=== PATIENT | male | born 1985 | race Caucasian/White ===

== ENCOUNTER → 2016-08-10 | Outpatient (CLI) | payer MEDICAID ==
[~2016-08-10] MED LIST: CLARTIN; HCTZ; SYNTHROID
--- OUTSIDE RECORDS SUMMARY | 2016-08-10 09:28 | XMS REPORT | Continuity of Care Document ---
Author Author [facility] Organization [facility] Address Unknown Phone Unavailable Care Team Providers Care Certified Cytotechnologist Name Role Phone ALEX SNYDER MD PCP Insurance Providers Payer Name Policy Number Subscriber Name Relationship [facility] [employer] [id number] Tomás Silva 18 Self / Same As Patient Advance Directives Directive Response Recorded Date/Time Advance Directives No 07/24/16 8:11am Resuscitation Status Full Code 07/24/16 8:11am Chief Complaint and Reason for Visit Chief Complaint Abdominal/GI Problems Reason for Visit Nausea and vomiting Problems Active Problems Medical Problem Onset Date Status Nausea and vomiting Unknown Acute Medications Current Home Medications Medication Dose Units Route Directions Days/Qty Instructions Start Date [Clartin] 07/24/16 [Hctz] 07/24/16 [Synthroid] 07/24/16 Social History Social History Problem Response Recorded Date/Time Alcohol Use Occasionally Uses 07/24/2016 8:11am Recreational Drug Use No 07/24/2016 8:11am Recent Foreign Travel No 07/24/2016 8:03am Recent Infectious Disease Exposure No 07/24/2016 8:03am Hospitalization with Isolation Denies 07/24/2016 8:03am Smoking Status Never a Smoker 07/24/2016 8:11am Recent Hopitalizations No 07/24/2016 8:11am Hospitalization with Isolation Denies 07/24/2016 8:03am Query Response Start Date Stop Date Smoking Status Never a Smoker Hospital Discharge Instructions No hospital discharge instructions. Plan of Care Discharge Date 07/24/16 10:08am Disposition 01 HOME, SELF-CARE Condition at Discharge Improved Instructions/Education Provided Nausea and Vomiting, Adult (DC) Prescriptions See Medication Section Referrals ALEX SNYDER MD - Primary Care Physician Additional Instructions/Education Zofran for nausea. Clear liquids today. Close follow-up with Dr. Snyder on Tuesday. Return if any problems. All discharge instructions reviewed with patient and/or family. Voiced understanding. Functional Status No functional status results. Allergies, Adverse Reactions, Alerts No known allergies. Immunizations No immunization records. Vital Signs Acute Vital Signs Vital Response Date/Time Temperature (Fahrenheit) 98.3 degrees F (97.6 - 99.5) 07/24/2016 8:03am Temperature (Calculated Celsius) 36.41844 degrees C (36.4 - 37.5) 07/24/2016 8:03am Temperature Source Temporal 07/24/2016 8:03am Pulse Rate (adult) 105 bpm (60 - 90) 07/24/2016 8:37am Respiratory Rate 18 bpm (12 - 24) 07/24/2016 8:37am O2 Sat by Pulse Oximetry 97 % (88 - 100) 07/24/2016 8:37am Blood Pressure 133/76 mm Hg 07/24/2016 9:27am Blood Pressure Mean 95 mm Hg 07/24/2016 9:27am Pain Numeric Pain Scale 0-No Pain 07/24/2016 8:37am Height (Feet) 5 feet 07/24/2016 8:03am Height (Inches) 7 inches 07/24/2016 8:03am Height (Calculated Centimeters) 170.378646 cm 07/24/2016 8:03am Weight (Pounds) 220 pounds 07/24/2016 8:03am Weight (Calculated Kilograms) 99.440028 kilograms 07/24/2016 8:03am Capillary Refill Capillary Refill Less Than 3 Seconds 07/24/2016 8:03am Height 5 ft 7 in Weight 220 lb Body Mass Index 34.5 kg/m^2 Results Laboratory Results Test Name Result Units Flags Reference Collection Date/Time Result Date/ Time Comments White Blood Count 11.4 10^3/uL H 4.3-11.0 07/24/2016 8:08am 07/24/2016 8: 53am Red Blood Count 5.01 10^6/uL 4.35-5.85 07/24/2016 8:0807/24/2016 8: 53am Hemoglobin 15.4 G/DL 13.3-17.7 07/24/2016 8:0807/24/2016 8:53am Hematocrit 41 % 40-54 07/24/2016 8:0807/24/2016 8:53am Mean Corpuscular Volume 82 FL 80-99 07/24/2016 8:0807/24/2016 8: 53am Mean Corpuscular Hemoglobin 31 PG 25-34 07/24/2016 8:0807/24/2016 8: 53am Mean Corpuscular Hemoglobin Concent 37 G/DL H 32-36 07/24/2016 8:08 8:53am Red Cell Distribution Width 12.1 % 10.0-14.5 07/24/2016 8:082015 8:53am Platelet Count 246 10^3/uL 130-400 07/24/2016 8:08am 07/24/2016 8:53am Mean Platelet Volume 9.2 FL 7.4-10.4 07/24/2016 8:08am 07/24/2016 8: 53am Neutrophils (%) (Auto) 84 % H 42-75 07/24/2016 8:0807/24/2016 8:53am Lymphocytes (%) (Auto) 10 % L 12-44 07/24/2016 8:08am 07/24/2016 8:53am Monocytes (%) (Auto) 5 % 0-12 07/24/2016 8:08am 07/24/2016 8:53am Eosinophils (%) (Auto) 0 % 0-10 07/24/2016 8:0807/24/2016 8:53am Basophils (%) (Auto) 0 % 0-10 07/24/2016 8:08am 07/24/2016 8:53am Neutrophils # (Auto) 9.6 X 10^3 H 1.8-7.8 07/24/2016 8:08am 07/24/2016 8: 53am Lymphocytes # (Auto) 1.2 X 10^3 1.0-4.0 07/24/2016 8:08am 07/24/2016 8: 53am Monocytes # (Auto) 0.5 X 10^3 0.0-1.0 07/24/2016 8:0807/24/2016 8: 53am Eosinophils # (Auto) 0.1 10^3/uL 0.0-0.3 07/24/2016 8:0807/24/2016 8 :53am Basophils # (Auto) 0.0 10^3/uL 0.0-0.1 07/24/2016 8:0807/24/2016 8: 53am Urine Color YELLOW 07/24/2016 9:07/24/2016 9:35am Urine Clarity CLEAR 07/24/2016 9:1207/24/2016 9:35am Urine pH 7 5-9 07/24/2016 9:1207/24/2016 9:35am Urine Specific [place] 1.010 * 1.016-1.022 07/24/2016 9:2015 9:35am Urine Protein NEGATIVE NEGATIVE 07/24/2016 9:07/24/2016 9:35am Urine Glucose (UA) NEGATIVE NEGATIVE 07/24/2016 9:07/24/2016 9: 35am Urine RBC (Auto) NEGATIVE NEGATIVE 07/24/2016 9:1207/24/2016 9: 35am Urine Ketones 2+ * NEGATIVE 07/24/2016 9:07/24/2016 9:35am Urine Nitrite NEGATIVE NEGATIVE 07/24/2016 9:07/24/2016 9:35am Urine Bilirubin NEGATIVE NEGATIVE 07/24/2016 9:1207/24/2016 9: 35am Urine Urobilinogen NORMAL MG/DL NORMAL 07/24/2016 9:1207/24/2016 9: 35am Urine Leukocyte Esterase NEGATIVE NEGATIVE 07/24/2016 9:122015 9:35am Urine RBC NONE /HPF 07/24/2016 9:1207/24/2016 9:35am Urine WBC RARE /HPF 07/24/2016 9:1207/24/2016 9:35am Urine Bacteria TRACE /HPF 07/24/2016 9:1207/24/2016 9:35am Urine Crystals NONE /LPF 07/24/2016 9:1207/24/2016 9:35am Urine Casts NONE /LPF 07/24/2016 9:1207/24/2016 9:35am Urine Mucus NEGATIVE /LPF 07/24/2016 9:12am 07/24/2016 9:35am Urine Culture Indicated NO 07/24/2016 9:12am 07/24/2016 9:35am Lipase 11 U/L 8-78 07/24/2016 8:08am 07/24/2016 9:05am Procedures No known history of procedures. Encounters Encounter Location Arrival/Admit Date Discharge/Depart Date Attending Provider Departed Emergency Room [facility] 07/24/16 8:03am 07/24 10:08am MADINA STEVENS MD Recent Diagnosis
== END ==
LOC: PREOP 09:25
PROVIDERS: ATTEND Surgery Pediatric Surgery
DX: Z01.818 Encounter for other preprocedural examination (principal); K92.0 Hematemesis

== ENCOUNTER 2017-01-25 22:13 | Emergency (ER) | payer MEDICAID ==
[~2017-01-25] VITALS: Ht 170.2 cm; Wt 104.3 kg
--- OUTSIDE RECORDS SUMMARY | 2017-01-25 22:21 | XMS REPORT | Referral Summary ---
Author Author [facility] Organization [facility] Address Unknown Phone Unavailable Care Team Providers Care Human Factors Ergonomist Name Role Phone No PCP, Pt States PCP Encounter VC Date(s): 08/05/15 - 08/05/15 [facility] [address] [place], [place] [address] Discharge Diagnosis: Chest pain Discharge Disposition: 01-Home or Self Care Attending Physician: Aries Ingram DO Admitting Physician: Aries Ingram DO Vital Signs Most recent to 1 oldest [Reference Range]: Temperature Oral 36.5 degC [35.8-37.3 degC] (08/05/15 8:30 PM) Peripheral Pulse 73 bpm Rate [60-100 bpm] (08/05/15 8:30 PM) Heart Rate Monitored 73 bpm [60-100 bpm] (08/05/15 8:29 PM) Respiratory Rate 18 br/min [14-20 br/min] (08/05/15 8:30 PM) Blood Pressure 134/87 mmHg [90-140/60-90 mmHg] (08/05/15 8:30 PM) Mean Arterial 99 mmHg Pressure, Cuff (08/05/15 8:29 PM) SpO2 98 % (08/05/15 8:30 PM) Problem List Condition Effective Dates Status Health Status Informant HTN Active (hypertension)(Confi rmed) Allergies, Adverse Reactions, Alerts No Known Medication Allergies Medications hydrochlorothiazide Oral, Daily, 0 Refill(s) Start Date: 08/05/15 Status: Ordered loratadine 0 Refill(s) Start Date: 08/05/15 Status: Ordered omeprazole Oral, Daily, 0 Refill(s) Start Date: 08/05/15 Status: Ordered OXcarbazepine Oral, 0 Refill(s) Start Date: 08/05/15 Status: Ordered Singulair qPM, 0 Refill(s) Start Date: 08/05/15 Status: Ordered Synthroid Oral, Daily, 0 Refill(s) Start Date: 08/05/15 Status: Ordered Viibryd Oral, Daily, 0 Refill(s) Start Date: 08/05/15 Status: Ordered Results Hematology Most recent to 1 oldest [Reference Range]: WBC [4.8-10.8 6.2 10*3/uL 10*3/uL] (08/05/15 7:19 PM) RBC [4.60-6.20] 4.91 (08/05/15 7:19 PM) Hgb [14.0-18.0 15.6 gm/dL gm/dL] (08/05/15 7:19 PM) Hct [42.0-52.0 %] 42.7 % (08/05/15 7:19 PM) MCV [82.0-99.0 fL] 87.0 fL (08/05/15 7:19 PM) MCH [27.0-32.0 pg] 31.8 pg (08/05/15 7:19 PM) MCHC [32.0-36.0 36.5 gm/dL gm/dL] *HI* (08/05/15 7:19 PM) RDW [11.5-14.5 %] 12.1 % (08/05/15 7:19 PM) Platelet [150-400 226 10*3/uL 10*3/uL] (08/05/15 7:19 PM) MPV [9.4-12.3 fL] 9.9 fL (08/05/15 7:19 PM) Immature 0.2 % Granulocytes (08/05/15 7:19 PM) [0.0-1.0 %] Neutrophils [51-75 55 % %] (08/05/15 7:19 PM) Lymphocytes [20-46 35 % %] (08/05/15 7:19 PM) Monocytes [4-11 %] 7 % (08/05/15 7:19 PM) Eosinophils [0-4 %] 3 % (08/05/15 7:19 PM) Basophils [0-2 %] 0 % (08/05/15 7:19 PM) Neutro Absolute 3.43 10*3 [1.90-7.00 10*3] (08/05/15 7:19 PM) Lymph Absolute 2.18 10*3 [0.80-3.30 10*3] (08/05/15 7:19 PM) [place] Absolute 0.44 10*3 [0.30-1.00 10*3] (08/05/15 7:19 PM) Eos Absolute 0.17 10*3 [0.00-0.50 10*3] (08/05/15 7:19 PM) Baso Absolute 0.01 10*3 [0.00-0.20 10*3] (08/05/15 7:19 PM) Nucleated RBC 0.0 /100 WBC Automated [0 /100 (08/05/15: PM) WBC] Chemistry Most recent to 1 oldest [Reference Range]: Sodium Lvl [136-144 137 mEq/L mEq/L] (08/05/15:19 PM) Potassium Lvl 3.9 mEq/L 1 [3.6-5.1 mEq/L] (08/05/15:19 PM) Chloride [99-109 101 mEq/L mEq/L] (08/05/15 7:19 PM) CO2 [22-32 mEq/L] 27 mEq/L (08/05/15:19 PM) AGAP [3-20] 9 (08/05/15 7:19 PM) BUN [4-20 mg/dL] 10 mg/dL (08/05/15 7:19 PM) Glucose Lvl [70-100 107 mg/dL mg/dL] *HI* (08/05/15:19 PM) Creatinine Lvl 1.03 mg/dL [0.64-1.27 mg/dL] (08/05/15:19 PM) eGFR [>60] >60 2 (08/05/15:19 PM) Calcium Lvl 9.0 mg/dL [8.6-10.0 mg/dL] (08/05/15:19 PM) Albumin Lvl [3.5-4.8 4.3 gm/dL gm/dL] (08/05/15 7:19 PM) Total Protein 6.7 gm/dL [6.1-7.9 gm/dL] (08/05/15 7:19 PM) Globulin [1.9-4.3 2.4 gm/dL gm/dL] (08/05/15 7:19 PM) ALT [17-63 U/L] 24 U/L (08/05/15 7:19 PM) AST [15-41 U/L] 25 U/L (08/05/15 7:19 PM) Alk Phos [26-104 73 U/L U/L] (08/05/15 7:19 PM) Bili Total [0.2-1.2 1.1 mg/dL 3 mg/dL] (08/05/15 7:19 PM) Troponin [<0.06 <0.05 ng/mL ng/mL] (08/05/15 7:19 PM) 1Result Comment: Hemolyzed specimen. The following tests may be affected: ALT, AST, Ammonia, Iron, Potassium, LDH, Amylase, CPK, and Total Bilirubin. 2Result Comment: Multiply eGFR results by 1.21 for race. 3Result Comment: Naproxen, specifically the metabolite O-desmethylnaproxen, may cause spurious elevation in Total Bilirubin levels. Immunizations No data available for this section Procedures No data available for this section Social History Social History Type Response Smoking Status Current every day smoker; Type: Cigars Assessment and Plan No data available for this section
--- OUTSIDE RECORDS SUMMARY | 2017-01-25 22:21 | XMS REPORT ---
Author Author CAMERON BAUMANN [facility] [employer] Address Unknown Phone Unavailable Care Team Providers Care Dietetics Professor Name Role Phone CAMERON BAUMANN Unavailable Allergies No Known Allergies Problems Problem Type Condition Code Onset Dates Condition Status Problem Mild intellectual disability F70 Active Problem Mood disorder F39 Active Problem Intermittent explosive disorder in adult F63.81 Active Assessment Mood disorder F39 Active Medications No Known Medications Procedures Procedure Coding System Code Date Psychotherapy, patient &/family, 30 minutes, established patient CPT-4 35161 Jun 01, 2016 Results No Known Results Summary Purpose eClinicalWorks Submission
--- OUTSIDE RECORDS SUMMARY | 2017-01-25 22:21 | XMS REPORT ---
Author Author CAMERON BAUMANN [facility] e[employer] Address Unknown Phone Unavailable Care Team Providers Care Client Resource Specialist Name Role Phone CAMERON BAUMANN Unavailable Allergies No Known Allergies Problems Problem Type Condition Code Onset Dates Condition Status Problem Mild intellectual disability F70 Active Problem Mood disorder F39 Active Problem Intermittent explosive disorder in adult F63.81 Active Assessment Mood disorder F39 Active Medications No Known Medications Procedures Procedure Coding System Code Date Psychotherapy, patient &/family, 30 minutes, established patient CPT-4 18150 May 18, 2016 Results No Known Results Summary Purpose eClinicalWorks Submission
--- OUTSIDE RECORDS SUMMARY | 2017-01-25 22:22 | XMS REPORT ---
Author Author ASYA GALLOWAY [employer] Address Unknown Phone Unavailable Care Team Providers Care Land Reclamation Specialist Name Role Phone ASYA GALLOWAY CP Unavailable Allergies, Adverse Reactions, Alerts Substance Reaction Event Type N.K.D.A. Info Not Available Non Drug Allergy Problems Problem Type Condition Code Onset Dates Condition Status Problem Mild intellectual disability F70 Active Problem Mood disorder F39 Active Problem Intermittent explosive disorder in adult F63.81 Active Assessment Mood disorder F39 Active Assessment Intermittent explosive disorder in adult F63.81 Active Assessment Mild intellectual disability F70 Active Medications Medication Code System Code Instructions Start Date End Date Status Dosage Synthroid [facility] [address]-32 50 mcg October 03, 2014 1 Tablet by Oral route 1 time per day for hypothyroidism Singulair [facility] [address]-42 10 mg October 03, 2014 1 Tablet by Oral route 1 time per day for allergy Protonix [facility] [address]-08 40 MG Orally Once a day 1 tablet Hydrochlorothiazide [facility] [address]-40 12.5 MG Orally Once a day 1 tablet Trileptal [facility] [address]-50 300 MG Orally for anger December 31, 2014 1 tab in AM and 2 tabs at HS Ventolin HFA [facility] [address]-51 90 mcg/actuation October 03, 2014 2 puffs by Inhalation route every 6 hours PRN shortness of air/chest tightness Flonase NDC 0 50 mcg/actuation October 03, 2014 1 Nasal [place] by Nasal route 1 time per day qHS for allergies HydrOXYzine Pamoate [facility] [address]-46 50 mg Orally 2 times a day for anxiety May 18, 2016 1 capsule Viibryd [facility] [address]-62 20 mg Once a day October 03, 2014 1 tab by Oral route 1 time per day Procedures Procedure Coding System Code Date Office Visit, Est Pt., Level 5 CPT-4 73644 May 18, 2016 Vital Signs Date/Time: May 18, 2016 Cardiac Monitoring Heart Rate 72 bpm Weight 224 lbs Height 67.75 in BMI 34.31 Index Blood Pressure Diastolic 80 mmHg Blood Pressure Systolic 130 mmHg Results No Known Results Summary Purpose eClinicalWorks Submission
--- OUTSIDE RECORDS SUMMARY | 2017-01-25 22:23 | XMS REPORT | Continuity of Care Document ---
Author Author [facility] Address Unknown Phone Unavailable Allergies Active Description Code Type Severity Reaction Onset Reported/Identified Relationship to Patient Clinical Status Yes No Known Medication Allergies NKMA N/A N/A 08/05/2015 Medications Medication Packaging Start Date Stop Date Route Dosage Sig Viibryd 20 MG Oral Tablet UD 09/23/2015 10/24/2015 ORAL 20MG TAKE 1 TABLET AT BEDTIME. Viibryd 10 MG Oral Tablet UD 09/23/2015 10/24/2015 ORAL 10MG 1 tab. po hs. Trileptal 300 MG Oral Tablet UD 09/23/2015 10/24/2015 ORAL 300MG TAKE 1 TABLET TWICE DAILY. OXcarbazepine 300 MG Oral Tablet UD 11/11/2015 01/11/2016 ORAL 300MG TAKE 1 TABLET TWICE DAILY. OXcarbazepine 300 MG Oral Tablet UD 11/24/2015 04/23/2016 ORAL 300MG 1 tab po [id number](am T hs) Viibryd 20 MG Oral Tablet UD 11/24/2015 04/23/2016 ORAL 20MG 1 tab po QAM Problems Date Dx Coded Attending Type Code Diagnosis Diagnosed By 09/26/2009 311 MO DEPRESS NOS 09/26/2009 317 MILD MENTAL RETARDATION 09/26/2009 311 MO DEPRESS NOS 09/26/2009 317 MILD MENTAL RETARDATION 09/26/2009 311 MO DEPRESS NOS 09/26/2009 317 MILD MENTAL RETARDATION 09/26/2009 311 MO DEPRESS NOS 09/26/2009 317 MILD MENTAL RETARDATION 09/26/2009 311 MO DEPRESS NOS 09/26/2009 317 MILD MENTAL RETARDATION 09/26/2009 311 MO DEPRESS NOS 09/26/2009 317 MILD MENTAL RETARDATION 09/26/2009 311 MO DEPRESS NOS 09/26/2009 317 MILD MENTAL RETARDATION 09/26/2009 PASTOR RODRIGUEZ, CAMERON Rod 311 MO DEPRESS NOS 09/26/2009 CAMERON BAUMANN PHD 317 MILD MENTAL RETARDATION 09/26/2009 311 MO DEPRESS NOS 09/26/2009 317 MILD MENTAL RETARDATION 09/26/2009 311 MO DEPRESS NOS 09/26/2009 317 MILD MENTAL RETARDATION 09/26/2009 311 MO DEPRESS NOS 09/26/2009 317 MILD MENTAL RETARDATION 09/26/2009 311 MO DEPRESS NOS 09/26/2009 317 MILD MENTAL RETARDATION 09/26/2009 311 MO DEPRESS NOS 09/26/2009 317 MILD MENTAL RETARDATION 09/26/2009 311 MO DEPRESS NOS 09/26/2009 317 MILD MENTAL RETARDATION 09/26/2009 311 MO DEPRESS NOS 09/26/2009 317 MILD MENTAL RETARDATION 09/26/2009 311 MO DEPRESS NOS 09/26/2009 317 MILD MENTAL RETARDATION 09/26/2009 PASTOR PHD, CAMERON A 311 MO DEPRESS NOS 09/26/2009 PASTOR PHD, CAMERON A 317 MILD MENTAL RETARDATION 09/26/2009 PASTOR PHD, CAMERON A 311 MO DEPRESS NOS 09/26/2009 PASTOR PHD, CAMERON A 317 MILD MENTAL RETARDATION 09/26/2009 PASTOR PHD, CAMERON A 311 MO DEPRESS NOS 09/26/2009 PASTOR PHD, CAMERON A 317 MILD MENTAL RETARDATION 09/26/2009 PASTOR PHD, CAMERON A 311 MO DEPRESS NOS 09/26/2009 PASTOR PHD, CAMERON A 317 MILD MENTAL RETARDATION 09/26/2009 PASTOR PHD, CAMERON A 311 MO DEPRESS NOS 09/26/2009 PASTOR PHD, CAMERON A 317 MILD MENTAL RETARDATION 09/26/2009 PASTOR PHD, CAMERON A 311 MO DEPRESS NOS 09/26/2009 PASTOR PHD, CAMERON A 317 MILD MENTAL RETARDATION 09/26/2009 PASTOR PHD, CAMERON A 311 MO DEPRESS NOS 09/26/2009 PASTOR PHD, CAMERON A 317 MILD MENTAL RETARDATION 09/26/2009 PASTOR PHD, CAMERON A 311 MO DEPRESS NOS 09/26/2009 PASTOR PHD, CAMERON A 317 MILD MENTAL RETARDATION 09/26/2009 PASTOR PHD, CAMERON A 311 MO DEPRESS NOS 09/26/2009 PASTOR PHD, CAMERON A 317 MILD MENTAL RETARDATION 09/26/2009 PASTOR PHD, CAMERON A 311 MO DEPRESS NOS 09/26/2009 PASTOR PHD, CAMERON A 317 MILD MENTAL RETARDATION 09/26/2009 PASTOR PHD, CAMERON A 311 MO DEPRESS NOS 09/26/2009 PASTOR PHD, CAMERON A 317 MILD MENTAL RETARDATION 09/26/2009 PASTOR PHD, CAMERON A 311 MO DEPRESS NOS 09/26/2009 BOEJEISON PHD, CAMERON A 317 MILD MENTAL RETARDATION 09/26/2009 BOEJEISON PHD, CAMERON A 311 MO DEPRESS NOS 09/26/2009 BOEPAULINEOUT PHD, CAMERON A 317 MILD MENTAL RETARDATION 09/26/2009 BOEJEISON PHD, CAMERON A 311 MO DEPRESS NOS 09/26/2009 BOEJEISON PHD, CAMERON A 317 MILD MENTAL RETARDATION 09/26/2009 BOEPAULINEOUT PHD, CAMERON A 311 MO DEPRESS NOS 09/26/2009 BOEPAULINEOUT PHD, CAMERON A 317 MILD MENTAL RETARDATION 09/26/2009 BOEPAULINEOUT PHD, CAMERON A 311 MO DEPRESS NOS 09/26/2009 BOEJEISON PHD, CAMERON A 317 MILD MENTAL RETARDATION 09/26/2009 BOEJEISON PHD, CAMERON A 311 MO DEPRESS NOS 09/26/2009 BOEJEISON PHD, CAMERON A 317 MILD MENTAL RETARDATION 09/26/2009 BOEJEISON PHD, CAMERON A 311 MO DEPRESS NOS 09/26/2009 BOEJEISON PHD, CAMERON A 317 MILD MENTAL RETARDATION 09/26/2009 BOEJEISON PHD, CAMERON A 311 MO DEPRESS NOS 09/26/2009 BOEJEISON PHD, CAMERON A 317 MILD MENTAL RETARDATION 09/26/2009 BOEJEISON PHD, CAMERON A 311 MO DEPRESS NOS 09/26/2009 BOEJEISON PHD, CAMERON A 317 MILD MENTAL RETARDATION 09/26/2009 BOEJEISON PHD, CAMERON A 311 MO DEPRESS NOS 09/26/2009 BOEJEISON PHD, CAMERON A 317 MILD MENTAL RETARDATION 09/26/2009 BOEJEISON PHD, CAMERON A 311 MO DEPRESS NOS 09/26/2009 BOEJEISON PHD, CAMERON A 317 MILD MENTAL RETARDATION 09/26/2009 BOEJEISON PHD, CAMERON A 311 MO DEPRESS NOS 09/26/2009 BOEJEISON PHD, CAMERON A 317 MILD MENTAL RETARDATION 09/26/2009 ASYA GALLOWAY APRN J 311 MO DEPRESS NOS 09/26/2009 ASYA GALLOWAY APRN J 317 MILD MENTAL RETARDATION 09/26/2009 PASTOR PHD, CAMERON A 311 MO DEPRESS NOS 09/26/2009 PASTOR PHD, CAMERON A 317 MILD MENTAL RETARDATION 10/03/2014 PASTOR PHD, CAMERON A 300.02 AN GEN ANXIETY 10/03/2014 PASTOR RODRIGUEZ, CAMERON Rod 312.34 INTERMITTENT EXPLOSIVE DISORDER 10/03/2014 LAVERNE MURGUIA, ASYA Cho 300.02 AN GEN ANXIETY 10/03/2014 ASYA GALLOWAY APRN 312.34 INTERMITTENT EXPLOSIVE DISORDER 10/03/2014 PASTOR RODRIGUEZ, CAMERON Rod 300.02 AN GEN ANXIETY 10/03/2014 PASTOR RODRIGUEZ, CAMERON Rod 312.34 INTERMITTENT EXPLOSIVE DISORDER 07/22/2015 F F25.0 Schizoaffective disorder, bipolar type Pastor, Bisi 07/22/2015 F F70 Mild intellectual disabilities 07/22/2015 F F90.1 Attention-deficit hyperactivity disorder, predominantly hyperactive type 07/22/2015 F F25.0 Schizoaffective disorder, bipolar type 07/22/2015 F F43.10 Post-traumatic stress disorder, unspecified Pastor, Bisi 07/22/2015 F F70 Mild intellectual disabilities Pastor, Bisi 07/22/2015 F F90.1 Attention-deficit hyperactivity disorder, predominantly hyperactive type Pastor, Bisi 07/29/2015 F F70 Mild intellectual disabilities 07/29/2015 F F90.1 Attention-deficit hyperactivity disorder, predominantly hyperactive type 08/05/2015 F F70 Mild intellectual disabilities 08/05/2015 F F90.1 Attention-deficit hyperactivity disorder, predominantly hyperactive type 08/06/2015 F F25.0 Schizoaffective disorder, bipolar type Markie, Irineo 08/06/2015 F F70 Mild intellectual disabilities Markie, [place] 08/06/2015 F F90.1 Attention-deficit hyperactivity disorder, predominantly hyperactive type [place], Irineo 08/07/2015 F F70 Mild intellectual disabilities 08/07/2015 F F90.1 Attention-deficit hyperactivity disorder, predominantly hyperactive type 08/07/2015 F F25.0 Schizoaffective disorder, bipolar type Markie, Irineo 08/07/2015 F F70 Mild intellectual disabilities [place], Irineo 08/07/2015 F F90.1 Attention-deficit hyperactivity disorder, predominantly hyperactive type Markie, [place] 08/08/2015 F F25.0 Schizoaffective disorder, bipolar type 08/08/2015 F F43.10 Post-traumatic stress disorder, unspecified Pastor, Bisi 08/08/2015 F F70 Mild intellectual disabilities Pastor, Bisi 08/08/2015 F F90.1 Attention-deficit hyperactivity disorder, predominantly hyperactive type Pastor, Bisi 08/11/2015 F F25.0 Schizoaffective disorder, bipolar type 08/15/2015 Final I10 Essential (primary) hypertension 08/15/2015 Reason R07.9 Chest pain, unspecified 08/15/2015 Final Z72.0 Tobacco use 08/19/2015 F F70 Mild intellectual disabilities 08/19/2015 F F90.1 Attention-deficit hyperactivity disorder, predominantly hyperactive type 08/20/2015 F F25.0 Schizoaffective disorder, bipolar type Markie, Irineo 08/20/2015 F F70 Mild intellectual disabilities Markie, [place] 08/20/2015 F F90.1 Attention-deficit hyperactivity disorder, predominantly hyperactive type [place], [place] 08/21/2015 F F25.0 Schizoaffective disorder, bipolar type 08/25/2015 F F25.0 Schizoaffective disorder, bipolar type 08/26/2015 F F70 Mild intellectual disabilities 08/26/2015 F F90.1 Attention-deficit hyperactivity disorder, predominantly hyperactive type 08/28/2015 F F70 Mild intellectual disabilities 08/28/2015 F F90.1 Attention-deficit hyperactivity disorder, predominantly hyperactive type 08/29/2015 F F25.0 Schizoaffective disorder, bipolar type Markie, Irineo 08/29/2015 F F70 Mild intellectual disabilities 08/29/2015 F F90.1 Attention-deficit hyperactivity disorder, predominantly hyperactive type 08/29/2015 F F70 Mild intellectual disabilities Markie, Irineo 08/29/2015 F F90.1 Attention-deficit hyperactivity disorder, predominantly hyperactive type Markie, Irineo 09/01/2015 F F25.0 Schizoaffective disorder, bipolar type 09/01/2015 F F25.0 Schizoaffective disorder, bipolar type [place], Irineo 09/01/2015 F F70 Mild intellectual disabilities Markie, [place] 09/01/2015 F F90.1 Attention-deficit hyperactivity disorder, predominantly hyperactive type [place], Irineo 09/01/2015 F F25.0 Schizoaffective disorder, bipolar type 09/11/2015 F F70 Mild intellectual disabilities 09/11/2015 F F90.1 Attention-deficit hyperactivity disorder, predominantly hyperactive type 09/12/2015 F F25.0 Schizoaffective disorder, bipolar type Barshney, Bisi A 09/12/2015 F F70 Mild intellectual disabilities Barshney, Bisi A 09/12/2015 F F90.1 Attention-deficit hyperactivity disorder, predominantly hyperactive type Barshney, Bisi A 09/18/2015 F F25.0 Schizoaffective disorder, bipolar type Cobb, Ann-Marie L 09/18/2015 F F70 Mild intellectual disabilities Cobb, Ann-Marie L 09/18/2015 F F90.1 Attention-deficit hyperactivity disorder, predominantly hyperactive type Cobb, Ann-Marie L 09/18/2015 F F70 Mild intellectual disabilities 09/18/2015 F F90.1 Attention-deficit hyperactivity disorder, predominantly hyperactive type 09/18/2015 F F25.0 Schizoaffective disorder, bipolar type 09/18/2015 F F70 Mild intellectual disabilities 09/18/2015 F F90.1 Attention-deficit hyperactivity disorder, predominantly hyperactive type 09/19/2015 F F25.0 Schizoaffective disorder, bipolar type Barshney, Bisi A 09/19/2015 F F70 Mild intellectual disabilities Barshney, Bisi A 09/19/2015 F F90.1 Attention-deficit hyperactivity disorder, predominantly hyperactive type Barshney, Bisi A 09/19/2015 F F25.0 Schizoaffective disorder, bipolar type 09/19/2015 F F25.0 Schizoaffective disorder, bipolar type 09/19/2015 F F43.10 Post-traumatic stress disorder, unspecified Pastor, Bisi 09/19/2015 F F70 Mild intellectual disabilities Pastor, Bisi 09/19/2015 F F90.1 Attention-deficit hyperactivity disorder, predominantly hyperactive type Pastor, Bisi 09/22/2015 F F70 Mild intellectual disabilities 09/22/2015 F F90.1 Attention-deficit hyperactivity disorder, predominantly hyperactive type 09/23/2015 F F25.0 Schizoaffective disorder, bipolar type LorenaEduardo S 09/23/2015 F F25.0 Schizoaffective disorder, bipolar type Karsten Yoder L 09/23/2015 F F70 Mild intellectual disabilities 09/23/2015 F F90.1 Attention-deficit hyperactivity disorder, predominantly hyperactive type 09/23/2015 F F70 Mild intellectual disabilities Karsten Yoder L 09/23/2015 F F90.1 Attention-deficit hyperactivity disorder, predominantly hyperactive type Karsten Yoder L 09/23/2015 F F43.10 Post-traumatic stress disorder, unspecified Lorena, Eduardo S 09/23/2015 F F70 Mild intellectual disabilities Eduardo Carrillo S 09/23/2015 F F90.1 Attention-deficit hyperactivity disorder, predominantly hyperactive type Jasononilla, Eduardo S 09/23/2015 F F25.0 Schizoaffective disorder, bipolar type Barshney, Bisi A 09/23/2015 F F70 Mild intellectual disabilities Barshney, Bisi A 09/23/2015 F F90.1 Attention-deficit hyperactivity disorder, predominantly hyperactive type Barshney, Bisi A 09/23/2015 F F25.0 Schizoaffective disorder, bipolar type 09/23/2015 F F43.10 Post-traumatic stress disorder, unspecified Toreylla, Eduardo S 09/23/2015 F F70 Mild intellectual disabilities Lorena, Eduardo S 09/23/2015 F F90.1 Attention-deficit hyperactivity disorder, predominantly hyperactive type Jasononilla, Eduardo S 09/26/2015 F F25.0 Schizoaffective disorder, bipolar type 09/30/2015 F F70 Mild intellectual disabilities 09/30/2015 F F90.1 Attention-deficit hyperactivity disorder, predominantly hyperactive type 10/01/2015 F F25.0 Schizoaffective disorder, bipolar type Barshney, Bisi A 10/01/2015 F F70 Mild intellectual disabilities Barshney, Bisi A 10/01/2015 F F90.1 Attention-deficit hyperactivity disorder, predominantly hyperactive type Barshney, Bisi A 10/01/2015 F F25.0 Schizoaffective disorder, bipolar type 10/17/2015 F F70 Mild intellectual disabilities 10/17/2015 F F90.1 Attention-deficit hyperactivity disorder, predominantly hyperactive type 10/17/2015 F F25.0 Schizoaffective disorder, bipolar type Barshney, Bisi A 10/17/2015 F F70 Mild intellectual disabilities Barshney, Bisi A 10/17/2015 F F90.1 Attention-deficit hyperactivity disorder, predominantly hyperactive type Barshney, Bisi A 10/17/2015 F F25.0 Schizoaffective disorder, bipolar type 10/20/2015 F F70 Mild intellectual disabilities 10/20/2015 F F90.1 Attention-deficit hyperactivity disorder, predominantly hyperactive type 10/20/2015 F F25.0 Schizoaffective disorder, bipolar type Barshney, Bisi A 10/20/2015 F F70 Mild intellectual disabilities Barshney, Bisi A 10/20/2015 F F90.1 Attention-deficit hyperactivity disorder, predominantly hyperactive type Barshney, Bisi A 10/20/2015 F F25.0 Schizoaffective disorder, bipolar type 10/29/2015 F F70 Mild intellectual disabilities 10/29/2015 F F90.1 Attention-deficit hyperactivity disorder, predominantly hyperactive type 10/29/2015 F F25.0 Schizoaffective disorder, bipolar type Ailyn, Talli 10/29/2015 F F70 Mild intellectual disabilities Ailyn, Talli 10/29/2015 F F90.1 Attention-deficit hyperactivity disorder, predominantly hyperactive type Ailyn, Talli 10/30/2015 F F70 Mild intellectual disabilities Mil, Smiley Amina 10/30/2015 F F90.1 Attention-deficit hyperactivity disorder, predominantly hyperactive type Chambers, Smiley Amina 10/30/2015 F F25.0 Schizoaffective disorder, bipolar type 10/30/2015 F F43.10 Post-traumatic stress disorder, unspecified Jasononilla, Eduardo S 10/30/2015 F F70 Mild intellectual disabilities Lorena, Eduardo S 10/30/2015 F F90.1 Attention-deficit hyperactivity disorder, predominantly hyperactive type Jasononilla, Eduardo S 10/31/2015 F F70 Mild intellectual disabilities Mil, Smiley Amian 10/31/2015 F F90.1 Attention-deficit hyperactivity disorder, predominantly hyperactive type Chambers, Smiley Amina 11/03/2015 F F70 Mild intellectual disabilities 11/03/2015 F F90.1 Attention-deficit hyperactivity disorder, predominantly hyperactive type 11/03/2015 F F25.0 Schizoaffective disorder, bipolar type Barshney, Bisi A 11/03/2015 F F70 Mild intellectual disabilities Barshney, Bisi A 11/03/2015 F F90.1 Attention-deficit hyperactivity disorder, predominantly hyperactive type Barshney, Bisi A 11/03/2015 F F25.0 Schizoaffective disorder, bipolar type Smiley Jaeger 11/03/2015 F F25.0 Schizoaffective disorder, bipolar type Smiley Jaeger Amina 11/05/2015 F F70 Mild intellectual disabilities 11/05/2015 F F90.1 Attention-deficit hyperactivity disorder, predominantly hyperactive type 11/06/2015 F F25.0 Schizoaffective disorder, bipolar type Barshney, Bisi A 11/06/2015 F F70 Mild intellectual disabilities Barshney, Bisi A 11/06/2015 F F90.1 Attention-deficit hyperactivity disorder, predominantly hyperactive type Barshney, Bisi A 11/06/2015 F F25.0 Schizoaffective disorder, bipolar type 11/10/2015 F F25.0 Schizoaffective disorder, bipolar type 11/11/2015 F F70 Mild intellectual disabilities 11/11/2015 F F90.1 Attention-deficit hyperactivity disorder, predominantly hyperactive type 11/11/2015 F F70 Mild intellectual disabilities 11/11/2015 F F90.1 Attention-deficit hyperactivity disorder, predominantly hyperactive type 11/11/2015 F F70 Mild intellectual disabilities 11/11/2015 F F90.1 Attention-deficit hyperactivity disorder, predominantly hyperactive type 11/11/2015 F F25.0 Schizoaffective disorder, bipolar type 11/12/2015 F F70 Mild intellectual disabilities 11/12/2015 F F90.1 Attention-deficit hyperactivity disorder, predominantly hyperactive type 11/14/2015 F F25.0 Schizoaffective disorder, bipolar type Barshney, Bisi A 11/14/2015 F F70 Mild intellectual disabilities Barshney, Bisi A 11/14/2015 F F90.1 Attention-deficit hyperactivity disorder, predominantly hyperactive type Barshney, Bisi A 11/14/2015 F F25.0 Schizoaffective disorder, bipolar type Barshney, Bisi A 11/14/2015 F F70 Mild intellectual disabilities Barshney, Bisi A 11/14/2015 F F90.1 Attention-deficit hyperactivity disorder, predominantly hyperactive type Barshney, Bisi A 11/14/2015 F F25.0 Schizoaffective disorder, bipolar type 11/17/2015 F F25.0 Schizoaffective disorder, bipolar type 11/18/2015 F F70 Mild intellectual disabilities 11/18/2015 F F90.1 Attention-deficit hyperactivity disorder, predominantly hyperactive type 11/19/2015 F F25.0 Schizoaffective disorder, bipolar type Fritzhnloren, Bisi A 11/19/2015 F F70 Mild intellectual disabilities Pan, Bisi A 11/19/2015 F F90.1 Attention-deficit hyperactivity disorder, predominantly hyperactive type Frizthney, Bisi A 11/21/2015 F F25.0 Schizoaffective disorder, bipolar type 11/21/2015 Boo POLLOCK, Adonis Helton R11.2 Nausea with vomiting, unspecified 11/21/2015 F F70 Mild intellectual disabilities 11/21/2015 F F90.1 Attention-deficit hyperactivity disorder, predominantly hyperactive type 11/21/2015 F F70 Mild intellectual disabilities 11/21/2015 F F90.1 Attention-deficit hyperactivity disorder, predominantly hyperactive type 11/21/2015 F F25.0 Schizoaffective disorder, bipolar type Emani Santiago 11/21/2015 F F70 Mild intellectual disabilities Emani Santiago 11/21/2015 F F90.1 Attention-deficit hyperactivity disorder, predominantly hyperactive type Emani Santiago 11/24/2015 F E07.9 Disorder of thyroid, unspecified Ally Thakkare 11/24/2015 F F25.0 Schizoaffective disorder, bipolar type Pan, Bisi A 11/24/2015 F F70 Mild intellectual disabilities Pan, Bisi A 11/24/2015 F F90.1 Attention-deficit hyperactivity disorder, predominantly hyperactive type Fritzhnloren, Bisi A 11/24/2015 F F25.0 Schizoaffective disorder, bipolar type Concepcion Trujillo L 11/24/2015 F F70 Mild intellectual disabilities Concepcion Trujillo L 11/24/2015 F F90.1 Attention-deficit hyperactivity disorder, predominantly hyperactive type Concepcion Trujillo L 11/24/2015 F E78.0 Pure hypercholesterolemia Ally Thakkar Mitali 11/24/2015 F F25.0 Schizoaffective disorder, bipolar type Ally Thakkar Mitali 11/24/2015 F F43.10 Post-traumatic stress disorder, unspecified Bijan Ally Mitali 11/24/2015 F F70 Mild intellectual disabilities Ally Thakkar 11/24/2015 F F90.1 Attention-deficit hyperactivity disorder, predominantly hyperactive type Ally Thakkar 11/24/2015 F I10 Essential (primary) hypertension Ally Thakkar 11/24/2015 F J45.40 Moderate persistent asthma, uncomplicated Ally Thakkar 11/24/2015 F K21.9 Gastro-esophageal reflux disease without esophagitis Ally Thakkar 11/24/2015 F F70 Mild intellectual disabilities 11/24/2015 F F90.1 Attention-deficit hyperactivity disorder, predominantly hyperactive type 11/24/2015 F I10 Essential (primary) hypertension 11/24/2015 F F70 Mild intellectual disabilities Ally Thakkar 11/24/2015 F F90.1 Attention-deficit hyperactivity disorder, predominantly hyperactive type Ally Thakkar 11/24/2015 F I10 Essential (primary) hypertension Ally Thakkar 11/24/2015 F F70 Mild intellectual disabilities 11/24/2015 F F90.1 Attention-deficit hyperactivity disorder, predominantly hyperactive type 11/24/2015 F I10 Essential (primary) hypertension 11/24/2015 F F25.0 Schizoaffective disorder, bipolar type Ally Thakkar 11/24/2015 F E78.0 Pure hypercholesterolemia Ally Thakkar 11/24/2015 F F25.0 Schizoaffective disorder, bipolar type Ally Thakkar 11/24/2015 F F43.10 Post-traumatic stress disorder, unspecified Ally Thakkar 11/24/2015 F F70 Mild intellectual disabilities Ally Thakkar 11/24/2015 F F90.1 Attention-deficit hyperactivity disorder, predominantly hyperactive type Ally Thakkar 11/24/2015 F I10 Essential (primary) hypertension Ally Thakkar 11/24/2015 F J45.40 Moderate persistent asthma, uncomplicated Ally Thakkar 11/24/2015 F K21.9 Gastro-esophageal reflux disease without esophagitis Ally Thakkar 11/24/2015 F F25.0 Schizoaffective disorder, bipolar type iBsi Perla A 11/24/2015 F F70 Mild intellectual disabilities Yvette Perlara A 11/24/2015 F F90.1 Attention-deficit hyperactivity disorder, predominantly hyperactive type FritzhnYvette pimentelra A 11/24/2015 F I10 Essential (primary) hypertension Yvette Perlara A 11/24/2015 F F25.0 Schizoaffective disorder, bipolar type Fritzhnloren, Bisi A 11/24/2015 F F70 Mild intellectual disabilities Yvette Perlara A 11/24/2015 F F90.1 Attention-deficit hyperactivity disorder, predominantly hyperactive type Pan, Bisi A 11/24/2015 F I10 Essential (primary) hypertension Bisi Perla A 11/24/2015 F F25.0 Schizoaffective disorder, bipolar type 11/24/2015 F F25.0 Schizoaffective disorder, bipolar type 11/28/2015 F F25.0 Schizoaffective disorder, bipolar type 11/28/2015 F F25.0 Schizoaffective disorder, bipolar type 12/13/2015 F F70 Mild intellectual disabilities Davonerum, Malcom Garcia 12/13/2015 F F90.1 Attention-deficit hyperactivity disorder, predominantly hyperactive type Bjerum, Malcom Garcia 12/13/2015 F I10 Essential (primary) hypertension Bjerum, Malcom Garcia 12/13/2015 F F25.0 Schizoaffective disorder, bipolar type Bjerum, Malcom Garcia 12/13/2015 F F70 Mild intellectual disabilities erum, Malcom Garcia 12/13/2015 F F90.1 Attention-deficit hyperactivity disorder, predominantly hyperactive type Bjerum, Malcom Garcia 12/13/2015 F I10 Essential (primary) hypertension Bjerum, Malcom Garcia 12/13/2015 F F25.0 Schizoaffective disorder, bipolar type Bjerum, Nestor 12/15/2015 F F70 Mild intellectual disabilities 12/15/2015 F F90.1 Attention-deficit hyperactivity disorder, predominantly hyperactive type 12/15/2015 F I10 Essential (primary) hypertension 12/17/2015 F F25.0 Schizoaffective disorder, bipolar type Bisi Perla A 12/17/2015 F F70 Mild intellectual disabilities Yvette Perlara A 12/17/2015 F F90.1 Attention-deficit hyperactivity disorder, predominantly hyperactive type Yvette Perlara A 12/17/2015 F I10 Essential (primary) hypertension Yvette Perlara A 12/18/2015 F F25.0 Schizoaffective disorder, bipolar type 12/25/2015 F F70 Mild intellectual disabilities 12/25/2015 F F90.1 Attention-deficit hyperactivity disorder, predominantly hyperactive type 12/25/2015 F I10 Essential (primary) hypertension 12/25/2015 F F25.0 Schizoaffective disorder, bipolar type Bisi Perla A 12/25/2015 F F70 Mild intellectual disabilities Bisi Perla A 12/25/2015 F F90.1 Attention-deficit hyperactivity disorder, predominantly hyperactive type Bisi Perla A 12/25/2015 F I10 Essential (primary) hypertension Bisi Perla A 12/25/2015 F F25.0 Schizoaffective disorder, bipolar type Procedures Code Description [place] [address] INDIV PSYTX 45/50 MIN 05/30/2012 23272 INDIV PSYTX 45/50 MIN 06/16/2012 43004 INDIV PSYTX 45/50 MIN 07/04/2012 25637 INDIV PSYTX 45/50 MIN 07/19/2012 67335 PSYTX PT&/FAMILY 45 MINUTES 08/17/2012 11328 PSYTX PT&/FAMILY 45 MINUTES 08/31/2012 14920 PSYTX PT&/FAMILY 45 MINUTES 09/14/2012 75415 PSYTX PT&/FAMILY 45 MINUTES 09/28/2012 65190 PSYTX PT&/FAMILY 45 MINUTES 10/12/2012 64152 PSYTX PT&/FAMILY 45 MINUTES 10/26/2012 33625 PSYTX PT&/FAMILY 45 MINUTES 11/02/2012 17475 PSYTX PT&/FAMILY 45 MINUTES 11/28/2012 23806 PSYTX PT&/FAMILY 45 MINUTES 12/11/2012 01891 PSYTX PT&/FAMILY 45 MINUTES 12/26/2012 24999 PSYTX PT&/FAMILY 45 MINUTES 01/04/2013 31335 PSYTX PT&/FAMILY 45 MINUTES 01/25/2013 54943 PSYTX PT&/FAMILY 45 MINUTES 03/12/2013 59773 PSYTX PT&/FAMILY 45 MINUTES 03/22/2013 79966 PSYTX PT&/FAMILY 45 MINUTES 04/09/2013 67333 PSYTX PT&/FAMILY 45 MINUTES 04/20/2013 29897 PSYTX PT&/FAMILY 45 MINUTES 05/07/2013 91508 PSYTX PT&/FAMILY 45 MINUTES 06/18/2013 20594 PSYTX PT&/FAMILY 45 MINUTES 07/05/2013 62248 PSYTX PT&/FAMILY 30 MINUTES 07/18/2013 89809 PSYTX PT&/FAMILY 45 MINUTES 08/10/2013 87112 PSYTX PT&/FAMILY 45 MINUTES 09/03/2013 39757 PSYTX PT&/FAMILY 45 MINUTES 09/07/2013 79695 PSYTX PT&/FAMILY 45 MINUTES 10/04/2013 20243 PSYTX PT&/FAMILY 45 MINUTES 11/02/2013 39413 PSYTX PT&/FAMILY 45 MINUTES 11/22/2013 47683 PSYTX PT&/FAMILY 45 MINUTES 12/14/2013 51027 PSYTX PT&/FAMILY 45 MINUTES 01/23/2014 01593 PSYTX PT&/FAMILY 45 MINUTES 02/13/2014 01498 PSYTX PT&/FAMILY 45 MINUTES 03/18/2014 23546 PSYTX PT&/FAMILY 45 MINUTES 04/16/2014 07784 PSYTX PT&/FAMILY 45 MINUTES 04/30/2014 92759 PSYTX PT&/FAMILY 45 MINUTES 05/14/2014 17831 PSYTX PT&/FAMILY 45 MINUTES 06/11/2014 19891 PSYTX PT&/FAMILY 45 MINUTES 07/15/2014 28711 PSYTX PT&/FAMILY 45 MINUTES 08/08/2014 65275 PSYTX PT&/FAMILY 45 MINUTES 10/23/2014 21581 PSYTX PT&/FAMILY 45 MINUTES 11/20/2014 02833 Bisi Baumann 21344 Bisi Baumann H0036 Markie, Irineo 11/2015 H0036 Markie, Irineo 11/2015 H0036 Markie, Irineo 01/2016 H0036 Markie, Irineo 01/2016 H0036 Markie, Irineo H0036 Markie, Irineo H0036 [place], Irineo H0036 [place], Irineo H0036 Markie, Irineo H0036 Markie, Irineo H2017 Barshney, Bisi A 09/11/2015 H2017 Barshney, Bisi A 09/11/2015 11353 [facility], Erica Mitali 09/18/2015 24279 [place], Erica Mitali 09/18/2015 H2017 Barshney, Bisi A 09/18/2015 H2017 Barshney, Bisi A 09/18/2015 H2017 Barshney, Bisi A 09/22/2015 H2017 Barshney, Bisi A 09/22/2015 [id number] OFFICE/OUTPATIENT VISIT, Eduardo Hernandez 09/23/2015 [id number] OFFICE/OUTPATIENT VISIT, Eduardo Hernandez 09/23/2015 H2017 Barshney, Bisi A 09/30/2015 H2017 Barshney, Bisi A 09/30/2015 H2017 Barshney, Bisi A 10/17/2015 H2017 Barshney, Bisi A 10/17/2015 H2017 Barshney, Bisi A 10/20/2015 H2017 Barshney, Bisi A 10/20/2015 H2011 Ailyn, Talli H2011 Ailyn, Talli 93949 INITIAL HOSPITAL CARE RodolfoShyanne self Edilberto 10/30/2015 39941 HOSPITAL DISCHARGE DAY Pura Shyanne S 10/31/2015 H0036 Barshney, Bisi A 11/03/2015 H0036 Barshney, Bisi A 11/03/2015 H2017 Barshney, Bisi A 11/05/2015 H2017 Barshney, Bisi A 11/05/2015 H0036 Barshney, Bisi A 11/11/2015 05453 OFFICE/OUTPATIENT VISIT, Annabella Garay 11/11/2015 T1019 Barshney, Bisi A 11/11/2015 T1019 Barshney, Bisi A 11/11/2015 H0036 Barshney, Bisi A 11/11/2015 41234 OFFICE/OUTPATIENT VISIT, Annabella Garay 11/11/2015 H0036 Barshney, Bisi A 11/18/2015 H0036 Barshney, Bisi A 11/18/2015 H2017 Barshney, Bisi A 11/21/2015 T1019 Emani Santiago H2017 Barshney, Bisi A 11/21/2015 T1019 Emani Santiago H0036 Barshney, Bisi A 11/24/2015 60197 OFFICE/OUTPATIENT VISIT, Ally Mosqueda Mitali 11/24/2015 T1019 Barshney, Bisi A 11/24/2015 T1019 Barshney, Bisi A 11/24/2015 11560 OFFICE/OUTPATIENT VISIT, Ally Mosqueda 11/24/2015 H0036 Barshney, Bisi A 11/24/2015 H2011 BjerumMalcom 12/13/2015 H2011 Bjerum, Malcom Garcia 12/13/2015 H0036 Barshney, Bisi A 12/15/2015 H0036 Barshney, Bisi A 12/15/2015 H0036 Barshney, Bisi A 12/25/2015 H0036 Barshney, Biis A 12/25/2015 Results Encounters ACCT No. Visit Date/Time Discharge Status Pt. Type Provider Facility Loc./Unit Complaint [id number] 11/19/2014 14:47:00 11/19/2014 23: 59:59 [facility] Outpatient CAMERON BAUMANN PHD [id number] 11/19/2014 10:42:00 11/19/2014 23: 59:59 [facility] Outpatient ASYA GALLOWAY APRN [id number] 10/23/2014 09:08:00 10/23/2014 23: 59:59 [facility] Outpatient CAMERON BAUMANN PHD [id number] 08/07/2014 14:03:00 08/07/2014 23: 59:59 [facility] Outpatient CAMERON BAUMANN PHD [id number] 07/15/2014 13:55:00 07/15/2014 23: 59:59 [facility] Outpatient CAMERON BAUMANN PHD [id number] 06/11/2014 14:05:00 06/11/2014 23: 59:59 [facility]patient BOEKHOUT MALLEANDER Rod [id number] 05/14/2014 11:02:00 05/14/2014 23: 59:59 [facility] Outpatient BOEPAULINEOUT MALLEANDER Rod [id number] 04/30/2014 09:46:00 04/30/2014 23: 59:59 [facility] Outpatient BOEKHOUT CAMERON Rod [id number] 04/16/2014 09:57:00 04/16/2014 23: 59:59 [facility] Outpatient BOEPAULINEOUT MALLEANDER Rod [id number] 03/18/2014 08:53:00 03/18/2014 23: 59:59 [facility] Outpatient BOEPAULINEOUT CAMERON RODRIGUEZ [id number] 02/12/2014 08:55:00 02/12/2014 23: 59:59 [facility] Outpatient BOEKHOUT CAMERON RODRIGUEZ [id number] 01/22/2014 12:50:00 01/22/2014 23: 59:59 [facility] Outpatient BOEKHOUT CAMERON RODRIGUEZ [id number] 12/13/2013 09:55:00 12/13/2013 23: 59:59 [facility] Outpatient BOEKHOUT CAMERON RODRIGUEZ [id number] 11/21/2013 13:04:00 11/21/2013 23: 59:59 [facility] Outpatient BOEKHOUT CAMERON RODRIGUEZ [id number] 11/02/2013 09:52:00 11/02/2013 23: 59:59 [facility] Outpatient BOEKHOUT CAMERON RODRIGUEZ [id number] 10/04/2013 09:55:00 10/04/2013 23: 59:59 [facility] Outpatient BOEPAULINEOUT CAMERON RODRIGUEZ [id number] 09/06/2013 11:01:00 09/06/2013 23: 59:59 [facility] Outpatient BOEKHOUT CAMERON RODRIGUEZ [id number] 08/30/2013 13:00:00 08/30/2013 23: 59:59 [facility] Outpatient BOEKHOUT CAMERON RODRIGUEZ [id number] 08/09/2013 15:00:00 08/09/2013 23: 59:59 [facility] Outpatient BOEKHOUT CAMERON RODRIGUEZ [id number] 07/17/2013 13:22:00 07/17/2013 23: 59:59 [facility] Outpatient BOEKHOUT CAMERON RODRIGUEZ [id number] 07/05/2013 12:48:00 07/05/2013 23: 59:59 [facility] Outpatient MAL BAUMANN PHDLEANDER Rod [id number] 06/15/2013 08:05:00 06/15/2013 23: 59:59 [facility] Outpatient MAL BAUMANN PHDLEANDER Rod [id number] 05/04/2013 11:06:00 05/04/2013 23: 59:59 [facility] Outpatient MAL BAUMANN PHDLEANDER Rod [id number] 04/19/2013 09:28:00 04/19/2013 23: 59:59 [facility] Outpatient PASTOR PHD CAMERON A [id number] 11/01/2012 13:53:00 11/01/2012 23: 59:59 [facility] Outpatient MAL BAUMANN PHDLEANDER Rod [id number] 10/25/2012 09:56:00 10/25/2012 23: 59:59 [facility] Outpatient [id number] 10/11/2012 10:53:00 10/11/2012 23: 59:59 [facility] Outpatient [id number] 09/27/2012 09:57:00 09/27/2012 23: 59:59 [facility] Outpatient [id number] 09/13/2012 09:56:00 09/13/2012 23: 59:59 [facility] Outpatient [id number] 08/30/2012 09:51:00 08/30/2012 23: 59:59 [facility] Outpatient [id number] 08/16/2012 09:56:00 08/16/2012 23: 59:59 [facility] Outpatient [id number] 07/19/2012 09:49:00 07/19/2012 23: 59:59 [facility] Outpatient [id number] 05/30/2012 09:45:00 05/30/2012 23: 59:59 [facility] Outpatient PASTOR PHD CAMERON A [id number] 04/06/2013 12:51:00 Document Registration [id number] 03/21/2013 12:53:00 Document Registration [id number] 03/09/2013 12:58:00 Document Registration [id number] 01/25/2013 12:45:00 Document Registration [id number] 01/02/2013 07:56:00 Document Registration [id number] 12/21/2012 12:57:00 Document Registration [id number] 12/07/2012 12:53:00 Document Registration [id number] 11/23/2012 10:43:00 Document Registration
--- OUTSIDE RECORDS SUMMARY | 2017-01-25 22:23 | XMS REPORT | Referral Summary ---
Author Author [facility] Organization [facility] Address Unknown Phone Unavailable Care Team Providers Care Wallcovering Hanger Name Role Phone No PCP, Pt States PCP Encounter VC Date(s): 11/17/15 - 11/17/15 [facility] [address] [place] [address] [phone] Discharge Diagnosis: N&V (nausea and vomiting) Discharge Disposition: 01-Home or Self Care Attending Physician: Adonis Haddad MD Admitting Physician: Adonis Haddad MD Vital Signs Most recent to 1 oldest [Reference Range]: Temperature Oral 36.5 degC [35.8-37.3 degC] (11/17/15 8:08 PM) Peripheral Pulse 72 bpm Rate [60-100 bpm] (11/17/15 11:21 PM) Respiratory Rate 16 br/min [14-20 br/min] (11/17/15 10:19 PM) Blood Pressure 138/86 mmHg [90-140/60-90 mmHg] (11/17/15 11:21 PM) SpO2 98 % (11/17/15 11:21 PM) Problem List Condition Effective Dates Status Health Status Informant Allergic(Confirmed) Active patient Asthma(Confirmed) Active patient HTN Active (hypertension)(Confi rmed) Allergies, Adverse Reactions, Alerts No Known Medication Allergies Medications albuterol CFC free 90 mcg/inh inhalation aerosol 180 mcg 2 puffs, Inhalation, q4hr, Wheezing, # 1 Each, 0 Refill(s), Indication: asthma Start Date: 10/31/15 Status: Ordered atorvastatin 10 mg oral tablet 10 mg 1 tabs, Oral, Bedtime (once a day), # 30 tabs, 0 Refill(s), Indication: hyperlipidemia Start Date: 10/31/15 Status: Ordered hydrochlorothiazide 12.5 mg oral capsule 12.5 mg 1 caps, Oral, Bedtime (once a day), # 30 caps, 0 Refill(s), Indication: htn Start Date: 10/31/15 Status: Ordered loratadine 10 mg, Oral, Daily, 0 Refill(s) Start Date: 08/05/15 Status: Ordered omeprazole 20 mg oral delayed release capsule 20 mg 1 caps, Oral, Bedtime (once a day), # 30 caps, 0 Refill(s), Indication: gerd Start Date: 10/31/15 Status: Ordered OXcarbazepine 300 mg oral tablet 300 mg 1 tabs, Oral, BID, # 60 tabs, 0 Refill(s), Indication: mood stability Start Date: 10/31/15 Status: Ordered Singulair 10 mg oral tablet 10 mg 1 tabs, Oral, qPM, # 30 tabs, 0 Refill(s), Indication: asthma Start Date: 10/31/15 Status: Ordered Synthroid 50 mcg (0.05 mg) oral tablet 50 mcg 1 tabs, Oral, Daily, # 30 tabs, 0 Refill(s), Indication: hypothyroidism Start Date: 10/31/15 Status: Ordered Viibryd 20 mg oral tablet 20 mg, Oral, Bedtime (once a day), # 30 Each, 0 Refill(s), Indication: depression Start Date: 10/31/15 Stop Date: 11/30/15 Status: Ordered Zofran 4 mg oral tablet 4 mg 1 tabs, Oral, q6hr, Nausea or Vomiting | as needed for nausea/vomiting, X 2 days, # 8 tabs, 0 Refill(s) Start Date: 11/17/15 Stop Date: 11/19/15 Status: Ordered Results Hematology Most recent to 1 oldest [Reference Range]: WBC [4.8-10.8 7.2 10*3/uL 10*3/uL] (11/17/15 8:16 PM) RBC [4.60-6.20] 5.03 (11/17/15 8:16 PM) Hgb [14.0-18.0 15.7 gm/dL gm/dL] (11/17/15 8:16 PM) Hct [42.0-52.0 %] 42.8 % (11/17/15 8:16 PM) MCV [82.0-99.0 fL] 85.1 fL (11/17/15 8:16 PM) MCH [27.0-32.0 pg] 31.2 pg (11/17/15 8:16 PM) MCHC [32.0-36.0 36.7 gm/dL gm/dL] *HI* (11/17/15 8:16 PM) RDW [11.5-14.5 %] 12.4 % (11/17/15 8:16 PM) Platelet [150-400 226 10*3/uL 10*3/uL] (11/17/15 8:16 PM) MPV [9.4-12.3 fL] 9.3 fL *LOW* (11/17/15 8:16 PM) Immature 0.1 % Granulocytes (11/17/15 8:16 PM) [0.0-1.0 %] Neutrophils [51-75 65 % %] (11/17/15 8:16 PM) Lymphocytes [20-46 27 % %] (11/17/15 8:16 PM) Monocytes [4-11 %] 6 % (11/17/15 8:16 PM) Eosinophils [0-4 %] 2 % (11/17/15 8:16 PM) Basophils [0-2 %] 0 % (11/17/15 8:16 PM) Neutro Absolute 4.66 10*3 [1.90-7.00 10*3] (11/17/15 8:16 PM) Lymph Absolute 1.95 10*3 [0.80-3.30 10*3] (11/17/15 8:16 PM) Powell Absolute 0.41 10*3 [0.30-1.00 10*3] (11/17/15 8:16 PM) Eos Absolute 0.15 10*3 [0.00-0.50 10*3] (11/17/15 8:16 PM) Baso Absolute 0.02 10*3 [0.00-0.20 10*3] (11/17/15 8:16 PM) Spherocyte Occasional *ABN* (11/17/15 8:16 PM) Nucleated RBC 0.0 /100 WBC Automated [0 /100 (11/17/15 8:16 PM) WBC] Differential Scanned Slide (11/17/15: PM) Chemistry Most recent to 1 oldest [Reference Range]: Sodium Lvl [136-144 139 mEq/L mEq/L] (11/17/15 8:11 PM) Potassium Lvl 3.6 mEq/L [3.6-5.1 mEq/L] (11/17/15 8:11 PM) Chloride [99-109 101 mEq/L mEq/L] (11/17/15 8:11 PM) CO2 [22-32 mEq/L] 27 mEq/L (11/17/15 8:11 PM) AGAP [3-20] 11 (11/17/15 8:11 PM) BUN [4-20 mg/dL] 9 mg/dL (11/17/15 8:11 PM) Glucose Lvl [70-100 118 mg/dL mg/dL] *HI* (11/17/15 8:11 PM) Creatinine Lvl 0.92 mg/dL [0.64-1.27 mg/dL] (11/17/15 8: PM) eGFR [>60] >60 1 (11/17/15 8: PM) Calcium Lvl 9.2 mg/dL [8.6-10.0 mg/dL] (11/17/15 8:11 PM) Albumin Lvl [3.5-4.8 4.4 gm/dL gm/dL] (11/17/15 8: PM) Total Protein 7.2 gm/dL [6.1-7.9 gm/dL] (11/17/15 8:11 PM) Globulin [1.9-4.3 2.8 gm/dL gm/dL] (11/17/15 8:11 PM) ALT [17-63 U/L] 42 U/L (11/17/15 8:11 PM) AST [15-41 U/L] 32 U/L (11/17/15 8:11 PM) Alk Phos [26-104 83 U/L U/L] (11/17/15 8:11 PM) Bili Total [0.2-1.2 1.0 mg/dL 2 mg/dL] (11/17/15 8:11 PM) Lipase Lvl [8-48 22 U/L U/L] (11/17/15 8:11 PM) 1Result Comment: Multiply eGFR results by 1.21 for race. 2Result Comment: Naproxen, specifically the metabolite O-desmethylnaproxen, may cause spurious elevation in Total Bilirubin levels. Immunizations No data available for this section Procedures No data available for this section Social History Social History Type Response Smoking Status Current every day smoker; Type: Cigars Assessment and Plan No data available for this section"
[2017-01-25] MEDS ORDERED: KETOROLAC 30 MG/ML VIAL IVP STA (22:35)
[2017-01-25] MEDS ORDERED: ATOR10TA66 PO (22:37)
[2017-01-25 22:41] LABS: BASOPHILS % (AUTO) 0 % (0-10); EOSINOPHILS # (AUTO) 0.2 10^3/uL (0.0-0.3); EOSINOPHILS % (AUTO) 3 % (0-10); LYMPHOCYTES # (AUTO) 2.5 X 10^3 (1.0-4.0); LYMPHOCYTES % (AUTO) 34 % (12-44); MEAN CORPUSCULAR HEMOGLOBIN 30 PG (25-34); MEAN CORPUSCULAR HGB CONC 37 G/DL (32-36); MEAN CORPUSCULAR VOLUME 82 FL (80-99); MEAN PLATELET VOLUME 9.1 FL (7.4-10.4); MONOCYTES # (AUTO) 0.7 X 10^3 (0.0-1.0); MONOCYTES % (AUTO) 10 % (0-12); NEUTROPHILS # (AUTO) 3.9 X 10^3 (1.8-7.8); NEUTROPHILS % (AUTO) 53 % (42-75); PLATELET COUNT 231 10^3/uL (130-400); RED BLOOD COUNT 4.99 10^6/uL (4.35-5.85); RED CELL DISTRIBUTION WIDTH 12.8 % (10.0-14.5); WHITE BLOOD COUNT 7.3 10^3/uL (4.3-11.0)
[2017-01-25] MEDS ORDERED: ASPIRIN 81 MG CHEW (CHILDREN'S ASA) PO ONE (22:45)
[2017-01-25 22:54] LABS: ALANINE AMINOTRANSFERASE 35 U/L (0-55); ALBUMIN 4.5 GM/DL (3.2-4.5); AMYLASE 58 U/L (25-125); ANION GAP 11 MMOL/L (5-14); ASPARTATE AMINO TRANSFERASE 25 U/L (5-34); BILIRUBIN,TOTAL 0.8 MG/DL (0.1-1.0); BLOOD UREA NITROGEN 11 MG/DL (7-18); BUN/CREATININE RATIO 9; CALCIUM 9.6 MG/DL (8.5-10.1); CARBON DIOXIDE 29 MMOL/L (21-32); CHLORIDE 101 MMOL/L (98-107); CREATINE KINASE 186 U/L (30-200); GFR ESTIMATED > 60; GLUCOSE 92 MG/DL (70-105); MAGNESIUM 1.9 MG/DL (1.8-2.4); POTASSIUM 3.4 MMOL/L (3.6-5.0); SODIUM 141 MMOL/L (135-145); TOTAL PROTEIN 7.5 GM/DL (6.4-8.2)
[2017-01-25] MEDS ORDERED: OMEP20CA12 (23:01)
[2017-01-25] MEDS ORDERED: VILA20TA (23:01)
[2017-01-25] MEDS ORDERED: FLUTICASONE (23:01)
[2017-01-25] MEDS ORDERED: OXCA600T (23:01)
[2017-01-25] MEDS ORDERED: LEVO50TA6 (23:01)
[2017-01-25] MEDS ORDERED: OXCA300T (23:01)
[2017-01-25] MEDS ORDERED: LORA10TA7 (23:01)
[2017-01-25] MEDS ORDERED: MONT10TA24 (23:01)
[2017-01-25] MEDS ORDERED: DOXY100C2 (23:01)
[2017-01-25] MEDS ORDERED: HYDR12.5 (23:01)
[2017-01-25 23:14] LABS: TROPONIN I < 0.30 NG/ML (<0.30)
[2017-01-25 23:59] LABS: BILIRUBIN,URINE NEGATIVE (NEGATIVE); KETONES,URINE NEGATIVE (NEGATIVE); LEUKOCYTE ESTERASE ,URINE 1+ (NEGATIVE); NITRITE,URINE NEGATIVE (NEGATIVE); PH,URINE 8 (5-9); PROTEIN,URINE NEGATIVE (NEGATIVE); UROBILINOGEN,URINE NORMAL (NORMAL)
[2017-01-26] MEDS ORDERED: RX-TRAMADOL 50 MG (ULTRAM) TAB PPK#4 PO STA
[2017-01-26] MEDS ORDERED: MELO15TA14 PO (00:03)
--- NOTE | 2017-01-26 00:03 | ED Chest Pain ---
General Chief Complaint: Chest Pain Stated Complaint: CHEST PAINS/DIZZINESS Nursing Triage Note: BROUGHT TO ED PER POV AMBULATORY WITH A [employer] PROFESSOR. PT REPORTS LEFT STERNAL AREA CHEST PAIN STARTING 1 HR PIECER UP. PT WAS SITTING EATING AT THE TIME. PT HAS HAD 3 ENERGY DRINKS ALSO THIS EVENING. Nursing Sepsis Screen: No Definite Risk Source: patient History of Present Illness Time seen by provider: 22:20 Initial Comments PT ARRIVES VIA POV WITH [employer] INSTRU[employer] ( PT JUST TRANSFERRED THERE A MONTH AGO FROM [place] ) C/O LEFT MID STERNUM PAIN --BEGAN AN HOUR AGO WHILE EATING. HAD AN ENERGY DRINK AN HOUR AGO, BUT NORMALLY DRINKS THEM AND DID NOT DRINK MORE THAN NORMAL --HAS HAD 3 THIS EVENING PAIN COMES AND GOES NOTHING IMPROVES PAIN HURTS TO MOVE OR TAKE A DEEP BREATH NO SWEATS NO SWELLING IN LEGS/ FEET OR PAIN IN CALVES NO RECENT TRAVEL > 2 HOURS NO RECENT ILLNESS, COUGH OR FEVER HAS HAD THE SAME ON AT LEAST ONE OTHER OCCASION AND WAS SEEN IN ER AND WORK UP WAS NEGATIVE, AND WAS NOT ADMITTED TO HOSPITAL SAW DR. BOSS YESTERDAY FOR DYSURIA, AND STARTED ON DOXYCYCLINE Allergies and Home Medications Allergies Coded Allergies: No Known Drug Allergies (Unverified , 07/24/16) Home Medications Atorvastatin Calcium 10 Mg Tablet, 10 MG PO HS, #30 (Reported) Doxycycline Hyclate 100 Mg Capsule, #28 (Reported) Hydrochlorothiazide 12.5 Mg Capsule, #30 (Reported) Levothyroxine Sodium 50 Mcg Tablet, #30 (Reported) Loratadine 10 Mg Tablet, #30 (Reported) Meloxicam 15 Mg Tablet, 15 MG PO DAILY, #10 Prescribed by: ORLY CAIN on 01/26/17 0003 Montelukast Sodium 10 Mg Tablet, #30 (Reported) Omeprazole 20 Mg Capsule., #30 (Reported) Oxcarbazepine 300 Mg Tablet, #30 (Reported) Oxcarbazepine 600 Mg Tablet, #30 (Reported) Vilazodone Hydrochloride 20 Mg Tablet, #30 (Reported) [Fluticasone] , (Reported) Review of Systems Constitutional: no symptoms reported EENTM: No Symptoms Reported Respiratory: No Symptoms Reported Cardiovascular: See HPI Gastrointestinal: No Symptoms Reported Genitourinary: No Symptoms Reported Musculoskeletal: no symptoms reported Skin: no symptoms reported Psychiatric/Neurological: No Symptoms Reported Endocrine: No Symptoms Reported Hematologic/Lymphatic: No Symptoms Reported Past Izkxjng-Izewrr-Czdhvy Hx Patient Social History Alcohol Use: Occasionally Uses Recreational Drug Use: No Smoking Status: Current Everyday Smoker Type Used: Cigarettes, Electronic/Vapor 2nd Hand Smoke Exposure: No Recent Foreign Travel: No Contact w/Someone Who Travel: No Recent Infectious Disease Expo: No Recent Hopitalizations: No Immunizations Up To Date Tetanus Booster (TDap): Unknown Date of Influenza Vaccine: May 03, 2016 Seasonal Allergies Seasonal Allergies: No Surgeries HX Surgeries: Yes Surgeries: Adenoidectomy, Tonsillectomy Respiratory Hx Respiratory Disorders: Yes Respiratory Disorders: Asthma Cardiovascular Hx Cardiac Disorders: Yes Cardiac Disorders: High Cholesterol, Hypertension Neurological Hx Neurological Disorders: Yes Neurological Disorders: Developmental Disorder Genitourinary Hx Genitourinary Disorders: No Gastrointestinal Hx Gastrointestinal Disorders: Yes Gastrointestinal Disorders: Gastroesophageal Reflux Musculoskeletal Hx Musculoskeletal Disorders: No Endocrine Hx Endocrine Disorders: Yes Endocrine Disorders: Hypothyroidsim HEENT HX ENT Disorders: No Psychosocial Hx Psychiatric Problems: Yes (MILD MR; MOOD DISORDER; MANIC EPISODES WITH PSYCHOSIS) Behavioral Health Disorders: Anxiety, PTSD, Bipolar, Schizophrenia, Depression Physical Exam Vital Signs Vital Sign - Last 12Hours 01/25/17 22:16 Temp 96.8 Pulse 72 Resp 16 B/P (MAP) 149/92 Pulse Ox 97 O2 Delivery Room Air Capillary Refill : Less Than 3 Seconds General Appearance: No Apparent Distress, WD/WN, Other (FLAT AFFECT. DOES NOT APPEAR TO BE IN ANY DISCOMFORT) HEENT: PERRL/EOMI Neck: Full Range of Motion, Normal Inspection, Non Tender, Supple, No Carotid Bruit, No JVD Respiratory: Normal Breath Sounds, No Accessory Muscle Use, No Respiratory Distress, Other (TENDERNESS TO LEFT STERNAL BORDER--PALPATION REPRODUCES PAIN ) Cardiovascular: Regular Rate, Rhythm, No Edema, No Gallop, No JVD, No Murmur, Normal Peripheral Pulses Gastrointestinal: Normal Bowel Sounds, No Organomegaly, No Pulsatile Mass, Non Tender, Soft Extremity: Normal Capillary Refill, Normal Inspection, Normal Range of Motion, Non Tender, No Calf Tenderness, No Pedal Edema Neurologic/Psychiatric: Alert, Oriented x3, No Motor/Sensory Deficits, gusset edger II- XII Norm as Tested Skin: Normal Color, Warm/Dry, Tattoos/Piercings (TATTOOS) Progress/Results/Core Measures Results/Orders Lab Results Laboratory Tests Test 01/25/17 22:25 01/25/17 23:51 Range/Units White Blood Count 7.3 4.3-11.0 10^3/uL Red Blood Count 4.99 4.35-5.85 10^6/uL Hemoglobin 15.1 13.3-17.7 G/DL Hematocrit 41 40-54 % Mean Corpuscular Volume 82 80-99 FL Mean Corpuscular Hemoglobin 30 25-34 PG Mean Corpuscular Hemoglobin Concent 37 H 32-36 G/DL Red Cell Distribution Width 12.8 10.0-14.5 % Platelet Count 231 130-400 10^3/uL Mean Platelet Volume 9.1 7.4-10.4 FL Neutrophils (%) (Auto) 53 42-75 % Lymphocytes (%) (Auto) 34 12-44 % Monocytes (%) (Auto) 10 0-12 % Eosinophils (%) (Auto) 3 0-10 % Basophils (%) (Auto) 0 0-10 % Neutrophils # (Auto) 3.9 1.8-7.8 X 10^3 Lymphocytes # (Auto) 2.5 1.0-4.0 X 10^3 Monocytes # (Auto) 0.7 0.0-1.0 X 10^3 Eosinophils # (Auto) 0.2 0.0-0.3 10^3/uL Basophils # (Auto) 0.0 0.0-0.1 10^3/uL Prothrombin Time 13.0 12.2-14.7 SEC INR Comment 1.0 0.8-1.4 Activated Partial Thromboplast Time 28 24-35 SEC Sodium Level 141 135-145 MMOL/L Potassium Level 3.4 L 3.6-5.0 MMOL/L Chloride Level 101 98-107 MMOL/L Carbon Dioxide Level 29 21-32 MMOL/L Anion Gap 11 5-14 MMOL/L Blood Urea Nitrogen 11 7-18 MG/DL Creatinine 1.20 0.60-1.30 MG/DL Estimat Glomerular Filtration Rate > 60 BUN/Creatinine Ratio 9 Glucose Level 92 70-105 MG/DL Calcium Level 9.6 8.5-10.1 MG/DL Magnesium Level 1.9 1.8-2.4 MG/DL Total Bilirubin 0.8 0.1-1.0 MG/DL Aspartate Amino Transf (AST/SGOT) 25 5-34 U/L Alanine Aminotransferase (ALT/SGPT) 35 0-55 U/L Alkaline Phosphatase 97 40-136 U/L Total Creatine Kinase 186 30-200 U/L Creatine Kinase MB 1.8 <6.6 NG/ML Troponin I < 0.30 <0.30 NG/ML B-Type Natriuretic Peptide < 10.0 <100.0 PG/ML Total Protein 7.5 6.4-8.2 GM/DL Albumin 4.5 3.2-4.5 GM/DL Amylase Level 58 25-125 U/L TSH Imm[facility]ul[facility] Testing 2.65 0.35-4.94 UIU/ML Urine Color YELLOW Urine Clarity CLEAR Urine pH 8 5-9 Urine Specific [place] 1.010 L 1.016-1.022 Urine Protein NEGATIVE NEGATIVE Urine Glucose (UA) NEGATIVE NEGATIVE Urine Ketones NEGATIVE NEGATIVE Urine Nitrite NEGATIVE NEGATIVE Urine Bilirubin NEGATIVE NEGATIVE Urine Urobilinogen NORMAL NORMAL MG/DL Urine Leukocyte Esterase 1+ H NEGATIVE Urine RBC (Auto) NEGATIVE NEGATIVE Urine RBC NONE /HPF Urine WBC RARE /HPF Urine Squamous Epithelial Cells 0-2 /HPF Urine Crystals NONE /LPF Urine Bacteria NEGATIVE /HPF Urine Casts NONE /LPF Urine Mucus NEGATIVE /LPF Urine Culture Indicated NO My Orders Orders - ORLY CAIN DO Saline Lock/Iv-Start (01/25/17 22:35) Ekg Tracing (01/25/17 22:35) Monitor-Rhythm Ecg Trace Only (01/25/17 22:35) Amylase (01/25/17 22:35) BNP (01/25/17 22:35) Cbc With Automated Diff (01/25/17 22:35) Comprehensive Metabolic Panel (01/25/17 22:35) Creatine Kinase (01/25/17 22:35) Creatine Kinase Mb (01/25/17 22:35) Magnesium (01/25/17 22:35) Protime With Inr (01/25/17 22:35) Partial Thromboplastin Time (01/25/17 22:35) Thyroid Analyzer (01/25/17 22:35) Troponin I (01/25/17 22:35) Ua Culture If Indicated (01/25/17 22:35) Chest Pa/Lat (2 View) (01/25/17 22:35) Ketorolac Injection (Toradol Injection) (01/25/17 22:35) Aspirin Chewable Tablet (Baby Aspirin Ch (01/25/17 22:45) Rx-Tramadol Hcl (Rx-Ultram) (01/26/17 00:00) Orphenadrine Injection (Norflex Injectio (01/26/17 00:15) Medications Given in ED Current Medications Medications Dose Ordered Sig/Tyler Route Start Time Stop Time Status Last Admin Dose Admin Aspirin 324 mg ONCE ONCE PO 01/25/17 22:45 01/25/17 22:46 DC 01/25/17 22:39 324 MG Orphenadrine Citrate 60 mg ONCE ONCE IVP 01/26/17 00:15 01/26/17 00:16 DC 01/26/17 00:52 60 MG Vital Signs/I&O Vital Sign - Last 12Hours 01/25/17 01/25/17 22:16 22:16 Temp 96.8 Pulse 72 Resp 16 B/P (MAP) 149/92 Pulse Ox 97 O2 Delivery Room Air Blood Pressure Mean: 111 Progress Note : Progress Note UNEVENTFUL ER STAY ECG Initial ECG Impression Time: 22:25 Initial ECG Rate: 72 Initial ECG Rhythm: Normal Sinus Initial ECG Impression: Normal Initial ECG Comparisson: No Previous ECG Available Diagnostic Imaging Comments CXR--NO ACUTE PROCESS, PENDING RADIOLOGIST REVIEW Reviewed: Reviewed by Me Departure Impression Impression: Primary Impression: Left-sided chest wall pain Disposition: 01 HOME, SELF-CARE Condition: Stable Departure-Patient Inst. Referrals: ALEX LANE MD (PCP/Family) Primary Care Physician Patient Instructions: Chest Pain That Is Not Caused by the Heart (DC) Add. Discharge Instructions: ALTERNATE ICE AND HEAT TO SORE AREA AT 20 MINUTE INTERVALS TAKE YOUR REGULAR MEDICATIONS PRESCRIBED FOLLOW UP WITH DR. LANE THIS WEEK FOR FURTHER CARE All discharge instructions reviewed with patient and/or family. Voiced understanding. Scripts Meloxicam (Mobic) 15 Mg Tablet 15 MG PO DAILY, #10 TAB Prov: ORLY CAIN DO 01/26/17 Images Torso/Trunk 1 - Mild, Tenderness ORLY CAIN DO Jan 26, 2017 00:03
[2017-01-26 00:10] LABS: SQUAMOUS EPITHELIAL CELL,UR 0-2 /HPF; WBC,URINE RARE /HPF
[2017-01-26] MEDS ORDERED: ORPHENADRINE 60 MG/2 ML (NORFLEX) AMP IVP ONE (00:15)
[2017-01-26 00:56] VITALS: BP 149/92
--- NOTE | 2017-01-26 07:40 | Diagnostic Imaging Report ---
INDICATION: Chest pain, cough, unable to take deep breath. COMPARISON STUDY: Chest from 08/05/15. FINDINGS: Frontal and lateral views of the chest demonstrates lungs to be clear. The heart, mediastinum, pulmonary vascularity and visualized bony thorax are normal. IMPRESSION: Negative chest. Dictated by: Dictated on workstation # [id number]
== END 2017-01-26 00:56 | disposition home or self-care (01) ==
LOC: EDUNIT# 22:13 → ER 22:17
DX: R07.89 Other chest pain (principal); J45.909 Unspecified asthma, uncomplicated; E78.00 Pure hypercholesterolemia, unspecified; I10 Essential (primary) hypertension; K21.9 Gastro-esophageal reflux disease without esophagitis; F43.10 Post-traumatic stress disorder, unspecified; E03.9 Hypothyroidism, unspecified; F41.9 Anxiety disorder, unspecified; F31.9 Bipolar disorder, unspecified; F20.9 Schizophrenia, unspecified; F17.210 Nicotine dependence, cigarettes, uncomplicated
CPT/HCPCS: 36415; 71020; 80053; 81000; 82150; 82550; 82553; 83735; 83880; 84443; 84484; 85025; 85610; 85730; 93005; 93041; 96374; 96375

== ENCOUNTER 2017-03-27 02:19 | Emergency (ER) | payer MEDICAID ==
[~2017-03-27] VITALS: Ht 170.2 cm; Wt 104.3 kg
[~2017-03-27 02:19] MED LIST changes: +ATOR10TA66 PO; +DOXY100C2; +FLUTICASONE; +HYDR12.5; +LEVO50TA6; +LORA10TA7; +MELO15TA14 PO; +MONT10TA24; +OMEP20CA12; +OXCA300T; +OXCA600T; +VILA20TA
[2017-03-27 02:21] VITALS: BP 129/78
[2017-03-27] MEDS ORDERED: ASPIRIN 81 MG CHEW (CHILDREN'S ASA) PO ONE (02:45)
--- NOTE | 2017-03-27 02:53 | ED Chest Pain ---
General Chief Complaint: Abdominal/GI Problems Stated Complaint: VOMITING Nursing Triage Note: patient reports drinking tonight and getting nauseated Nursing Sepsis Screen: No Definite Risk Source: patient, EMS Exam Limitations: no limitations History of Present Illness Time seen by provider: 02:43 Initial Comments Patient presents to ER by EMS with chief complaint of having a night out drinking proximal a 6 beers tonight and 5-6 liquor drinks. No wine. He says he did snort 2-3 lines of blow. He states he's had 2 or 3 drinks since 10:00 and that's when he started vomiting several times and started having pain in his chest midsternum. He has no shortness of breath no numbness or pain in his neck jaw shoulder or arms. He has no cough, diaphoresis, diarrhea, chills. He states he was here in the ER approximate a month ago and worked up for the similar situation of chest pain after cocaine use and they put him on prednisone for heart inflammation. He says he's not been taking his Trileptal or other medications for his anger management. He has a bridge repairer from [facility] who says that the patient is quite agitated and angry about the staff. Allergies and Home Medications Allergies Coded Allergies: No Known Drug Allergies (Unverified , 07/24/16) Home Medications Atorvastatin Calcium 10 Mg Tablet, 10 MG PO HS, #30 (Reported) Doxycycline Hyclate 100 Mg Capsule, #28 (Reported) Hydrochlorothiazide 12.5 Mg Capsule, #30 (Reported) Levothyroxine Sodium 50 Mcg Tablet, #30 (Reported) Loratadine 10 Mg Tablet, #30 (Reported) Meloxicam 15 Mg Tablet, 15 MG PO DAILY, #10 Prescribed by: ORLY CAIN on 01/26/17 0003 Montelukast Sodium 10 Mg Tablet, #30 (Reported) Omeprazole 20 Mg Capsule.dr, #30 (Reported) Oxcarbazepine 300 Mg Tablet, #30 (Reported) Oxcarbazepine 600 Mg Tablet, #30 (Reported) Vilazodone Hydrochloride 20 Mg Tablet, #30 (Reported) [Fluticasone] , (Reported) Review of Systems Constitutional: No chills, No diaphoresis EENTM: No Blurred Vision, No Double Vision, No Eye Pain, No Ear Pain Respiratory: Denies Cough, Denies Shortness of Air Cardiovascular: See HPI, Chest Pain, Denies Edema, Denies Irregular Heart Rate Gastrointestinal: Denies Abdomen Distended, Denies Abdominal Pain, Denies Constipated, Denies Diarrhea, Nausea, Vomiting Genitourinary: Denies Burning, Denies Frequency, Denies Flank Pain Musculoskeletal: No back pain, No joint pain Skin: No pruritus, No rash Psychiatric/Neurological: Denies Headache, Denies Numbness, Denies Paresthesia Past Sebeybi-Sxpgct-Fyjhyw Hx Patient Social History Alcohol Use: Occasionally Uses Number of Drinks Today: AA Alcohol Beverage of Choice: Beer Recreational Drug Use: No Type Used: Cigarettes, Electronic/Vapor 2nd Hand Smoke Exposure: No Recent Foreign Travel: No Contact w/Someone Who Travel: No Recent Infectious Disease Expo: No Recent Hopitalizations: No Immunizations Up To Date Tetanus Booster (TDap): Unknown Date of Influenza Vaccine: May 03, 2016 Seasonal Allergies Seasonal Allergies: No Surgeries History of Surgeries: Yes Surgeries: Adenoidectomy, Tonsillectomy Respiratory History of Respiratory Disorde: Yes Respiratory Disorders: Asthma Cardiovascular History of Cardiac Disorders: Yes Cardiac Disorders: High Cholesterol, Hypertension Neurological History of Neurological Disord: Yes (Mild MR) Neurological Disorders: Developmental Disorder Genitourinary History of Genitourinary Disor: No Gastrointestinal History of Gastrointestinal Di: Yes Gastrointestinal Disorders: Gastroesophageal Reflux Musculoskeletal History of Musculoskeletal Dis: No Endocrine History of Endocrine Disorders: Yes Endocrine Disorders: Hypothyroidsim HEENT History of HEENT Disorders: No Cancer History of Cancer: No Psychosocial History of Psychiatric Problem: Yes (MILD MR; MOOD DISORDER; MANIC EPISODES WITH PSYCHOSIS) Behavioral Health Disorders: Anxiety, PTSD, Bipolar, Schizophrenia, Depression Integumentary History of Skin or Integumenta: No Physical Exam Vital Signs Vital Sign - Last 12Hours 03/27/17 02:21 Pulse 94 Resp 18 B/P (MAP) 129/78 Pulse Ox 93 Capillary Refill : Less Than 3 Seconds General Appearance: No Apparent Distress, WD/WN, Anxious (agitated) HEENT: PERRL/EOMI, Normal ENT Inspection, Pharynx Normal Neck: Normal Inspection, Non Tender Respiratory: Chest Non Tender, Lungs Clear, Normal Breath Sounds Cardiovascular: Regular Rate, Rhythm, No Edema, No Gallop, No Murmur, Normal Peripheral Pulses Gastrointestinal: Normal Bowel Sounds, No Organomegaly, Non Tender, Soft Extremity: Normal Capillary Refill, No Pedal Edema Neurologic/Psychiatric: Alert, Oriented x3, No Motor/Sensory Deficits, Other ( agitated affect with good eye contact. Follows commands and answers questions appropriately) Skin: Normal Color, Warm/Dry Progress/Results/Core Measures Results/Orders Vital Signs/I&O Vital Sign - Last 12Hours 03/27/17 02:21 Pulse 94 Resp 18 B/P (MAP) 129/78 Pulse Ox 93 Blood Pressure Mean: 95 Progress Note : Time: 02:56 Progress Note After examining and interviewing the patient was not put in orders the patient came out was very agitated at his staff worker and demanded that the worker be removed from the property. The patient stated then that he was going to leave AGAINST MEDICAL ADVICE and refused to sign any forms. He was very cordial but firm in his infections. He confirmed that he was no longer needed any medical workup was allowed to leave AMA. Police were notified by nursing staff that the patient had left AMA and admitted to using a lot of alcohol and drugs tonight. The patient left AMA prior to collecting blood and urine or EKGs. When given a urine specimen As he was heading to the bathroom she threw the Across the hallway and said he wasn't going to do that. Departure Impression Impression: Primary Impression: Chest pain Qualified Codes: R07.9 - Chest pain, unspecified Additional Impression: Cocaine use Disposition: Condition: Against Medical Advice Departure-Patient Inst. Decision time for Depature: 03:00 Referrals: ALEX LANE MD (PCP/Family) Primary Care Physician Add. Discharge Instructions: If you wish to leave AGAINST MEDICAL ADVICE at [facility] suggest he follow up as soon as possible with your primary care physician. All discharge instructions reviewed with patient and/or family. Voiced understanding. Copy Copies To 1: ALEX LANE MD, TITUS J Mar 27, 2017 02:53
[2017-03-27] MEDS ORDERED: THIAMINE INJECTION 100 MG, FOLIC ACID INJECTION 1 MG, VITAMIN MULTI INJECTION 10 ML, MA... IV SCH ×5 (09:00)
--- OUTSIDE RECORDS SUMMARY | 2017-03-28 10:47 | XMS REPORT ---
Author Author CAMERON BAUMANN [facility] Address [address] [place] [address] Care Team Providers Care Hotel Receptionist Name Role Phone CAMERON BAUMANN Unavailable PROBLEMS Type Condition ICD9-CM Code [id number] Code Onset Dates Condition Status SNOMED Code Problem Mild intellectual disability F70 Active 83758904 Problem Intermittent explosive disorder in adult F63.81 Active 716393242 Problem Mood disorder F39 Active 88020961 ALLERGIES Unknown Allergies SOCIAL HISTORY No smoking Hx information available PLAN OF CARE Activity Details Follow Up 2 Weeks Reason:BH F/U VITAL SIGNS MEDICATIONS Unknown Medications RESULTS No Results PROCEDURES Procedure Date Ordered Related Diagnosis Body Site Psychotherapy, patient &/family, 45 minutes, established patient Aug 06, 2016 IMMUNIZATIONS No Known Immunizations
--- OUTSIDE RECORDS SUMMARY | 2017-03-28 10:49 | XMS REPORT | Continuity of Care Document ---
Author Author [facility] Address Unknown Phone Unavailable Allergies Active Description [...] 11/24/2015 04/23/2016 ORAL 300MG 1 tab po [id number](am T hs) Viibryd 20 MG Oral Tablet [...] CAMERON Rod 311 MO DEPRESS NOS 09/26/2009 PASTOR RODRIGUEZ, CAMERON Rod 317 MILD MENTAL RETARDATION 09/26/2009 311 MO [...] 311 MO DEPRESS NOS 09/26/2009 BOEPAULINEOUT PHD, CAEMRON A 317 MILD MENTAL RETARDATION 09/26/2009 BOEJEISON [...] Bisi 07/22/2015 F F70 Mild intellectual disabilities [facility], Bisi 07/22/2015 F F90.1 Attention-deficit hyperactivity disorder, predominantly hyperactive type Pastor, Bisi 07/29/2015 F F70 Mild intellectual disabilities 07/29/2015 F F90.1 Attention-deficit hyperactivity disorder, predominantly hyperactive type 08/05/2015 F F70 Mild intellectual disabilities 08/05/2015 F F90.1 Attention-deficit hyperactivity disorder, predominantly hyperactive type 08/06/2015 F F25.0 Schizoaffective disorder, bipolar type Markie, Irineo 08/06/2015 F F70 Mild intellectual disabilities Markie, Wink 08/06/2015 F F90.1 Attention-deficit hyperactivity disorder, predominantly hyperactive type [place], Irineo 08/07/2015 F F70 Mild intellectual disabilities 08/07/2015 F F90.1 Attention-deficit hyperactivity disorder, predominantly hyperactive type 08/07/2015 F F25.0 Schizoaffective disorder, bipolar type Markie, Irineo 08/07/2015 F F70 Mild intellectual disabilities Markie, Wink 08/07/2015 F F90.1 Attention-deficit hyperactivity disorder, predominantly hyperactive type Markie, Wink 08/08/2015 F F25.0 Schizoaffective disorder, bipolar type [...] 08/20/2015 F F70 Mild intellectual disabilities Markie, Wink 08/20/2015 F F90.1 Attention-deficit hyperactivity disorder, predominantly hyperactive type [place], Irineo 08/21/2015 F F25.0 Schizoaffective disorder, bipolar type [...] type 08/29/2015 F F70 Mild intellectual disabilities [place], Irineo 08/29/2015 F F90.1 Attention-deficit hyperactivity disorder, predominantly hyperactive type [place], Irineo 09/01/2015 F F25.0 Schizoaffective disorder, bipolar type 09/01/2015 F F25.0 Schizoaffective disorder, bipolar type Markie, Irineo 09/01/2015 F F70 Mild intellectual disabilities Markie, Irineo 09/01/2015 F F90.1 Attention-deficit hyperactivity disorder, predominantly [...] F90.1 Attention-deficit hyperactivity disorder, predominantly hyperactive type Davida, Eduardo S 09/23/2015 F F25.0 Schizoaffective disorder, bipolar type Barshney, Bisi A 09/23/2015 F F70 Mild intellectual disabilities Barshney, Bisi A 09/23/2015 F F90.1 Attention-deficit hyperactivity disorder, predominantly hyperactive type Barshney, Bisi A 09/23/2015 F F25.0 Schizoaffective disorder, bipolar type 09/23/2015 F F43.10 Post-traumatic stress disorder, unspecified Davida, Eduardo S 09/23/2015 F F70 Mild intellectual disabilities Eduardo Carrillo S 09/23/2015 F F90.1 Attention-deficit hyperactivity disorder, predominantly hyperactive type Toreylla, Eduardo S 09/26/2015 F F25.0 Schizoaffective disorder, [...] 10/30/2015 F F43.10 Post-traumatic stress disorder, unspecified Lorena, Eduardo S 10/30/2015 F F70 Mild intellectual disabilities Lorena, Eduardo S 10/30/2015 F F90.1 Attention-deficit hyperactivity disorder, predominantly hyperactive type Jasononilla, Eduardo S 10/31/2015 F F70 Mild intellectual disabilities Mil, Smiley Amina 10/31/2015 F F90.1 Attention-deficit hyperactivity disorder, predominantly [...] F25.0 Schizoaffective disorder, bipolar type Smiley Jaeger 11/05/2015 F F70 Mild intellectual disabilities 11/05/2015 [...] disorder, predominantly hyperactive type Fritzhnloren, Bisi A 11/21/2015 F F25.0 Schizoaffective disorder, [...] F90.1 Attention-deficit hyperactivity disorder, predominantly hyperactive type Deny Santiagoin 11/24/2015 F E07.9 Disorder of thyroid, unspecified Ally Thakkar Mitali 11/24/2015 F F25.0 Schizoaffective [...] 11/24/2015 F F25.0 Schizoaffective disorder, bipolar type Thakkar Ally Mitali 11/24/2015 F F43.10 Post-traumatic stress disorder, [...] 11/24/2015 F F25.0 Schizoaffective disorder, bipolar type Bisi Perla 11/24/2015 F F70 Mild intellectual disabilities Yvette Perlara A 11/24/2015 F F90.1 Attention-deficit hyperactivity disorder, predominantly hyperactive type Fritzhnloren, Bisi A 11/24/2015 F I10 Essential (primary) hypertension Pan, Bisi A 11/24/2015 F F25.0 Schizoaffective disorder, bipolar type Fritzhnloren, Bisi A 11/24/2015 F F70 Mild intellectual disabilities Yvette Perlara A 11/24/2015 F F90.1 Attention-deficit hyperactivity disorder, predominantly hyperactive type Fritzhnloren, Bisi A 11/24/2015 F I10 Essential (primary) hypertension Fritzhnloren, Bisi A 11/24/2015 F F25.0 Schizoaffective [...] A 12/17/2015 F I10 Essential (primary) hypertension Pan, Bisi A 12/18/2015 F F25.0 Schizoaffective disorder, bipolar [...] Procedures Code Description [place] [address] INDIV PSYTX 45/50 MIN 05/30/2012 22333 INDIV PSYTX 45/50 MIN 06/16/2012 16106 INDIV PSYTX 45/50 MIN 07/04/2012 94661 INDIV PSYTX 45/50 MIN 07/19/2012 05340 PSYTX PT&/FAMILY 45 MINUTES 08/17/2012 24343 PSYTX PT&/FAMILY 45 MINUTES 08/31/2012 59806 PSYTX PT&/FAMILY 45 MINUTES 09/14/2012 76364 PSYTX PT&/FAMILY 45 MINUTES 09/28/2012 65328 PSYTX PT&/FAMILY 45 MINUTES 10/12/2012 17309 PSYTX PT&/FAMILY 45 MINUTES 10/26/2012 38445 PSYTX PT&/FAMILY 45 MINUTES 11/02/2012 90200 PSYTX PT&/FAMILY 45 MINUTES 11/28/2012 50469 PSYTX PT&/FAMILY 45 MINUTES 12/11/2012 38648 PSYTX PT&/FAMILY 45 MINUTES 12/26/2012 78513 PSYTX PT&/FAMILY 45 MINUTES 01/04/2013 22052 PSYTX PT&/FAMILY 45 MINUTES 01/25/2013 37713 PSYTX PT&/FAMILY 45 MINUTES 03/12/2013 65240 PSYTX PT&/FAMILY 45 MINUTES 03/22/2013 50594 PSYTX PT&/FAMILY 45 MINUTES 04/09/2013 92028 PSYTX PT&/FAMILY 45 MINUTES 04/20/2013 50760 PSYTX PT&/FAMILY 45 MINUTES 05/07/2013 34713 PSYTX PT&/FAMILY 45 MINUTES 06/18/2013 16588 PSYTX PT&/FAMILY 45 MINUTES 07/05/2013 41276 PSYTX PT&/FAMILY 30 MINUTES 07/18/2013 02285 PSYTX PT&/FAMILY 45 MINUTES 08/10/2013 28483 PSYTX PT&/FAMILY 45 MINUTES 09/03/2013 51595 PSYTX PT&/FAMILY 45 MINUTES 09/07/2013 52484 PSYTX PT&/FAMILY 45 MINUTES 10/04/2013 56179 PSYTX PT&/FAMILY 45 MINUTES 11/02/2013 01355 PSYTX PT&/FAMILY 45 MINUTES 11/22/2013 63451 PSYTX PT&/FAMILY 45 MINUTES 12/14/2013 40152 PSYTX PT&/FAMILY 45 MINUTES 01/23/2014 39915 PSYTX PT&/FAMILY 45 MINUTES 02/13/2014 29741 PSYTX PT&/FAMILY 45 MINUTES 03/18/2014 69301 PSYTX PT&/FAMILY 45 MINUTES 04/16/2014 49305 PSYTX PT&/FAMILY 45 MINUTES 04/30/2014 47136 PSYTX PT&/FAMILY 45 MINUTES 05/14/2014 12723 PSYTX PT&/FAMILY 45 MINUTES 06/11/2014 25631 PSYTX PT&/FAMILY 45 MINUTES 07/15/2014 54576 PSYTX PT&/FAMILY 45 MINUTES 08/08/2014 97604 PSYTX PT&/FAMILY 45 MINUTES 10/23/2014 49608 PSYTX PT&/FAMILY 45 MINUTES 11/20/2014 47736 Bisi Baumann 10672 Bisi Baumann H0036 Markie, Irineo 11/2015 H0036 Markie, Irineo 11/2015 H0036 Markie, Irineo 01/2016 H0036 Markie, Irineo 01/2016 H0036 Markie, Irineo H0036 Markie, Irineo H0036 Markie, Irineo H0036 Arlington, Irineo H0036 Arlington, Irineo H0036 Arlington, Irineo H2017 Barshney, Bisi A 09/11/2015 H2017 Barshney, Bisi A 09/11/2015 15552 Darland, Erica Mitali 09/18/2015 07758 Darland, Erica Mitali 09/18/2015 H2017 Barshney, Bisi A 09/18/2015 H2017 Barshney, Bisi A 09/18/2015 H2017 Barshney, Bisi A 09/22/2015 H2017 Barshney, Bisi A 09/22/2015 [id number] OFFICE/OUTPATIENT VISIT, Eduardo Hernandez 09/23/2015 [id number] OFFICE/OUTPATIENT VISIT, Eduardo Hernandez 09/23/2015 H2017 Barshney, Bisi A 09/30/2015 H2017 Barshney, Bisi A 09/30/2015 H2017 Barshney, Bisi A 10/17/2015 H2017 Barshney, Bisi A 10/17/2015 H2017 Barshney, Bisi A 10/20/2015 H2017 Barshney, Bisi A 10/20/2015 H2011 Ailyn, Talli H2011 Ailyn, Talli 61881 INITIAL HOSPITAL CARE RodolfoShyanne self Edilberto 10/30/2015 [id number] HOSPITAL DISCHARGE DAY Pura Shyanne S 10/31/2015 H0036 Barshney, Bisi A 11/03/2015 H0036 Barshney, Bisi A 11/03/2015 H2017 Barshney, Bisi A 11/05/2015 H2017 Barshney, Bisi A 11/05/2015 H0036 Barshney, Bisi A 11/11/2015 43531 OFFICE/OUTPATIENT VISIT, Annabella Garay 11/11/2015 T1019 Barshney, Bisi A 11/11/2015 T1019 Barshney, Bsii A 11/11/2015 H0036 Barshney, Bisi A 11/11/2015 18026 OFFICE/OUTPATIENT VISIT, Annabella Garay 11/11/2015 H0036 Barshney, Bisi A 11/18/2015 H0036 Barshney, Bisi A 11/18/2015 H2017 Barshney, Bisi A 11/21/2015 T1019 Emani Santiago H2017 Barshney, Bisi A 11/21/2015 T1019 Emani Santiago H0036 Barshney, Bisi A 11/24/2015 59247 OFFICE/OUTPATIENT VISIT, Ally Mosqueda Mitali 11/24/2015 T1019 Barshney, Bisi A 11/24/2015 T1019 Barshney, Bisi A 11/24/2015 80002 OFFICE/OUTPATIENT VISIT, Ally Mosqueda 11/24/2015 H0036 Barshney, Bisi A 11/24/2015 H2011 Bjerum, Malcmo Garcia 12/13/2015 H2011 Bjerum, Malcom Garcia 12/13/2015 H0036 Barshney, Bisi A 12/15/2015 H0036 Barshney, Bisi A 12/15/2015 H0036 Barshney, Bisi A 12/25/2015 H0036 Barshney, Bisi A 12/25/2015 Results Encounters ACCT No. Visit Date/Time Discharge Status Pt. Type Provider Facility Loc./Unit Complaint [id number] 11/19/2014 14:47:00 11/19/2014 23: 59:59 [facility] Outpatient CAMERON BAUMANN PHD [id number] 11/19/2014 10:42:00 11/19/2014 23: 59:59 [facility] Outpatient ASYA GALLOWAY APRN [id number] 10/23/2014 09:08:00 10/23/2014 23: 59:59 [facility] Outpatient CAMERON BAUMANN PHD [id number] 08/07/2014 14:03:00 08/07/2014 23: 59:59 [facility] Outpatient CAMERON BAUMANN PHD [id number] 07/15/2014 13:55:00 07/15/2014 23: 59:59 [facility] Outpatient CAMERON BAUMANN PHD [id number] 06/11/2014 14:05:00 06/11/2014 23: 59:59 [facility] BOEKHOUT MALLEANDER Rod [id number] 05/14/2014 11:02:00 05/14/2014 23: 59:59 [facility] Outpatient BOEPAULINEOUT MALLEANDER Rod [id number] 04/30/2014 09:46:00 04/30/2014 23: 59:59 [facility] Outpatient BOEPAULINEOUT CAMERON Rod [id number] 04/16/2014 09:57:00 04/16/2014 23: 59:59 [facility] Outpatient BOEKHOUT MALLEANDER Rod [id number] 03/18/2014 08:53:00 03/18/2014 23: 59:59 [facility] Outpatient BOEKHOUT CAMERON RODRIGUEZ [id number] 02/12/2014 08:55:00 02/12/2014 23: 59:59 [facility] Outpatient BOEKHOUT CAMERON RODRIGUEZ [id number] 01/22/2014 12:50:00 01/22/2014 23: 59:59 [facility] Outpatient BOEPAULINEOUT CAMERON RODRIGUEZ [id number] 12/13/2013 09:55:00 12/13/2013 23: 59:59 [facility] Outpatient BOEKHOUT CAMERON RODRIGUEZ [id number] 11/21/2013 13:04:00 11/21/2013 23: 59:59 [facility] Outpatient BOEKHOUT CAMERON RODRIGUEZ [id number] 11/02/2013 09:52:00 11/02/2013 23: 59:59 [facility] Outpatient BOEPAULINEOUT CAMERON RODRIGUEZ [id number] 10/04/2013 09:55:00 10/04/2013 23: 59:59 [facility] Outpatient BOEPAULINEOUT CAMERON RODRIGUEZ [id number] 09/06/2013 11:01:00 09/06/2013 23: 59:59 [facility] Outpatient BOEKHOUT CAMERON RODRIGUEZ [id number] 08/30/2013 13:00:00 08/30/2013 23: 59:59 [facility] Outpatient BOEKHOUT CAMERON RODRIGUEZ [id number] 08/09/2013 15:00:00 08/09/2013 23: 59:59 [facility] Outpatient BOEKHOUT CAMERON RODRIGUEZ [id number] 07/17/2013 13:22:00 07/17/2013 23: 59:59 [facility] Outpatient BOEKHOUT CAMERON RODRIGUEZ [id number] 07/05/2013 12:48:00 07/05/2013 23: 59:59 [facility] Outpatient PASTOR RODRIGUEZ CAMERON A [id number] 06/15/2013 08:05:00 06/15/2013 23: 59:59 [facility] Outpatient CAMERON BAUMANN PHD [id number] 05/04/2013 11:06:00 05/04/2013 23: 59:59 [facility] Outpatient PASTOR PHD CAMERON A [id number] 04/19/2013 09:28:00 04/19/2013 23: 59:59 [facility] Outpatient CAMERON BAUMANN PHD [id number] 11/01/2012 13:53:00 11/01/2012 23: 59:59 [facility] Outpatient TEREMYRANDA CAMERON RODRIGUEZ [id number] 10/25/2012 09:56:00 10/25/2012 23: 59:59 [facility] Outpatient [id number] 10/11/2012 10:53:00 10/11/2012 23: 59:59 [facility] Outpatient [id number] 09/27/2012 09:57:00 09/27/2012 23: 59:59 [facility] Outpatient [id number] 09/13/2012 09:56:00 09/13/2012 23: 59:59 [facility] Outpatient [id number] 08/30/2012 09:51:00 08/30/2012 23: 59:59 [facility] Outpatient [id number] 08/16/2012 09:56:00 08/16/2012 23: 59:59 [facility] Outpatient [id number] 07/19/2012 09:49:00 07/19/2012 23: 59:59 [facility] Outpatient [id number] 05/30/2012 09:45:00 05/30/2012 23: 59:59 [facility] Outpatient ADITYAJEISON CAMERON RODRIGUEZ [id number] 04/06/2013 12:51:00 Document Registration [id number] 03/21/2013 12:53:00 Document Registration [id number] 03/09/2013 12:58:00 Document Registration [id number] 01/25/2013 12:45:00 Document Registration [id number] 01/02/2013 07:56:00 Document Registration [id number] 12/21/2012 12:57:00 Document Registration [id number] 12/07/2012 12:53:00 Document Registration [id number] 11/23/2012 10:43:00 Document Registration [id number] 09/26/2015 14:47:00 2015 14:47:00 DIS Outpatient Marina MD, [facility] W.RAC [id number] 09/20/2015 20:40:00 2015 21:41:00 DIS Emergency Jamal POLLOCK, Sherman Bullard W.CHRIS [id number] 11/17/2015 19:18:00 2015 23:23:00 DIS Emergency Boo POLLOCK, Adonis Moss [facility] on [facility] ED ABD pain [id number] 10/29/2015 18:27:00 2015 23:59:59 CLS Emergency David Lund [facility] on [facility] ED S/I [id number] 08/05/2015 18:56:00 Document Registration [id number] 12/25/2015 14:30:00 12/25/2015 16:00:00 DIS Outpatient
== END 2017-03-27 02:52 | disposition left against medical advice (07) ==
LOC: EDUNIT# 02:19 → ER 02:20
DX: R07.9 Chest pain, unspecified (principal); F14.10 Cocaine abuse, uncomplicated; J45.909 Unspecified asthma, uncomplicated; I10 Essential (primary) hypertension; E78.00 Pure hypercholesterolemia, unspecified; K21.9 Gastro-esophageal reflux disease without esophagitis; E03.9 Hypothyroidism, unspecified; F41.9 Anxiety disorder, unspecified; F43.10 Post-traumatic stress disorder, unspecified; F31.9 Bipolar disorder, unspecified; F20.9 Schizophrenia, unspecified; Z90.89 Acquired absence of other organs
CPT/HCPCS: 99283

== ENCOUNTER 2017-08-30 08:49 | Outpatient (CLI) | payer MEDICAID ==
[~2017-08-30] VITALS: Ht 170.2 cm; Wt 106.1 kg
[~2017-08-30 08:49] MED LIST changes: -HYDR12.5; +HYDR12.5 PO; -LEVO50TA6; +LEVO50TA6 PO; -LORA10TA7; +LORA10TA7 PO; -MONT10TA24; +MONT10TA24 PO; -OMEP20CA12; +OMEP20CA12 PO; -OXCA300T; +OXCA300T PO; -OXCA600T; +OXCA600T PO; -VILA20TA; +VILA20TA PO
[2017-08-31] MEDS ORDERED: PANT40TA2 PO (13:02)
== END 2017-08-30 10:20 ==
LOC: PREOP 08:49
PROVIDERS: ATTEND Surgery
DX: Z01.818 Encounter for other preprocedural examination (principal); K21.9 Gastro-esophageal reflux disease without esophagitis; K92.1 Melena

== ENCOUNTER 2017-09-03 01:19 | Emergency (ER) | payer MEDICAID ==
[~2017-09-03] VITALS: Ht 170.2 cm; Wt 86.2 kg
[~2017-09-03 01:19] MED LIST changes: +PANT40TA2 PO
[2017-09-03] MEDS ORDERED: LACTATED RINGERS 1,000 ML IV ONE (01:27)
--- OUTSIDE RECORDS SUMMARY | 2017-09-03 01:28 | XMS REPORT | Continuity of Care Document ---
Author Author [facility] Address Unknown Phone Unavailable Allergies Active Description Code Type Severity Reaction Onset Reported/Identified Relationship to Patient Clinical Status Yes No Known Medication Allergies NKMA N/A N/A 08/05/2015 Medications Medication Packaging Start Date Stop Date Route Dosage Sig Viibryd 20 MG Oral Tablet UD 201510/24/2015 ORAL 20MG TAKE 1 TABLET AT BEDTIME. Viibryd 10 MG Oral Tablet UD 201510/24/2015 ORAL 10MG 1 tab. po hs. Trileptal 300 MG Oral Tablet UD 10/24/2015 ORAL 300MG TAKE 1 TABLET TWICE DAILY. OXcarbazepine 300 MG Oral Tablet UD 11/11/2015 01/11/2016 ORAL 300MG TAKE 1 TABLET TWICE DAILY. OXcarbazepine 300 MG Oral Tablet UD 11/24/2015 04/23/2016 ORAL 300MG 1 tab po [id number](am T hs) Viibryd 20 MG Oral Tablet UD 201504/23/2016 ORAL 20MG 1 tab po QAM Problems [...] F70 Mild intellectual disabilities 07/22/2015 F F90.1 Attention- deficit hyperactivity disorder, predominantly hyperactive type 07/22/2015 F F25.0 Schizoaffective disorder, bipolar type 07/22/2015 F F43.10 Post- traumatic stress disorder, unspecified Pastor, Bisi 07/22/2015 F F70 Mild intellectual disabilities [facility], Bisi 07/22/2015 F F90.1 Attention- deficit hyperactivity disorder, predominantly hyperactive type Pastor , Bisi 07/29/2015 F F70 Mild intellectual disabilities 07/29/2015 F F90.1 Attention- deficit hyperactivity disorder, predominantly hyperactive type 08/05/2015 F F70 Mild intellectual disabilities 08/05/2015 F F90.1 Attention- deficit hyperactivity disorder, predominantly hyperactive type 08/06/2015 F F25.0 Schizoaffective disorder, bipolar type [place], Irineo 08/06/2015 F F70 Mild intellectual disabilities Markie, [place] 08/06/2015 F F90.1 Attention- deficit hyperactivity disorder, predominantly hyperactive type [place] , Irineo 08/07/2015 F F70 Mild intellectual disabilities 08/07/2015 F F90.1 Attention- deficit hyperactivity disorder, predominantly hyperactive type 08/07/2015 F F25.0 Schizoaffective disorder, bipolar type [place], Irineo 08/07/2015 F F70 Mild intellectual disabilities Markie, [place] 08/07/2015 F F90.1 Attention- deficit hyperactivity disorder, predominantly hyperactive type [place] , [place] 08/08/2015 F F25.0 Schizoaffective disorder, bipolar type 08/08/2015 F F43.10 Post- traumatic stress disorder, unspecified Pastor, Bisi 08/08/2015 F F70 Mild intellectual disabilities Pastor, Bisi 08/08/2015 F F90.1 Attention- deficit hyperactivity disorder, predominantly hyperactive type Pastor , Bisi 08/11/2015 F F25.0 Schizoaffective disorder, bipolar type 08/15/2015 Final I10 Essential ( primary) hypertension 08/15/2015 Reason R07.9 Chest pain, unspecified 08/15/2015 Final Z72.0 Tobacco use 08/19/2015 F F70 Mild intellectual disabilities 08/19/2015 F F90.1 Attention- deficit hyperactivity disorder, predominantly hyperactive type 08/20/2015 F F25.0 Schizoaffective disorder, bipolar type Markie, [place] 08/20/2015 F F70 Mild intellectual disabilities [place], [place] 08/20/2015 F F90.1 Attention- deficit hyperactivity disorder, predominantly hyperactive type [place] , [place]ine[place] 08/21/2015 F F25.0 Schizoaffective disorder, bipolar type 08/25/2015 F F25.0 Schizoaffective disorder, bipolar type 08/26/2015 F F70 Mild intellectual disabilities 08/26/2015 F F90.1 Attention- deficit hyperactivity disorder, predominantly hyperactive type 08/28/2015 F F70 Mild intellectual disabilities 08/28/2015 F F90.1 Attention- deficit hyperactivity disorder, predominantly hyperactive type 08/29/2015 F F25.0 Schizoaffective disorder, bipolar type [place], [place] 08/29/2015 F F70 Mild intellectual disabilities 08/29/2015 F F90.1 Attention- deficit hyperactivity disorder, predominantly hyperactive type 08/29/2015 F F70 Mild intellectual disabilities [place], [place] 08/29/2015 F F90.1 Attention- deficit hyperactivity disorder, predominantly hyperactive type Markie , [place] 09/01/2015 F F25.0 Schizoaffective disorder, bipolar type 09/01/2015 F F25.0 Schizoaffective disorder, bipolar type [place], [place] 09/01/2015 F F70 Mild intellectual disabilities [place], [place] 09/01/2015 F F90.1 Attention- deficit hyperactivity disorder, predominantly hyperactive type Markie , [place] 09/01/2015 F F25.0 Schizoaffective disorder, bipolar type 09/11/2015 F F70 Mild intellectual disabilities 09/11/2015 F F90.1 Attention- deficit hyperactivity disorder, predominantly hyperactive type 09/12/2015 F F25.0 Schizoaffective disorder, bipolar type Barshney, Bisi A 09/12/2015 F F70 Mild intellectual disabilities Barshney, Bisi A 09/12/2015 F F90.1 Attention- deficit hyperactivity disorder, predominantly hyperactive type Barshney, Bisi A 09/18/2015 F F25.0 Schizoaffective disorder, bipolar type Cobb, Ann-Marie L 09/18/2015 F F70 Mild intellectual disabilities Cobb, Ann-Marie L 09/18/2015 F F90.1 Attention- deficit hyperactivity disorder, predominantly hyperactive type Cobb, Ann-Marie L 09/18/2015 F F70 Mild intellectual disabilities 09/18/2015 F F90.1 Attention- deficit hyperactivity disorder, predominantly hyperactive type 09/18/2015 F F25.0 Schizoaffective disorder, bipolar type 09/18/2015 F F70 Mild intellectual disabilities 09/18/2015 F F90.1 Attention- deficit hyperactivity disorder, predominantly hyperactive type 09/19/2015 F F25.0 Schizoaffective disorder, bipolar type Barshney, Bisi A 09/19/2015 F F70 Mild intellectual disabilities Barshney, Bisi A 09/19/2015 F F90.1 Attention- deficit hyperactivity disorder, predominantly hyperactive type Barshney, Bisi A 09/19/2015 F F25.0 Schizoaffective disorder, bipolar type 09/19/2015 F F25.0 Schizoaffective disorder, bipolar type 09/19/2015 F F43.10 Post- traumatic stress disorder, unspecified Pastor, Bisi 09/19/2015 F F70 Mild intellectual disabilities Pastor, Bisi 09/19/2015 F F90.1 Attention- deficit hyperactivity disorder, predominantly hyperactive type Pastor , Bisi 09/22/2015 F F70 Mild intellectual disabilities 09/22/2015 F F90.1 Attention- deficit hyperactivity disorder, predominantly hyperactive type 09/23/2015 F F25.0 Schizoaffective disorder, bipolar type LorenaEduardo S 09/23/2015 F F25.0 Schizoaffective disorder, bipolar type Karsten Yoder L 09/23/2015 F F70 Mild intellectual disabilities 09/23/2015 F F90.1 Attention- deficit hyperactivity disorder, predominantly hyperactive type 09/23/2015 F F70 Mild intellectual disabilities Karsten Yoder L 09/23/2015 F F90.1 Attention- deficit hyperactivity disorder, predominantly hyperactive type Karsten Yoder L 09/23/2015 F F43.10 Post- traumatic stress disorder, unspecified Lorena, Eduardo S 09/23/2015 F F70 Mild intellectual disabilities Eduardo Carrillo S 09/23/2015 F F90.1 Attention- deficit hyperactivity disorder, predominantly hyperactive type Davida, Eduardo S 09/23/2015 F F25.0 Schizoaffective disorder, bipolar type Barshney, Bisi A 09/23/2015 F F70 Mild intellectual disabilities Barshney, Bisi A 09/23/2015 F F90.1 Attention- deficit hyperactivity disorder, predominantly hyperactive type Barshney, Bisi A 09/23/2015 F F25.0 Schizoaffective disorder, bipolar type 09/23/2015 F F43.10 Post- traumatic stress disorder, unspecified Davida, Edaurdo S 09/23/2015 F F70 Mild intellectual disabilities Eduardo Carrilol S 09/23/2015 F F90.1 Attention- deficit hyperactivity disorder, predominantly hyperactive type Toreylla, Eduardo S 09/26/2015 F F25.0 Schizoaffective disorder, bipolar type 09/30/2015 F F70 Mild intellectual disabilities 09/30/2015 F F90.1 Attention- deficit hyperactivity disorder, predominantly hyperactive type 10/01/2015 F F25.0 Schizoaffective disorder, bipolar type Barshney, Bisi A 10/01/2015 F F70 Mild intellectual disabilities Barshney, Bisi A 10/01/2015 F F90.1 Attention- deficit hyperactivity disorder, predominantly hyperactive type Barshney, Bisi A 10/01/2015 F F25.0 Schizoaffective disorder, bipolar type 10/17/2015 F F70 Mild intellectual disabilities 10/17/2015 F F90.1 Attention- deficit hyperactivity disorder, predominantly hyperactive type 10/17/2015 F F25.0 Schizoaffective disorder, bipolar type Barshney, Bisi A 10/17/2015 F F70 Mild intellectual disabilities Barshney, Bisi A 10/17/2015 F F90.1 Attention- deficit hyperactivity disorder, predominantly hyperactive type Barshney, Bisi A 10/17/2015 F F25.0 Schizoaffective disorder, bipolar type 10/20/2015 F F70 Mild intellectual disabilities 10/20/2015 F F90.1 Attention- deficit hyperactivity disorder, predominantly hyperactive type 10/20/2015 F F25.0 Schizoaffective disorder, bipolar type Barshney, Bisi A 10/20/2015 F F70 Mild intellectual disabilities Barshney, Bisi A 10/20/2015 F F90.1 Attention- deficit hyperactivity disorder, predominantly hyperactive type Barshney, Bisi A 10/20/2015 F F25.0 Schizoaffective disorder, bipolar type 10/29/2015 F F70 Mild intellectual disabilities 10/29/2015 F F90.1 Attention- deficit hyperactivity disorder, predominantly hyperactive type 10/29/2015 F F25.0 Schizoaffective disorder, bipolar type Ailyn, [place] 10/29/2015 F F70 Mild intellectual disabilities Ailyn, [place] 10/29/2015 F F90.1 Attention- deficit hyperactivity disorder, predominantly hyperactive type Ailyn , [place] 10/30/2015 F F70 Mild intellectual disabilities Mil, Smiley Amina 10/30/2015 F F90.1 Attention- deficit hyperactivity disorder, predominantly hyperactive type Chambers, Smiley Amina 10/30/2015 F F25.0 Schizoaffective disorder, bipolar type 10/30/2015 F F43.10 Post- traumatic stress disorder, unspecified Lorena, Eduardo S 10/30/2015 F F70 Mild intellectual disabilities Lorena, Eduardo S 10/30/2015 F F90.1 Attention- deficit hyperactivity disorder, predominantly hyperactive type Jasononilla, Eduardo S 10/31/2015 F F70 Mild intellectual disabilities Mil, Smiley Amina 10/31/2015 F F90.1 Attention- deficit hyperactivity disorder, predominantly hyperactive type Chambers, Smiley Amina 11/03/2015 F F70 Mild intellectual disabilities 11/03/2015 F F90.1 Attention- deficit hyperactivity disorder, predominantly hyperactive type 11/03/2015 F F25.0 Schizoaffective disorder, bipolar type Barshney, Bisi A 11/03/2015 F F70 Mild intellectual disabilities Barshney, Bisi A 11/03/2015 F F90.1 Attention- deficit hyperactivity disorder, predominantly hyperactive type Barshney, Bisi A 11/03/2015 F F25.0 Schizoaffective disorder, bipolar type Smiley Jaeger 11/03/2015 F F25.0 Schizoaffective disorder, bipolar type Smiley Jaeger 11/05/2015 F F70 Mild intellectual disabilities 11/05/2015 F F90.1 Attention- deficit hyperactivity disorder, predominantly hyperactive type 11/06/2015 F F25.0 Schizoaffective disorder, bipolar type Barshney, Bisi A 11/06/2015 F F70 Mild intellectual disabilities Barshney, Bisi A 11/06/2015 F F90.1 Attention- deficit hyperactivity disorder, predominantly hyperactive type Barshney, Bisi A 11/06/2015 F F25.0 Schizoaffective disorder, bipolar type 11/10/2015 F F25.0 Schizoaffective disorder, bipolar type 11/11/2015 F F70 Mild intellectual disabilities 11/11/2015 F F90.1 Attention- deficit hyperactivity disorder, predominantly hyperactive type 11/11/2015 F F70 Mild intellectual disabilities 11/11/2015 F F90.1 Attention- deficit hyperactivity disorder, predominantly hyperactive type 11/11/2015 F F70 Mild intellectual disabilities 11/11/2015 F F90.1 Attention- deficit hyperactivity disorder, predominantly hyperactive type 11/11/2015 F F25.0 Schizoaffective disorder, bipolar type 11/12/2015 F F70 Mild intellectual disabilities 11/12/2015 F F90.1 Attention- deficit hyperactivity disorder, predominantly hyperactive type 11/14/2015 F F25.0 Schizoaffective disorder, bipolar type Barshney, Bisi A 11/14/2015 F F70 Mild intellectual disabilities Barshney, Bisi A 11/14/2015 F F90.1 Attention- deficit hyperactivity disorder, predominantly hyperactive type Barshney, Bisi A 11/14/2015 F F25.0 Schizoaffective disorder, bipolar type Barshney, Bisi A 11/14/2015 F F70 Mild intellectual disabilities Barshney, Bisi A 11/14/2015 F F90.1 Attention- deficit hyperactivity disorder, predominantly hyperactive type Barshney, Bisi A 11/14/2015 F F25.0 Schizoaffective disorder, bipolar type 11/17/2015 F F25.0 Schizoaffective disorder, bipolar type 11/18/2015 F F70 Mild intellectual disabilities 11/18/2015 F F90.1 Attention- deficit hyperactivity disorder, predominantly hyperactive type 11/19/2015 F F25.0 Schizoaffective disorder, bipolar type Fritzhnloren, Bisi A 11/19/2015 F F70 Mild intellectual disabilities Pan, Bisi A 11/19/2015 F F90.1 Attention- deficit hyperactivity disorder, predominantly hyperactive type Fritzhnloren, Bisi A 11/21/2015 F F25.0 Schizoaffective disorder, bipolar type 11/21/2015 Boo POLLOCK, Adonis Helton R11.2 Nausea with vomiting, unspecified 11/21/2015 F F70 Mild intellectual disabilities 11/21/2015 F F90.1 Attention- deficit hyperactivity disorder, predominantly hyperactive type 11/21/2015 F F70 Mild intellectual disabilities 11/21/2015 F F90.1 Attention- deficit hyperactivity disorder, predominantly hyperactive type 11/21/2015 F F25.0 Schizoaffective disorder, bipolar type Emani Santiago 11/21/2015 F F70 Mild intellectual disabilities Emani Santiago 11/21/2015 F F90.1 Attention- deficit hyperactivity disorder, predominantly hyperactive type Deny Santiagoin 11/24/2015 F E07.9 Disorder of thyroid, unspecified Ally Thakkar Mitali 11/24/2015 F F25.0 Schizoaffective disorder, bipolar type Pan, Bisi A 11/24/2015 F F70 Mild intellectual disabilities Pan, Bisi A 11/24/2015 F F90.1 Attention- deficit hyperactivity disorder, predominantly hyperactive type Fritzhnloren, Bisi A 11/24/2015 F F25.0 Schizoaffective disorder, bipolar type Concepcion Trujillo L 11/24/2015 F F70 Mild intellectual disabilities Concepcion Trujillo L 11/24/2015 F F90.1 Attention- deficit hyperactivity disorder, predominantly hyperactive type Concepcion Trujillo L 11/24/2015 F E78.0 Pure hypercholesterolemia Ally Thakkar Mitali 11/24/2015 F F25.0 Schizoaffective disorder, bipolar type Thakkar Ally Mitali 11/24/2015 F F43.10 Post- traumatic stress disorder, unspecified Bijan Ally Mitali 11/24/2015 F F70 Mild intellectual disabilities Ally Thakkar 11/24/2015 F F90.1 Attention- deficit hyperactivity disorder, predominantly hyperactive type Ally Thakkar 11/24/2015 F I10 Essential ( primary) hypertension Ally Thakkar 11/24/2015 F J45.40 Moderate persistent asthma, uncomplicated Ally Thakkar 11/24/2015 F K21.9 Gastro- esophageal reflux disease without esophagitis Ally Thakkar 11/24/2015 F F70 Mild intellectual disabilities 11/24/2015 F F90.1 Attention- deficit hyperactivity disorder, predominantly hyperactive type 11/24/2015 F I10 Essential ( primary) hypertension 11/24/2015 F F70 Mild intellectual disabilities Ally Thakkar 11/24/2015 F F90.1 Attention- deficit hyperactivity disorder, predominantly hyperactive type Ally Thakkar 11/24/2015 F I10 Essential ( primary) hypertension Ally Thakkar 11/24/2015 F F70 Mild intellectual disabilities 11/24/2015 F F90.1 Attention- deficit hyperactivity disorder, predominantly hyperactive type 11/24/2015 F I10 Essential ( primary) hypertension 11/24/2015 F F25.0 Schizoaffective disorder, bipolar type Ally Thakkar 11/24/2015 F E78.0 Pure hypercholesterolemia Ally Thakkar 11/24/2015 F F25.0 Schizoaffective disorder, bipolar type Ally Thakkar 11/24/2015 F F43.10 Post- traumatic stress disorder, unspecified Ally Thakkar 11/24/2015 F F70 Mild intellectual disabilities Ally Thakkar 11/24/2015 F F90.1 Attention- deficit hyperactivity disorder, predominantly hyperactive type Ally Thakkar 11/24/2015 F I10 Essential ( primary) hypertension Ally Thakkar 11/24/2015 F J45.40 Moderate persistent asthma, uncomplicated Ally Thakkar 11/24/2015 F K21.9 Gastro- esophageal reflux disease without esophagitis Ally Thakkar 11/24/2015 F F25.0 Schizoaffective disorder, bipolar type Bisi Perla 11/24/2015 F F70 Mild intellectual disabilities Yvette Perlara A 11/24/2015 F F90.1 Attention- deficit hyperactivity disorder, predominantly hyperactive type Fritzhnloren, Bisi A 11/24/2015 F I10 Essential ( primary) hypertension Pan, Bisi A 11/24/2015 F F25.0 Schizoaffective disorder, bipolar type Fritzhnloren, Bisi A 11/24/2015 F F70 Mild intellectual disabilities Yvette Perlara A 11/24/2015 F F90.1 Attention- deficit hyperactivity disorder, predominantly hyperactive type Fritzhnloren, Bisi A 11/24/2015 F I10 Essential ( primary) hypertension Fritzhnloren, Bisi A 11/24/2015 F F25.0 Schizoaffective disorder, bipolar type 11/24/2015 F F25.0 Schizoaffective disorder, bipolar type 11/28/2015 F F25.0 Schizoaffective disorder, bipolar type 11/28/2015 F F25.0 Schizoaffective disorder, bipolar type 12/13/2015 F F70 Mild intellectual disabilities Davonerum, Malcom Garcia 12/13/2015 F F90.1 Attention- deficit hyperactivity disorder, predominantly hyperactive type Bjerum , Malcom Garcia 12/13/2015 F I10 Essential ( primary) hypertension Bjerum, Malcom Garcia 12/13/2015 F F25.0 Schizoaffective disorder, bipolar type Bjerum, Malcom Garcia 12/13/2015 F F70 Mild intellectual disabilities erum, Malcom Garcia 12/13/2015 F F90.1 Attention- deficit hyperactivity disorder, predominantly hyperactive type Bjerum , Malcom Garcia 12/13/2015 F I10 Essential ( primary) hypertension Bjerum, Malcom Garcia 12/13/2015 F F25.0 Schizoaffective disorder, bipolar type Bjerum, Nestor 12/15/2015 F F70 Mild intellectual disabilities 12/15/2015 F F90.1 Attention- deficit hyperactivity disorder, predominantly hyperactive type 12/15/2015 F I10 Essential ( primary) hypertension 12/17/2015 F F25.0 Schizoaffective disorder, bipolar type Bisi Perla A 12/17/2015 F F70 Mild intellectual disabilities Yvette Perlara A 12/17/2015 F F90.1 Attention- deficit hyperactivity disorder, predominantly hyperactive type Yvette Perlara A 12/17/2015 F I10 Essential ( primary) hypertension Pan, Bisi A 12/18/2015 F F25.0 Schizoaffective disorder, bipolar type 12/25/2015 F F70 Mild intellectual disabilities 12/25/2015 F F90.1 Attention- deficit hyperactivity disorder, predominantly hyperactive type 12/25/2015 F I10 Essential ( primary) hypertension 12/25/2015 F F25.0 Schizoaffective disorder, bipolar type Bisi Perla A 12/25/2015 F F70 Mild intellectual disabilities Bisi Perla A 12/25/2015 F F90.1 Attention- deficit hyperactivity disorder, predominantly hyperactive type Bisi Perla A 12/25/2015 F I10 Essential ( primary) hypertension Bisi Perla A 12/25/2015 F F25.0 Schizoaffective disorder, bipolar type Procedures Code Description [place] [address] INDIV PSYTX 45/50 MIN 05/30/2012 20641 INDIV PSYTX 45/50 MIN 06/16/2012 36655 INDIV PSYTX 45/50 MIN 07/04/2012 74982 INDIV PSYTX 45/50 MIN 07/19/2012 37686 PSYTX PT&/FAMILY 45 MINUTES 08/17/2012 12464 PSYTX PT&/FAMILY 45 MINUTES 08/31/2012 21012 PSYTX PT&/FAMILY 45 MINUTES 09/14/2012 85974 PSYTX PT&/FAMILY 45 MINUTES 09/28/2012 22061 PSYTX PT&/FAMILY 45 MINUTES 10/12/2012 11291 PSYTX PT&/FAMILY 45 MINUTES 10/26/2012 80574 PSYTX PT&/FAMILY 45 MINUTES 11/02/2012 95796 PSYTX PT&/FAMILY 45 MINUTES 11/28/2012 44024 PSYTX PT&/FAMILY 45 MINUTES 12/11/2012 56631 PSYTX PT&/FAMILY 45 MINUTES 12/26/2012 07952 PSYTX PT&/FAMILY 45 MINUTES 01/04/2013 26044 PSYTX PT&/FAMILY 45 MINUTES 01/25/2013 94893 PSYTX PT&/FAMILY 45 MINUTES 03/12/2013 10902 PSYTX PT&/FAMILY 45 MINUTES 03/22/2013 94608 PSYTX PT&/FAMILY 45 MINUTES 04/09/2013 76246 PSYTX PT&/FAMILY 45 MINUTES 04/20/2013 34461 PSYTX PT&/FAMILY 45 MINUTES 05/07/2013 83693 PSYTX PT&/FAMILY 45 MINUTES 06/18/2013 07315 PSYTX PT&/FAMILY 45 MINUTES 07/05/2013 97254 PSYTX PT&/FAMILY 30 MINUTES 07/18/2013 45392 PSYTX PT&/FAMILY 45 MINUTES 08/10/2013 47075 PSYTX PT&/FAMILY 45 MINUTES 09/03/2013 70470 PSYTX PT&/FAMILY 45 MINUTES 09/07/2013 84993 PSYTX PT&/FAMILY 45 MINUTES 10/04/2013 52251 PSYTX PT&/FAMILY 45 MINUTES 11/02/2013 12336 PSYTX PT&/FAMILY 45 MINUTES 11/22/2013 95794 PSYTX PT&/FAMILY 45 MINUTES 12/14/2013 99530 PSYTX PT&/FAMILY 45 MINUTES 01/23/2014 07852 PSYTX PT&/FAMILY 45 MINUTES 02/13/2014 62364 PSYTX PT&/FAMILY 45 MINUTES 03/18/2014 37135 PSYTX PT&/FAMILY 45 MINUTES 04/16/2014 05089 PSYTX PT&/FAMILY 45 MINUTES 04/30/2014 53399 PSYTX PT&/FAMILY 45 MINUTES 05/14/2014 09310 PSYTX PT&/FAMILY 45 MINUTES 06/11/2014 32837 PSYTX PT&/FAMILY 45 MINUTES 07/15/2014 32595 PSYTX PT&/FAMILY 45 MINUTES 08/08/2014 42371 PSYTX PT&/FAMILY 45 MINUTES 10/23/2014 05417 PSYTX PT&/FAMILY 45 MINUTES 11/20/2014 94155 Bisi Baumann 07/22/2015 89344 Bisi Baumann 07/22/2015 H0036 Markie , Irine[place] 08/05/2015 H0036 Markie , Irine[place] 08/05/2015 H0036 Markie , Irine[place] 08/07/2015 H0036 Markie , Irineo 08/07/2015 H0036 Markie , Irineo 08/19/2015 H0036 Markie , Irine[place] 08/19/2015 H0036 Markie , Irineo 08/28/2015 H0036 [place] , Irineo 08/28/2015 H0036 Markie , Irineo 08/29/2015 H0036 [place] , Irineo 08/29/2015 H2017 Barshney, Bisi A 09/11/2015 H2017 Barshney, Bisi A 09/11/2015 [id number] Darland, Erica Mitali 09/18/2015 51226 Darland, Erica Mitali 09/18/2015 H2017 Barshney, Bisi A 09/18/2015 H2017 Barshney, Bisi A 09/18/2015 H2017 Barshney, Bisi A 09/22/2015 H2017 Barshney, Bisi A 09/22/2015 [id number] OFFICE/OUTPATIENT VISIT, Eduardo Hernandez 09/23/2015 [id number] OFFICE/OUTPATIENT VISIT, Eduardo Hernandez 09/23/2015 H2017 Barshney, Bisi A 09/30/2015 H2017 Barshney, Bisi A 09/30/2015 H2017 Barshney, Bisi A 10/17/2015 H2017 Barshney, Bisi A 10/17/2015 H2017 Barshney, Bisi A 10/20/2015 H2017 Barshney, Bisi A 10/20/2015 H2011 Ailyn , Talli 10/29/2015 H2011 Ailyn , Talli 10/29/2015 12650 INITIAL HOSPITAL CARE RodolfoShyanne self Edilberto 10/30/2015 30784 HOSPITAL DISCHARGE DAY Pura Shyanne S 10/31/2015 H0036 Barshney, Bisi A 11/03/2015 H0036 Barshney, Bisi A 11/03/2015 H2017 Barshney, Bisi A 11/05/2015 H2017 Barshney, Bisi A 11/05/2015 H0036 Barshney, Bisi A 11/11/2015 24100 OFFICE/OUTPATIENT VISIT, Annabella Garay 11/11/2015 T1019 Barshney, Bisi A 11/11/2015 T1019 Barshney, Bisi A 11/11/2015 H0036 Barshney, Bisi A 11/11/2015 [id number] OFFICE/OUTPATIENT VISIT, Annabella Garay 11/11/2015 H0036 Barshney, Bisi A 11/18/2015 H0036 Barshney, Bisi A 11/18/2015 H2017 Barshney, Bisi A 11/21/2015 T1019 Emani Santiago 11/21/2015 H2017 Barshney, Bisi A 11/21/2015 T1019 Emani Santiago 11/21/2015 H0036 Barshney, Bisi A 11/24/2015 [id number] OFFICE/OUTPATIENT VISIT, Ally Mosqueda Mitali 11/24/2015 T1019 Barshney, Bisi A 11/24/2015 T1019 Barshney, Bisi A 11/24/2015 [id number] OFFICE/OUTPATIENT VISIT, Ally Mosqueda 11/24/2015 H0036 Barshney, Bisi A 11/24/2015 H2011 Bjerum , Malcom Garcia 12/13/2015 H2011 Bjerum , Malcom Garcia 12/13/2015 H0036 Barshney, Bisi A 12/15/2015 H0036 Barshney, Bisi A 12/15/2015 H0036 Barshney, Bisi A 12/25/2015 H0036 Barshney, Bisi A 12/25/2015 Results There is no data. Encounters ACCT No. Visit Date/Time Discharge Status Pt. Type Provider Facility Loc./Unit Complaint [id number] 11/19/2014 14:47:00 11/19/2014 23:59:59 [facility] Outpatient CAMERON BAUMANN PHD [id number] 11/19/2014 10:42:00 11/19/2014 23:59:59 [facility] Outpatient ASYA GALLOWAY APRN [id number] 10/23/2014 09:08:00 10/23/2014 23:59:59 [facility] Outpatient CAMERON BAUMANN PHD [id number] 08/07/2014 14:03:00 08/07/2014 23:59:59 [facility] Outpatient CAMERON BAUMANN PHD [id number] 07/15/2014 13:55:00 07/15/2014 23:59:59 [facility] Outpatient CAMERON BAUMANN PHD [id number] 06/11/2014 14:05:00 06/11/2014 23:59:59 [facility] BOEPAULINEOUT CAMERON Rod [id number] 05/14/2014 11:02:00 05/14/2014 23:59:59 [facility] Outpatient TEREOUT CAMERON Rod [id number] 04/30/2014 09:46:00 04/30/2014 23:59:59 [facility] Outpatient BOEPAULINEOUT CAMERON RODRIGUEZ [id number] 04/16/2014 09:57:00 04/16/2014 23:59:59 [facility] Outpatient BOEKHOUT CAMERON Rod [id number] 03/18/2014 08:53:00 03/18/2014 23:59:59 [facility] Outpatient BOEPAULINEOUT CAMERON RODRIGUEZ [id number] 02/12/2014 08:55:00 02/12/2014 23:59:59 [facility] Outpatient BOEPAULINEOUT PHDCAMERON [id number] 01/22/2014 12:50:00 01/22/2014 23:59:59 [facility] Outpatient BOEKHOUT CAMERON RODRIGUEZ [id number] 12/13/2013 09:55:00 12/13/2013 23:59:59 [facility] Outpatient BOEKHOUT CAMERON RODRIGUEZ [id number] 11/21/2013 13:04:00 11/21/2013 23:59:59 [facility] Outpatient BOEPAULINEOUT CAMERON RODRIGUEZ [id number] 11/02/2013 09:52:00 11/02/2013 23:59:59 CLS Outpatient BOEPAULINEOUT CAMERON RODRIGUEZ [id number] 10/04/2013 09:55:00 10/04/2013 23:59:59 CLS Outpatient BOEPAULINEOUT CAMERON RODRIGUEZ [id number] 09/06/2013 11:01:00 09/06/2013 23:59:59 CLS Outpatient TEREOUT CAMERON RODRIGUEZ [id number] 08/30/2013 13:00:00 08/30/2013 23:59:59 CLS Outpatient TEREOUT CAMERON RODRIGUEZ [id number] 08/09/2013 15:00:00 08/09/2013 23:59:59 CLS Outpatient TEREOUT CAMERON RODRIGUEZ [id number] 07/17/2013 13:22:00 07/17/2013 23:59:59 CLS Outpatient BOEKHOUT CAMERON RODRIGUEZ [id number] 07/05/2013 12:48:00 07/05/2013 23:59:59 CLS Outpatient PASTOR RODRIGUEZ CAMERON A [id number] 06/15/2013 08:05:00 06/15/2013 23:59:59 CLS Outpatient ADITYAJEISON CAMERON RODRIGUEZ [id number] 05/04/2013 11:06:00 05/04/2013 23:59:59 CLS Outpatient PASTOR RODRIGUEZCAMERON [id number] 04/19/2013 09:28:00 04/19/2013 23:59:59 CLS Outpatient ADITYAJEISON CAMERON RODRIGUEZ [id number] 11/01/2012 13:53:00 11/01/2012 23:59:59 CLS Outpatient PASTOR CAMERON RODRIGUEZ [id number] 10/25/2012 09:56:00 10/25/2012 23:59:59 CLS Outpatient [id number] 10/11/2012 10:53:00 10/11/2012 23:59:59 CLS Outpatient [id number] 09/27/2012 09:57:00 09/27/2012 23:59:59 CLS Outpatient [id number] 09/13/2012 09:56:00 09/13/2012 23:59:59 CLS Outpatient [id number] 08/30/2012 09:51:00 08/30/2012 23:59:59 CLS Outpatient [id number] 08/16/2012 09:56:00 08/16/2012 23:59:59 CLS Outpatient [id number] 07/19/2012 09:49:00 07/19/2012 23:59:59 CLS Outpatient [id number] 05/30/2012 09:45:00 05/30/2012 23:59:59 CLS Outpatient ADITYAJEISON CAMERON RODRIGUEZ [id number] 04/06/2013 12:51:00 Document Registration [id number] 03/21/2013 12:53:00 Document Registration [id number] 03/09/2013 12:58:00 Document Registration [id number] 01/25/2013 12:45:00 Document Registration [id number] 01/02/2013 07:56:00 Document Registration [id number] 12/21/2012 12:57:00 Document Registration [id number] 12/07/2012 12:53:00 Document Registration [id number] 11/23/2012 10:43:00 Document Registration [id number] 09/26/2015 14:47:00 09/26/2015 14:47:00 DIS Outpatient Marina POLLOCK, [facility] W.RAC [id number] 09/20/2015 20:40:00 09/20/2015 21:41:00 DIS Emergency Jamal POLLOCK, [facility] W.CHRIS [id number] 11/17/2015 19:18:00 11/17/2015 23:23:00 DIS Emergency Boo POLLOCK, Adonis Moss [facility] on [address] [facility] ED ABD pain [id number] 10/29/2015 18:27:00 10/29/2015 23:59:59 CLS Emergency David Lund [facility] on [place] [facility] ED S/I [id number] 08/05/2015 18:56:00 Document Registration [id number] 12/25/2015 14:30:00 12/25/2015 16:00:00 DIS Outpatient
[2017-09-03] MEDS ORDERED: ONDANSETRON 4 MG/2 ML (SDV) Z0FRAN IVP ONE (01:30)
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
[2017-09-03 01:41] LABS: BASOPHILS % (AUTO) 0 % (0-10); EOSINOPHILS # (AUTO) 0.2 10^3/uL (0.0-0.3); EOSINOPHILS % (AUTO) 2 % (0-10); HEMATOCRIT 39 % (40-54); HEMOGLOBIN 14.7 G/DL (13.3-17.7); LYMPHOCYTES # (AUTO) 2.8 X 10^3 (1.0-4.0); LYMPHOCYTES % (AUTO) 40 % (12-44); MEAN CORPUSCULAR HEMOGLOBIN 30 PG (25-34); MEAN CORPUSCULAR HGB CONC 38 G/DL (32-36); MEAN CORPUSCULAR VOLUME 80 FL (80-99); MEAN PLATELET VOLUME 8.7 FL (7.4-10.4); MONOCYTES # (AUTO) 0.5 X 10^3 (0.0-1.0); MONOCYTES % (AUTO) 7 % (0-12); NEUTROPHILS # (AUTO) 3.6 X 10^3 (1.8-7.8); NEUTROPHILS % (AUTO) 51 % (42-75); PLATELET COUNT 238 10^3/uL (130-400); RED BLOOD COUNT 4.83 10^6/uL (4.35-5.85); WHITE BLOOD COUNT 7.1 10^3/uL (4.3-11.0)
[2017-09-03] MEDS ORDERED: IOHEXOL 350 MG/ML 100 ML (OMNIPAQUE 350) VIAL IV ONE (02:00)
[2017-09-03] MEDS ORDERED: NS 250 ML (IVPB) BAG IV ONE (02:00)
[2017-09-03 02:02] LABS: ALANINE AMINOTRANSFERASE 51 U/L (0-55); ALBUMIN 4.3 GM/DL (3.2-4.5); ALKALINE PHOSPHATASE 78 U/L (40-136); BILIRUBIN,TOTAL 0.8 MG/DL (0.1-1.0); BUN/CREATININE RATIO 9; CALCIUM 8.7 MG/DL (8.5-10.1); CARBON DIOXIDE 19 MMOL/L (21-32); CHLORIDE 98 MMOL/L (98-107); CREATININE SERUM 0.98 MG/DL (0.60-1.30); GFR ESTIMATED > 60; GLUCOSE 119 MG/DL (70-105); SODIUM 134 MMOL/L (135-145)
[2017-09-03 04:02] VITALS: BP 125/80
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
--- NOTE | 2017-09-03 07:04 | Diagnostic Imaging Report ---
PROCEDURE: CT abdomen and pelvis with contrast. TECHNIQUE: Multiple contiguous axial images were obtained through the abdomen and pelvis after administration of intravenous contrast. INDICATION: Abdominal pain. FINDINGS: The previous CT abdomen/pelvis exam of 11/17/2015 noted a 3.7 x 2.2 cm area of altered density in the right lobe of the liver. The possibility that this was related to an atypical hemangioma was raised. On this exam that finding is again evident and does not appear to have changed adversely. This area of altered density is only barely visible on the delayed series and I do suspect that this is most likely a benign process such as a hemangioma. The liver is otherwise unremarkable. The spleen, pancreas, kidneys, adrenals, aorta, inferior vena cava, and gallbladder are within normal limits. The stomach is filled with fluid and consequently difficult to assess; however, there does appear to be a moderate amount of fluid extending cephalad into the distal esophagus. There is no sign of an esophageal mass or stricture but if further evaluation of the esophagus is desired, then either endoscopy or an upper GI exam would be recommended. The appendix is visualized and is not abnormally thickened. There is no pelvic mass or free fluid collection noted. The urinary bladder and prostate gland are grossly unremarkable. The bone windows show no sign of a fracture or of destructive lesion. The lung bases are generally clear. IMPRESSION: 1. There is no acute abnormality of the abdomen or pelvis. 2. The area of altered density within the right lobe of the liver seen on the previous study is again evident and does not appear to have changed adversely. Most likely, this is a benign process such as a hemangioma. If further imaging is desired, then MRI would be recommended. Dictated by: Dictated on workstation # [id number]
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
== END 2017-09-03 04:02 | disposition home or self-care (01) ==
LOC: EDUNIT# 01:19 → ER 01:22
DX: S06.9X9A Unspecified intracranial injury with loss of consciousness of unspecified duration, initial encounter (principal); K76.89 Other specified diseases of liver; R40.2252 Coma scale, best verbal response, oriented, at arrival to emergency department; R40.2362 Coma scale, best motor response, obeys commands, at arrival to emergency department; J45.909 Unspecified asthma, uncomplicated; I10 Essential (primary) hypertension; E78.00 Pure hypercholesterolemia, unspecified; K21.9 Gastro-esophageal reflux disease without esophagitis; E03.9 Hypothyroidism, unspecified; F41.9 Anxiety disorder, unspecified; F43.10 Post-traumatic stress disorder, unspecified; F20.9 Schizophrenia, unspecified; F31.9 Bipolar disorder, unspecified; F17.200 Nicotine dependence, unspecified, uncomplicated; Z90.89 Acquired absence of other organs; Y04.8XXA Assault by other bodily force, initial encounter
CPT/HCPCS: 36415; 70450; 71045; 72125; 74177; 80053; 80320; 85025; 96361; 96374

== ENCOUNTER 2017-10-09 21:02 | Emergency (ER) | payer MEDICAID ==
[~2017-10-09] VITALS: Ht 170.2 cm; Wt 106.6 kg
[2017-10-09] MEDS ORDERED: AUGMENTIN 875 MG TAB (AMOXICILLIN/CLAVULANATE) PO STA (22:03)
[2017-10-09] MEDS ORDERED: AMOX-358 PO (22:12)
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
[2017-10-09 22:21] VITALS: BP 152/95
--- OUTSIDE RECORDS SUMMARY | 2017-10-10 10:44 | XMS REPORT | Continuity of Care Document ---
Author Author Counts Include [facility] Address Unknown Phone Unavailable Allergies Active [...] 11/24/2015 04/23/2016 ORAL 300MG 1 tab po [id number](am T hs) Viibryd 20 MG Oral Tablet [...] Bisi 07/22/2015 F F70 Mild intellectual disabilities [facility], Bisi 07/22/2015 F F90.1 Attention- deficit hyperactivity disorder, predominantly hyperactive type Pastor , Bisi 07/29/2015 F F70 Mild intellectual disabilities 07/29/2015 F F90.1 Attention- deficit hyperactivity disorder, predominantly hyperactive type 08/05/2015 F F70 Mild intellectual disabilities 08/05/2015 F F90.1 Attention- deficit hyperactivity disorder, predominantly hyperactive type 08/06/2015 F F25.0 Schizoaffective disorder, bipolar type [place], Irineo 08/06/2015 F F70 Mild intellectual disabilities Markie, [place] 08/06/2015 F F90.1 Attention- deficit hyperactivity disorder, predominantly hyperactive type [place] , Irineo 08/07/2015 F F70 Mild intellectual disabilities 08/07/2015 F F90.1 Attention- deficit hyperactivity disorder, predominantly hyperactive type 08/07/2015 F F25.0 Schizoaffective disorder, bipolar type [place], Irineo 08/07/2015 F F70 Mild intellectual disabilities Markie, [place] 08/07/2015 F F90.1 Attention- deficit hyperactivity disorder, predominantly hyperactive type [place] , [place] 08/08/2015 F F25.0 Schizoaffective disorder, bipolar type [...] Irineo 08/20/2015 F F70 Mild intellectual disabilities [place], [place] 08/20/2015 F F90.1 Attention- deficit hyperactivity disorder, predominantly hyperactive type [place] , Irineo 08/21/2015 F F25.0 Schizoaffective disorder, bipolar type 08/25/2015 F F25.0 Schizoaffective disorder, bipolar type 08/26/2015 F F70 Mild intellectual disabilities 08/26/2015 F F90.1 Attention- deficit hyperactivity disorder, predominantly hyperactive type 08/28/2015 F F70 Mild intellectual disabilities 08/28/2015 F F90.1 Attention- deficit hyperactivity disorder, predominantly hyperactive type 08/29/2015 F F25.0 Schizoaffective disorder, bipolar type [place], Irineo 08/29/2015 F F70 Mild intellectual disabilities 08/29/2015 F F90.1 Attention- deficit hyperactivity disorder, predominantly hyperactive type 08/29/2015 F F70 Mild intellectual disabilities [place], Irineo 08/29/2015 F F90.1 Attention- deficit hyperactivity disorder, predominantly hyperactive type Markie , Irineo 09/01/2015 F F25.0 Schizoaffective disorder, bipolar type 09/01/2015 F F25.0 Schizoaffective disorder, bipolar type [place], Irineo 09/01/2015 F F70 Mild intellectual disabilities [place], Irineo 09/01/2015 F F90.1 Attention- deficit hyperactivity disorder, predominantly hyperactive type Marike , Irineo 09/01/2015 F F25.0 Schizoaffective disorder, [...] F43.10 Post- traumatic stress disorder, unspecified Davida, Eduardo S 09/23/2015 [...] A 11/24/2015 F F70 Mild intellectual disabilities vYette Perlara A 11/24/2015 F F90.1 Attention- deficit [...] Procedures Code Description [place] [address] INDIV PSYTX 45/50 MIN 05/30/2012 12332 INDIV PSYTX 45/50 MIN 06/16/2012 10068 INDIV PSYTX 45/50 MIN 07/04/2012 07359 INDIV PSYTX 45/50 MIN 07/19/2012 32945 PSYTX PT&/FAMILY 45 MINUTES 08/17/2012 64802 PSYTX PT&/FAMILY 45 MINUTES 08/31/2012 80065 PSYTX PT&/FAMILY 45 MINUTES 09/14/2012 51117 PSYTX PT&/FAMILY 45 MINUTES 09/28/2012 13260 PSYTX PT&/FAMILY 45 MINUTES 10/12/2012 29008 PSYTX PT&/FAMILY 45 MINUTES 10/26/2012 71246 PSYTX PT&/FAMILY 45 MINUTES 11/02/2012 53085 PSYTX PT&/FAMILY 45 MINUTES 11/28/2012 19768 PSYTX PT&/FAMILY 45 MINUTES 12/11/2012 16506 PSYTX PT&/FAMILY 45 MINUTES 12/26/2012 59339 PSYTX PT&/FAMILY 45 MINUTES 01/04/2013 70861 PSYTX PT&/FAMILY 45 MINUTES 01/25/2013 28280 PSYTX PT&/FAMILY 45 MINUTES 03/12/2013 29858 PSYTX PT&/FAMILY 45 MINUTES 03/22/2013 13124 PSYTX PT&/FAMILY 45 MINUTES 04/09/2013 02752 PSYTX PT&/FAMILY 45 MINUTES 04/20/2013 84922 PSYTX PT&/FAMILY 45 MINUTES 05/07/2013 78306 PSYTX PT&/FAMILY 45 MINUTES 06/18/2013 49722 PSYTX PT&/FAMILY 45 MINUTES 07/05/2013 72920 PSYTX PT&/FAMILY 30 MINUTES 07/18/2013 32551 PSYTX PT&/FAMILY 45 MINUTES 08/10/2013 75610 PSYTX PT&/FAMILY 45 MINUTES 09/03/2013 84231 PSYTX PT&/FAMILY 45 MINUTES 09/07/2013 38299 PSYTX PT&/FAMILY 45 MINUTES 10/04/2013 01326 PSYTX PT&/FAMILY 45 MINUTES 11/02/2013 18934 PSYTX PT&/FAMILY 45 MINUTES 11/22/2013 44437 PSYTX PT&/FAMILY 45 MINUTES 12/14/2013 14834 PSYTX PT&/FAMILY 45 MINUTES 01/23/2014 56175 PSYTX PT&/FAMILY 45 MINUTES 02/13/2014 83931 PSYTX PT&/FAMILY 45 MINUTES 03/18/2014 36702 PSYTX PT&/FAMILY 45 MINUTES 04/16/2014 78463 PSYTX PT&/FAMILY 45 MINUTES 04/30/2014 85684 PSYTX PT&/FAMILY 45 MINUTES 05/14/2014 85992 PSYTX PT&/FAMILY 45 MINUTES 06/11/2014 51692 PSYTX PT&/FAMILY 45 MINUTES 07/15/2014 19313 PSYTX PT&/FAMILY 45 MINUTES 08/08/2014 84832 PSYTX PT&/FAMILY 45 MINUTES 10/23/2014 30599 PSYTX PT&/FAMILY 45 MINUTES 11/20/2014 45178 Bisi Baumann 07/22/2015 86410 Bisi Baumann 07/22/2015 H0036 Markie , Irineo 08/05/2015 H0036 Markie , Irineo 08/05/2015 H0036 Markie , Irineo 08/07/2015 H0036 Markie , Irineo 08/07/2015 H0036 Markie , Irineo 08/19/2015 H0036 Markie , Irineo 08/19/2015 H0036 Markie , Irineo 08/28/2015 H0036 [place] , Irineo 08/28/2015 H0036 Markie , Irineo 08/29/2015 H0036 [place] , Irineo 08/29/2015 H2017 Barshney, Bisi A 09/11/2015 H2017 Barshney, Bisi A 09/11/2015 03847 Darland, Erica Mitali 09/18/2015 88182 Darland, Erica Mitali 09/18/2015 H2017 Barshney, Bisi A 09/18/2015 H2017 Barshney, Bisi A 09/18/2015 H2017 Barshney, Bisi A 09/22/2015 H2017 Barshney, Bisi A 09/22/2015 76994 OFFICE/OUTPATIENT VISIT, Eduardo Hernandez 09/23/2015 19610 OFFICE/OUTPATIENT VISIT, Eduardo Hernandez 09/23/2015 H2017 Barshney, Bisi A 09/30/2015 H2017 Barshney, Bisi A 09/30/2015 H2017 Barshney, Bisi A 10/17/2015 H2017 Barshney, Bisi A 10/17/2015 H2017 Barshney, Bisi A 10/20/2015 H2017 Barshney, Bisi A 10/20/2015 H2011 Ailyn , Talli 10/29/2015 H2011 Ailyn , Talli 10/29/2015 66889 INITIAL HOSPITAL CARE RodolfoShyanne self Edilberto 10/30/2015 73338 HOSPITAL DISCHARGE DAY Pura Shyanne S 10/31/2015 H0036 Barshney, Bisi A 11/03/2015 H0036 Barshney, Bisi A 11/03/2015 H2017 Barshney, Bisi A 11/05/2015 H2017 Barshney, Bisi A 11/05/2015 H0036 Barshney, Bisi A 11/11/2015 06354 OFFICE/OUTPATIENT VISIT, Annabella Garay 11/11/2015 T1019 [place], Bisi A 11/11/2015 T1019 Barshney, Bisi A 11/11/2015 H0036 Barshney, Bisi A 11/11/2015 95547 OFFICE/OUTPATIENT VISIT, Annabella Garay 11/11/2015 H0036 Barshney, Bisi A 11/18/2015 H0036 Barshney, Bisi A 11/18/2015 H2017 Barshney, Bisi A 11/21/2015 T1019 Emani Santiago 11/21/2015 H2017 Barshney, Bisi A 11/21/2015 T1019 Emani Santiago 11/21/2015 H0036 Barshney, Bisi A 11/24/2015 51436 OFFICE/OUTPATIENT VISIT, Ally Mosqueda Mitali 11/24/2015 T1019 [place], Bisi A 11/24/2015 T1019 Barshney, Bisi A 11/24/2015 24803 OFFICE/OUTPATIENT VISIT, Ally Mosqueda 11/24/2015 H0036 Barshney, Bisi A 11/24/2015 H2011 Bjerum , Malcom Garcia 12/13/2015 H2011 Bjerum , Malcom Garcia 12/13/2015 H0036 Barshney, Bisi A 12/15/2015 H0036 Barshney, Bisi A 12/15/2015 H0036 Barshney, Bisi A 12/25/2015 H0036 Barshney, Bisi A 12/25/2015 Results There is no data. Encounters ACCT No. Visit Date/Time Discharge Status Pt. Type Provider Facility Loc./Unit Complaint [id number] 11/19/2014 14:47:00 11/19/2014 23:59:59 [facility] Outpatient CAMERON BAUMANN PHD [id number] 11/19/2014 10:42:00 11/19/2014 23:59:59 [facility] Outpatient ASYA GALLOWAY APRN [id number] 10/23/2014 09:08:00 10/23/2014 23:59:59 [facility] Outpatient CAMERON BAUMANN PHD [id number] 08/07/2014 14:03:00 08/07/2014 23:59:59 [facility] Outpatient CAMERON BAUMANN PHD [id number] 07/15/2014 13:55:00 07/15/2014 23:59:59 [facility] Outpatient CAMERON BAUMANN PHD [id number] 06/11/2014 14:05:00 06/11/2014 23:59:59 [facility] Outpatient BOEPAULINEOUT CAMERON Rod [id number] 05/14/2014 11:02:00 05/14/2014 23:59:59 [facility] Outpatient TEREOUT CAMERON Rod [id number] 04/30/2014 09:46:00 04/30/2014 23:59:59 [facility] Outpatient BOEPAULINEOUT CAMERON RODRIGUEZ [id number] 04/16/2014 09:57:00 04/16/2014 23:59:59 [facility] Outpatient BOEKHOUT CAMERON Rod [id number] 03/18/2014 08:53:00 03/18/2014 23:59:59 [facility] Outpatient BOEPAULINEOUT CAMERON RODRIGUEZ [id number] 02/12/2014 08:55:00 02/12/2014 23:59:59 [facility] Outpatient BOEPAULINEOUT PHDCAMERON [id number] 01/22/2014 12:50:00 01/22/2014 23:59:59 [facility] Outpatient BOEKHOUT CAMERON RODRIGUEZ [id number] 12/13/2013 09:55:00 12/13/2013 23:59:59 [facility] Outpatient BOEKHOUT CAMERON RODRIGUEZ [id number] 11/21/2013 13:04:00 11/21/2013 23:59:59 [facility] Outpatient BOEPAULINEOUT CAMERON RODRIGUEZ [id number] 11/02/2013 09:52:00 11/02/2013 23:59:59 [facility] Outpatient BOEPAULINEOUT CAMERON RODRIGUEZ [id number] 10/04/2013 09:55:00 10/04/2013 23:59:59 [facility] Outpatient BOEPAULINEOUT CAMERON RODRIGUEZ [id number] 09/06/2013 11:01:00 09/06/2013 23:59:59 [facility] Outpatient TEREOUT CAMERON RODRIGUEZ [id number] 08/30/2013 13:00:00 08/30/2013 23:59:59 [facility] Outpatient TEREOUT CAMERON RODRIGUEZ [id number] 08/09/2013 15:00:00 08/09/2013 23:59:59 [facility] Outpatient TEREOUT CAMERON RODRIGUEZ [id number] 07/17/2013 13:22:00 07/17/2013 23:59:59 [facility] Outpatient BOEKHOUT CAMERON RODRIGUEZ [id number] 07/05/2013 12:48:00 07/05/2013 23:59:59 [facility] Outpatient PASTOR RODRIGUEZ CAMERON A [id number] 06/15/2013 08:05:00 06/15/2013 23:59:59 [facility] Outpatient ADITYAJEISON CAMERON RODRIGUEZ [id number] 05/04/2013 11:06:00 05/04/2013 23:59:59 C[facility] Outpatient PASTOR RODRIGUEZCAMERON [id number] 04/19/2013 09:28:00 04/19/2013 23:59:59 [facility] Outpatient ADITYAJEISON CAMERON RODRIGUEZ [id number] 11/01/2012 13:53:00 11/01/2012 23:59:59 [facility] Outpatient PASTOR CAMERON RODRIGUEZ [id number] 10/25/2012 09:56:00 10/25/2012 23:59:59 CLS Outpatient [id number] 10/11/2012 10:53:00 10/11/2012 23:59:59 CLS Outpatient [id number] 09/27/2012 09:57:00 09/27/2012 23:59:59 CLS Outpatient [id number] 09/13/2012 09:56:00 09/13/2012 23:59:59 CLS Outpatient [id number] 08/30/2012 09:51:00 08/30/2012 23:59:59 CLS Outpatient [id number] 08/16/2012 09:56:00 08/16/2012 23:59:59 CLS Outpatient [id number] 07/19/2012 09:49:00 07/19/2012 23:59:59 CLS Outpatient [id number] 05/30/2012 09:45:00 05/30/2012 23:59:59 CLS Outpatient ADITYAJEISON CAMERON RODRIGUEZ [id number] 04/06/2013 12:51:00 Document Registration [id number] 03/21/2013 12:53:00 Document Registration [id number] 03/09/2013 12:58:00 Document Registration [id number] 01/25/2013 12:45:00 Document Registration [id number] 01/02/2013 07:56:00 Document Registration [id number] 12/21/2012 12:57:00 Document Registration [id number] 12/07/2012 12:53:00 Document Registration [id number] 11/23/2012 10:43:00 Document Registration [id number] 09/26/2015 14:47:00 09/26/2015 14:47:00 DIS Outpatient Marina POLLOCK, [facility] W.RAC [id number] 09/20/2015 20:40:00 09/20/2015 21:41:00 DIS Emergency Jamal POLLOCK, [facility] W.CHRIS [id number] 11/17/2015 19:18:00 11/17/2015 23:23:00 DIS Emergency Boo POLLOCK, Adonis [facility] [address] [place] [facility] ED ABD pain [id number] 10/29/2015 18:27:00 10/29/2015 23:59:59 CLS Emergency David Lund [facility] ED S/I [id number] 08/05/2015 18:56:00 Document Registration [id number] 12/25/2015 14:30:00 12/25/2015 16:00:00 DIS Outpatient
== END 2017-10-09 22:21 | disposition home or self-care (01) ==
LOC: EDUNIT# 21:02 → ER 21:04
DX: J01.00 Acute maxillary sinusitis, unspecified (principal); F41.9 Anxiety disorder, unspecified; F43.10 Post-traumatic stress disorder, unspecified; F31.9 Bipolar disorder, unspecified; F20.9 Schizophrenia, unspecified; E03.9 Hypothyroidism, unspecified; K21.9 Gastro-esophageal reflux disease without esophagitis; E78.00 Pure hypercholesterolemia, unspecified; I10 Essential (primary) hypertension; J45.909 Unspecified asthma, uncomplicated; Z90.89 Acquired absence of other organs; Z98.890 Other specified postprocedural states; Z87.891 Personal history of nicotine dependence
CPT/HCPCS: 99283

== ENCOUNTER 2017-11-13 20:20 | Emergency (ER) | payer MEDICAID ==
[~2017-11-13] VITALS: Ht 172.7 cm; Wt 108.0 kg
[~2017-11-13 20:20] MED LIST changes: +AMOX-358 PO
--- OUTSIDE RECORDS SUMMARY | 2017-11-13 20:26 | XMS REPORT ---
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 Name Role Phone LAVERNE ASYA Unavailable PROBLEMS Type Condition ICD9-CM Code GAC59-SP Code Onset Dates Condition Status SNOMED Code Problem Mild intellectual disability F70 Active 25339686 Problem Intermittent explosive disorder in adult F63.81 Active 054497653 Problem Mood disorder F39 Active [id number] ALLERGIES No Information ENCOUNTERS Encounter Location Date Diagnosis [facility] [id number] [place] [address] 48392- 3572 Dec, [facility] [id number] [place] [address] 54029- 3815 November, [facility] [id number] [place] [address] 70723- 8379 Oct, [facility] [id number] [place] [address] 32520- 9861 Sep, Mood disorder F39 and Mild intellectual disability F70 [facility] [id number] [place] [address] 19929- 0227 Sep, Mood disorder F39 [facility] [id number] [place] [address] 07222- 5010 Sep, Mood disorder F39 [facility] [id number] [place] [address] 09463- 4151 Sep, Mood disorder F39 [facility] [id number] [place] [address] 43272- 3815 Aug, Intermittent explosive disorder in adult F63.81 and Mild intellectual disability F70 [facility] [id number] [place] [address] 56353- 3106 Jul, [facility] [address] [address] [address] Jul, Onychomycosis B35.1 ; Posterior tibial tendinitis of right lower extremity M76.821 ; Posterior tibial tendinitis of left lower extremity M76.822 ; 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 and Secondary localized osteoarthrosis of left ankle and foot M19.272 [facility] [address] [address] 79[address] Apr, [facility] [id number] [place] [address] 10159- 1205 Apr, Intermittent explosive disorder in adult F63.81 and Mild intellectual disability F70 [facility] [id number] [place] [address] 94373- 5277 Jan, Intermittent explosive disorder in adult F63.81 ; Mood disorder F39 and Mild intellectual disability F70 [facility] [address] [address] 9799 Oct, [facility] [id number] [place] [address] 51020- 5253 Sep, [facility] [address] [place] [address] 8201 Aug, Mood disorder F39 [facility] [address] [address] 6760 Jul, Mood disorder F39 [facility] [address] [address] 3643 Jun, Mood disorder F39 [facility] [address] [address] 4226 May, Intermittent explosive disorder in adult F63.81 and Mild intellectual disability F70 [facility] [id number] [place] [address] 68068- 3529 May, Mood disorder F39 [facility] [address] [address] Dec, Depressive disorder, not elsewhere classified 311 ; Mild mental retardation 317 and Intermittent explosive disorder 312.34 [facility] [address] [address] Dec, Depressive disorder, not elsewhere classified 311 and Mild mental retardation 317 [facility] [address] [address]- 9195 November, Depressive disorder, not elsewhere classified 311 and Mild mental retardation 317 [facility] [address] 160[address] Oct, [facility] [address] [address]- 5381 Oct, [facility] [address] [address]- 7935 Sep, [facility] [address] [address]- 9268 Sep, [facility] [address] [address]- 3525 Sep, [facility] [address], [place] [address]- 7502 Sep, [facility] [address] 4453 Sep, [facility] [address] [address]- 1154 Sep, [facility] [address] [address]- 3773 Sep, [facility] [address] 6021 Sep, [facility] [address] [address]- 1009 Aug, [facility] [place] [facility] [address] [id number] [place] [address]- 3714 Aug, [facility] [place] [facility] [address] [id number] [place] [address]- 9018 Jul, [facility] [place] [facility] [address] [id number] [place] [address]- 9747 Jul, [facility] [place] [facility] [address] [id number] [place] [address]- 0328 Jun, [facility] [place] [facility] [address] [id number] [place] [address]- 0956 Jun, [facility] [place] [facility] [address] [id number] [place] [address]- 5626 May, [facility] [place] [facility] [address] [id number] [place] [address]- 2615 May, [facility] [place] [facility] [address] [id number] [place] [address]- 0993 30 Apr, 2014 [facility] [place] [facility] [address] [id number] [place] [address]- 5633 30 Apr, 2014 [facility] [place] [facility] [address] [id number] [place] [address]- 9529 16 Apr, 2014 [facility] [place] [facility] [address] [id number] [place] [address]- 2065 16 Apr, 2014 [facility] [place] [facility] [address] [id number] [place] [address]- 1652 02 Apr, 2014 [facility] [place] [facility] [address] [id number] [place] [address]- 5411 Apr, [facility] [place] [facility] [address] [id number] [place] [address]- 9050 Mar, [facility] [place] [facility] [address] [id number] [place] [address]- 6658 Mar, [facility] [place] [facility] [address] [id number] [place] [address]- 2546 Jan, [facility] [place] [facility] [address] [id number] [place] [address]- 7433 Jan, [facility] [place] [facility] [address] [id number] [place] [address]- 1638 Dec, [facility] [place] [facility] [address] [id number] [place] [address]- 6475 Dec, [facility] [place] [facility] [address] [id number] [place] [address]- 0515 November, [facility] [place] [facility] [address] [id number] [place] [address]- 9238 November, [facility] [place] [facility] [address] [id number] [place] [address]- 4492 Oct, [facility] [place] [facility] [address] [id number] [place] [address]- 5127 Oct, [facility] [place] [facility] [address] [id number] [place] [address]- 8159 Oct, [facility] [place] [facility] [address] [id number] [place] [address]- 3769 Oct, [facility] [place] [facility] [address] [id number] [place] [address]- 8710 Sep, [facility] [place] [facility] [address] [id number] [place] [address]- 7615 Sep, [facility] [place] [facility] [address] [id number] [place] [address]- 8446 Sep, [facility] [place] [facility] [address] [id number] [place] [address]- 7691 Sep, [facility] [place] [facility] [address] [id number] [place] [address]- 5140 Aug, [facility] [place] [facility] [address] [id number] [place] [address]- 7265 Aug, [facility] [place] [facility] [address] [id number] [place] [address]- 3727 Aug, [facility] [address] [id number] [place] [address]- 9142 Aug, [facility] [place] [facility] [address] [id number] [place] [address]- 6805 Jul, [facility] [address] [id number] [place] [address]- 7426 Jul, [facility] [place] [facility] [address] [id number] [place] [address]- 1779 Jul, [facility] [address] [id number] [place] [address]- 8275 Jul, [facility] [place] [facility] [address] [id number] [place] [address]- 4406 Jun, [facility] [place] [facility] [address] [id number] [place] [address]- 9825 Jun, [facility] [address] [id number] [place] [address]- 9570 Jun, [facility] [place] [facility] [address] [id number] [place] [address]- 4265 Jun, [facility] [address] [id number] [place] [address]- 8285 May, [facility] [place] [facility] [address] [id number] [place] [address]- 1908 Apr, [facility] [place] [facility] [address] [id number] [place] [address]- 5760 Apr, [facility] [place] [facility] [address] [id number] [place] [address]- 3739 Apr, [facility] [place] [facility] [address] [id number] [place] [address]- 2546 Mar, [facility] [place] [facility] [address] [id number] [place] [address]- 5762 Mar, [facility] [address] [id number] [place] [address]- 1166 Jan, [facility] [address] [id number] [place] [address]- 2242 Dec, [facility] [address] [id number] [place] 1743 Dec, [facility] [place] [facility] [address] [id number] [place] [address]- 5075 November, [facility] [address] [id number] [place] [address]- 2970 November, [facility] [address] [id number] [place] [address]- 3194 Oct, [facility] [address] [id number] [place] [address]- 1901 Oct, [facility] [address] [id number] [place] [address]- 7898 Oct, [facility] [address] [id number] [place] [address]- 2985 Sep, [facility] [place] [facility] [address] [id number] [place] [address]- 9862 Sep, [facility] [place] [facility] [address] [id number] [place] [address]- 8872 Sep, [facility] [place] [facility] [address] [id number], [place] [address]- 7494 Sep, [facility] [place] [facility] [address] [id number] [place] [address]- 0136 Aug, [facility] [place] [facility] [address] [id number], [place] [address]- 8102 Aug, [facility] [place] [facility] [address] [id number] [place] [address]- 0817 Jul, [facility] [place] [facility] [address] [id number] [address]- 9343 Jul, [facility] [address], [place] [address]- 5435 Jul, [facility] [address], [place] [address]- 1338 Jul, [facility] [address], [place] [address]- 9181 Jun, [facility] [id number] [address]- 6263 Jun, [facility] [id number] [place] [address] 27981- 7907 May, [facility] [address] [place] [address]- 3466 May, [facility] [id number] [place] [address] 89872- 0719 May, [facility] [address], [place] [address]- 0381 Apr, [facility] [address] [place] [address]- 4513 Jan, [facility] [address], [place] [address]- 7209 Dec, [facility] [address], [place] [address]- 9764 Jun, [facility] [id number] [address]- 1033 Jul, [facility] [address], [place] [address]- 0718 Jun, [facility] [address] 5460 May, IMMUNIZATIONS No Known Immunizations SOCIAL HISTORY Never Assessed REASON FOR VISIT f/u PLAN OF CARE Activity Details Follow Up 2 Months Reason: VITAL SIGNS Height 67.75 in 2017-02-17 Weight 229.7 lbs 2017-02-17 Heart Rate 82 bpm 2017-02-17 Respiratory Rate 20 2017-02-17 BMI 35.18 kg/m2 2017-02-17 Blood pressure systolic 122 mmHg 2017-02-17 Blood pressure diastolic 82 mmHg 2017-02-17 MEDICATIONS Medication Instructions Dosage Frequency Start Date End Date Duration Status Prilosec 20 MG Orally in the PM 1 capsule Active Hydrochlorothiazide 12.5 MG Orally Once a day 1 tablet 24h Active Flonase 50 mcg/actuation 1 Nasal Big Pool by Nasal route 1 time per day qHS for allergies Sep, Active Lipitor 10 MG Orally at bedtime 1 tablet Active Mucinex D Active Trileptal 300 MG Orally for anger 1 tab in AM and 2 tabs at HS Dec, Active Singulair 10 mg 1 Tablet by Oral route 1 time per day for allergy Sep, Active Loratadine 10 MG Orally Once a day 1 tablet 24h Active Visine Active Viibryd 40 MG Orally Once a day 1 tab by Oral route 1 time per day 24h Sep, Active Synthroid 50 mcg 1 Tablet by Oral route 1 time per day for hypothyroidism Sep, Active Milk of Magnesia Active Tessalon Perles 100 mg 1 Capsule by Oral route 2 times per day PRN cough Sep, Active RESULTS No Results PROCEDURES Procedure Date Ordered Result Body Site PSYTX COMPLEX INTERACTIVE February 17, 2017 INSTRUCTIONS MEDICATIONS ADMINISTERED No Known Medications MEDICAL (GENERAL) HISTORY Type Description Date Surgical History T and A Surgical History deviated septum repair Hospitalization History Lived at [facility] for many years
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
[2017-11-13 20:31] VITALS: BP 150/90
[2017-11-13] MEDS ORDERED: FAMOTIDINE 20 MG (PEPCID) TABLET PO STA (20:42)
[2017-11-13] MEDS ORDERED: ONDANSETRON 4 MG (ZOFRAN) ORAL DISSOLVE TAB SL STA (20:42)
[2017-11-13] MEDS ORDERED: KETOROLAC 30 MG/ML VIAL IM ONE (20:45)
[2017-11-13] MEDS ORDERED: ANTACID SUSP 30 ML UDC (MYLANTA) PO ONE (20:45)
[2017-11-13] MEDS ORDERED: LIDOCAINE 2% VISCOUS 15 ML UDC PO ONE (20:45)
--- NOTE | 2017-11-13 20:49 | ED Abdominal Pain ---
General Chief Complaint: Abdominal/GI Problems Stated Complaint: ABD PAIN Nursing Triage Note: PT PRESENTS TO ER WITH COMPLAINT OF RIGHT SIDED ABD PAIN. PT STATES PAIN STARTED AN HOUR AGO AFTER EATING TWO HAMBURGERS WITH SIRACHA AND DRANK A GLASS OF [place] DEW WITH EVERCLEAR. Sepsis Screen: No Definite Risk Source of Information: Patient Exam Limitations: No Limitations History of Present Illness Date Seen by Provider: Nov 13, 2017 Time Seen by Provider: 20:35 Initial Comments Patient presents to the ER with a chief complaint the last couple hours she started experience some pain in his right upper belly. He's had no surgeries on his belly. He says he ate about an hour ago 2 cheeseburgers was [place] sauce and had a glass of Mountain Dew mixed with about a cup of ever clear. Within about 20 minutes after eating he started having the pain. The pain has not gone away and he has not taken anything to make it better. He does take pantoprazole daily but has not taken anything else since he started having the pain. He is felt a little nauseated but has not vomited. He is having no diarrhea, fever chills cough. No trauma. Allergies and Home Medications Allergies Coded Allergies: No Known Drug Allergies (Unverified , 07/24/16) Home Medications Amoxicillin/Potassium Clav 1 Each Tablet, 1 EACH PO BID Prescribed by: PETR DIAZ on 10/09/172211 Atorvastatin Calcium 10 Mg Tablet, 10 MG PO HS, (Reported) Hydrochlorothiazide 12.5 Mg Capsule, 12.5 MG PO DAILY, (Reported) Levothyroxine Sodium 50 Mcg Tablet, 50 MCG PO DAILY, (Reported) Loratadine 10 Mg Tablet, 10 MG PO DAILY, (Reported) Montelukast Sodium 10 Mg Tablet, 10 MG PO DAILY, (Reported) Oxcarbazepine 300 Mg Tablet, 300 MG PO DAILY, (Reported) Oxcarbazepine 600 Mg Tablet, 600 MG PO HS, (Reported) Pantoprazole Sodium 40 Mg Tablet.dr, 40 MG PO DAILY Prescribed by: FEDERICA ALVAREZ on 08/31/17 1302 Vilazodone Hydrochloride 20 Mg Tablet, 20 MG PO HS, (Reported) Patient Home Medication List Home Medication List Reviewed: Yes Review of Systems Constitutional: No chills, No diaphoresis EENTM: No Blurred Vision, No Double Vision Respiratory: Denies Cough, Denies Orthopnea Cardiovascular: Denies Chest Pain, Denies Edema, Denies Lightheadedness Gastrointestinal: Abdominal Pain; Denies Constipated, Denies Diarrhea; Nausea; Denies Vomiting Genitourinary: Denies Burning, Denies Discharge Musculoskeletal: No back pain, No joint pain Skin: No pruritus, No rash Psychiatric/Neurological: Denies Headache, Denies Numbness, Denies Paresthesia Past Viuftjd-Kltjak-Rilrft Hx Patient Social History Alcohol Use: Regular Use Number of Drinks Today: AA Alcohol Beverage of Choice: Beer Recreational Drug Use: No Smoking Status: Current Everyday Smoker Type Used: Smokeless Tobacco Former Smoker, Quit: Aug 30, 2006 2nd Hand Smoke Exposure: No Recent Foreign Travel: No Contact w/Someone Who Travel: No Recent Infectious Disease Expo: No Recent Hopitalizations: No Immunizations Up To Date Tetanus Booster (TDap): Unknown Date of Influenza Vaccine: May 03, 2017 Seasonal Allergies Seasonal Allergies: Yes Past Medical History Surgeries: Yes (nasal sx, R ankle ORIF, R hand ORIF, dental sx) Adenoidectomy, Tonsillectomy Respiratory: Yes Asthma Currently Using CPAP: No Currently Using BIPAP: No Cardiac: Yes High Cholesterol, Hypertension Neurological: Yes (Mild MR) Developmental Disorder Reproductive Disorders: No Sexually Transmitted Disease: No HIV/AIDS: No Genitourinary: No Gastrointestinal: Yes Gastroesophageal Reflux Musculoskeletal: No Endocrine: Yes Hypothyroidsim HEENT: No Cancer: No Psychosocial: Yes (MILD MR; MOOD DISORDER; MANIC EPISODES WITH PSYCHOSIS) Anxiety, PTSD, Bipolar, Schizophrenia, Depression Integumentary: No Blood Disorders: No Family Medical History No Pertinent Family Hx Physical Exam Vital Signs Vital Signs - First Documented 11/13/17 20:31 Temp 97.0 Pulse 86 Resp 18 B/P (MAP) 150/90 (110) Pulse Ox 99 O2 Delivery Room Air Capillary Refill : Less Than 3 Seconds General Appearance: WD/WN, no apparent distress HEENT: PERRL/EOMI, pharynx normal Neck: non-tender, supple, normal inspection Respiratory: chest non-tender, lungs clear, normal breath sounds, no respiratory distress, no accessory muscle use Cardiovascular: normal peripheral pulses, regular rate, rhythm, no edema Peripheral Pulses: 2+ Radial Pulses (R), 2+ Radial Pulses (L) Gastrointestinal: normal bowel sounds, soft, no organomegaly, tenderness ( positive for Garcia sign right upper quadrant) Extremities: no pedal edema, no calf tenderness, normal capillary refill Neurologic/Psychiatric: alert, oriented x 3 Skin: normal color, warm/dry Progress/Results/Core Measures Lab Results Laboratory Tests Test 11/13/17 20:52 Range/Units White Blood Count 7.3 4.3-11.0 10^3/uL Red Blood Count 5.34 4.35-5.85 10^6/uL Hemoglobin 15.8 13.3-17.7 G/DL Hematocrit 43 40-54 % Mean Corpuscular Volume 81 80-99 FL Mean Corpuscular Hemoglobin 30 25-34 PG Mean Corpuscular Hemoglobin Concent 36 32-36 G/DL Red Cell Distribution Width 12.5 10.0-14.5 % Platelet Count 288 130-400 10^3/uL Mean Platelet Volume 9.3 7.4-10.4 FL Neutrophils (%) (Auto) 68 42-75 % Lymphocytes (%) (Auto) 22 12-44 % Monocytes (%) (Auto) 8 0-12 % Eosinophils (%) (Auto) 2 0-10 % Basophils (%) (Auto) 0 0-10 % Neutrophils # (Auto) 4.9 1.8-7.8 X 10^3 Lymphocytes # (Auto) 1.6 1.0-4.0 X 10^3 Monocytes # (Auto) 0.6 0.0-1.0 X 10^3 Eosinophils # (Auto) 0.1 0.0-0.3 10^3/uL Basophils # (Auto) 0.0 0.0-0.1 10^3/uL Sodium Level 139 135-145 MMOL/L Potassium Level 3.5 L 3.6-5.0 MMOL/L Chloride Level 100 98-107 MMOL/L Carbon Dioxide Level 27 21-32 MMOL/L Anion Gap 12 5-14 MMOL/L Blood Urea Nitrogen 13 7-18 MG/DL Creatinine 1.05 0.60-1.30 MG/DL Estimat Glomerular Filtration Rate > 60 BUN/Creatinine Ratio 12 Glucose Level 93 70-105 MG/DL Calcium Level 9.7 8.5-10.1 MG/DL Total Bilirubin 0.8 0.1-1.0 MG/DL Aspartate Amino Transf (AST/SGOT) 31 5-34 U/L Alanine Aminotransferase (ALT/SGPT) 41 0-55 U/L Alkaline Phosphatase 100 40-136 U/L C-Reactive Protein High Sensitivity 0.15 0.00-0.50 MG/DL Total Protein 7.7 6.4-8.2 GM/DL Albumin 4.8 H 3.2-4.5 GM/DL Serum Alcohol < 10 <10 MG/DL My Orders Orders - GRACE DELEON Alcohol (11/13/17 20:42) Cbc With Automated Diff (11/13/17 20:42) Comprehensive Metabolic Panel (11/13/17 20:42) Hs C Reactive Protein (11/13/17 20:42) Ondansetron Oral Dissolve Tab (Zofran (11/13/17 20:42) Lidocaine 2% Viscous 15 Ml (Xylocaine Vi (11/13/17 20:45) Famotidine Tablet (Pepcid Tablet) (11/13/17 20:42) Antacid Suspension (Mylanta Suspension (11/13/17 20:45) Ketorolac Injection (Toradol Injection) (11/13/17 20:45) Medications Given in ED Current Medications Medications Dose Ordered Sig/Tyler Route Start Time Stop Time Status Last Admin Dose Admin Al Hydrox/Mg Hydrox/Simethicone 30 ml ONCE ONCE PO 11/13/17 20:45 11/13/17 20:46 DC 11/13/17 20:50 30 ML Ketorolac Tromethamine 30 mg ONCE ONCE IM 11/13/17 20:45 11/13/17 20:46 DC 11/13/17 20:50 30 MG Lidocaine HCl 15 ml ONCE ONCE PO 11/13/17 20:45 11/13/17 20:46 DC 11/13/17 20:50 15 ML Vital Signs/I&O 11/13/17 20:31 Temp 97.0 Pulse 86 Resp 18 B/P (MAP) 150/90 (110) Pulse Ox 99 O2 Delivery Room Air Blood Pressure Mean: 110 Progress Note #1: Time: 20:48 Progress Note Gastritis versus cholecystitis versus pancreatitis versus PUD. We will give him a GI cocktail some antacids and a little pain medicine and nausea medicine. If this helps his symptoms since he most recently ate an hour ago we'll send him to his doctor tomorrow morning to set up for some GI workup unless we find something critical on lab or urine. Progress Note #2: Time: 21:10 Progress Note Before lab results were available the patient got up and started walking out of the room stating that he was given a go ahead and go on home. He says his pain was improved after the GI cocktail. I asked him if he wanted to wait a few more minutes to get the lab results back and he stated we could just send him to his doctor and he get them later. He then refused to sign an AMA form and walked out the door. He was alert, oriented and cognizant of his choices. No evidence of suicidal or homicidal ideation. Departure Impression Primary Impression: Abdominal pain Qualified Codes: R10.11 - Right upper quadrant pain Additional Impression: GERD (gastroesophageal reflux disease) Qualified Codes: K21.9 - Gastro-esophageal reflux disease without esophagitis Disposition: Condition: Against Medical Advice Departure-Patient Inst. Decision time for Depature: 00:04 Referrals: STEVE AGGARWAL DO (PCP/Family) Primary Care Physician Patient Instructions: No Instuctions Given Add. Discharge Instructions: Please follow-up with your primary care provider. All discharge instructions reviewed with patient and/or family. Voiced understanding. Copy Copies To 1: STEVE GAGARWAL TITUS J Nov 13, 2017 20:49
[2017-11-13 21:00] LABS: BASOPHILS % (AUTO) 0 % (0-10); EOSINOPHILS # (AUTO) 0.1 10^3/uL (0.0-0.3); EOSINOPHILS % (AUTO) 2 % (0-10); HEMATOCRIT 43 % (40-54); HEMOGLOBIN 15.8 G/DL (13.3-17.7); LYMPHOCYTES # (AUTO) 1.6 X 10^3 (1.0-4.0); LYMPHOCYTES % (AUTO) 22 % (12-44); MEAN CORPUSCULAR HEMOGLOBIN 30 PG (25-34); MEAN CORPUSCULAR HGB CONC 36 G/DL (32-36); MEAN CORPUSCULAR VOLUME 81 FL (80-99); MEAN PLATELET VOLUME 9.3 FL (7.4-10.4); MONOCYTES # (AUTO) 0.6 X 10^3 (0.0-1.0); MONOCYTES % (AUTO) 8 % (0-12); NEUTROPHILS # (AUTO) 4.9 X 10^3 (1.8-7.8); NEUTROPHILS % (AUTO) 68 % (42-75); PLATELET COUNT 288 10^3/uL (130-400); RED BLOOD COUNT 5.34 10^6/uL (4.35-5.85); RED CELL DISTRIBUTION WIDTH 12.5 % (10.0-14.5); WHITE BLOOD COUNT 7.3 10^3/uL (4.3-11.0)
[2017-11-13 21:20] LABS: ALANINE AMINOTRANSFERASE 41 U/L (0-55); ALBUMIN 4.8 GM/DL (3.2-4.5); ALKALINE PHOSPHATASE 100 U/L (40-136); BILIRUBIN,TOTAL 0.8 MG/DL (0.1-1.0); BUN/CREATININE RATIO 12; CALCIUM 9.7 MG/DL (8.5-10.1); CARBON DIOXIDE 27 MMOL/L (21-32); CHLORIDE 100 MMOL/L (98-107); CREATININE SERUM 1.05 MG/DL (0.60-1.30); GFR ESTIMATED > 60; GLUCOSE 93 MG/DL (70-105); POTASSIUM 3.5 MMOL/L (3.6-5.0); SODIUM 139 MMOL/L (135-145); TOTAL PROTEIN 7.7 GM/DL (6.4-8.2)
== END 2017-11-13 21:10 | disposition left against medical advice (07) ==
LOC: EDUNIT# 20:20 → ER 20:21
DX: R10.11 Right upper quadrant pain (principal); K21.9 Gastro-esophageal reflux disease without esophagitis; F41.9 Anxiety disorder, unspecified; F43.10 Post-traumatic stress disorder, unspecified; F20.9 Schizophrenia, unspecified; F31.9 Bipolar disorder, unspecified; E03.9 Hypothyroidism, unspecified; E78.00 Pure hypercholesterolemia, unspecified; I10 Essential (primary) hypertension; F39 Unspecified mood [affective] disorder; J45.909 Unspecified asthma, uncomplicated; Z90.89 Acquired absence of other organs; Z87.891 Personal history of nicotine dependence; Z98.818 Other dental procedure status
CPT/HCPCS: 36415; 80053; 80320; 85025; 86141; 96372

== ENCOUNTER 2018-03-16 21:01 | Emergency (ER) | payer MEDICAID ==
[~2018-03-16] VITALS: Ht 170.2 cm; Wt 104.3 kg
--- NOTE | 2018-03-16 21:56 | ED General ---
General Chief Complaint: Cough/Cold/Flu Symptoms Stated Complaint: COUGH GIVING PT CP Nursing Triage Note: PATIENT HERE FOR COUGH THAT HAS BEEN GOING ON X1 MO. HE HAS BEEN SEEN BY HIS PCP WHO PRESCRIBED KEFLEX. PATIENT STATES THIS DID NOT HELP AND HE FEELS THAT HE IS GETTING WORSE. HIS CHEST AND BACK HURT FROM COUGHING. Nursing Sepsis Screen: No Definite Risk Source of Information: Patient, Caregiver Exam Limitations: No Limitations History of Present Illness Date Seen by Provider: Mar 16, 2018 Time Seen by Provider: 21:04 Initial Comments This 32-year-old gentleman presents to the emergency room with complaints of cough occasionally productive of yellow sputum for about one month. He denies any fever or other acute signs or symptoms of infectious illness. He also complains of a "knot" on his left mid back that is worse with cough and tender to palpation. Patient was prescribed Keflex by Dr. Aggarwal. Allergies and Home Medications Allergies Coded Allergies: No Known Drug Allergies (Unverified , 07/24/16) Home Medications Amoxicillin/Potassium Clav 1 Each Tablet, 1 EACH PO BID Prescribed by: PETR DIAZ on 10/09/172211 Atorvastatin Calcium 10 Mg Tablet, 10 MG PO HS, (Reported) Hydrochlorothiazide 12.5 Mg Capsule, 12.5 MG PO DAILY, (Reported) Levothyroxine Sodium 50 Mcg Tablet, 50 MCG PO DAILY, (Reported) Loratadine 10 Mg Tablet, 10 MG PO DAILY, (Reported) Montelukast Sodium 10 Mg Tablet, 10 MG PO DAILY, (Reported) Oxcarbazepine 300 Mg Tablet, 300 MG PO DAILY, (Reported) Oxcarbazepine 600 Mg Tablet, 600 MG PO HS, (Reported) Pantoprazole Sodium 40 Mg Tablet, 40 MG PO DAILY Prescribed by: FEDERICA ALVAREZ on 08/31/17 1302 Vilazodone Hydrochloride 20 Mg Tablet, 20 MG PO HS, (Reported) Patient Home Medication List Home Medication List Reviewed: Yes Review of Systems Constitutional: no symptoms reported EENTM: no symptoms reported Respiratory: see HPI Cardiovascular: no symptoms reported Gastrointestinal: no symptoms reported Genitourinary: no symptoms reported Musculoskeletal: see HPI Skin: no symptoms reported Psychiatric/Neurological: No Symptoms Reported Hematologic/Lymphatic: No Symptoms Reported Immunological/Allergic: no symptoms reported Past Hqmpovm-Lydiyd-Wwlcyv Hx Past Med/Social Hx: Reviewed Nursing Past Med/Soc Hx Patient Social History Alcohol Use: Rarely Uses Number of Drinks Today: AA Alcohol Beverage of Choice: Beer Recreational Drug Use: No Smoking Status: Never a Smoker Type Used: Smokeless Tobacco Former Smoker, Quit: Aug 30, 2006 2nd Hand Smoke Exposure: No Recent Foreign Travel: No Contact w/Someone Who Travel: No Recent Infectious Disease Expo: No Recent Hopitalizations: No Physical Abuse: No Sexual Abuse: No Immunizations Up To Date Tetanus Booster (TDap): Unknown Date of Influenza Vaccine: May 03, 2017 Seasonal Allergies Seasonal Allergies: Yes Past Medical History Surgeries: Yes (nasal sx, R ankle ORIF, R hand ORIF, dental sx) Adenoidectomy, Tonsillectomy Respiratory: Yes Asthma Currently Using CPAP: No Currently Using BIPAP: No Cardiac: Yes High Cholesterol, Hypertension Neurological: Yes (Mild MR) Developmental Disorder Reproductive Disorders: No Sexually Transmitted Disease: No HIV/AIDS: No Genitourinary: No Gastrointestinal: Yes Gastroesophageal Reflux Musculoskeletal: No Endocrine: Yes Hypothyroidsim HEENT: No Cancer: No Psychosocial: Yes (MILD MR; MOOD DISORDER; MANIC EPISODES WITH PSYCHOSIS; SCHIZOAFFECTIVE DIS) Anxiety, PTSD, Bipolar, Schizophrenia, Depression Nursing Suicide Risk Score: 0 Integumentary: No Blood Disorders: No Family Medical History Reviewed Nursing Family Hx No Pertinent Family Hx Physical Exam Vital Signs Vital Signs - First Documented 03/16/18 03/16/18 21:08 22:17 Temp 97.0 Pulse 93 Resp 20 B/P (MAP) 154/100 (118) Pulse Ox 99 O2 Delivery Room Air Capillary Refill : Less Than 3 Seconds Height, Weight, BMI Height: 5'7.00" Weight: 230lbs. 0oz. [id number]; 36.7 BMI Method:Stated General Appearance: No Apparent Distress, WD/WN HEENT: PERRL/EOMI, TMs Normal, Normal ENT Inspection, Pharynx Normal Neck: Normal Inspection Respiratory: Lungs Clear, Normal Breath Sounds, No Accessory Muscle Use, No Respiratory Distress Cardiovascular: Regular Rate, Rhythm, No Edema, Normal Peripheral Pulses Gastrointestinal: Non Tender, Soft Back: Normal Inspection, Other (tends tender muscle inferior and medial to the left scapula) Extremity: Normal Inspection, No Pedal Edema Neurologic/Psychiatric: Alert, Oriented x3, No Motor/Sensory Deficits, Normal Mood/Affect, collections 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 II-XII Norm as Tested Skin: Normal Color, Warm/Dry Progress/Results/Core Measures Suspected Sepsis Recent Fever Within 48 Hours: No Infection Criteria Present: Suspected New Infection New/Unexplained Altered Menta: No Sepsis Screen: No Definite Risk SIRS Temperature:97.0 Pulse: 93 Respiratory Rate: 20 Blood Pressure 154 /100 Mean: 118 Results/Orders My Orders Orders - LA NENA VALERA MD Chest Pa/Lat (2 View) (03/16/18 21:03) Vital Signs/I&O 03/16/18 03/16/18 21:08 22:17 Temp 97.0 97.8 Pulse 93 80 Resp 20 18 B/P (MAP) 154/100 (118) 151/93 (118) Pulse Ox 99 97 O2 Delivery Room Air Capillary Refill : Less Than 3 Seconds Blood Pressure Mean: 118 Progress Note : Progress Note Exam and chest x-ray unremarkable. Tenderness in the back consistent with a muscle strain or spasm. See discharge instructions. Patient advised to start using his Flonase daily instead of PRN. Diagnostic Imaging Diagonstic Imaging: Xray Plain Films/CT/US/NM/MRI: chest Comments Chest x-ray viewed by me and report reviewed. See report below: NAME: RICARDOPRAKASH Danisha [facility] REC#: [id number] PT STATUS: REG ER : 1985 PHYSICIAN: LA NENA VALERA MD ADMIT DATE: 03/16/18/ER Signed Date of Exam: 03/16/18 CHEST PA/LAT (2 VIEW) INDICATION: Cough. EXAMINATION: PA and chest at 9:55 p.m. FINDINGS: The heart size is within normal limits and stable when compared to 09/03/2017. The lungs are clear. There is no evidence for failure, pneumonia or a pleural effusion. The mediastinum is not widened. The osseous structures are intact. IMPRESSION: There is no evidence for an acute cardiopulmonary. Dictated by: Dictated on workstation # [id number] Dict: 03/16/182154 Trans: 03/16/182202 Interpreted by: PRAKASH MALDONADO MD Electronically signed by: PRAKASH MALDONADO MD 03/16/182202 Departure Impression Primary Impression: Muscle strain of upper back Additional Impression: Cough Disposition: 01 HOME, SELF-CARE Condition: Stable Departure-Patient Inst. Referrals: STEVE AGGARWAL DO (PCP/Family) Primary Care Physician Patient Instructions: Cough, Adult (DC), Muscle Strain Add. Discharge Instructions: Your chest x-ray showed no evidence of pneumonia. Start taking your Flonase (fluconazole nasal spray) 2 sprays each side daily. This should help reduce drainage down your throat, allergies, and cough. For your muscle strain you may take ibuprofen up to 600 mg every 6 hours as needed. Add Tylenol (acetaminophen) up to 1000 mg every 6 hours as needed for additional pain control. Gentle heat such as a heating pad on motion also be helpful. If these measures do not improve your symptoms in 1-2 weeks, return to care. Also return to care if symptoms worsen or you develop new symptoms such as fever. All discharge instructions reviewed with patient and/or family. Voiced understanding. Copy Copies To 1: STEVE AGGARWAL JOSHUA T MD Mar 16, 2018 21:56
--- NOTE | 2018-03-16 22:03 | Diagnostic Imaging Report ---
INDICATION: Cough. EXAMINATION: PA and chest at 9:55 p.m. FINDINGS: The heart size is within normal limits and stable when compared to 09/03/2017. The lungs are clear. There is no evidence for failure, pneumonia or a pleural effusion. The mediastinum is not widened. The osseous structures are intact. IMPRESSION: There is no evidence for an acute cardiopulmonary. Dictated by: Dictated on workstation # [id number]
[2018-03-16 22:17] VITALS: BP 151/93
== END 2018-03-16 22:17 | disposition home or self-care (01) ==
LOC: EDUNIT# 21:01 → ER 21:02
DX: S29.012A Strain of muscle and tendon of back wall of thorax, initial encounter (principal); R05 Cough; E78.00 Pure hypercholesterolemia, unspecified; J45.909 Unspecified asthma, uncomplicated; I10 Essential (primary) hypertension; K21.9 Gastro-esophageal reflux disease without esophagitis; E03.9 Hypothyroidism, unspecified; F41.9 Anxiety disorder, unspecified; F43.10 Post-traumatic stress disorder, unspecified; F31.9 Bipolar disorder, unspecified; F25.9 Schizoaffective disorder, unspecified; Z87.891 Personal history of nicotine dependence; Z90.89 Acquired absence of other organs; X58.XXXA Exposure to other specified factors, initial encounter
CPT/HCPCS: 71046

== ENCOUNTER → 2018-09-06 | Outpatient (CLI) | payer MEDICAID ==
[~2018-09-06] MED LIST changes: -OXCA300T PO; +OXCA300T18 PO; -OXCA600T PO; +OXCA600T10 PO
--- NOTE | 2018-09-06 11:38 | Diagnostic Imaging Report ---
INDICATION: COUGH,SOB NOT GETTING BETTER COMPARISON: 03/16/2018 FINDINGS: Frontal and lateral views of the chest demonstrate normal heart size and pulmonary vascularity. The lungs are clear. There are no signs of infiltrate, pleural effusions or pneumothoraces. The visualized osseous structures show no acute abnormalities. IMPRESSION: 1. No acute process. No signs of infiltrates, effusions or pneumothoraces. Dictated by: Dictated on workstation # [id number]
== END ==
LOC: RAD 11:06
PROVIDERS: ATTEND Family Medicine
DX: R06.02 Shortness of breath (principal); R05 Cough
CPT/HCPCS: 71046

== ENCOUNTER 2018-09-28 16:44 | Emergency (ER) | payer MEDICAID ==
[~2018-09-28] VITALS: Ht 175.3 cm; Wt 104.3 kg
--- NOTE | 2018-09-28 17:13 | ED Abdominal Pain ---
General Stated Complaint: ABD PAIN Source of Information: Patient Exam Limitations: No Limitations History of Present Illness Date Seen by Provider: Sep 28, 2018 Time Seen by Provider: 17:12 Initial Comments To ER with reports of left lower quadrant abdominal pain rated at 6 out of 10 sudden in onset that began 15 minutes prior to arrival to the emergency room. No nausea, no fevers or chills, no constipation diarrhea or dysuria. Timing/Duration: 1-2 Days Severity/Quality: Moderate Location: LLQ Radiation: No Radiation Activities at Onset: None Allergies and Home Medications Allergies Coded Allergies: No Known Drug Allergies (Unverified , 07/24/16) Home Medications Amoxicillin/Potassium Clav 1 Each Tablet, 1 EACH PO BID Prescribed by: PETR DIAZ on 10/09/172211 Atorvastatin Calcium 10 Mg Tablet, 10 MG PO HS, (Reported) Hydrochlorothiazide 12.5 Mg Capsule, 12.5 MG PO DAILY, (Reported) Levothyroxine Sodium 50 Mcg Tablet, 50 MCG PO DAILY, (Reported) Loratadine 10 Mg Tablet, 10 MG PO DAILY, (Reported) Montelukast Sodium 10 Mg Tablet, 10 MG PO DAILY, (Reported) Oxcarbazepine 300 Mg Tablet, 300 MG PO DAILY, (Reported) Oxcarbazepine 600 Mg Tablet, 600 MG PO HS, (Reported) Pantoprazole Sodium 40 Mg Tablet.dr, 40 MG PO DAILY Prescribed by: FEDERICA ALVAREZ on 08/31/17 1302 Vilazodone Hydrochloride 20 Mg Tablet, 20 MG PO HS, (Reported) Patient Home Medication List Home Medication List Reviewed: Yes Review of Systems Review of Systems Constitutional: see HPI EENTM: No Symptoms Reported Respiratory: No Symptoms Reported Gastrointestinal: See HPI, Abdominal Pain Genitourinary: No Symptoms Reported Musculoskeletal: no symptoms reported Skin: no symptoms reported Psychiatric/Neurological: No Symptoms Reported Endocrine: No Symptoms Reported Past Vnklpef-Hphzig-Mmwojs Hx Patient Social History Alcohol Beverage of Choice: Beer Type Used: Smokeless Tobacco Former Smoker, Quit: Aug 30, 2006 2nd Hand Smoke Exposure: No Recent Foreign Travel: No Contact w/Someone Who Travel: No Recent Hopitalizations: No Immunizations Up To Date Tetanus Booster (TDap): Unknown Date of Influenza Vaccine: May 03, 2017 Seasonal Allergies Seasonal Allergies: Yes Past Medical History Surgeries: Yes (nasal sx, R ankle ORIF, R hand ORIF, dental sx) Adenoidectomy, Tonsillectomy Respiratory: Yes Asthma Currently Using CPAP: No Currently Using BIPAP: No Cardiac: Yes High Cholesterol, Hypertension Neurological: Yes (Mild MR) Developmental Disorder Reproductive Disorders: No Sexually Transmitted Disease: No HIV/AIDS: No Genitourinary: No Gastrointestinal: Yes Gastroesophageal Reflux Musculoskeletal: No Endocrine: Yes Hypothyroidsim HEENT: No Cancer: No Psychosocial: Yes (MILD MR; MOOD DISORDER; MANIC EPISODES WITH PSYCHOSIS; SCHIZOAFFECTIVE DIS) Anxiety, PTSD, Bipolar, Schizophrenia, Depression Integumentary: No Blood Disorders: No Family Medical History No Pertinent Family Hx Physical Exam Vital Signs Capillary Refill : Height/Weight/BMI Height: 5'7.00" Weight: 230lbs. 0oz. [id number]; 36.7 BMI Method:Stated General Appearance: WD/WN, no apparent distress HEENT: PERRL/EOMI, normal ENT inspection Neck: non-tender, full range of motion Respiratory: no respiratory distress, no accessory muscle use Gastrointestinal: normal bowel sounds, soft, tenderness ( left lower quadrant abdominal pain) Extremities: normal range of motion, non-tender Neurologic/Psychiatric: alert, normal mood/affect, oriented x 3 Skin: normal color, warm/dry Progress/Results/Core Measures Results/Orders Lab Results Laboratory Tests Test 09/28/18 17:18 09/28/18 18:05 Range/Units White Blood Count 5.1 4.3-11.0 10^3/uL Red Blood Count 5.25 4.35-5.85 10^6/uL Hemoglobin 15.2 13.3-17.7 G/DL Hematocrit 43 40-54 % Mean Corpuscular Volume 82 80-99 FL Mean Corpuscular Hemoglobin 29 25-34 PG Mean Corpuscular Hemoglobin Concent 35 32-36 G/DL Red Cell Distribution Width 12.6 10.0-14.5 % Platelet Count 249 130-400 10^3/uL Mean Platelet Volume 8.9 7.4-10.4 FL Neutrophils (%) (Auto) 51 42-75 % Lymphocytes (%) (Auto) 37 12-44 % Monocytes (%) (Auto) 8 0-12 % Eosinophils (%) (Auto) 4 0-10 % Basophils (%) (Auto) 0 0-10 % Neutrophils # (Auto) 2.6 1.8-7.8 X 10^3 Lymphocytes # (Auto) 1.9 1.0-4.0 X 10^3 Monocytes # (Auto) 0.4 0.0-1.0 X 10^3 Eosinophils # (Auto) 0.2 0.0-0.3 10^3/uL Basophils # (Auto) 0.0 0.0-0.1 10^3/uL Sodium Level 140 135-145 MMOL/L Potassium Level 3.7 3.6-5.0 MMOL/L Chloride Level 101 98-107 MMOL/L Carbon Dioxide Level 26 21-32 MMOL/L Anion Gap 13 5-14 MMOL/L Blood Urea Nitrogen 11 7-18 MG/DL Creatinine 1.06 0.60-1.30 MG/DL Estimat Glomerular Filtration Rate > 60 BUN/Creatinine Ratio 10 Glucose Level 74 70-105 MG/DL Calcium Level 10.1 8.5-10.1 MG/DL Corrected Calcium 8.5-10.1 MG/DL Total Bilirubin 0.6 0.1-1.0 MG/DL Aspartate Amino Transf (AST/SGOT) 40 H 5-34 U/L Alanine Aminotransferase (ALT/SGPT) 52 0-55 U/L Alkaline Phosphatase 100 40-136 U/L Total Protein 7.9 6.4-8.2 GM/DL Albumin 4.8 H 3.2-4.5 GM/DL Lipase 11 8-78 U/L Serum Alcohol < 10 <10 MG/DL Urine Opiates Screen NEGATIVE NEGATIVE Urine Oxycodone Screen NEGATIVE NEGATIVE Urine Methadone Screen NEGATIVE NEGATIVE Urine Propoxyphene Screen NEGATIVE NEGATIVE Urine Barbiturates Screen NEGATIVE NEGATIVE Ur Tricyclic Antidepressants Screen NEGATIVE NEGATIVE Urine Phencyclidine Screen NEGATIVE NEGATIVE Urine Amphetamines Screen NEGATIVE NEGATIVE Urine Methamphetamines Screen NEGATIVE NEGATIVE Urine Benzodiazepines Screen NEGATIVE NEGATIVE Urine Cocaine Screen NEGATIVE NEGATIVE Urine Cannabinoids Screen POSITIVE H NEGATIVE My Orders Orders - JUANJOSE GARCIA APRN Cbc With Automated Diff (09/28/18 16:55) Comprehensive Metabolic Panel (09/28/18 16:55) Protime With Inr (09/28/18 16:55) Lipase (09/28/18 16:55) Iv Heplock-Insert (Order) (09/28/18 16:55) Alcohol (09/28/18 17:03) Antacid Suspension (Mylanta Suspension (09/28/18 17:15) Lidocaine 2% Viscous 15 Ml (Xylocaine Vi (09/28/18 17:15) Ct Abdomen/Pelvis Wo (09/28/18 17:32) Drug Screen Stat (Urine) (09/28/18 17:56) Diagnostic Imaging Diagonstic Imaging: CT Comments NAME: PRAKASH [facility]IL[facility] REC#: [id number] PT STATUS: REG ER : 1985 PHYSICIAN: JUANJOSE GARCIA APRN ADMIT DATE: 09/28/18/ER Draft Date of Exam:09/28/18 CT ABDOMEN/PELVIS WO PROCEDURE: CT abdomen and pelvis without contrast. TECHNIQUE: Multiple contiguous axial images were obtained through the abdomen and pelvis without the use of intravenous contrast. INDICATION: Abdominal pain. Comparison made with prior examination from 09/03/2017. FINDINGS: The heart size is normal. The lung bases are clear. Liver is normal in size. There is an unchanged focal area of decreased attenuation in the posterior aspect of the right lobe of the liver. Gallbladder is unremarkable. There is no biliary ductal dilatation. Spleen is normal. Pancreas and adrenal glands are unremarkable. Kidneys are normal in appearance. The aorta is nonaneurysmal. Bowel gas pattern is nonspecific. The appendix is normal. There is no free air. There is no ascites. There are no focal inflammatory changes. There is no pelvic mass, adenopathy, or free fluid. The osseous structures are unremarkable. IMPRESSION: Unchanged focal area of decreased attenuation in the posterior aspect of the right lobe of the liver. Otherwise unremarkable noncontrast CT abdomen and pelvis. Dictated on workstation # [id number] Dict: 09/28/18 1747 Trans: 09/28/18 1752 [id number] Interpreted by: ENRRIQUE CASILLAS MD Electronically signed by: Departure Impression Primary Impression: Abdominal pain, left lower quadrant Disposition: 01 HOME, SELF-CARE Condition: Stable Departure-Patient Inst. Decision time for Depature: 18:30 Referrals: STEVE AGGARWAL DO (PCP/Family) Primary Care Physician Patient Instructions: Acute Abdomen (Belly Pain), Adult (DC) Add. Discharge Instructions: 1. There is no cause of your abdominal pain immediately identified. This pain persists follow up with Dr. Dr. Aggarwal. In the meantime Tylenol and Motrin for pain. This may simply represent muscle strain. Return to ER for any worsening symptoms or other concerns. JUANJOSE GARCIA APRN Sep 28, 2018 17:13
[2018-09-28] MEDS ORDERED: LIDOCAINE 2% VISCOUS 15 ML UDC PO ONE (17:15)
[2018-09-28] MEDS ORDERED: ANTACID SUSP 30 ML UDC (MYLANTA) PO ONE (17:15)
[2018-09-28 17:30] LABS: BASOPHILS % (AUTO) 0 % (0-10); EOSINOPHILS # (AUTO) 0.2 10^3/uL (0.0-0.3); EOSINOPHILS % (AUTO) 4 % (0-10); HEMATOCRIT 43 % (40-54); HEMOGLOBIN 15.2 G/DL (13.3-17.7); LYMPHOCYTES # (AUTO) 1.9 X 10^3 (1.0-4.0); LYMPHOCYTES % (AUTO) 37 % (12-44); MEAN CORPUSCULAR HEMOGLOBIN 29 PG (25-34); MEAN CORPUSCULAR HGB CONC 35 G/DL (32-36); MEAN CORPUSCULAR VOLUME 82 FL (80-99); MEAN PLATELET VOLUME 8.9 FL (7.4-10.4); MONOCYTES # (AUTO) 0.4 X 10^3 (0.0-1.0); MONOCYTES % (AUTO) 8 % (0-12); NEUTROPHILS # (AUTO) 2.6 X 10^3 (1.8-7.8); NEUTROPHILS % (AUTO) 51 % (42-75); PLATELET COUNT 249 10^3/uL (130-400); RED CELL DISTRIBUTION WIDTH 12.6 % (10.0-14.5); WHITE BLOOD COUNT 5.1 10^3/uL (4.3-11.0)
[2018-09-28 17:51] LABS: ALANINE AMINOTRANSFERASE 52 U/L (0-55); ALBUMIN 4.8 GM/DL (3.2-4.5); ALKALINE PHOSPHATASE 100 U/L (40-136); BILIRUBIN,TOTAL 0.6 MG/DL (0.1-1.0); BUN/CREATININE RATIO 10; CALCIUM 10.1 MG/DL (8.5-10.1); CARBON DIOXIDE 26 MMOL/L (21-32); CHLORIDE 101 MMOL/L (98-107); CREATININE SERUM 1.06 MG/DL (0.60-1.30); GFR ESTIMATED > 60; GLUCOSE 74 MG/DL (70-105); LIPASE 11 U/L (8-78); POTASSIUM 3.7 MMOL/L (3.6-5.0); SODIUM 140 MMOL/L (135-145); TOTAL PROTEIN 7.9 GM/DL (6.4-8.2)
--- NOTE | 2018-09-28 17:52 | Diagnostic Imaging Report ---
PROCEDURE: CT abdomen and pelvis without contrast. TECHNIQUE: Multiple contiguous axial images were obtained through the abdomen and pelvis without the use of intravenous contrast. INDICATION: Abdominal pain. Comparison made with prior examination from 09/03/2017. FINDINGS: The heart size is normal. The lung bases are clear. Liver is normal in size. There is an unchanged focal area of decreased attenuation in the posterior aspect of the right lobe of the liver. Gallbladder is unremarkable. There is no biliary ductal dilatation. Spleen is normal. Pancreas and adrenal glands are unremarkable. Kidneys are normal in appearance. The aorta is nonaneurysmal. Bowel gas pattern is nonspecific. The appendix is normal. There is no free air. There is no ascites. There are no focal inflammatory changes. There is no pelvic mass, adenopathy, or free fluid. The osseous structures are unremarkable. IMPRESSION: Unchanged focal area of decreased attenuation in the posterior aspect of the right lobe of the liver. Otherwise unremarkable noncontrast CT abdomen and pelvis. Dictated by: Dictated on workstation # [id number]
[2018-09-28 18:15] LABS: BILIRUBIN,URINE NEGATIVE (NEGATIVE); CLARITY,URINE CLEAR; COLOR,URINE YELLOW; GLUCOSE, URINE (UA) NEGATIVE (NEGATIVE); KETONES,URINE NEGATIVE (NEGATIVE); LEUKOCYTE ESTERASE ,URINE NEGATIVE (NEGATIVE); NITRITE,URINE NEGATIVE (NEGATIVE); PH,URINE 6.5 (5-9); PROTEIN,URINE NEGATIVE (NEGATIVE); UROBILINOGEN,URINE NORMAL (NORMAL)
[2018-09-28 18:28] LABS: AMPHETAMINE SCREEN, URINE NEGATIVE (NEGATIVE); BARBITURATE SCREEN URINE NEGATIVE (NEGATIVE); BENZODIAZEPINES SCREEN URINE NEGATIVE (NEGATIVE); CANNABINOID SCREEN, URINE POSITIVE (NEGATIVE); COCAINE SCREEN URINE NEGATIVE (NEGATIVE); METHADONE STAT NEGATIVE (NEGATIVE); METHAMPHETAMINE SCREEN URINE S NEGATIVE (NEGATIVE); OPIATE SCREEN URINE NEGATIVE (NEGATIVE); OXYCODONE STAT NEGATIVE (NEGATIVE); PROPOXYPHENE STAT NEGATIVE (NEGATIVE); TRICYCLIC ANTIDEPRESSANTS SCRE NEGATIVE (NEGATIVE)
[2018-09-28] MEDS ORDERED: IBUPROFEN 800 MG (MOTRIN) TAB PO ONE (18:30)
[2018-09-28 18:33] LABS: BACTERIA,URINE NEGATIVE /HPF; SQUAMOUS EPITHELIAL CELL,UR RARE /HPF
[2018-09-28 18:48] VITALS: BP 154/110
--- OUTSIDE RECORDS SUMMARY | 2018-10-01 03:24 | XMS REPORT ---
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 Active 941291030 Problem STEPHENIE (generalized anxiety disorder) F41.1 Active 13525890 Problem Mood disorder F39 Active 82661607 Problem Mild intellectual disability F70 Active 73117357 Problem Intermittent explosive disorder in adult F63.81 Active [id number] ALLERGIES No Known Allergies ENCOUNTERS Encounter Location Date Diagnosis [facility] [place] [id number] [place] [address]99- 1468 Aug, [facility] [place] [address] [address]- [address] Jul, [facility] [id number] [place] [address] [id number] Jun, [facility] [place] [id number] [place] [address] 01168- 5505 Jun, [facility] [place] [id number] [place] [address] 52087- 8418 May, Intermittent explosive disorder in adult F63.81 ; STEPHENIE ( generalized anxiety disorder) F41.1 and Mood disorder F39 [facility] [place] [address] [address]- [address] Apr, Onychomycosis B35.1 and 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 [facility] [place] [id number] [place] [address] 32484- 3365 Apr, Mood disorder F39 and Mild intellectual disability F70 [facility] [place] [id number] [address] Mar, Intermittent explosive disorder in adult F63.81 ; STEPHENIE ( generalized anxiety disorder) F41.1 and Mild intellectual disability F70 [facility] [id number] [id number] Mar, Mood disorder F39 and Mild intellectual disability F70 [facility] [place] [id number] [place] [address] 82152- 4316 Jan, Mood disorder F39 and Mild intellectual disability F70 [facility] [place] [id number] [place] [address] 76494- 0306 November, Mood disorder F39 and Mild intellectual disability F70 [facility] [place] [id number] [place] [address] 29364- 6776 November, Intermittent explosive disorder in adult F63.81 ; Mild intellectual disability F70 and STEPHENIE (generalized anxiety disorder) F41.1 [facility] [address] [address] 9[address] November, Mood disorder F39 and Mild intellectual disability F70 [facility] [place] [id number] [id number] [address]46 Sep, Mood disorder F39 and Mild intellectual disability F70 [facility] [place] [address], [place] [address] 0506 Sep, Mood disorder F39 [facility] [place] [id number] [address]- 0346 Sep, Mood disorder F39 [facility] [place] [id number] [address] 6616 Sep, Mood disorder F39 [facility] [place] [id number] [address]- 0266 Aug, Intermittent explosive disorder in adult F63.81 and Mild intellectual disability F70 [facility] [place] [id number] [address]- 5852 Jul, [facility] [place] [id number] [place] [address] 420394- 9956 Jul, Onychomycosis B35.1 ; Posterior tibial tendinitis of right lower extremity M76.821 ; Posterior tibial tendinitis of left lower extremity M76.822 ; 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 and Secondary localized osteoarthrosis of left ankle and foot M19.272 [facility] [place] [id number] [address]- 7813 Apr, [facility] [place] [id number] [place] [address] 317363- 0121 Apr, Intermittent explosive disorder in adult F63.81 and Mild intellectual disability F70 [facility] [place] [id number] [place] [address] 962253- 0650 Jan, Intermittent explosive disorder in adult F63.81 ; Mood disorder F39 and Mild intellectual disability F70 [facility] [place] [address], [place] [address]- 3196 Oct, [facility] [place] [id number] [place] [address] 23183- 3105 Sep, [facility] [place] [id number] [place] [address] 46587- 0820 Aug, Mood disorder F39 [facility] [place] [id number] [place] [address] 50449- 8822 Jul, Mood disorder F39 [facility] [place] [address], [place] [address]- 8022 Jun, Mood disorder F39 [facility] [place] [id number] [place] [address] 417023- 8009 May, Intermittent explosive disorder in adult F63.81 and Mild intellectual disability F70 [facility] [place] [id number] [place] [address] [phone]- 5386 May, Mood disorder F39 [facility] [place] [address], [place] [address]- 0221 Dec, Depressive disorder, not elsewhere classified 311 ; Mild mental retardation 317 and Intermittent explosive disorder 312.34 [facility] [place] [address], [place] [address]- 0506 Dec, Depressive disorder, not elsewhere classified 311 and Mild mental retardation 317 [facility] [place] [id number] [address]- 1845 November, Depressive disorder, not elsewhere classified 311 and Mild mental retardation 317 [facility] [place] [id number] [place] [address] 88031- 7714 Oct, [facility] [place] [address] 7506 Oct, [facility] [place] [address] 4871 Sep, [facility] [place] [address]- 9742 Sep, [facility] [place] [address]- 7749 Sep, [facility] [place] [address] 4603 Sep, [facility] [place] [address], [place] [address]- 4806 Sep, [facility] [place] [address], [place] [address]- 3066 Sep, [facility] [place] [address], [place] [address]- 7876 Sep, [facility] [place] [address], [place] [address]- 2546 Sep, [facility] [place] [address], [place] [address]- 4959 Aug, [facility] [place] [facility] [address] [id number] [place] [address]- 5292 Aug, [facility] [place] [facility] [address] [id number] [place] [address]- 2599 Jul, [facility] [place] [facility] [address] [id number] [place] [address]- 2112 Jul, [facility] [place] [facility] [address] [id number] [place] [address]- 1854 Jun, [facility] [place] [facility] [address] [id number] [place] [address]- 1793 Jun, [facility] [place] [facility] [address] [id number] [place] [address]- 3345 May, [facility] [place] [facility] [address] [id number] [place] [address]- 3842 May, [facility] [place] [facility] [address] [id number] [place] [address]- 4195 30 Apr, 2014 [facility] [place] [facility] [address] [id number] [place] [address]- 6341 30 Apr, 2014 [facility] [place] [facility] [address] [id number] [place] [address]- 6269 16 Apr, 2014 [facility] [place] [facility] [address] [id number] [place] [address]- 3057 16 Apr, 2014 [facility] [place] [facility] [address] [id number] [place] [address]- 4285 02 Apr, 2014 [facility] [place] [facility] [address] [id number] [place] [address]- 0332 Apr, [facility] [place] [facility] [address] [id number] [place] [address]- 8091 Mar, [facility] [place] [facility] [address] [id number] [place] [address]- 4428 Mar, [facility] [place] [facility] [address] [id number] [place] [address]- 8486 15 Jan, 2014 [facility] [place] [facility] [address] [id number] [place] [address]- 6069 Jan, [facility] [place] [facility] [address] [id number] [place] [address]- 0477 Dec, [facility] [place] [facility] [address] [id number] [place] [address]- 6249 Dec, [facility] [place] [facility] [address] [id number] [place] [address]- 7553 November, [facility] [place] [facility] [address] [id number] [place] [address]- 2078 November, [facility] [place] [facility] [address] [id number] [place] [address]- 0149 Oct, [facility] [place] [facility] [address] [id number] [place] [address]- 4564 Oct, [facility] [place] [facility] [address] [id number] [place] [address]- 0301 Oct, [facility] [place] [facility] [address] [id number] [place] [address]- 1947 Oct, [facility] [place] [facility] [address] [id number] [place] [address]- 5059 Sep, [facility] [place] [facility] [address] [id number] [place] [address]- 0766 Sep, [facility] [place] [facility] [address] [id number] [place] [address]- 8725 Sep, [facility] [place] [facility] [address] [id number] [place] [address]- 2311 Sep, [facility] [place] [facility] [address] [id number] [place] [address]- 3042 Aug, [facility] [place] [facility] [address] [id number] [place] [address]- 0137 Aug, [facility] [place] [facility] [address] [id number] [place] [address]- 6367 Aug, [facility] [address] [id number] [place] [address]- 8906 Aug, [facility] [address] [id number] [place] [address]- 0190 Jul, [facility] [place] [facility] [address] [id number] [place] [address]- 4633 Jul, [facility] [address] [id number] [place] [address]- 4934 Jul, [facility] [address] [id number] [place] [address]- 6326 Jul, [facility] [address] [id number] [place] [address]- 7194 Jun, [facility] [address] [id number] [place] [address]- 9495 Jun, [facility] [address] [id number] [place] [address]- 0343 Jun, [facility] [address] [id number] [place] [address]- 3077 Jun, [facility] [place] [facility] [address] [id number] [place] [address]- 2255 May, [facility] [place] [facility] [address] [id number] [place] [address]- 5638 Apr, [facility] [place] [facility] [address] [id number] [place] [address]- 8900 18 Apr, 2013 [facility] [place] [facility] [address] [id number] [place] [address]- 1253 Apr, [facility] [place] [facility] [address] [id number] [place] [address]- 4749 Mar, [facility] [place] [facility] [address] [id number] [place] [address]- 4266 Mar, [facility] [address] [id number] [place] [address]- 6454 Jan, [facility] [address] [id number] [place] [address]- 6451 Dec, [facility] [address] [id number] [place] [address]- 2426 Dec, [facility] [address] [id number] [place] [address]- 8681 November, [facility] [address] [id number] [place] [address]- 9948 November, [facility] [address] [id number] [place] [address]- 2189 Oct, [facility] [address] [id number] [place] [address]- 9824 Oct, [facility] [address] [id number] [place] [address]- 1568 Oct, [facility] [address] [id number] [place] [address]- 1476 Sep, [facility] [address] [id number] [place] [address]- 9638 Sep, [facility] [address] [id number] [place] [address]- 9082 Sep, [facility] [place] [facility] [address] [id number] [place] [address]- 1941 Sep, [facility] [place] [facility] [address] [id number] [place] [address]- 1816 Aug, [facility] [place] [facility] [address] [id number] [place] [address]- 9856 Aug, [facility] [place] [facility] [address] [id number] [place] [address]- 4858 Jul, [facility] [place] [facility] [address] [id number], [place] [address]- 8426 Jul, [facility] [place] [address] [facility] [id number], [place] [address]- 6889 Jul, [facility] [place] [address] [facility] [id number] [place] [address]- 8036 Jul, [facility] [place] [address] [facility] [id number], [place] [address]- 1866 Jun, [facility] [place] [address] [facility] [id number] [place] [address]- 5431 Jun, [facility] [place] [address] [facility] [id number] [place] [address]- 7855 May, [facility] [place] [address] [facility] [id number], [place] [address]- 6834 May, [facility] [place] [address], [place] [address]- 9213 May, [facility] [place] [address] [facility] [id number], [place] [address]- 7951 Apr, [facility] [place] [address], [place] [address]- 8536 Jan, [facility] [place] [id number], [place] [address]- 9834 Dec, [facility] [place] [address], [place] [address]- 2076 Jun, [facility] [place] [address] [facility] [id number], [place] [address]- 4247 Jul, [facility] [place] [address], [place] [address]- 5676 Jun, [facility] [place] [id number], [place] [address]- 7934 May, IMMUNIZATIONS No Known Immunizations SOCIAL HISTORY Never Assessed REASON FOR VISIT f/u JjournotRN, IEP/ ID PLAN OF CARE Activity Details Follow Up 3 Months Reason: VITAL SIGNS Height 67.75 in 2018-05-30 Weight 235.6 lbs 2018-05-30 Heart Rate 76 bpm 2018-05-30 Respiratory Rate 20 2018-05-30 BMI 36.08 kg/m2 2018-05-30 Blood pressure systolic 138 mmHg 2018-05-30 Blood pressure diastolic 84 mmHg 2018-05-30 MEDICATIONS Medication Instructions Dosage Frequency Start Date End Date Duration Status Milk of Magnesia Not-Taking Cheratussin AC 5 mL by Oral route every 6 hours PRN cough Sep, Not-Taking Lotrimin AF 1 % apply to groin rash twice daily until healed Sep, Not-Taking Ventolin HFA 90 mcg/actuation 2 puffs by Inhalation route every 6 hours PRN shortness of air/chest tightness Sep, Not-Taking Synthroid 50 mcg 1 Tablet by Oral route 1 time per day for hypothyroidism Sep, Active Lipitor 10 MG Orally at bedtime 1 tablet Active Viibryd 40 MG 1 tab by Oral route 1 time per day Once a day Orally Active Flonase 50 mcg/actuation 1 Nasal [place] by Nasal route 1 time per day qHS for allergies Sep, Active Cranberry Concentrate by oral route as directed for urinary health Sep, Not-Taking Maalox Advanced by oral route PRN as directed Sep, Not- Taking Visine Not-Taking Singulair 10 mg 1 Tablet by Oral route 1 time per day for allergy Sep, Active Tessalon Perles 100 mg 1 Capsule by Oral route 2 times per day PRN cough Sep, Not-Taking Mucinex D Not-Taking Hydrochlorothiazide 12.5 MG Orally Once a day 1 tablet 24h Active Prilosec 20 MG Orally in the PM 1 capsule Not-Taking Trileptal 300 MG Orally for anger 1 tab in AM and 2 tabs at HS Dec, Active RESULTS No Results PROCEDURES No Known procedures INSTRUCTIONS MEDICATIONS ADMINISTERED No Known Medications MEDICAL (GENERAL) HISTORY Type Description Date Surgical History T and A Surgical History deviated septum repair Hospitalization History Lived at [facility] for many years
--- OUTSIDE RECORDS SUMMARY | 2018-10-01 03:25 | XMS REPORT ---
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 Active 030581799 Problem STEPHENIE (generalized anxiety disorder) F41.1 Active 27818452 Problem Mood disorder F39 Active 90165078 Problem Mild intellectual disability F70 Active 46760889 Problem Intermittent explosive disorder in adult F63.81 Active [id number] ALLERGIES No Information ENCOUNTERS Encounter Location Date Diagnosis [facility] [id number] [place] [address] 67595- 1987 Jul, [facility] [id number] [place] [address] 33268- 0926 30 May, 2018 [facility] [id number] [place] [address] 33583- 0343 May, [facility] [id number] [place] [address] 44756- 7831 Apr, Onychomycosis B35.1 and 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 [facility] [id number] [place] [address] 84718- 8723 11 Apr, 2018 Mood disorder F39 and Mild intellectual disability F70 [facility] [address] [address]- 7031 28 Mar, 2018 Intermittent explosive disorder in adult F63.81 ; STEPHENIE ( generalized anxiety disorder) F41.1 and Mild intellectual disability F70 [facility] [id number] [place] [address] 28946- 0122 Mar, Mood disorder F39 and Mild intellectual disability F70 [facility] [address] [address] Jan, Mood disorder F39 and Mild intellectual disability F70 [facility] [address] [address] 0086 November, Mood disorder F39 and Mild intellectual disability F70 [facility] [id number] [place] [address] 97934- 5796 November, Intermittent explosive disorder in adult F63.81 ; Mild intellectual disability F70 and STEPHENIE (generalized anxiety disorder) F41.1 [facility] [id number] [place] [address] 08528- 2386 November, Mood disorder F39 and Mild intellectual disability F70 [facility] [id number] [place] [address] 47823- 0596 Sep, Mood disorder F39 and Mild intellectual disability F70 [facility] [id number] [place] [address] 80472- 5928 Sep, Mood disorder F39 [facility] [id number] [place] [address] 48563- 9455 Sep, Mood disorder F39 [facility] [id number] [place] [address] 38917- 4761 Sep, Mood disorder F39 [facility] [id number] [place] [address] 66494- 5906 Aug, Intermittent explosive disorder in adult F63.81 and Mild intellectual disability F70 [facility] [id number] [place] [address] 52139- 0567 Jul, [facility] [id number] [place] [address] 714185- 2072 Jul, Onychomycosis B35.1 ; Posterior tibial tendinitis of right lower extremity M76.821 ; Posterior tibial tendinitis of left lower extremity M76.822 ; 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 and Secondary localized osteoarthrosis of left ankle and foot M19.272 [facility] [id number] [place] [address] 06873- 9606 25 Apr, 2017 [facility] [id number] [place] [address] 32503- 8056 19 Apr, 2017 Intermittent explosive disorder in adult F63.81 and Mild intellectual disability F70 [facility] [id number] [place] [address] 50864- 2759 Jan, Intermittent explosive disorder in adult F63.81 ; Mood disorder F39 and Mild intellectual disability F70 [facility] [id number] [place] [address] 45581- 0546 Oct, [facility] [id number] [place] [address] 90304- 6505 Sep, [facility] [id number] [place] [address] 75239- 9137 Aug, Mood disorder F39 [facility] [id number] [place] [address] 25328- 8276 Jul, Mood disorder F39 [facility] [id number] [place] [address] 10244- 3626 Jun, Mood disorder F39 [facility] [id number] [place] [address] 34780- 2072 May, Intermittent explosive disorder in adult F63.81 and Mild intellectual disability F70 [facility] [id number] [place] [address] 95390- 1499 May, Mood disorder F39 [facility] [id number] [place] [address] 84531- 0286 Dec, Depressive disorder, not elsewhere classified 311 ; Mild mental retardation 317 and Intermittent explosive disorder 312.34 [facility] [id number] [place] [address] 87453- 9356 Dec, Depressive disorder, not elsewhere classified 311 and Mild mental retardation 317 [facility] [address] [facility] [id number] [address] November, Depressive disorder, not elsewhere classified 311 and Mild mental retardation 317 [facility] [address] [facility] [id number] [address] 8394 14 Oct, 2014 [facility] [address] [facility] [id number] [place] [address] 38642- 4466 Oct, [facility] [address] [facility] [id number] [address] 3284 Sep, [facility] [id number] [place] [address] 35292- 6286 Sep, [facility] [address] [address]- 3509 Sep, [facility] [id number] [place] [address] 88483- 4534 Sep, [facility] [address] [address]- 8402 Sep, [facility] [address] [address]- 0992 Sep, [facility] [address] [address]- 0259 Sep, [facility] [address] 6471 Sep, [facility] [id number] 9073 Aug, [facility] [address] [address]- 3057 Aug, [facility] [id number] [address]- 2478 Jul, [facility] [address] [address]- 8586 Jul, [facility] [place] [facility] [address] [id number] [place] [address]- 5395 Jun, [facility] [place] [facility] [address] [id number] [place] [address]- 2575 Jun, [facility] [place] [facility] [address] [id number] [place] [address]- 3025 14 May, 2014 [facility] [place] [facility] [address] [id number] [place] [address]- 1895 14 May, 2014 [facility] [place] [facility] [address] [id number] [place] [address]- 4943 30 Apr, 2014 [facility] [place] [facility] [address] [id number] [place] [address]- 3674 30 Apr, 2014 [facility] [place] [facility] [address] [id number] [place] [address]- 3390 16 Apr, 2014 [facility] [place] [facility] [address] [id number] [place] [address]- 4373 16 Apr, 2014 [facility] [place] [facility] [address] [id number] [place] [address]- 2956 02 Apr, 2014 [facility] [place] [facility] [address] [id number] [place] [address]- 3756 02 Apr, 2014 [facility] [place] [facility] [address] [id number] [place] [address]- 3552 Mar, [facility] [place] [facility] [address] [id number] [place] [address]- 1501 Mar, [facility] [place] [facility] [address] [id number] [place] [address]- 3730 Jan, [facility] [place] [facility] [address] [id number] [place] [address]- 4443 Jan, [facility] [place] [facility] [address] [id number] [place] [address]- 3463 Dec, [facility] [place] [facility] [address] [id number] [place] [address]- 9275 Dec, [facility] [address] [id number] [place] [address]- 2349 November, [facility] [place] [facility] [address] [id number] [place] [address]- 1476 November, [facility] [address] [id number] [place] [address]- 9658 Oct, [facility] [place] [facility] [address] [id number] [place] [address]- 3023 Oct, [facility] [place] [facility] [address] [id number] [place] [address]- 9605 Oct, [facility] [place] [facility] [address] [id number] [place] [address]- 2309 Oct, [facility] [place] [facility] [address] [id number] [place] [address]- 2422 Sep, [facility] [place] [facility] [address] [id number] [place] [address]- 0706 Sep, [facility] [place] [facility] [address] [id number] [place] [address]- 8681 Sep, [facility] [place] [facility] [address] [id number] [place] [address]- 5629 Sep, [facility] [place] [facility] [address] [id number] [place] [address]- 6031 Aug, [facility] [place] [facility] [address] [id number] [place] [address]- 6007 Aug, [facility] [place] [facility] [address] [id number] [place] [address]- 7086 Aug, [facility] [place] [facility] [address] [id number] [place] [address]- 2546 Aug, [facility] [place] [facility] [address] [id number] [place] [address]- 3475 Jul, [facility] [place] [facility] [address] [id number] [place] 8143 Jul, [facility] [place] [facility] [address] [id number] [place] [address]- 3488 Jul, [facility] [place] [facility] [address] [id number] [place] [address]- 7461 Jul, [facility] [place] [facility] [address] [id number] [place] [address]- 0362 Jun, [facility] [place] [facility] [address] [id number] [place] [address]- 0243 Jun, [facility] [place] [facility] [address] [id number] [place] [address]- 5367 Jun, [facility] [place] [facility] [address] [id number] [place] [address]- 5368 Jun, [facility] [place] [facility] [address] [id number] [place] [address]- 3211 May, [facility] [place] [facility] [address] [id number] [place] [address]- 4483 Apr, [facility] [place] [facility] [address] [id number] [place] [address]- 8945 Apr, [facility] [place] [facility] [address] [id number], [place] [address]- 3928 Apr, [facility] [place] [facility] [address] [id number], [place] [address]- 8567 Mar, [facility] [place] [facility] [address] [id number] [place] [address]- 4844 Mar, [facility] [place] [facility] [address] [id number], [place] [address]- 5046 Jan, [facility] [place] [facility] [address] [id number] [place] [address]- 7927 Dec, [facility] [place] [facility] [address] [id number] [place] [address]- 5558 Dec, [facility] [address] [id number] [place] [address]- 3901 November, [facility] [address] [id number] [place] [address]- 9606 November, [facility] [address] [id number] [place] [address]- 1707 Oct, [facility] [address] [id number] [place] [address]- 8782 Oct, [facility] [address] [id number] [place] [address]- 5479 Oct, [facility] [address] [id number] [place] [address]- 7149 Sep, [facility] [address] [id number] [place] [address]- 6127 Sep, [facility] [address] [id number] [place] [address]- 4575 Sep, [facility] [address] [id number] [place] [address]- 4884 Sep, [facility] [address] [id number] [place] [address]- 9189 Aug, [facility] [address] [id number] [place] [address]- 9504 Aug, [facility] [address] [id number] [place] 4955 Jul, [facility] [address] [id number] [place] [address]- 9803 Jul, [facility] [address] [id number] [place] [address]- 6607 Jul, [facility] [address] [id number] [place] [address]- 4919 Jul, [facility] [address], [place] [address]- 4166 Jun, [facility] [id number] [place] [address] 72082- 1456 Jun, [facility] [address] [address]- 3775 May, [facility] [id number] [place] [address] 54364- 3374 May, [facility] [address], [place] [address]- 2056 May, [facility] [id number] [place] [address] 82861- 3146 Apr, [facility] [id number] [place] [address] 93242- 9179 Jan, [facility] [id number] [place] [address] 54703- 8172 Dec, [facility] [address] [address]- 4456 Jun, [facility] [address] [address]- 8073 Jul, [facility] [address], [place] [address]- 0877 Jun, [facility] [address] [address]- 4986 May, IMMUNIZATIONS No Known Immunizations SOCIAL HISTORY Never Assessed REASON FOR VISIT f/u RAH Mendoza PLAN OF CARE Activity Details Follow Up 2 Months Reason: VITAL SIGNS Height 67.75 in 2018-03-28 Weight 230.0 lbs 2018-03-28 Heart Rate 88 bpm 2018-03-28 Respiratory Rate 20 2018-03-28 BMI 35.23 kg/m2 2018-03-28 Blood pressure systolic 128 mmHg 2018-03-28 Blood pressure diastolic 76 mmHg 2018-03-28 MEDICATIONS Medication Instructions Dosage Frequency Start Date End Date Duration Status Ventolin HFA 90 mcg/actuation 2 puffs by Inhalation route every 6 hours PRN shortness of air/chest tightness Sep, Not-Taking Synthroid 50 mcg 1 Tablet by Oral route 1 time per day for hypothyroidism Sep, Active Trileptal 300 MG Orally for anger 1 tab in AM and 2 tabs at HS Dec, Active Flonase 50 mcg/actuation 1 Nasal Iuka by Nasal route 1 time per day qHS for allergies Sep, Active Singulair 10 mg 1 Tablet by Oral route 1 time per day for allergy Sep, Active Maalox Advanced by oral route PRN as directed Sep, Not- Taking Prilosec 20 MG Orally in the PM 1 capsule Not-Taking Tessalon Perles 100 mg 1 Capsule by Oral route 2 times per day PRN cough Sep, Not-Taking Cetirizine HCl 10 MG Orally Once a day 1 tablet 24h Mar, Apr, 30 day(s) Active Hydrochlorothiazide 12.5 MG Orally Once a day 1 tablet 24h Active Lipitor 10 MG Orally at bedtime 1 tablet Active Cheratussin AC 5 mL by Oral route every 6 hours PRN cough Sep, Not-Taking Milk of Magnesia Not-Taking Viibryd 40 MG 1 tab by Oral route 1 time per day Once a day Orally Active Lotrimin AF 1 % apply to groin rash twice daily until healed Sep, Not-Taking Visine Not-Taking Cranberry Concentrate by oral route as directed for urinary health Sep, Not-Taking Mucinex D Not-Taking RESULTS No Results PROCEDURES No Known procedures INSTRUCTIONS MEDICATIONS ADMINISTERED No Known Medications MEDICAL (GENERAL) HISTORY Type Description Date Surgical History T and A Surgical History deviated septum repair Hospitalization History Lived at [facility] for many years
--- OUTSIDE RECORDS SUMMARY | 2018-10-01 03:25 | XMS REPORT ---
Author Author CAMERON BAUMANN [facility] Address [address] [place] [address] Care Team Providers Care Skid Strapper Name Role Phone CAMERON BAUMANN Unavailable PROBLEMS Type Condition ICD9-CM Code ZHW89-SW Code Onset Dates Condition Status SNOMED Code Problem 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 Active 311246758 Problem STEPHENIE (generalized anxiety disorder) F41.1 Active 62937478 Problem Mood disorder F39 Active 45192875 Problem Mild intellectual disability F70 Active 29542942 Problem Intermittent explosive disorder in adult F63.81 Active 480421495 ALLERGIES No Information ENCOUNTERS Encounter Location Date Diagnosis [facility] [id number] [place] [address] 01377- 1170 Jul, [facility] [id number] [place] [address] 43475- 3693 30 May, 2018 [facility] [id number] [place] [address] 63119- 7145 15 May, 2018 [facility] [id number] [place] [address] 12606- 2058 Apr, Onychomycosis B35.1 and 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 [facility] [id number] [place] [address] 29253- 8957 11 Apr, 2018 Mood disorder F39 and Mild intellectual disability F70 [facility] [id number] [place] [address] 10713- 5728 28 Mar, 2018 Intermittent explosive disorder in adult F63.81 ; STEPHENIE ( generalized anxiety disorder) F41.1 and Mild intellectual disability F70 [facility] [id number] [place] [address] 02060- 6124 Mar, Mood disorder F39 and Mild intellectual disability F70 [facility] [id number] [place] [address] 54907- 0516 Jan, Mood disorder F39 and Mild intellectual disability F70 [facility] [id number] [place] [address] 41183- 8776 November, Mood disorder F39 and Mild intellectual disability F70 [facility] [id number] [place] [address] 79915- 0450 November, Intermittent explosive disorder in adult F63.81 ; Mild intellectual disability F70 and STEPHENIE (generalized anxiety disorder) F41.1 [facility] [id number] [place] [address] 625613- 9256 November, Mood disorder F39 and Mild intellectual disability F70 [facility] [id number] [place] [address] 30164- 7726 Sep, Mood disorder F39 and Mild intellectual disability F70 [facility] [id number] [place] [address] 60042- 4750 Sep, Mood disorder F39 [facility] [id number] [place] [address] 44900- 1870 Sep, Mood disorder F39 [facility] [id number] [place] [address] 62254- 7527 Sep, Mood disorder F39 [facility] [id number] [place] [address] 72195- 2182 Aug, Intermittent explosive disorder in adult F63.81 and Mild intellectual disability F70 [facility] [id number] [place] [address] 23126- 1512 Jul, [facility] [id number] [place] [address] 192699- 6371 Jul, Onychomycosis B35.1 ; Posterior tibial tendinitis of right lower extremity M76.821 ; Posterior tibial tendinitis of left lower extremity M76.822 ; 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 and Secondary localized osteoarthrosis of left ankle and foot M19.272 [facility] [id number] [place] [address] 69190- 7286 25 Apr, 2017 [facility] [id number] [place] [address] 52562- 0376 19 Apr, 2017 Intermittent explosive disorder in adult F63.81 and Mild intellectual disability F70 [facility] [id number] [place] [address] 09760- 4883 Jan, Intermittent explosive disorder in adult F63.81 ; Mood disorder F39 and Mild intellectual disability F70 [facility] [id number] [place] [address] 44494- 6795 Oct, [facility] [id number] [place] [address] 23576- 6138 Sep, [facility] [id number] [place] [address] 86673- 1429 Aug, Mood disorder F39 [facility] [id number] [place] [address] 90875- 4626 Jul, Mood disorder F39 [facility] [id number] [place] [address] 13949- 8982 Jun, Mood disorder F39 [facility] [id number] [place] [address] 48228- 1708 May, Intermittent explosive disorder in adult F63.81 and Mild intellectual disability F70 [facility] [id number] [place] [address] 47227- 0705 May, Mood disorder F39 [facility] [id number] [place] [address] 44611- 1496 Dec, Depressive disorder, not elsewhere classified 311 ; Mild mental retardation 317 and Intermittent explosive disorder 312.34 [facility] [id number] [place] [address] 86695- 7815 Dec, Depressive disorder, not elsewhere classified 311 and Mild mental retardation 317 [facility] [address] [facility] [id number] [address]49 November, Depressive disorder, not elsewhere classified 311 and Mild mental retardation 317 [facility] [address] [facility] [id number] [place] [address]- 7378 Oct, [facility] [address] [facility] [id number] [place] [address] 21710- 1955 Oct, [facility] [address] [facility] [id number] [place] [address]- 9031 Sep, [facility] [id number] [place] [address] 85760- 6756 Sep, [facility] [address] [address]- 8959 Sep, [facility] [id number] [place] [address] 01362- 4783 Sep, [facility] [address] [address]- 4716 Sep, [facility] [address] [address]- 9218 Sep, [facility] [address] [address]- 0539 Sep, [facility] [address] [address]- 0216 Sep, [facility] [id number] 3005 Aug, [facility] [address] [address]- 2226 Aug, [facility] [id number] [address]- 7240 Jul, [facility] [address] [address]- 2064 Jul, [facility] [place] [facility] [address] [id number] [place] [address]- 7823 Jun, [facility] [place] [facility] [address] [id number] [place] [address]- 5848 Jun, [facility] [place] [facility] [address] [id number] [place] [address]- 1483 14 May, 2014 [facility] [place] [facility] [address] [id number] [place] [address]- 2905 14 May, 2014 [facility] [place] [facility] [address] [id number] [place] [address]- 8053 30 Apr, 2014 [facility] [place] [facility] [address] [id number] [place] [address]- 6842 30 Apr, 2014 [facility] [place] [facility] [address] [id number] [place] [address]- 4173 16 Apr, 2014 [facility] [place] [facility] [address] [id number] [place] [address]- 5321 16 Apr, 2014 [facility] [place] [facility] [address] [facility] [id number] [place] [address]- 8288 02 Apr, 2014 [facility] [place] [facility] [address] [facility] [id number] [place] [address]- 3739 02 Apr, 2014 [facility] [place] [facility] [address] [id number] [place] [address]- 6338 Mar, [facility] [place] [facility] [address] [id number] [place] [address]- 0089 Mar, [facility] [place] [facility] [address] [id number] [place] [address]- 4446 15 Jan, 2014 [facility] [place] [facility] [address] [id number] [place] [address]- 5599 Jan, [facility] [place] [facility] [address] [facility] [id number] [place] [address]- 4003 24 Dec, 2013 [facility] [place] [facility] [address] [id number] [place] [address]- 4940 Dec, [facility] [place] [facility] [address] [id number] [place] [address]- 9773 November, [facility] [place] [facility] [address] [id number] [place] [address]- 8586 November, [facility] [place] [facility] [address] [id number] [place] [address]- 7686 Oct, [facility] [place] [facility] [address] [id number] [place] [address]- 6953 Oct, [facility] [place] [facility] [address] [id number] [place] [address]- 8333 Oct, [facility] [place] [facility] [address] [id number] [place] [address]- 8498 Oct, [facility] [place] [facility] [address] [id number] [place] [address]- 4780 Sep, [facility] [place] [facility] [address] [id number] [place] [address]- 0126 Sep, [facility] [place] [facility] [address] [id number] [place] [address]- 9619 Sep, [facility] [place] [facility] [address] [id number] [place] [address]- 3179 Sep, [facility] [place] [facility] [address] [id number] [place] [address]- 8629 Aug, [facility] [place] [facility] [address] [id number] [place] [address]- 0400 Aug, [facility] [place] [facility] [address] [id number] [place] [address]- 1370 Aug, [facility] [place] [facility] [address] [id number] [place] [address]- 3865 Aug, [facility] [place] [facility] [address] [id number] [place] [address]- 0926 Jul, [facility] [place] [facility] [address] [id number] [place] [address]- 8797 Jul, [facility] [place] [facility] [address] [id number] [place] [address]- 9626 Jul, [facility] [place] [facility] [address] [facility] [id number] [place] [address] 2546 Jul, [facility] [place] [facility] [address] [id number] [place] [address]- 4670 Jun, [facility] [place] [facility] [address] [id number] [place] [address]- 6586 Jun, [facility] [place] [facility] [address] [id number] [place] [address]- 9680 Jun, [facility] [place] [facility] [address] [id number] [place] [address]- 2542 Jun, [facility] [place] [facility] [address] [id number] [place] [address]- 2318 May, [facility] [place] [facility] [address] [id number] [place] [address]- 0511 Apr, [facility] [place] [facility] [address] [id number] [place] [address]- 8878 Apr, [facility] [place] [facility] [address] [id number] [place] [address]- 2546 Apr, [facility] [place] [facility] [address] [id number] [place] [address] 2544 Mar, [facility] [place] [facility] [address] [id number] [place] [address]- 2546 Mar, [facility] [place] [facility] [address] [id number] [place] [address]- 5717 Jan, [facility] [place] [facility] [address] [id number] [place] [address]- 2546 Dec, [facility] [place] [facility] [address] [id number] [place] [address]- 0008 Dec, [facility] [address] [id number] [place] [address]- 9069 November, [facility] [address] [id number] [place] [address]- 6072 November, [facility] [address] [id number] [place] [address]- 4912 Oct, [facility] [address] [id number] [place] [address]- 8712 Oct, [facility] [address] [id number] [place] [address]- 7477 Oct, [facility] [address] [id number] [place] [address]- 3512 Sep, [facility] [address] [id number] [place] [address]- 0702 Sep, [facility] [address] [id number] [place] [address]- 9054 Sep, [facility] [address] [id number] [place] [address]- 2092 Sep, [facility] [address] [id number] [place] [address]- 5414 Aug, [facility] [address] [id number] [place] [address]- 9725 Aug, [facility] [address] [id number] [place] [address]- 0618 Jul, [facility] [address] [id number] [place] [address]- 1857 Jul, [facility] [address] [id number] [place] [address]- 2546 Jul, [facility] [address] [id number] [place] [address]- 9209 Jul, [facility] [id number] [address]- 2546 Jun, [facility] [address] [facility] [id number] [place] [address]- 2546 Jun, [facility] [address] [facility] [id number] [place] [address]- 2546 May, [facility] [address] [facility] [id number] [place] [address]- 2546 May, [facility] [address] [facility] [id number] [place] [address]- 2546 May, [facility] [address] [address]- 2546 Apr, [facility] [address] [address]- 2546 Jan, [facility] [address] [address]- 2546 Dec, [facility] [id number] [address]- 2546 Jun, [facility] [id number] [address]- 2546 Jul, [facility] [id number] [address]- 2546 Jun, [facility] [id number] [address]- 2546 May, IMMUNIZATIONS No Known Immunizations SOCIAL HISTORY Never Assessed REASON FOR VISIT BH f/u PLAN OF CARE Activity Details Follow Up 4 Weeks Reason:BH F/U VITAL SIGNS MEDICATIONS Unknown Medications RESULTS No Results PROCEDURES Procedure Date Ordered Result Body Site Psychotherapy, patient &/family, 30 minutes, established patient Apr 11, 2018 INSTRUCTIONS MEDICATIONS ADMINISTERED No Known Medications MEDICAL (GENERAL) HISTORY Type Description Date Surgical History T and A Surgical History deviated septum repair Hospitalization History Lived at [facility] for many years
--- OUTSIDE RECORDS SUMMARY | 2018-10-01 03:25 | XMS REPORT ---
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 Active 904440011 Problem STEPHENIE (generalized anxiety disorder) F41.1 Active 98964433 Problem Mood disorder F39 Active 91473141 Problem Mild intellectual disability F70 Active 38878540 Problem Intermittent explosive disorder in adult F63.81 Active [id number] ALLERGIES No Information ENCOUNTERS Encounter Location Date Diagnosis [facility] [id number] [place] [address] 47008- 2047 Jul, [facility] [id number] [place] [address] 49236- 8437 30 May, 2018 [facility] [id number] [place] [address] 45096- 0180 May, [facility] [id number] [place] [address] 49764- 0473 Apr, Onychomycosis B35.1 and 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 [facility] [id number] [place] [address] 00986- 4653 11 Apr, 2018 Mood disorder F39 and Mild intellectual disability F70 [facility] [address] 39431- 9059 28 Mar, 2018 Intermittent explosive disorder in adult F63.81 ; STEPHENIE ( generalized anxiety disorder) F41.1 and Mild intellectual disability F70 [facility] [id number] [place] [address] 17476- 5362 Mar, Mood disorder F39 and Mild intellectual disability F70 [facility] [address], [place] [address] Jan, Mood disorder F39 and Mild intellectual disability F70 [facility] [address] [address] 0016 November, Mood disorder F39 and Mild intellectual disability F70 [facility] [id number] [place] [address] 23259- 1596 November, Intermittent explosive disorder in adult F63.81 ; Mild intellectual disability F70 and STEPHENIE (generalized anxiety disorder) F41.1 [facility] [id number] [place] [address] 64655- 3086 November, Mood disorder F39 and Mild intellectual disability F70 [facility] [id number] [place] [address] 12563- 6746 Sep, Mood disorder F39 and Mild intellectual disability F70 [facility] [id number] [place] [address] 24047- 5567 Sep, Mood disorder F39 [facility] [id number] [place] [address] 90243- 0362 Sep, Mood disorder F39 [facility] [id number] [place] [address] 76603- 8988 Sep, Mood disorder F39 [facility] [id number] [place] [address] 54597- 1716 Aug, Intermittent explosive disorder in adult F63.81 and Mild intellectual disability F70 [facility] [id number] [place] [address] 57350- 3451 Jul, [facility] [id number] [place] [address] 935979- 4290 Jul, Onychomycosis B35.1 ; Posterior tibial tendinitis of right lower extremity M76.821 ; Posterior tibial tendinitis of left lower extremity M76.822 ; 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 and Secondary localized osteoarthrosis of left ankle and foot M19.272 [facility] [id number] [place] [address] 28930- 4436 25 Apr, 2017 [facility] [id number] [place] [address] 69971- 1206 19 Apr, 2017 Intermittent explosive disorder in adult F63.81 and Mild intellectual disability F70 [facility] [id number] [place] [address] 48604- 7535 Jan, Intermittent explosive disorder in adult F63.81 ; Mood disorder F39 and Mild intellectual disability F70 [facility] [id number] [place] [address] 89139- 1016 Oct, [facility] [id number] [place] [address] 40233- 7778 Sep, [facility] [id number] [place] [address] 78788- 4976 Aug, Mood disorder F39 [facility] [id number] [place] [address] 94422- 7486 Jul, Mood disorder F39 [facility] [id number] [place] [address] 49833- 7856 Jun, Mood disorder F39 [facility] [id number] [place] [address] 72196- 8694 May, Intermittent explosive disorder in adult F63.81 and Mild intellectual disability F70 [facility] [id number] [place] [address] 77633- 6086 May, Mood disorder F39 [facility] [id number] [place] [address] 93864- 1626 Dec, Depressive disorder, not elsewhere classified 311 ; Mild mental retardation 317 and Intermittent explosive disorder 312.34 [facility] [id number] [place] [address] 42781- 8024 Dec, Depressive disorder, not elsewhere classified 311 and Mild mental retardation 317 [facility] [address] [facility] [id number] [address]89 November, Depressive disorder, not elsewhere classified 311 and Mild mental retardation 317 [facility] [address] [facility] [id number], [place] [address] 2435 14 Oct, 2014 [facility] [address] [facility] [id number] [place] [address] 26305- 2251 Oct, [facility] [address] [facility] [id number], [place] [address] 7250 Sep, [facility] [id number] [place] [address] 14179- 7163 Sep, [facility] [address], [place] [address] 1278 Sep, [facility] [id number] [place] [address] 48410- 0932 Sep, [facility] [address], [place] [address] 6936 Sep, [facility] [address], [place] [address]- 0324 Sep, [facility] [address] [address]- 7025 Sep, [facility] [address] 0076 Sep, [facility] [id number] 9703 Aug, [facility] [address], [place] [address]- 2294 Aug, [facility] [id number], [place] [address]- 8039 Jul, [facility] [address], [place] [address]- 6809 Jul, [facility] [place] [facility] [address] [id number] [place] [address]- 2443 Jun, [facility] [place] [facility] [address] [id number] [place] [address]- 0698 Jun, [facility] [place] [facility] [address] [id number] [place] [address]- 6847 14 May, 2014 [facility] [place] [facility] [address] [id number] [place] [address]- 9209 14 May, 2014 [facility] [place] [facility] [address] [id number] [place] [address]- 9423 30 Apr, 2014 [facility] [place] [facility] [address] [id number] [place] [address]- 7994 30 Apr, 2014 [facility] [place] [facility] [address] [id number] [place] [address]- 9673 16 Apr, 2014 [facility] [place] [facility] [address] [id number] [place] [address]- 2623 16 Apr, 2014 [facility] [place] [facility] [address] [id number] [place] [address]- 3459 02 Apr, 2014 [facility] [place] [facility] [address] [id number] [place] [address]- 0985 02 Apr, 2014 [facility] [place] [facility] [address] [id number] [place] [address]- 7700 Mar, [facility] [place] [facility] [address] [id number] [place] [address]- 0043 Mar, [facility] [place] [facility] [address] [id number] [place] [address]- 4970 Jan, [facility] [place] [facility] [address] [id number] [place] [address]- 8065 Jan, [facility] [place] [facility] [address] [id number] [place] [address]- 0264 Dec, [facility] [place] [facility] [address] [id number] [place] [address]- 6838 Dec, [facility] [address] [id number] [place] [address]- 8149 November, [facility] [place] [facility] [address] [id number] [place] [address]- 5366 November, [facility] [address] [id number] [place] [address]- 1887 Oct, [facility] [place] [facility] [address] [id number] [place] [address]- 6953 Oct, [facility] [place] [facility] [address] [id number] [place] [address]- 4044 Oct, [facility] [place] [facility] [address] [id number] [place] [address]- 8675 Oct, [facility] [place] [facility] [address] [id number] [place] [address]- 1330 Sep, [facility] [place] [facility] [address] [id number] [place] [address]- 5883 Sep, [facility] [place] [facility] [address] [id number] [place] [address]- 8436 Sep, [facility] [place] [facility] [address] [id number] [place] [address]- 8835 Sep, [facility] [place] [facility] [address] [id number] [place] [address]- 6886 Aug, [facility] [place] [facility] [address] [id number] [place] [address]- 3060 Aug, [facility] [place] [facility] [address] [id number] [place] [address]- 6086 Aug, [facility] [place] [facility] [address] [id number] [place] [address]- 2546 Aug, [facility] [place] [facility] [address] [id number] [place] [address]- 7401 Jul, [facility] [place] [facility] [address] [id number] [place]45 Jul, [facility] [place] [facility] [address] [id number] [place] [address]- 5270 Jul, [facility] [place] [facility] [address] [id number] [place] [address]- 6581 Jul, [facility] [place] [facility] [address] [id number] [place] [address]- 2627 Jun, [facility] [place] [facility] [address] [id number] [place] [address]- 3141 Jun, [facility] [place] [facility] [address] [id number] [place] [address]- 5352 Jun, [facility] [place] [facility] [address] [id number] [place] [address]- 5798 Jun, [facility] [place] [facility] [address] [id number] [place] [address]- 0531 May, [facility] [place] [facility] [address] [id number] [place] [address]- 2888 Apr, [facility] [place] [facility] [address] [id number] [place] [address]- 3642 Apr, [facility] [place] [facility] [address] [id number], [place] [address]- 2045 Apr, [facility] [place] [facility] [address] [id number], [place] [address]- 2592 Mar, [facility] [place] [facility] [address] [id number] [place] [address]- 0668 Mar, [facility] [place] [facility] [address] [id number], [place] [address]- 5615 Jan, [facility] [place] [facility] [address] [id number] [place] [address]- 9117 Dec, [facility] [place] [facility] [address] [id number] [place] [address]- 1032 Dec, [facility] [address] [id number] [place] [address]- 9927 November, [facility] [address] [id number] [place] [address]- 9321 November, [facility] [address] [id number] [place] [address]- 6177 Oct, [facility] [address] [id number] [place] [address]- 5558 Oct, [facility] [address] [id number] [place] [address]- 8048 Oct, [facility] [address] [id number] [place] [address]- 5283 Sep, [facility] [address] [id number] [place] [address]- 8462 Sep, [facility] [address] [id number] [place] [address]- 4426 Sep, [facility] [address] [id number] [place] [address]- 2530 Sep, [facility] [address] [id number] [place] [address]- 0835 Aug, [facility] [address] [id number] [place] [address]- 5297 Aug, [facility] [address] [id number] [place] 9518 Jul, [facility] [address] [id number] [place] [address]- 0593 Jul, [facility] [address] [id number] [place] [address]- 4152 Jul, [facility] [address] [id number] [place] [address]- 0992 Jul, [facility] [address], [place] [address] 2546 Jun, [facility] [address], [place] [address]- 2546 Jun, [facility] [address], [place] [address]- 2546 May, [facility] [id number] [place] [address] 54002- 2546 May, [facility] [address], [place] [address]- 2546 May, [facility] [id number] [place] [address] 47154- 2546 Apr, [facility] [id number] [place] [address] 89285- 2326 Jan, [facility] [id number] [place] [address] 47081- 7176 Dec, [facility] [address], [place] [address]- 3046 Jun, [facility] [address], [place] [address]- 0296 Jul, [facility] [address] [address]- [address] Jun, [facility] [address], [place] [address]- 5776 May, IMMUNIZATIONS No Known Immunizations SOCIAL HISTORY Never Assessed REASON FOR VISIT 6 month f/dot Montiel MA PLAN OF CARE Activity Details Follow Up 6 Months Reason: VITAL SIGNS Height 67.75 in 2018-04-21 Blood pressure systolic 130 mmHg 2018-04-21 Blood pressure diastolic 70 mmHg 2018-04-21 MEDICATIONS Unknown Medications RESULTS No Results PROCEDURES Procedure Date Ordered Result Body Site DEBRIDE NAIL, 1-5 Apr 21, 2018 INSTRUCTIONS MEDICATIONS ADMINISTERED No Known Medications MEDICAL (GENERAL) HISTORY Type Description Date Surgical History T and A Surgical History deviated septum repair Hospitalization History Lived at [facility] for many years
--- OUTSIDE RECORDS SUMMARY | 2018-10-01 03:26 | XMS REPORT ---
Author Author ASYA GALLOWAY [facility] Address [address] [place] [address] Care Team Providers Care Agricultural Engineer Name Role Phone LAVERNECHRISTIANA Unavailable PROBLEMS Type Condition ICD9-CM Code QBG00-JT Code Onset Dates Condition Status SNOMED Code Problem STEPHENIE (generalized anxiety disorder) F41.1 Active 76048508 Problem Mild intellectual disability F70 Active 68442916 Problem Intermittent explosive disorder in adult F63.81 Active 682396936 Problem Mood disorder F39 Active [id number] ALLERGIES No Known Allergies ENCOUNTERS Encounter Location Date Diagnosis [facility] [id number] [place] [address] 20486- 4427 Apr, [facility] [id number] [place] [address] 25233- 1495 Apr, [facility] [id number] [place] [address] 44389- 6152 Mar, [facility] [id number] [place] [address] 83097- 9453 Mar, Mood disorder F39 and Mild intellectual disability F70 [facility] [id number] [place] [address] 30886- 3013 Jan, Mood disorder F39 and Mild intellectual disability F70 [facility] [id number] [place] [address] 44296- 2568 November, Mood disorder F39 and Mild intellectual disability F70 [facility] [id number] [place] [address] 68340- 9715 November, Intermittent explosive disorder in adult F63.81 ; Mild intellectual disability F70 and STEPHENIE (generalized anxiety disorder) F41.1 [facility] [id number] [place] [address] [id number] 7073 November, Mood disorder F39 and Mild intellectual disability F70 [facility] [address] [address] [address] Sep, Mood disorder F39 and Mild intellectual disability F70 [facility] [address] 7686 Sep, Mood disorder F39 [facility] [address] [address] 8334 Sep, Mood disorder F39 [facility] [address] 5936 Sep, Mood disorder F39 [facility] [address] 7326 Aug, Intermittent explosive disorder in adult F63.81 and Mild intellectual disability F70 [facility] [address] [address] 8308 Jul, [facility] [id number] [place] [address] 52037- 4886 Jul, Onychomycosis B35.1 ; Posterior tibial tendinitis of right lower extremity M76.821 ; Posterior tibial tendinitis of left lower extremity M76.822 ; 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 and Secondary localized osteoarthrosis of left ankle and foot M19.272 [facility] [address] [address] 5939 Apr, [facility] [address] [address]- 4583 Apr, Intermittent explosive disorder in adult F63.81 and Mild intellectual disability F70 [facility] [address] 8306 Jan, Intermittent explosive disorder in adult F63.81 ; Mood disorder F39 and Mild intellectual disability F70 [facility] [address] 1398 Oct, [facility] [address] [address]- 7107 Sep, [facility] [address] 0197 Aug, Mood disorder F39 [facility] [address] 8085 Jul, Mood disorder F39 [facility] [address] 3233 Jun, Mood disorder F39 [facility] [id number] [place] [address] 17176- 4511 May, Intermittent explosive disorder in adult F63.81 and Mild intellectual disability F70 [facility] [address] 7111 May, Mood disorder F39 [facility] [address] [address] 3996 Dec, Depressive disorder, not elsewhere classified 311 ; Mild mental retardation 317 and Intermittent explosive disorder 312.34 [facility] [address] [address]- 3678 Dec, Depressive disorder, not elsewhere classified 311 and Mild mental retardation 317 [facility] [address] [address]- 4574 November, Depressive disorder, not elsewhere classified 311 and Mild mental retardation 317 [facility] [address] [address]- 8803 Oct, [facility] [address] [address]- 3540 Oct, [facility] [address] 1841 Sep, [facility] [address] [address]- 3264 Sep, [facility] [place] [facility] [address] [id number] [place] [address]- 9314 Sep, [facility] [place] [facility] [address] [id number] [place] [address]- 4231 Sep, [facility] [place] [facility] [address] [id number] [place] [address]- 2166 Sep, [facility] [place] [facility] [address] [id number] [place] [address]- 8761 Sep, [facility] [place] [facility] [address] [id number] [place] [address]- 5811 Sep, [facility] [place] [facility] [address] [id number] [place] [address]- 3965 Sep, [facility] [place] [facility] [address] [facility] [place] [id number] [place] [address]- 8132 Aug, [facility] [place] [facility] [address] [facility] [place] [place] [id number] [place] [address]- 2595 Aug, [facility] [place] [facility] [address] [facility] [place] [id number] [place] [address]- 5319 Jul, [facility] [place] [facility] [address] [facility] [id number] [place] [address]- 4240 Jul, [facility] [place] [facility] [address] [facility] [place] [place] [id number] [place] [address]- 7770 Jun, [facility] [place] [facility] [address] [id number] [address]- 3251 Jun, [facility] [place] [facility] [address] [id number] [place] [address]- 2678 14 May, 2014 [facility] [place] [facility] [address] [id number] [place] [address]90 14 May, 2014 [facility] [place] [facility] [address] [id number] [address]- 8473 30 Apr, 2014 [facility] [place] [facility] [address] [id number] [place] [address]- 1424 30 Apr, 2014 [facility] [place] [facility] [address] [id number] [place] [address]- 9942 16 Apr, 2014 [facility] [place] [facility] [address] [id number] [place] [address]- 0685 16 Apr, 2014 [facility] [place] [facility] [address] [id number] [place] [address]- 7604 Apr, [facility] [place] [facility] [address] [id number] [place] [address]- 7902 Apr, [facility] [place] [facility] [address] [id number] [place] [address]- 6471 Mar, [facility] [place] [facility] [address] [id number] [place] [address]- 0958 Mar, [facility] [place] [facility] [address] [id number] [place] [address]- 9964 Jan, [facility] [place] [facility] [address] [id number] [place] [address]- 6989 Jan, [facility] [place] [facility] [address] [id number] [place] [address]- 9919 Dec, [facility] [place] [facility] [address] [id number] [place] [address]- 6168 Dec, [facility] [place] [facility] [address] [id number] [place] [address]- 1068 November, [facility] [place] [facility] [address] [id number] [place] [address]- 7930 November, [facility] [place] [facility] [address] [id number] [place] [address]- 7513 Oct, [facility] [place] [facility] [address] [id number] [place] [address]- 9778 Oct, [facility] [place] [facility] [address] [id number] [place] [address]- 3636 Oct, [facility] [address] [id number] [place] [address]- 4388 Oct, [facility] [place] [facility] [address] [id number] [place] [address]- 7366 Sep, [facility] [place] [facility] [address] [id number] [place] [address]- 5346 Sep, [facility] [place] [facility] [address] [id number] [place] [address]- 7120 Sep, [facility] [place] [facility] [address] [id number] [place] [address]- 5185 Sep, [facility] [place] [facility] [address] [id number] [place] [address]- 4590 Aug, [facility] [place] [facility] [address] [id number] [place] [address]- 6401 Aug, [facility] [place] [facility] [address] [id number] [place] [address]- 6960 Aug, [facility] [place] [facility] [address] [id number] [place] [address]- 8712 Aug, [facility] [place] [facility] [address] [id number] [place] [address]- 8105 Jul, [facility] [place] [facility] [address] [id number] [address]- 1404 Jul, [facility] [place] [facility] [address] [id number] [address]- 5533 Jul, [facility] [place] [facility] [address] [id number] [place] [address]- 2133 Jul, [facility] [place] [facility] [address] [id number] [place] [address]- 0147 Jun, [facility] [place] [facility] [address] [id number] [place] [address]- 0216 Jun, [facility] [place] [facility] [address] [id number] [place] [address]- 2546 Jun, [facility] [address] [id number] [place] [address]- 6732 Jun, [facility] [address] [id number] [place] [address]- 2546 May, [facility] [address] [id number] [place] [address]- 9396 Apr, [facility] [address] [id number] [place] [address]- 5014 Apr, [facility] [address] [id number] [place] [address]- 2527 Apr, [facility] [address] [id number] [place] [address]- 4663 Mar, [facility] [address] [id number] [place] [address]- 7010 Mar, [facility] [address] [id number] [place] [address]- 2743 Jan, [facility] [address] [id number] [place] [address]- 4414 Dec, [facility] [address] [id number] [place] [address]- 3066 Dec, [facility] [address] [id number] [place] [address]- 4000 November, [facility] [address] [id number] [place] [address]- 7011 November, [facility] [place] [facility] [address] [id number] [place] [address]- 0267 Oct, [facility] [address] [id number] [place] [address]- 1706 Oct, [facility] [address] [id number] [place] [address]- 9855 Oct, [facility] [address] [id number] [place] [address]- 4170 Sep, [facility] [place] [facility] [address] [id number] [place] [address]- 4152 Sep, [facility] [place] [facility] [address] [id number] [place] [address]- 5142 Sep, [facility] [place] [facility] [address] [id number] [place] [address]- 8193 Sep, [facility] [address] [id number] [place] [address]- 7056 Aug, [facility] [place] [facility] [address] [id number] [place] [address]- 1221 Aug, [facility] [place] [facility] [address] [facility] [place] [id number] [place] [address]- 2088 Jul, [facility] [place] [facility] [address] [id number] [address]- 9909 Jul, [facility] [place] [facility] [address] [id number] [place] [address]- 4246 Jul, [facility] [place] [facility] [address] [facility] [place] [id number] [address]- 1740 Jul, [facility] [place] [facility] [address] [id number], [place] [address]- 9059 Jun, [facility] [place] [facility] [address] [id number], [place] [address]- 0044 Jun, [facility] [place] [facility] [address] [id number] [place] [address]- 1435 May, [facility] [place] [facility] [address] [id number] [address]- 5176 May, [facility] [place] [facility] [address] [facility] [place] [place] [id number] [address]- 2620 May, [facility] [place] [facility] [id number] [address]- 9105 07 Apr, 2012 [facility] [address] [place] [address]- 0913 Jan, [facility] [address] [address]- 7085 Dec, [facility] [address] [address]- 9335 Jun, [facility] [address] [address]- 6251 Jul, [facility] [address] 4558 Jun, [facility] [address] [address]- 6271 May, IMMUNIZATIONS No Known Immunizations SOCIAL HISTORY Never Assessed REASON FOR VISIT zeina/dot Martinez MA PLAN OF CARE Activity Details Follow Up 3 Months Reason: VITAL SIGNS Height 67.75 in 2017-12-27 Weight 236.1 lbs 2017-12-27 Heart Rate 80 bpm 2017-12-27 Respiratory Rate 20 2017-12-27 BMI 36.16 kg/m2 2017-12-27 Blood pressure systolic 130 mmHg 2017-12-27 Blood pressure diastolic 80 mmHg 2017-12-27 MEDICATIONS Medication Instructions Dosage Frequency Start Date End Date Duration Status Cheratussin AC 5 mL by Oral route every 6 hours PRN cough Sep, Not-Taking Visine Not-Taking Maalox Advanced by oral route PRN as directed Sep, Not- Taking BusPIRone HCl 15 mg Orally in the AM and 4pm for anxiety 1 tablet November Active Ventolin HFA 90 mcg/actuation 2 puffs by Inhalation route every 6 hours PRN shortness of air/chest tightness Sep, Not-Taking Viibryd 40 MG 1 tab by Oral route 1 time per day Once a day Orally Active Tessalon Perles 100 mg 1 Capsule by Oral route 2 times per day PRN cough Sep, Not-Taking Loratadine 10 MG Orally Once a day 1 tablet 24h Active Singulair 10 mg 1 Tablet by Oral route 1 time per day for allergy Sep, Active Trileptal 300 MG Orally for anger 1 tab in AM and 2 tabs at HS Dec, Active Flonase 50 mcg/actuation 1 Nasal [place] by Nasal route 1 time per day qHS for allergies Sep, Active Synthroid 50 mcg 1 Tablet by Oral route 1 time per day for hypothyroidism Sep, Active Mucinex D Not-Taking Prilosec 20 MG Orally in the PM 1 capsule Not-Taking Lotrimin AF 1 % apply to groin rash twice daily until healed Sep, Not-Taking Cranberry Concentrate by oral route as directed for urinary health Sep, Not-Taking Lipitor 10 MG Orally at bedtime 1 tablet Active Milk of Magnesia Not-Taking Hydrochlorothiazide 12.5 MG Orally Once a day 1 tablet 24h Active RESULTS No Results PROCEDURES No Known procedures INSTRUCTIONS MEDICATIONS ADMINISTERED No Known Medications MEDICAL (GENERAL) HISTORY Type Description Date Surgical History T and A Surgical History deviated septum repair Hospitalization History Lived at [facility] for many years
--- OUTSIDE RECORDS SUMMARY | 2018-10-01 03:26 | XMS REPORT ---
Author Author CAMERON BAUMANN [facility] Address [address] [place] [address] Care Team Providers Care Fbi Sharpshooter Name Role Phone CAMERON BAUMANN Unavailable PROBLEMS Type Condition ICD9-CM Code [id number] Code Onset Dates Condition Status SNOMED Code Problem STEPHENIE (generalized anxiety disorder) F41.1 Active 39564657 Problem Mild intellectual disability F70 Active 44317708 Problem Intermittent explosive disorder in adult F63.81 Active 263696693 Problem Mood disorder F39 Active [id number] ALLERGIES No Information ENCOUNTERS Encounter Location Date Diagnosis [facility] [id number] [place] [address] 05450- 7051 May, [facility] [id number] [place] [address] 52245- 5078 Apr, [facility] [id number] [place] [address] 53276- 7655 Apr, [facility] [id number] [place] [address] 33214- 2389 Mar, Intermittent explosive disorder in adult F63.81 ; STEPHENIE ( generalized anxiety disorder) F41.1 and Mild intellectual disability F70 [facility] [id number] [place] [address] 27593- 9595 Mar, Mood disorder F39 and Mild intellectual disability F70 [facility] [id number] [place] [address] 34009- 6206 Jan, Mood disorder F39 and Mild intellectual disability F70 [facility] [id number] [place] [address] 62874- 3163 November, Mood disorder F39 and Mild intellectual disability F70 [facility] [id number] [place] [address] 64590- 1701 November, Intermittent explosive disorder in adult F63.81 ; Mild intellectual disability F70 and STEPHENIE (generalized anxiety disorder) F41.1 [facility] [id number] [place] [address] 84432- 1724 November, Mood disorder F39 and Mild intellectual disability F70 [facility] [id number] [place] [address] 33439- 6096 Sep, Mood disorder F39 and Mild intellectual disability F70 [facility] [id number] [place] [address] 60625- 6921 Sep, Mood disorder F39 [facility] [id number] [place] [address] 73291- 4206 Sep, Mood disorder F39 [facility] [id number] [place] [address] 15380- 9122 Sep, Mood disorder F39 [facility] [id number] [place] [address] 79761- 8064 Aug, Intermittent explosive disorder in adult F63.81 and Mild intellectual disability F70 [facility] [id number] [place] [address] 54085- 8513 Jul, [facility] [id number] [place] [address] 09791- 6430 Jul, Onychomycosis B35.1 ; Posterior tibial tendinitis of right lower extremity M76.821 ; Posterior tibial tendinitis of left lower extremity M76.822 ; 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 and Secondary localized osteoarthrosis of left ankle and foot M19.272 [facility] [id number] [place] [address] 43336- 6602 Apr, [facility] [id number] [place] [address] 33984- 4168 Apr, Intermittent explosive disorder in adult F63.81 and Mild intellectual disability F[address] [address] 118[address] Jan, Intermittent explosive disorder in adult F63.81 ; Mood disorder F39 and Mild intellectual disability F70 [facility] [address] [address] 9190 Oct, [facility] [address] [address]- 5595 Sep, [facility] [id number] [place] [address] 72630- 7297 Aug, Mood disorder F39 [facility] [id number] [place] [address] 22788- 1058 Jul, Mood disorder F39 [facility] [id number] [place] [address] 60958- 3483 Jun, Mood disorder F39 [facility] [id number] [place] [address] 29175- 6712 May, Intermittent explosive disorder in adult F63.81 and Mild intellectual disability F70 [facility] [id number] [place] [address] 45513- 1447 May, Mood disorder F39 [facility] [id number] [place] [address] 35738- 4828 Dec, Depressive disorder, not elsewhere classified 311 ; Mild mental retardation 317 and Intermittent explosive disorder 312.34 [facility] [address], [place] [address]- 9748 Dec, Depressive disorder, not elsewhere classified 311 and Mild mental retardation 317 [facility] [id number] [place] [address] 40025- 1104 November, Depressive disorder, not elsewhere classified 311 and Mild mental retardation 317 [facility] [address] [address]- 9655 Oct, [facility] [id number] [place] [address] 66480- 3066 Oct, [facility] [place] [facility] [address] [id number] [place] [address]- 2169 Sep, [facility] [place] [facility] [address] [id number] [place] [address]- 6219 Sep, [facility] [place] [facility] [address] [facility] [id number] [place] [address]- 6120 Sep, [facility] [place] [facility] [address] [id number] [place] [address]- 7360 Sep, [facility] [place] [facility] [address] [id number] [place] [address]- 6248 Sep, [facility] [place] [facility] [address] [facility] [id number] [place] [address]- 1954 Sep, [facility] [place] [facility] [address] [facility] [id number] [place] [address]- 0006 Sep, [facility] [place] [facility] [address] [facility] [id number] [place] [address]- 8401 Sep, [facility] [place] [facility] [address] [facility] [id number] [place] [address]- 0696 Aug, [facility] [place] [facility] [address] [facility] [id number] [place] [address]- 6366 Aug, [facility] [place] [facility] [address] [facility] [id number], [place] [address]- 9175 Jul, [facility] [place] [facility] [address] [id number], [place] [address]- 1904 Jul, [facility] [place] [facility] [address] [facility] [id number] [place] [address]- 8254 Jun, [facility] [place] [facility] [address] [facility] [id number] [place] [address]- 1909 Jun, [facility] [place] [facility] [address] [facility] [id number] [place] [address]- 1358 14 May, 2014 [facility] [place] [facility] [address] [id number] [place] [address]- 0000 14 May, 2014 [facility] [place] [facility] [address] [id number] [place] [address]- 8106 30 Apr, 2014 [facility] [place] [facility] [address] [id number] [place] [address]- 0626 30 Apr, 2014 [facility] [place] [facility] [address] [id number] [place] [address]- 3766 16 Apr, 2014 [facility] [place] [facility] [address] [id number] [place] [address]- 9692 16 Apr, 2014 [facility] [place] [facility] [address] [id number] [place] [address]- 1193 Apr, [facility] [place] [facility] [address] [id number] [place] [address]- 1728 Apr, [facility] [place] [facility] [address] [id number] [place] [address]- 3727 Mar, [facility] [place] [facility] [address] [id number] [place] [address]- 9345 Mar, [facility] [place] [facility] [address] [id number] [place] [address]- 9795 Jan, [facility] [place] [facility] [address] [id number] [place] [address]- 2964 Jan, [facility] [place] [facility] [address] [id number] [place] [address]- 4303 Dec, [facility] [place] [facility] [address] [id number] [place] [address]- 4154 Dec, [facility] [place] [facility] [address] [id number] [place] [address]- 7162 November, [facility] [place] [facility] [address] [id number] [place] 4736 November, [facility] [place] [facility] [address] [id number] [place] [address]- 8262 Oct, [facility] [place] [facility] [address] [id number] [place] [address]- 6938 Oct, [facility] [place] [facility] [address] [id number] [place] [address]- 9123 Oct, [facility] [place] [facility] [address] [id number] [place] [address]- 1738 Oct, [facility] [place] [facility] [address] [id number] [place] [address]- 4591 Sep, [facility] [place] [facility] [address] [id number] [place] [address]- 7042 Sep, [facility] [place] [facility] [address] [id number] [place] [address]- 3348 Sep, [facility] [place] [facility] [address] [id number] [place] [address]- 3691 Sep, [facility] [place] [facility] [address] [id number] [place] [address]- 0556 Aug, [facility] [place] [facility] [address] [id number] [place] [address]- 8165 Aug, [facility] [place] [facility] [address] [id number] [place] [address]- 6849 Aug, [facility] [place] [facility] [address] [id number] [place] [address]- 1664 Aug, [facility] [place] [facility] [address] [id number], [place] [address]- 6782 Jul, [facility] [place] [facility] [address] [id number] [place] [address]- 1894 Jul, [facility] [place] [facility] [address] [id number] [place] [address]- 9979 Jul, [facility] [place] [facility] [address] [id number] [place] [address]- 8976 Jul, [facility] [place] [facility] [address] [id number] [place] [address]- 1494 Jun, [facility] [address] [id number] [place] [address]- 0894 Jun, [facility] [place] [facility] [address] [id number] [place] [address]- 3756 Jun, [facility] [address] [id number] [place] [address]- 7933 Jun, [facility] [place] [facility] [address] [id number] [place] [address]- 2133 May, [facility] [address] [id number] [place] [address]- 4386 Apr, [facility] [place] [facility] [address] [id number] [place] [address]- 4070 Apr, [facility] [address] [id number] [place] [address]- 7940 Apr, [facility] [address] [id number] [place] [address]- 2839 Mar, [facility] [place] [facility] [address] [id number] [place] [address]- 6612 Mar, [facility] [address] [id number] [place] [address]- 2125 Jan, [facility] [place] [facility] [address] [id number] [place] [address]- 6255 Dec, [facility] [place] [facility] [address] [id number] [place] [address]- 1851 Dec, [facility] [place] [facility] [address] [id number] [place] [address]- 9389 November, [facility] [place] [facility] [address] [id number] [place] [address]- 2546 November, [facility] [place] [facility] [address] [id number] [place] [address]- 6093 Oct, [facility] [place] [facility] [address] [id number] [place] [address]- 8693 Oct, [facility] [address] [id number] [place] [address]- 6511 Oct, [facility] [address] [id number] [place] [address]- 1939 Sep, [facility] [place] [facility] [address] [id number] [place] [address]- 9896 Sep, [facility] [address] [id number] [place] [address]- 4996 Sep, [facility] [address] [id number] [place] [address]- 4506 Sep, [facility] [address] [id number] [place] [address]- 7556 Aug, [facility] [address] [id number] [place] [address]- 7981 Aug, [facility] [address] [id number] [place] [address]- 5072 Jul, [facility] [address] [id number], [place] [address]- 9269 Jul, [facility] [address] [facility] [id number], [place] [address]- 8183 Jul, [facility] [address] [id number], [place] [address]- 7529 Jul, [facility] [place] [facility] [address] [id number] [place] [address]- 8220 Jun, [facility] [place] [facility] [address] [id number] [place] [address]- 4206 Jun, [facility] [place] [facility] [address] [id number], [place] [address]- 4136 30 May, 2012 [facility] [place] [facility] [address] [id number], [place] [address]- 2546 May, [facility] [address], [place] [address]- 2546 May, [facility] [address], [place] [address]- 2546 Apr, [facility] [id number] [address]- 2546 Jan, [facility] [address], [place] [address]- 2546 Dec, [facility] [address], [place] [address]- 2546 Jun, [facility] [address], [place] [address]- 2546 Jul, [facility] [id number], [place] [address] 2546 Jun, [facility] [id number], [place] [address]- 2546 May, IMMUNIZATIONS No Known Immunizations SOCIAL HISTORY Never Assessed REASON FOR VISIT f/u PLAN OF CARE Activity Details Follow Up Next available Reason: F/U VITAL SIGNS MEDICATIONS Unknown Medications RESULTS No Results PROCEDURES Procedure Date Ordered Result Body Site Psychotherapy, patient &/family, 30 minutes, established patient February 13, 2018 INSTRUCTIONS MEDICATIONS ADMINISTERED No Known Medications MEDICAL (GENERAL) HISTORY Type Description Date Surgical History T and A Surgical History deviated septum repair Hospitalization History Lived at [facility] for many years
--- OUTSIDE RECORDS SUMMARY | 2018-10-01 03:26 | XMS REPORT ---
Author Author CAMERON BAUMANN [facility] Address [address] [place] [address] Care Team Providers Care Trolley Car Operator Name Role Phone CAMERON BAUMANN Unavailable PROBLEMS Type Condition ICD9-CM Code [id number] Code Onset Dates Condition Status SNOMED Code Problem STEPHENIE (generalized anxiety disorder) F41.1 Active 82726661 Problem Mild intellectual disability F70 Active 63675471 Problem Intermittent explosive disorder in adult F63.81 Active 912043577 Problem Mood disorder F39 Active [id number] ALLERGIES No Information ENCOUNTERS Encounter Location Date Diagnosis [facility] [id number] [place] [address] 90760- 1418 Apr, [facility] [id number] [place] [address] 98628- 8261 Apr, [facility] [id number] [place] [address] 53979- 4358 Mar, [facility] [id number] [place] [address] 91862- 5814 Mar, Mood disorder F39 and Mild intellectual disability F70 [facility] [id number] [place] [address] 08667- 0793 Jan, Mood disorder F39 and Mild intellectual disability F70 [facility] [id number] [place] [address] 41446- 4151 November, Mood disorder F39 and Mild intellectual disability F70 [facility] [id number] [place] [address] 83570- 1639 November, Intermittent explosive disorder in adult F63.81 ; Mild intellectual disability F70 and STEPHENIE (generalized anxiety disorder) F41.1 [facility] [id number] [address] November, Mood disorder F39 and Mild intellectual disability F70 [facility] [address] [address] Sep, Mood disorder F39 and Mild intellectual disability F70 [facility] [address] [address] Sep, Mood disorder F39 [facility] [address] [address] Sep, Mood disorder F39 [facility] [id number] [place] [address] 236694- 3546 Sep, Mood disorder F39 [facility] [id number] [place] [address] 314118- 4136 Aug, Intermittent explosive disorder in adult F63.81 and Mild intellectual disability F70 [facility] [address] [address] Jul, [facility] [id number] [place] [address] 883192- 4884 Jul, Onychomycosis B35.1 ; Posterior tibial tendinitis of right lower extremity M76.821 ; Posterior tibial tendinitis of left lower extremity M76.822 ; 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 and Secondary localized osteoarthrosis of left ankle and foot M19.272 [facility] [address] [address] Apr, [facility] [address] [address] 6073 Apr, Intermittent explosive disorder in adult F63.81 and Mild intellectual disability F70 [facility] [address] [address] Jan, Intermittent explosive disorder in adult F63.81 ; Mood disorder F39 and Mild intellectual disability F70 [facility] [address] [address] 64[address] Oct, [facility] [address] [address] 4608 Sep, [facility] [address] [address]40 Aug, Mood disorder F39 [facility] [address] [address] Jul, Mood disorder F39 [facility] [address] 66[address] Jun, Mood disorder F39 [facility] [id number] [place] [address] 955617- 0107 May, Intermittent explosive disorder in adult F63.81 and Mild intellectual disability F70 [facility] [address] [address] May, Mood disorder F39 [facility] [address] [address]- 5727 Dec, Depressive disorder, not elsewhere classified 311 ; Mild mental retardation 317 and Intermittent explosive disorder 312.34 [facility] [address] [address]- 2706 Dec, Depressive disorder, not elsewhere classified 311 and Mild mental retardation 317 [facility] [address] [address] 1912 November, Depressive disorder, not elsewhere classified 311 and Mild mental retardation 317 [facility] [address] [address] 0801 Oct, [facility] [address] [address] 3019 Oct, [facility] [address] 36[address] Sep, [facility] [address] [address] 7652 Sep, [facility] [place] [facility] [address] [id number] [place] [address]- 2237 Sep, [facility] [place] [facility] [address] [id number] [place] [address]- 5863 Sep, [facility] [place] [facility] [address] [facility] [id number] [place] [address]- 3124 Sep, [facility] [place] [facility] [address] [id number] [place] [address]- 4770 Sep, [facility] [place] [facility] [address] [id number] [place] [address]- 3704 Sep, [facility] [place] [facility] [address] [facility] [id number] [place] [address]- 2617 Sep, [facility] [place] [facility] [id number] [address]- 4277 Aug, [facility] [place] [facility] [address] [facility] [id number] [place] [address]- 4496 Aug, [facility] [place] [facility] [id number] [place] [address]- 4124 Jul, [facility] [place] [facility] [address] [facility] [id number] [place] [address]- 2854 Jul, [facility] [place] [facility] [address] [facility] [id number] [place] [address]- 1177 Jun, [facility] [place] [facility] [address] [facility] [id number] [address]- 1225 Jun, [facility] [place] [facility] [address] [facility] [id number] [place] [address]- 5074 14 May, 2014 [facility] [place] [facility] [address] [facility] [id number] [place] [address]- 9949 14 May, 2014 [facility] [place] [facility] [address] [facility] [id number] [address]- 2884 30 Apr, 2014 [facility] [place] [facility] [address] [id number] [place] [address]- 1675 30 Apr, 2014 [facility] [place] [facility] [address] [id number] [place] [address]- 1069 16 Apr, 2014 [facility] [place] [facility] [address] [id number] [place] [address]- 8596 16 Apr, 2014 [facility] [place] [facility] [address] [id number] [place] [address]- 3480 Apr, [facility] [place] [facility] [address] [id number] [place] [address]- 2725 Apr, [facility] [place] [facility] [address] [id number] [place] [address]- 5622 Mar, [facility] [place] [facility] [address] [id number] [place] [address]- 3577 Mar, [facility] [place] [facility] [address] [id number] [place] [address]- 1422 Jan, [facility] [place] [facility] [address] [id number] [place] [address]- 7128 Jan, [facility] [place] [facility] [address] [id number] [place] [address]- 1690 Dec, [facility] [place] [facility] [address] [id number] [place] [address]- 4543 Dec, [facility] [place] [facility] [address] [id number] [place] [address]- 5768 November, [facility] [place] [facility] [address] [id number] [place] [address]- 9486 November, [facility] [place] [facility] [address] [id number] [place] [address]- 7201 Oct, [facility] [place] [facility] [address] [id number] [place] [address]- 5738 Oct, [facility] [place] [facility] [address] [id number] [place] [address]- 2546 Oct, [facility] [place] [facility] [address] [id number] [place] [address]- 8436 Oct, [facility] [place] [facility] [address] [id number] [place] [address]- 0706 Sep, [facility] [place] [facility] [address] [id number] [place] [address]- 9656 Sep, [facility] [place] [facility] [address] [id number] [place] [address]- 9268 Sep, [facility] [place] [facility] [address] [id number] [place] [address]- 8212 Sep, [facility] [place] [facility] [address] [id number] [place] [address]- 2481 Aug, [facility] [place] [facility] [address] [id number] [place] [address]- 9954 Aug, [facility] [place] [facility] [address] [id number] [place] [address]- 1561 Aug, [facility] [place] [facility] [address] [id number] [place] [address]- 4821 Aug, [facility] [place] [facility] [address] [id number] [place] [address]- 0430 Jul, [facility] [place] [facility] [address] [id number] [place] [address]- 3142 Jul, [facility] [place] [facility] [address] [id number] [place] [address]- 8147 Jul, [facility] [place] [facility] [address] [id number] [place] [address]- 6465 Jul, [facility] [place] [facility] [address] [id number] [place] [address]- 6866 Jun, [facility] [place] [facility] [address] [id number] [place] [address]- 5356 Jun, [facility] [place] [facility] [address] [id number] [place] [address]- 2546 Jun, [facility] [address] [id number] [place] [address]- 4376 Jun, [facility] [place] [facility] [address] [id number] [place] [address]- 2546 May, [facility] [address] [id number] [place] [address]- 4420 Apr, [facility] [place] [facility] [address] [id number] [place] [address] 254 Apr, [facility] [address] [id number] [place] [address]- 0436 Apr, [facility] [address] [id number] [place] [address]- 8260 Mar, [facility] [place] [place] [facility] [address] [id number] [place] [address]- 3689 Mar, [facility] [address] [id number] [place] [address]- 5100 Jan, [facility] [place] [place] [facility] [address] [id number] [place] [address]- 8059 Dec, [facility] [address] [id number] [place] [address]- 7390 Dec, [facility] [place] [place] [facility] [address] [id number] [place] [address]- 9266 November, [facility] [place] [facility] [address] [id number] [place] [address]- 6536 November, [facility] [place] [facility] [address] [id number] [place] [address]- 9278 Oct, [facility] [place] [facility] [address] [id number] [place] [address]- 2546 Oct, [facility] [place] [facility] [address] [id number] [place] [address]- 3232 Oct, [facility] [address] [id number] [place] [address]- 3667 Sep, [facility] [place] [facility] [address] [id number] [place] [address]- 0176 Sep, [facility] [place] [facility] [address] [id number] [place] [address]- 6171 Sep, [facility] [place] [facility] [address] [id number] [place] [address]- 9698 Sep, [facility] [place] [facility] [address] [id number] [place] [address]- 0971 Aug, [facility] [place] [facility] [address] [id number] [place] [address]- 0515 Aug, [facility] [place] [facility] [address] [id number] [place] [address]- 8836 Jul, [facility] [place] [facility] [address] [id number] [address]- 9867 Jul, [facility] [place] [facility] [address] [id number] [place] [address]- 6620 Jul, [facility] [place] [facility] [address] [id number] [place] [address]- 5808 Jul, [facility] [place] [facility] [address] [id number] [address]- 5789 Jun, [facility] [place] [facility] [address] [id number], [place] [address]- 6472 Jun, [facility] [place] [facility] [address] [id number] [place] [address]- 7054 May, [facility] [place] [facility] [address] [id number] [place] [address]- 3116 May, [facility] [place] [facility] [address] [facility] [id number] [place] [address]- 5856 May, [facility] [place] [facility] [address] [facility] [id number], [place] [address]- 2546 07 Apr, 2012 [facility] [id number] [address] 2546 Jan, [facility] [id number] [address]- 2546 Dec, [facility] [id number] [address]- 2546 Jun, [facility] [address], [place] [address]- 2546 Jul, [facility] [id number] [address] 2546 Jun, [facility] [id number] [address]- 2546 May, IMMUNIZATIONS No Known Immunizations SOCIAL HISTORY Never Assessed REASON FOR VISIT f/u PLAN OF CARE Activity Details Follow Up Next available Reason: F/U VITAL SIGNS MEDICATIONS Unknown Medications RESULTS No Results PROCEDURES Procedure Date Ordered Result Body Site Psychotherapy, patient &/family, 30 minutes, established patient December 28, 2017 INSTRUCTIONS MEDICATIONS ADMINISTERED No Known Medications MEDICAL (GENERAL) HISTORY Type Description Date Surgical History T and A Surgical History deviated septum repair Hospitalization History Lived at [facility] for many years
--- OUTSIDE RECORDS SUMMARY | 2018-10-01 03:26 | XMS REPORT ---
Author Author CAMERON BAUMANN [facility] Address [address] [place] [address] Care Team Providers Care Offc Spec Name Role Phone CAMERON BAUMANN Unavailable PROBLEMS Type Condition ICD9-CM Code IQG37-GV Code Onset Dates Condition Status SNOMED Code Problem STEPHENIE (generalized anxiety disorder) F41.1 Active 50083516 Problem Mild intellectual disability F70 Active 96282505 Problem Intermittent explosive disorder in adult F63.81 Active 681741087 Problem Mood disorder F39 Active 74192507 ALLERGIES No Information ENCOUNTERS Encounter Location Date Diagnosis [facility] [id number] [place] [address] 37170- 8499 30 May, 2018 [facility] [id number] [place] [address] 77447- 5643 May, [facility] [id number] [place] [address] 77821- 3702 Apr, [facility] [id number] [place] [address] 88201- 2025 Apr, Mood disorder F39 and Mild intellectual disability F70 [facility] [id number] [place] [address] 76542- 5862 28 Mar, 2018 Intermittent explosive disorder in adult F63.81 ; STEPHENIE ( generalized anxiety disorder) F41.1 and Mild intellectual disability F70 [facility] [id number] [place] [address] 87293- 0163 13 Mar, 2018 Mood disorder F39 and Mild intellectual disability F70 [facility] [id number] [place] [address] 04641- 0881 Jan, Mood disorder F39 and Mild intellectual disability F70 [facility] [id number] [place] [address] 78023- 5596 November, Mood disorder F39 and Mild intellectual disability F70 [facility] [id number] [place] [address] [phone]- 1909 November, Intermittent explosive disorder in adult F63.81 ; Mild intellectual disability F70 and STEPHENIE (generalized anxiety disorder) F41.1 [facility] [id number] [place] [address] 50635- 3271 November, Mood disorder F39 and Mild intellectual disability F70 [facility] [id number] [place] [address] 45587- 3927 Sep, Mood disorder F39 and Mild intellectual disability F70 [facility] [id number] [place] [address] 004373- 8216 Sep, Mood disorder F39 [facility] [id number] [place] [address] 82921- 8977 Sep, Mood disorder F39 [facility] [id number] [place] [address] 77068- 3183 Sep, Mood disorder F39 [facility] [id number] [place] [address] 07585- 6096 Aug, Intermittent explosive disorder in adult F63.81 and Mild intellectual disability F70 [facility] [id number] [place] [address] 31822- 1236 Jul, [facility] [id number] [place] [address] 401052- 9479 Jul, Onychomycosis B35.1 ; Posterior tibial tendinitis of right lower extremity M76.821 ; Posterior tibial tendinitis of left lower extremity M76.822 ; 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 and Secondary localized osteoarthrosis of left ankle and foot M19.272 [facility] [address] [address]- 9344 Apr, [facility] [address] [address] 7516 Apr, Intermittent explosive disorder in adult F63.81 and Mild intellectual disability F70 [facility] [id number] [place] [address] 096392- 3516 Jan, Intermittent explosive disorder in adult F63.81 ; Mood disorder F39 and Mild intellectual disability F70 [facility] [id number] [place] [address] 32345- 5073 Oct, [facility] [id number] [place] [address] 12883- 5994 Sep, [facility] [id number] [place] [address] 88889- 9920 Aug, Mood disorder F39 [facility] [id number] [place] [address] 84228- 7401 Jul, Mood disorder F39 [facility] [id number] [place] [address] 53896- 7998 Jun, Mood disorder F39 [facility] [id number] [place] [address] 75567- 4763 May, Intermittent explosive disorder in adult F63.81 and Mild intellectual disability F70 [facility] [address] [address]- 0921 May, Mood disorder F39 [facility] [address] [address]- 9811 Dec, Depressive disorder, not elsewhere classified 311 ; Mild mental retardation 317 and Intermittent explosive disorder 312.34 [facility] [id number] [place] [address] 41328- 7791 Dec, Depressive disorder, not elsewhere classified 311 and Mild mental retardation 317 [facility] [address] 7094 November, Depressive disorder, not elsewhere classified 311 and Mild mental retardation 317 [facility] [id number] [place] [address]- 5224 14 Oct, 2014 [facility] [place] [facility] [address] [id number] [place] [address]- 6721 13 Oct, 2014 [facility] [place] [facility] [address] [id number] [place] 9010 Sep, [facility] [place] [facility] [address] [id number] [place] [address]- 2445 Sep, [facility] [place] [facility] [address] [id number] [place] [address]- 7229 Sep, [facility] [place] [facility] [address] [id number] [place] [address]- 5707 Sep, [facility] [place] [facility] [address] [facility] [id number] [place] [address]- 7687 Sep, [facility] [place] [facility] [address] [facility] [id number] [place] [address]- 3143 Sep, [facility] [place] [facility] [address] [facility] [id number] [place] [address]- 3596 Sep, [facility] [place] [facility] [address] [facility] [id number] [place] [address]- 5670 Sep, [facility] [place] [facility] [address] [facility] [id number] [place] [address]- 7471 Aug, [facility] [place] [facility] [address] [facility] [id number] [place] [address]- 7499 Aug, [facility] [place] [facility] [address] [id number] [place] [address]- 7878 Jul, [facility] [place] [facility] [address] [id number] [place] [address]- 1896 Jul, [facility] [place] [facility] [address] [facility] [id number] [place] [address]- 5202 Jun, [facility] [place] [facility] [address] [facility] [id number] [place] [address]- 5530 Jun, [facility] [place] [facility] [address] [id number] [place] [address]- 2232 May, [facility] [place] [facility] [address] [id number] [place] [address]- 4668 14 May, 2014 [facility] [place] [facility] [address] [id number] [place] [address]- 8666 30 Apr, 2014 [facility] [place] [facility] [address] [id number] [place] [address]- 6908 30 Apr, 2014 [facility] [place] [facility] [address] [id number] [place] [address]- 8885 16 Apr, 2014 [facility] [place] [facility] [address] [id number] [place] [address]- 8249 16 Apr, 2014 [facility] [place] [facility] [address] [id number] [place] [address]- 9092 Apr, [facility] [place] [facility] [address] [id number] [place] [address]- 3005 Apr, [facility] [place] [facility] [address] [id number] [place] [address]- 9769 Mar, [facility] [place] [facility] [address] [id number] [place] [address]- 8930 Mar, [facility] [place] [facility] [address] [id number] [place] [address]- 4739 Jan, [facility] [place] [facility] [address] [id number] [place] [address]- 6854 Jan, [facility] [place] [facility] [address] [id number] [place] [address]- 0012 Dec, [facility] [place] [facility] [address] [id number] [place] [address]- 9753 Dec, [facility] [place] [facility] [address] [id number] [place] 6542 November, [facility] [place] [facility] [address] [id number] [place] [address]- 9155 November, [facility] [place] [facility] [address] [id number] [place] [address]- 9363 Oct, [facility] [place] [facility] [address] [id number] [place] [address]- 3666 Oct, [facility] [place] [facility] [address] [id number] [place] [address]- 7366 Oct, [facility] [place] [facility] [address] [id number] [place] [address]- 4656 Oct, [facility] [place] [facility] [address] [id number] [place] [address]- 7170 Sep, [facility] [place] [facility] [address] [id number] [place] [address]- 9206 Sep, [facility] [place] [facility] [address] [id number] [place] [address]- 3419 Sep, [facility] [place] [facility] [address] [id number] [place] [address]- 7614 Sep, [facility] [place] [facility] [address] [id number] [place] [address]- 4375 Aug, [facility] [place] [facility] [address] [id number] [place] [address]- 1231 Aug, [facility] [place] [facility] [address] [id number] [place] [address]- 8173 Aug, [facility] [place] [facility] [address] [id number] [place] [address]- 2546 Aug, [facility] [place] [facility] [address] [id number] [place] [address]- 1595 Jul, [facility] [place] [facility] [address] [id number] [place] [address]- 2546 Jul, [facility] [place] [facility] [address] [id number] [place] [address]- 9236 Jul, [facility] [place] [facility] [address] [id number] [place] [address]- 0120 Jul, [facility] [place] [facility] [address] [id number] [place] [address]- 0044 Jun, [facility] [place] [facility] [address] [id number] [place] [address]- 4816 Jun, [facility] [place] [facility] [address] [id number] [place] [address] 2549 Jun, [facility] [place] [facility] [address] [id number] [place] [address]- 0849 Jun, [facility] [place] [facility] [address] [id number] [place] [address]- 2595 May, [facility] [place] [facility] [address] [id number] [place] [address]- 5958 Apr, [facility] [place] [facility] [address] [id number] [place] [address]- 8592 Apr, [facility] [place] [facility] [address] [id number] [place] [address]- 3118 Apr, [facility] [place] [facility] [address] [id number] [place] [address]- 6738 Mar, [facility] [place] [facility] [address] [id number] [place] [address]- 4504 Mar, [facility] [place] [facility] [address] [id number] [place] [address]- 2877 Jan, [facility] [place] [facility] [address] [id number] [place] [address]- 1843 Dec, [facility] [place] [facility] [address] [id number] [place] [address]- 0829 Dec, [facility] [place] [facility] [address] [id number] [place] [address]- 4102 November, [facility] [place] [facility] [address] [id number] [address]- 0626 November, [facility] [address] [id number] [place] [address]- 1257 Oct, [facility] [address] [id number] [place] [address]- 3817 Oct, [facility] [address] [id number] [place] [address]- 8851 Oct, [facility] [address] [id number] [place] [address]- 9541 Sep, [facility] [address] [id number] [place] [address]- 9783 Sep, [facility] [address] [id number] [place] [address]- 8375 Sep, [facility] [address] [id number] [place] [address]- 3694 Sep, [facility] [address] [id number] [place] [address]- 2300 Aug, [facility] [address] [id number] [place] [address]- 2988 Aug, [facility] [address] [id number] [place] [address]- 5170 Jul, [facility] [address] [id number], [place] [address]- 1141 Jul, [facility] [place] [facility] [address] [id number], [place] [address]- 2612 Jul, [facility] [address] [id number] [place] [address]- 6017 Jul, [facility] [place] [facility] [address] [id number] [place] [address]- 6576 Jun, [facility] [place] [facility] [address] [id number] [place] [address]- 3848 Jun, [facility] [place] [facility] [id number] [address]- 2546 May, [facility] [id number] [address] 2546 May, [facility] [address] [place] [address]- 2546 May, [facility] [id number] [address]- 2546 Apr, [facility] [address] [place] [address]- 2546 Jan, [facility] [address] [place] [address]- 2546 Dec, [facility] [address] [place] [address]- 2546 Jun, [facility] [address] [place] [address]- 2546 Jul, [facility] [id number] [address]- 1026 Jun, [facility] [id number] [address]- 5676 May, IMMUNIZATIONS No Known Immunizations SOCIAL HISTORY Never Assessed REASON FOR VISIT f/u PLAN OF CARE Activity Details Follow Up Next available Reason: F/U VITAL SIGNS MEDICATIONS Unknown Medications RESULTS No Results PROCEDURES Procedure Date Ordered Result Body Site Psychotherapy, patient &/family, 30 minutes, established patient Mar 13, 2018 INSTRUCTIONS MEDICATIONS ADMINISTERED No Known Medications MEDICAL (GENERAL) HISTORY Type Description Date Surgical History T and A Surgical History deviated septum repair Hospitalization History Lived at [facility] for many years
--- OUTSIDE RECORDS SUMMARY | 2018-10-01 03:27 | XMS REPORT ---
Author Author CAMERON BAUMANN [facility] Address [address] [place] [address] Care Team Providers Care Fish Smoker Name Role Phone CAMERON BAUMANN Unavailable PROBLEMS Type Condition ICD9-CM Code MWT18-YS Code Onset Dates Condition Status SNOMED Code Problem STEPHENIE (generalized anxiety disorder) F41.1 Active 15018042 Problem Mild intellectual disability F70 Active 07687721 Problem Intermittent explosive disorder in adult F63.81 Active 117253651 Problem Mood disorder F39 Active [id number] ALLERGIES No Information ENCOUNTERS Encounter Location Date Diagnosis [facility] [id number] [place] [address] 43466- 7868 Mar, [facility] [id number] [place] [address] 77274- 3517 Mar, [facility] [id number] [place] [address] 84964- 2119 Jan, [facility] [id number] [place] [address] 51174- 2290 November, Mood disorder F39 and Mild intellectual disability F70 [facility] [id number] [place] [address] 80881- 4344 November, Intermittent explosive disorder in adult F63.81 ; Mild intellectual disability F70 and STEPHENIE (generalized anxiety disorder) F41.1 [facility] [id number] [place] [address] 91982- 1921 November, Mood disorder F39 and Mild intellectual disability F70 [facility] [id number] [place] [address] 62333- 2274 Sep, Mood disorder F39 and Mild intellectual disability F70 [facility] [id number] [address] 9[address] Sep, Mood disorder F39 [facility] [address] 150[address] Sep, Mood disorder F39 [facility] [address] [address] 7336 Sep, Mood disorder F39 [facility] [id number] [place] [address] 115779- 3439 Aug, Intermittent explosive disorder in adult F63.81 and Mild intellectual disability F70 [facility] [id number] [place] [address] 446141- 3881 Jul, [facility] [id number] [place] [address] 814598- 4224 Jul, Onychomycosis B35.1 ; Posterior tibial tendinitis of right lower extremity M76.821 ; Posterior tibial tendinitis of left lower extremity M76.822 ; 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 and Secondary localized osteoarthrosis of left ankle and foot M19.272 [facility] [id number] [place] [address] 99235- 8339 Apr, [facility] [id number] [place] [address] 35858- 7452 Apr, Intermittent explosive disorder in adult F63.81 and Mild intellectual disability F70 [facility] [id number] [place] [address] 32532- 5600 Jan, Intermittent explosive disorder in adult F63.81 ; Mood disorder F39 and Mild intellectual disability F70 [facility] [address] [address]88 Oct, [facility] [id number] [place] [address] 78430- 2243 Sep, [facility] [id number] [place] [address] 91751- 5537 Aug, Mood disorder F39 [facility] [address] 6032 Jul, Mood disorder F39 [facility] [address] [address]- 3186 Jun, Mood disorder F39 [facility] [address] [address]- 6297 May, Intermittent explosive disorder in adult F63.81 and Mild intellectual disability F70 [facility] [address] 7031 May, Mood disorder F39 [facility] [id number] [place] [address] 540562- 0710 Dec, Depressive disorder, not elsewhere classified 311 ; Mild mental retardation 317 and Intermittent explosive disorder 312.34 [facility] [id number] [place] [address] 92160- 2564 Dec, Depressive disorder, not elsewhere classified 311 and Mild mental retardation 317 [facility] [address], [place] [address]- 6490 November, Depressive disorder, not elsewhere classified 311 and Mild mental retardation 317 [facility] [address], [place] [address]- 5126 Oct, [facility] [address] [address]- 7911 Oct, [facility] [address], [place] [address]- 3933 Sep, [facility] [address], [place] [address]- 9184 Sep, [facility] [address] 2937 Sep, [facility] [address], [place] [address]- 7625 Sep, [facility] [place] [facility] [address] [id number] [place] [address]- 6905 Sep, 2014 [facility] [place] [facility] [address] [id number] [place] [address]- 9291 Sep, 2014 [facility] [place] [facility] [address] [id number] [place] [address]- 7952 16 Sep, 2014 [facility] [place] [facility] [address] [id number] [place] [address]- 7861 Sep, 2014 [facility] [place] [facility] [address] [id number] [place] [address]- 2547 Aug, [facility] [place] [facility] [address] [id number] [place] [address]- 7784 Aug, [facility] [place] [facility] [address] [id number] [place] [address]- 0327 Jul, [facility] [place] [facility] [address] [id number] [place] [address]- 2573 15 Jul, 2014 [facility] [place] [facility] [address] [id number] [place] [address]- 6327 Jun, [facility] [place] [facility] [address] [id number] [place] [address]- 3176 Jun, [facility] [place] [facility] [address] [id number] [place] [address]- 9645 14 May, 2014 [facility] [place] [facility] [address] [id number] [place] [address]- 9919 14 May, 2014 [facility] [place] [facility] [address] [id number] [place] [address]- 8783 30 Apr, 2014 [facility] [place] [facility] [address] [id number] [place] [address]- 7715 30 Apr, 2014 [facility] [place] [facility] [address] [id number] [place] [address]- 7621 16 Apr, 2014 [facility] [place] [facility] [address] [id number] [place] [address]- 5988 16 Apr, 2014 [facility] [place] [facility] [address] [id number] [place] [address]- 2443 Apr, [facility] [place] [facility] [address] [id number] [place] 4936 Apr, [facility] [place] [facility] [address] [id number] [place] [address]- 0705 Mar, [facility] [place] [facility] [address] [id number] [place] [address]- 6563 Mar, [facility] [place] [facility] [address] [id number] [place] [address]- 9538 Jan, [facility] [place] [facility] [address] [id number] [place] [address]- 0445 Jan, [facility] [place] [facility] [address] [id number] [place] [address]- 1557 Dec, [facility] [place] [facility] [address] [id number] [place] [address]- 8047 Dec, [facility] [place] [facility] [address] [id number] [place] [address]- 1186 November, [facility] [place] [facility] [address] [id number] [place] [address]- 9264 November, [facility] [place] [facility] [address] [id number] [place] [address]- 6700 Oct, [facility] [place] [facility] [address] [id number] [place] [address]- 5821 Oct, [facility] [place] [facility] [address] [id number] [place] [address]- 1038 Oct, [facility] [place] [facility] [address] [id number] [place] [address]- 1735 Oct, [facility] [place] [facility] [address] [id number] [place] 8463 Sep, [facility] [place] [facility] [address] [id number] [place] [address]- 2546 Sep, [facility] [address] [id number] [place] [address]- 1006 Sep, [facility] [place] [facility] [address] [id number] [place] [address]- 2546 Sep, [facility] [place] [facility] [address] [id number] [place] [address]- 9066 Aug, [facility] [place] [facility] [address] [id number] [place] [address]- 2546 Aug, [facility] [place] [facility] [address] [id number] [place] [address]- 8836 Aug, [facility] [place] [facility] [address] [id number] [place] [address]- 9786 Aug, [facility] [place] [facility] [address] [id number] [place] [address]- 2735 Jul, [facility] [address] [id number] [place] [address]- 6069 Jul, [facility] [place] [facility] [address] [id number] [place] [address]- 5716 Jul, [facility] [place] [facility] [address] [facility] [id number] [place] [address]- 6566 Jul, [facility] [place] [facility] [address] [id number] [place] [address]- 2546 Jun, [facility] [place] [facility] [address] [id number] [place] [address]- 2546 Jun, [facility] [place] [facility] [address] [id number] [place] [address]- 2546 Jun, [facility] [place] [facility] [address] [id number] [place] [address]- 2546 Jun, [facility] [place] [facility] [address] [id number] [place] [address]- 8590 May, [facility] [address] [id number] [place] [address]- 8425 Apr, [facility] [place] [facility] [address] [id number] [place] [address]- 4579 Apr, [facility] [place] [facility] [address] [id number] [place] [address]- 4368 Apr, [facility] [place] [facility] [address] [id number] [place] [address]- 1222 Mar, [facility] [address] [id number] [place] [address]- 4458 Mar, [facility] [place] [facility] [address] [id number] [place] [address]- 9328 Jan, [facility] [place] [facility] [address] [id number] [place] [address]- 9369 Dec, [facility] [place] [facility] [address] [id number] [place] [address]- 0481 Dec, [facility] [place] [facility] [address] [id number] [place] [address]- 0757 November, [facility] [place] [facility] [address] [id number] [place] [address]- 1046 November, [facility] [place] [facility] [address] [id number] [place] [address]- 6496 Oct, [facility] [place] [facility] [address] [id number], [place] [address]- 5894 Oct, [facility] [place] [facility] [address] [id number] [place] [address]- 4867 Oct, [facility] [place] [facility] [address] [id number], [place] [address]- 8611 Sep, [facility] [place] [facility] [address] [id number] [place] [address]- 2928 Sep, [facility] [place] [facility] [address] [id number] [place] [address]- 6620 Sep, [facility] [place] [facility] [address] [id number] [place] [address]- 2126 Sep, [facility] [place] [facility] [address] [id number] [place] [address]- 8116 Aug, [facility] [place] [facility] [address] [id number] [place] [address]- 2546 Aug, [facility] [place] [facility] [address] [id number] [place] [address]- 9068 Jul, [facility] [place] [facility] [id number] [place] [address], [place] [address]- 1020 Jul, [facility] [place] [facility] [address] [facility] [id number] [place] [address]- 3092 Jul, [facility] [place] [facility] [id number] [place] [address]- 7536 Jul, [facility] [place] [facility] [address] [id number] [place] [address]- 1117 Jun, [facility] [place] [facility] [address] [facility] [id number] [place] [address]- 4669 Jun, [facility] [place] [facility] [address] [facility] [id number] [place] [address]- 5100 May, [facility] [place] [facility] [address] [facility] [id number] [place] [address] 2546 May, [facility] [place] [facility] [address] [facility] [id number] [place] [address]- 2546 May, [facility] [place] [facility] [address] [id number] [place] [address]- 1916 Apr, [facility] [place] [facility] [address] [facility] [id number] [place] [address]- 2546 Jan, [facility] [place] [facility] [address] [facility] [id number] [place] [address]- 7516 Dec, [facility] [address] [facility] [id number], [place] [address]- 2546 Jun, [facility] [address] [facility] [id number], [place] [address] 2546 Jul, [facility] [address] [facility] [id number], [place] [address] 2546 Jun, [facility] [address] [facility] [id number], [place] [address]- 1296 May, IMMUNIZATIONS No Known Immunizations SOCIAL HISTORY Never Assessed REASON FOR VISIT f/u PLAN OF CARE Activity Details Follow Up 2 Weeks Reason: F/U VITAL SIGNS MEDICATIONS Unknown Medications RESULTS No Results PROCEDURES Procedure Date Ordered Result Body Site Psychotherapy, patient &/family, 30 minutes, established patient September 29, 2017 INSTRUCTIONS MEDICATIONS ADMINISTERED No Known Medications MEDICAL (GENERAL) HISTORY Type Description Date Surgical History T and A Surgical History deviated septum repair Hospitalization History Lived at [facility] for many years
--- OUTSIDE RECORDS SUMMARY | 2018-10-01 03:27 | XMS REPORT ---
Author Author CAMERON BAUMANN [facility] Address [address] [place] [address] Care Team Providers Care Model Technician Name Role Phone CAMERON BAUMANN Unavailable PROBLEMS Type Condition ICD9-CM Code OTB19-LS Code Onset Dates Condition Status SNOMED Code Problem STEPHENIE (generalized anxiety disorder) F41.1 Active 99125326 Problem Mild intellectual disability F70 Active 20105940 Problem Intermittent explosive disorder in adult F63.81 Active 968469240 Problem Mood disorder F39 Active [id number] ALLERGIES No Information ENCOUNTERS Encounter Location Date Diagnosis [facility] [id number] [place] [address] 82169- 2982 Mar, [facility] [id number] [place] [address] 04666- 1150 Mar, [facility] [id number] [place] [address] 97227- 4047 Mar, [facility] [id number] [place] [address] 44250- 9283 Jan, Mood disorder F39 and Mild intellectual disability F70 [facility] [id number] [place] [address] 09305- 5333 November, Mood disorder F39 and Mild intellectual disability F70 [facility] [id number] [place] [address] 59248- 2999 November, Intermittent explosive disorder in adult F63.81 ; Mild intellectual disability F70 and STEPHENIE (generalized anxiety disorder) F41.1 [facility] [id number] [place] [address] 63076- 5185 November, Mood disorder F39 and Mild intellectual disability F70 [facility] [id number] [address] 27[address] Sep, Mood disorder F39 and Mild intellectual disability F70 [facility] [id number] [place] [address] 758968- 6186 Sep, Mood disorder F39 [facility] [address] 9[address] Sep, Mood disorder F39 [facility] [id number] [place] [address] 107990- 1196 Sep, Mood disorder F39 [facility] [id number] [place] [address] 510055- 0650 Aug, Intermittent explosive disorder in adult F63.81 and Mild intellectual disability F70 [facility] [id number] [place] [address] 97319- 3659 Jul, [facility] [id number] [place] [address] 39790- 5331 Jul, Onychomycosis B35.1 ; Posterior tibial tendinitis of right lower extremity M76.821 ; Posterior tibial tendinitis of left lower extremity M76.822 ; 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 and Secondary localized osteoarthrosis of left ankle and foot M19.272 [facility] [address] [address] Apr, [facility] [id number] [place] [address] 82570- 9424 Apr, Intermittent explosive disorder in adult F63.81 and Mild intellectual disability F70 [facility] [id number] [place] [address] 221683- 6893 Jan, Intermittent explosive disorder in adult F63.81 ; Mood disorder F39 and Mild intellectual disability F70 [facility] [address] [address]132 Oct, [facility] [id number] [place] [address] 53688- 4536 Sep, [facility] [address] [address]- 3451 Aug, Mood disorder F39 [facility] [address] [address]- 1796 Jul, Mood disorder F39 [facility] [address] [address]- 4736 Jun, Mood disorder F39 [facility] [address] [address]- 5946 May, Intermittent explosive disorder in adult F63.81 and Mild intellectual disability F70 [facility] [address] [address]- 0466 May, Mood disorder F39 [facility] [address] 6205 Dec, Depressive disorder, not elsewhere classified 311 ; Mild mental retardation 317 and Intermittent explosive disorder 312.34 [facility] [address] 1101 Dec, Depressive disorder, not elsewhere classified 311 and Mild mental retardation 317 [facility] [address] 1326 November, Depressive disorder, not elsewhere classified 311 and Mild mental retardation 317 [facility] [address] [address] 8222 Oct, [facility] [address] [address]80 Oct, [facility] [address] [address] 7245 Sep, [facility] [address] [address] Sep, [facility] [address] 0705 Sep, [facility] [place] [facility] [address] [id number] [place] [address]- 4237 Sep, [facility] [place] [facility] [address] [id number] [place] [address]- 2802 Sep, [facility] [place] [facility] [address] [id number] [place] [address]- 0664 Sep, [facility] [place] [facility] [address] [id number] [place] [address]- 2517 Sep, [facility] [place] [facility] [address] [id number] [place] [address]- 6951 Sep, [facility] [place] [facility] [address] [id number] [place] [address]- 3271 Aug, [facility] [place] [facility] [address] [id number] [place] [address]- 9936 Aug, [facility] [place] [facility] [address] [id number] [place] [address]- 0829 Jul, [facility] [place] [facility] [address] [id number] [place] [address]- 9408 Jul, [facility] [place] [facility] [address] [id number] [place] [address]- 1167 Jun, [facility] [place] [facility] [address] [id number] [place] [address]- 8835 Jun, [facility] [place] [facility] [address] [id number] [place] [address]- 3652 14 May, 2014 [facility] [place] [facility] [address] [id number] [place] [address]- 0338 May, [facility] [place] [facility] [address] [id number] [place] [address]- 9964 30 Apr, 2014 [facility] [place] [facility] [address] [id number] [place] [address]- 5131 30 Apr, 2014 [facility] [place] [facility] [address] [id number] [place] [address]- 7795 16 Apr, 2014 [facility] [address] [id number] [place] [address]- 6667 16 Apr, 2014 [facility] [place] [facility] [address] [id number] [place] [address]- 8597 Apr, [facility] [address] [id number] [place] [address]- 1656 Apr, [facility] [place] [facility] [address] [id number] [place] [address]- 3281 Mar, [facility] [place] [facility] [address] [id number] [place] [address]- 3726 Mar, [facility] [place] [facility] [address] [id number] [place] [address]- 3990 Jan, [facility] [address] [id number] [place] [address]- 5487 Jan, [facility] [address] [id number] [place] [address]- 9785 Dec, [facility] [place] [facility] [address] [id number] [place] [address]- 8856 Dec, [facility] [address] [id number] [place] [address]- 4988 November, [facility] [place] [facility] [address] [id number] [place] [address]- 7616 November, [facility] [place] [facility] [address] [id number] [place] [address]- 3254 Oct, [facility] [place] [facility] [address] [id number] [place] [address]- 7289 Oct, [facility] [place] [facility] [address] [id number] [place] [address]- 8505 Oct, [facility] [place] [facility] [address] [id number] [place] [address]- 1078 Oct, [facility] [place] [facility] [address] [id number] [place] [address]- 4366 Sep, [facility] [place] [facility] [address] [id number] [place] [address]- 8978 Sep, [facility] [place] [facility] [address] [id number] [place] [address] 2543 Sep, [facility] [place] [facility] [address] [id number] [place] [address]- 7854 Sep, [facility] [place] [facility] [address] [id number] [place] [address]- 1954 Aug, [facility] [place] [facility] [address] [id number] [place] [address]- 8904 Aug, [facility] [place] [facility] [address] [id number] [place] [address]- 0707 Aug, [facility] [place] [facility] [address] [id number], [place] [address]- 8458 Aug, [facility] [place] [facility] [address] [id number] [place] [address]- 3514 Jul, [facility] [place] [facility] [address] [id number], [place] [address]- 8106 Jul, [facility] [place] [facility] [address] [facility] [id number], [place] [address]- 2548 Jul, [facility] [place] [facility] [address] [id number], [place] [address]- 6749 Jul, [facility] [place] [facility] [address] [id number] [place] [address]- 8940 Jun, [facility] [place] [facility] [address] [id number], [place] [address]- 2516 Jun, [facility] [place] [facility] [address] [facility] [id number], [place] [address]- 2546 Jun, [facility] [place] [facility] [address] [id number], [place] [address]- 9302 Jun, [facility] [address] [id number] [place] [address]- 0489 May, [facility] [address] [id number] [place] [address]- 9003 Apr, [facility] [address] [id number] [place] [address]- 8711 Apr, [facility] [address] [id number] [place] [address]- 1470 Apr, [facility] [address] [id number] [place] [address]- 8277 Mar, [facility] [address] [id number] [place] [address]- 8314 Mar, [facility] [address] [id number] [place] [address]- 7396 Jan, [facility] [address] [id number] [place] [address]- 3597 Dec, [facility] [address] [id number] [place] [address]- 9865 Dec, [facility] [id number] [place] [address]- 6484 November, [facility] [address] [id number] [place] [address]- 2056 November, [facility] [address] [id number], [place] [address]- 6809 Oct, [facility] [place] [facility] [address] [id number] [place] [address]- 3601 Oct, [facility] [place] [facility] [address] [facility] [id number] [place] 5013 Oct, [facility] [address] [id number] [place] [address]- 9825 Sep, [facility] [place] [facility] [address] [id number] [place] [address]- 7838 Sep, [facility] [place] [facility] [address] [id number] [place] [address]- 5973 Sep, [facility] [place] [facility] [address] [id number] [place] [address]- 2546 Sep, [facility] [place] [facility] [address] [id number] [place] [address]- 4869 Aug, [facility] [place] [facility] [address] [id number] [place] [address]- 4522 Aug, [facility] [place] [facility] [address] [id number] [place] [address]- 0058 Jul, [facility] [place] [facility] [address] [id number] [place] [address]- 8680 Jul, [facility] [place] [facility] [address] [id number] [place] [address]- 0055 Jul, [facility] [place] [facility] [address] [id number] [place] [address]- 1988 Jul, [facility] [place] [facility] [address] [id number] [place] [address]- 5662 Jun, [facility] [place] [facility] [address] [id number] [place] [address]- 4612 Jun, [facility] [place] [facility] [address] [id number] [place] [address]- 2528 May, [facility] [place] [facility] [address] [id number] [place] [address]- 4627 May, [facility] [place] [facility] [address] [id number] [place] [address]- 2350 May, [facility] [place] [facility] [address] [id number] [place] [address]- 2546 Apr, [facility] [place] [facility] [address] [id number] [place] [address]- 0325 Jan, [facility] [address] [facility] [id number] [place] [address]- 2546 Dec, [facility] [id number] [address]- 25[address] Jun, [facility] [id number] [address]- [address] Jul, [facility] [id number] [address]- 2546 Jun, [facility] [address] [facility] [id number] [place] [address] 2546 May, IMMUNIZATIONS No Known Immunizations SOCIAL HISTORY Never Assessed REASON FOR VISIT f/u PLAN OF CARE Activity Details Follow Up Next available Reason: F/U VITAL SIGNS MEDICATIONS Unknown Medications RESULTS No Results PROCEDURES Procedure Date Ordered Result Body Site Psychotherapy, patient &/family, 45 minutes, established patient October 11, 2017 INSTRUCTIONS MEDICATIONS ADMINISTERED No Known Medications MEDICAL (GENERAL) HISTORY Type Description Date Surgical History T and A Surgical History deviated septum repair Hospitalization History Lived at [facility] for many years
--- OUTSIDE RECORDS SUMMARY | 2018-10-01 03:27 | XMS REPORT ---
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 [id number] [place] [address] 08817- 7087 Mar, [facility] [id number] [place] [address]3731- 4062 Mar, [facility] [id number] [place] [address] 84655- 7739 Mar, [facility] [id number] [place] [address] 26979- 3358 Jan, Mood disorder F39 and Mild intellectual disability F70 [facility] [id number] [place] [address] 88281- 9392 November, Mood disorder F39 and Mild intellectual disability F70 [facility] [id number] [place] [address] 18364- 2676 November, Intermittent explosive disorder in adult F63.81 ; Mild intellectual disability F70 and STEPHENIE (generalized anxiety disorder) F41.1 [facility] [id number] [place] [address] 00081- 0286 November, Mood disorder F39 and Mild intellectual disability F70 [facility] [id number] [address] 7862 Sep, Mood disorder F39 and Mild intellectual disability F70 [facility] [id number] [place] [address] 824260- 0206 Sep, Mood disorder F39 [facility] [address] 3456 Sep, Mood disorder F39 [facility] [id number] [place] [address] 498001- 7636 Sep, Mood disorder F39 [facility] [id number] [place] [address] 760033- 6559 Aug, Intermittent explosive disorder in adult F63.81 and Mild intellectual disability F70 [facility] [id number] [place] [address] 14990- 9573 Jul, [facility] [id number] [place] [address] 59387- 2344 Jul, Onychomycosis B35.1 ; Posterior tibial tendinitis of right lower extremity M76.821 ; Posterior tibial tendinitis of left lower extremity M76.822 ; 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 and Secondary localized osteoarthrosis of left ankle and foot M19.272 [facility] [address] [address] 7361 Apr, [facility] [id number] [place] [address] 22215- 1090 Apr, Intermittent explosive disorder in adult F63.81 and Mild intellectual disability F70 [facility] [id number] [place] [address] 392589- 2659 Jan, Intermittent explosive disorder in adult F63.81 ; Mood disorder F39 and Mild intellectual disability F70 [facility] [address] [address] Oct, [facility] [id number] [place] [address] 54215- 2006 Sep, [facility] [address] [address] 9321 Aug, Mood disorder F39 [facility] [address] [address]- 8246 Jul, Mood disorder F39 [facility] [address] [address]- 3996 Jun, Mood disorder F39 [facility] [address] [address]- 7166 May, Intermittent explosive disorder in adult F63.81 and Mild intellectual disability F70 [facility] [address] [address]- 1726 May, Mood disorder F39 [facility] [address] 6514 Dec, Depressive disorder, not elsewhere classified 311 ; Mild mental retardation 317 and Intermittent explosive disorder 312.34 [facility] [address] 0292 Dec, Depressive disorder, not elsewhere classified 311 and Mild mental retardation 317 [facility] [address] 5566 November, Depressive disorder, not elsewhere classified 311 and Mild mental retardation 317 [facility] [address] [address]- 0334 Oct, [facility] [address] 6922 Oct, [facility] [address] [address] 6994 Sep, [facility] [address] [address] Sep, [facility] [address] [address] Sep, [facility] [place] [facility] [address] [id number] [place] [address]- 6607 Sep, [facility] [place] [facility] [address] [id number] [place] [address]- 1281 Sep, [facility] [place] [facility] [address] [id number] [place] [address]- 2043 Sep, [facility] [place] [facility] [address] [id number] [place] [address]- 2949 Sep, [facility] [place] [facility] [address] [id number] [place] [address]- 3633 Sep, [facility] [place] [facility] [address] [id number] [place] [address]- 0530 Aug, [facility] [place] [facility] [address] [id number] [place] [address]- 9090 Aug, [facility] [place] [facility] [address] [id number] [place] [address]- 2578 Jul, [facility] [place] [facility] [address] [id number] [place] [address]- 2823 Jul, [facility] [place] [facility] [address] [id number] [place] [address]- 7133 Jun, [facility] [place] [facility] [address] [id number] [place] [address]- 6876 Jun, [facility] [place] [facility] [address] [id number] [place] [address]- 7552 14 May, 2014 [facility] [place] [facility] [address] [id number] [place] [address]- 1741 May, [facility] [place] [facility] [address] [id number] [place] [address]- 0098 30 Apr, 2014 [facility] [place] [facility] [address] [id number] [place] [address]- 0429 30 Apr, 2014 [facility] [place] [facility] [address] [id number] [place] [address]- 3574 16 Apr, 2014 [facility] [address] [id number] [place] [address]- 3863 16 Apr, 2014 [facility] [place] [facility] [address] [id number] [place] [address]- 7021 Apr, [facility] [address] [id number] [place] [address]- 4724 Apr, [facility] [place] [facility] [address] [id number] [place] [address]- 0915 Mar, [facility] [place] [facility] [address] [id number] [place] [address]- 2872 Mar, [facility] [place] [facility] [address] [id number] [place] [address]- 8609 Jan, [facility] [address] [id number] [place] [address]- 6168 Jan, [facility] [address] [id number] [place] [address]- 1809 Dec, [facility] [place] [facility] [address] [id number] [place] [address]- 5359 Dec, [facility] [address] [id number] [place] [address]- 0641 November, [facility] [place] [facility] [address] [id number] [place] [address]- 0521 November, [facility] [place] [facility] [address] [id number] [place] [address]- 7190 Oct, [facility] [place] [facility] [address] [id number] [place] [address]- 0780 Oct, [facility] [place] [facility] [address] [id number] [place] [address]- 1850 Oct, [facility] [place] [facility] [address] [id number] [place] [address]- 3525 Oct, [facility] [place] [facility] [address] [id number] [place] [address]- 9429 Sep, [facility] [place] [facility] [address] [id number] [place] [address]- 1343 Sep, [facility] [place] [facility] [address] [id number] [place] [address] 2545 Sep, [facility] [place] [facility] [address] [id number] [place] [address]- 3528 Sep, [facility] [place] [facility] [address] [id number] [place] [address]- 5239 Aug, [facility] [place] [facility] [address] [id number] [place] [address]- 4529 Aug, [facility] [place] [facility] [address] [id number] [place] [address]- 2134 Aug, [facility] [place] [facility] [address] [id number] [place] [address]- 0492 Aug, [facility] [place] [facility] [address] [id number] [place] [address]- 4759 Jul, [facility] [place] [facility] [address] [id number] [place] [address]- 5584 Jul, [facility] [place] [facility] [address] [facility] [id number] [place] [address]- 2547 Jul, [facility] [place] [facility] [address] [id number] [place] [address]- 0727 Jul, [facility] [place] [facility] [address] [id number] [place] [address]- 4027 Jun, [facility] [place] [facility] [address] [id number] [place] [address]- 5426 Jun, [facility] [place] [facility] [address] [facility] [id number] [place] [address]- 2546 Jun, [facility] [place] [facility] [address] [id number] [place] [address]- 2060 Jun, [facility] [address] [id number] [place] [address]- 0448 May, [facility] [address] [id number] [place] [address]- 5388 Apr, [facility] [address] [id number] [place] [address]- 5272 Apr, [facility] [address] [id number] [place] [address]- 9202 Apr, [facility] [address] [id number] [place] [address]- 7384 Mar, [facility] [address] [id number] [place] [address]- 1441 Mar, [facility] [address] [id number] [place] [address]- 4820 Jan, [facility] [address] [id number] [place] [address]- 5498 Dec, [facility] [address] [id number] [place] [address]- 1304 Dec, [facility] [id number] [place] [address]- 1300 November, [facility] [address] [id number] [place] [address]- 1488 November, [facility] [address] [id number] [place] [address]- 4901 Oct, [facility] [place] [facility] [address] [id number] [place] [address]- 0375 Oct, [facility] [place] [facility] [address] [facility] [id number] [place] 1317 Oct, [facility] [address] [id number] [place] [address]- 6068 Sep, [facility] [place] [facility] [address] [id number] [place] [address]- 4183 Sep, [facility] [place] [facility] [address] [id number] [place] [address]- 0205 Sep, [facility] [place] [facility] [address] [id number] [place] [address]- 2546 Sep, [facility] [place] [facility] [address] [id number] [place] [address]- 4017 Aug, [facility] [place] [facility] [address] [id number] [place] [address]- 5148 Aug, [facility] [place] [facility] [address] [id number] [place] [address]- 0469 Jul, [facility] [place] [facility] [address] [id number] [place] [address]- 4562 Jul, [facility] [place] [facility] [address] [id number] [place] [address]- 3039 Jul, [facility] [place] [facility] [address] [id number] [place] [address]- 4747 Jul, [facility] [place] [facility] [address] [id number] [place] [address]- 3139 Jun, [facility] [place] [facility] [address] [id number] [place] [address]- 3323 Jun, [facility] [place] [facility] [address] [id number] [place] [address]- 8382 May, [facility] [place] [facility] [address] [id number] [place] [address]- 6940 May, [facility] [place] [facility] [address] [id number] [place] [address]- 8091 May, [facility] [place] [facility] [address] [id number] [place] [address]- 2546 Apr, [facility] [place] [facility] [address] [id number] [place] [address]- 3452 Jan, [facility] [address] [facility] [id number] [place] [address]- 2546 Dec, [facility] [address] [id number] [address]- 2546 Jun, [facility] [address] [id number] [address]- [address] Jul, [facility] [address] [id number] [address]- 2546 Jun, [facility] [address] [facility] [id number] [place] [address]- 2546 May, IMMUNIZATIONS No Known Immunizations SOCIAL HISTORY Never Assessed REASON FOR VISIT f/u PLAN OF CARE Activity Details Follow Up Next available Reason: F/U VITAL SIGNS MEDICATIONS Unknown Medications RESULTS No Results PROCEDURES Procedure Date Ordered Result Body Site Psychotherapy, patient &/family, 45 minutes, established patient 2017 INSTRUCTIONS MEDICATIONS ADMINISTERED No Known Medications MEDICAL (GENERAL) HISTORY Type Description Date Surgical History T and A Surgical History deviated septum repair Hospitalization History Lived at [facility] for many years
--- OUTSIDE RECORDS SUMMARY | 2018-10-01 03:28 | XMS REPORT ---
Author Author LORI EDWARD Organization [facility] Address [address] [place] [address] Care Team Providers Care Paratransit Operator Name Role Phone EDWARD SANDOVAL Unavailable PROBLEMS Type Condition ICD9-CM Code HCM87-IP Code Onset Dates Condition Status SNOMED Code Problem STEPHENIE (generalized anxiety disorder) F41.1 Active 56731196 Problem Mild intellectual disability F70 Active 68945191 Problem Intermittent explosive disorder in adult F63.81 Active 166482907 Problem Mood disorder F39 Active [id number] ALLERGIES No Information ENCOUNTERS Encounter Location Date Diagnosis [facility] [id number] [place] [address] 85814- 0685 Mar, [facility] [id number] [place] [address] 30782- 2353 Dec, [facility] [id number] [place] [address] 21464- 2165 Dec, [facility] [id number] [place] [address] 70024- 2027 November, Mood disorder F39 and Mild intellectual disability F70 [facility] [id number] [place] [address] 46786- 5145 November, Intermittent explosive disorder in adult F63.81 ; Mild intellectual disability F70 and STEPHENIE (generalized anxiety disorder) F41.1 [facility] [id number] [place] [address] 25416- 0071 November, Mood disorder F39 and Mild intellectual disability F70 [facility] [id number] [place] [address] 95668- 6890 Sep, Mood disorder F39 and Mild intellectual disability F70 [facility] [id number] [place] [address] 62621- 0834 Sep, Mood disorder F39 [facility] [id number] 44[address] Sep, Mood disorder F39 [facility] [address] [address] 2546 Sep, Mood disorder F39 [facility] [id number] [place] [address] 500000- 6636 Aug, Intermittent explosive disorder in adult F63.81 and Mild intellectual disability F70 [facility] [id number] [place] [address] 474028- 7516 Jul, [facility] [id number] [place] [address] 721897- 8816 Jul, Onychomycosis B35.1 ; Posterior tibial tendinitis of right lower extremity M76.821 ; Posterior tibial tendinitis of left lower extremity M76.822 ; 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 and Secondary localized osteoarthrosis of left ankle and foot M19.272 [facility] [address] [address] 4637 Apr, [facility] [id number] [place] [address] 89722- 4451 Apr, Intermittent explosive disorder in adult F63.81 and Mild intellectual disability F70 [facility] [id number] [place] [address] 37956- 6123 Jan, Intermittent explosive disorder in adult F63.81 ; Mood disorder F39 and Mild intellectual disability F70 [facility] [address] [address]18 Oct, [facility] [id number] [place] [address] 875209- 8911 Sep, [facility] [id number] [place] [address] 59798- 1515 Aug, Mood disorder F39 [facility] [address] [address]- 6766 Jul, Mood disorder F39 [facility] [address] [address]- 3506 Jun, Mood disorder F39 [facility] [address] [address]- 6269 May, Intermittent explosive disorder in adult F63.81 and Mild intellectual disability F70 [facility] [address] 2413 May, Mood disorder F39 [facility] [address] 4422 Dec, Depressive disorder, not elsewhere classified 311 ; Mild mental retardation 317 and Intermittent explosive disorder 312.34 [facility] [address] [address]- 7835 Dec, Depressive disorder, not elsewhere classified 311 and Mild mental retardation 317 [facility] [address] [address]- 6175 November, Depressive disorder, not elsewhere classified 311 and Mild mental retardation 317 [facility] [address] 0648 Oct, [facility] [address] [address]- 1576 Oct, [facility] [address] [address] 2441 Sep, [facility] [address] 9872 Sep, [facility] [address] 6989 Sep, [facility] [address] [address]26 Sep, [facility] [place] [facility] [address] [id number] [place] [address]- 0759 Sep, 2014 [facility] [place] [facility] [address] [id number] [place] [address]- 7598 Sep, 2014 [facility] [place] [facility] [address] [id number] [place] [address]- 8836 16 Sep, 2014 [facility] [place] [facility] [address] [id number] [place] [address]- 1100 Sep, 2014 [facility] [place] [facility] [address] [id number] [place] [address]- 6604 Aug, [facility] [place] [facility] [address] [id number] [place] [address]- 3323 Aug, [facility] [place] [facility] [address] [id number] [place] [address]- 2294 Jul, [facility] [place] [facility] [address] [id number] [place] [address]- 7052 Jul, [facility] [place] [facility] [address] [id number] [place] [address]- 4906 Jun, [facility] [place] [facility] [address] [id number] [place] [address]- 1852 Jun, [facility] [place] [facility] [address] [id number] [place] [address]- 0477 14 May, 2014 [facility] [place] [facility] [address] [id number] [place] [address]- 7160 14 May, 2014 [facility] [place] [facility] [address] [id number] [place] [address]- 8659 30 Apr, 2014 [facility] [place] [facility] [address] [id number] [place] [address]- 9286 30 Apr, 2014 [facility] [place] [facility] [address] [id number] [place] [address]- 9403 16 Apr, 2014 [facility] [place] [facility] [address] [id number] [place] [address]- 2701 16 Apr, 2014 [facility] [place] [facility] [address] [id number] [place] [address]- 4334 Apr, [facility] [place] [facility] [address] [id number] [place] 6159 Apr, [facility] [place] [facility] [address] [id number] [place] 3461 Mar, [facility] [place] [facility] [address] [id number] [place] [address]- 5268 Mar, [facility] [place] [facility] [address] [id number] [place] [address]- 8918 Jan, [facility] [place] [facility] [address] [id number] [place] [address]- 5192 Jan, [facility] [place] [facility] [address] [id number] [place] [address]- 0367 Dec, [facility] [place] [facility] [address] [id number] [place] [address]- 6117 Dec, [facility] [place] [facility] [address] [id number] [place] [address]- 5068 November, [facility] [place] [facility] [address] [id number] [place] [address]- 3740 November, [facility] [place] [facility] [address] [id number] [place] [address]- 5334 Oct, [facility] [place] [facility] [address] [id number] [place] [address]- 9532 Oct, [facility] [place] [facility] [address] [id number] [place] [address]- 2294 Oct, [facility] [place] [facility] [address] [id number] [place] [address]- 4056 Oct, [facility] [place] [facility] [address] [id number] [place] [address]- 8650 Sep, [facility] [place] [facility] [address] [id number] [place] [address] 2546 Sep, [facility] [address] [id number] [place] [address]- 7466 Sep, [facility] [place] [facility] [address] [id number] [place] [address]- 2546 Sep, [facility] [address] [id number] [place] [address]- 6206 Aug, [facility] [place] [facility] [address] [id number] [place] [address]- 2546 Aug, [facility] [address] [id number] [place] [address]- 1386 Aug, [facility] [place] [facility] [address] [id number] [place] [address]- 8746 Aug, [facility] [address] [id number] [place] [address]- 3580 Jul, [facility] [address] [id number] [place] [address]- 7244 Jul, [facility] [place] [facility] [address] [id number] [place] [address]- 1230 Jul, [facility] [address] [facility] [id number] [place] [address]- 7867 Jul, [facility] [place] [facility] [address] [id number] [place] [address]- 2546 Jun, [facility] [place] [facility] [address] [id number] [place] [address]- 2546 Jun, [facility] [place] [facility] [address] [id number] [place] [address]- 2546 Jun, [facility] [place] [facility] [address] [id number] [place] [address]- 2546 Jun, [facility] [place] [facility] [address] [id number] [place] [address]- 4071 May, [facility] [address] [id number] [place] [address]- 1896 Apr, [facility] [place] [facility] [address] [id number] [place] [address]- 5096 Apr, [facility] [place] [facility] [address] [id number] [place] [address]- 0538 Apr, [facility] [place] [facility] [address] [id number] [place] [address]- 4392 Mar, [facility] [address] [id number] [place] 7657 Mar, [facility] [place] [facility] [address] [id number] [place] [address]- 7347 Jan, [facility] [place] [facility] [address] [id number] [place] [address]- 1696 Dec, [facility] [place] [facility] [address] [id number] [place] [address]- 2192 Dec, [facility] [place] [facility] [address] [id number] [place] [address]- 6538 November, [facility] [place] [facility] [address] [id number], [place] [address]- 3818 November, [facility] [place] [facility] [address] [id number], [place] [address]- 2177 Oct, [facility] [place] [facility] [address] [id number], [place] [address]- 9594 Oct, [facility] [place] [facility] [address] [id number] [place] [address]- 9761 Oct, [facility] [place] [facility] [address] [id number], [place] [address]- 5407 Sep, [facility] [place] [facility] [address] [id number], [place] [address]- 4164 Sep, [facility] [place] [facility] [address] [id number], [place] [address]- 4086 Sep, [facility] [address] [id number] [place] [address]- 0956 Sep, [facility] [place] [facility] [address] [facility] [id number] [place] [address]- 3856 Aug, [facility] [address] [facility] [id number] [place] [address]- 2546 Aug, [facility] [place] [facility] [address] [id number] [place] [address]- 1811 Jul, [facility] [address] [facility] [id number] [place] [address]- 1617 Jul, [facility] [place] [facility] [address] [facility] [id number] [place] [address]- 9203 Jul, [facility] [id number] [place] [address]- 9099 Jul, [facility] [place] [facility] [address] [facility] [id number] [place] [address]- 2468 Jun, [facility] [id number] [place] [address]- 8089 Jun, [facility] [place] [facility] [id number] [place] [address]- 5663 May, [facility] [place] [facility] [id number] [place] [address]- 2536 May, [facility] [place] [facility] [address] [facility] [id number], [place] [address]- 2545 May, [facility] [place] [facility] [address] [facility] [id number] [place] [address]- 6156 Apr, [facility] [place] [facility] [address] [facility] [id number] [place] [address] 2546 Jan, [facility] [place] [facility] [id number] [address] 2546 Dec, [facility] [place] [facility] [address] [facility] [id number], [place] [address]- 2546 Jun, [facility] [address] [facility] [id number], [place] [address]- 6536 Jul, [facility] [address] [facility] [id number], [place] [address] 2546 Jun, [facility] [address] [facility] [id number], [place] [address]- 1476 May, IMMUNIZATIONS No Known Immunizations SOCIAL HISTORY Never Assessed REASON FOR VISIT ingrown toenails (has seen Dr at his office) PLAN OF CARE Activity Details Follow Up 6 Months Reason: VITAL SIGNS MEDICATIONS Unknown Medications RESULTS No Results PROCEDURES Procedure Date Ordered Result Body Site DEBRIDE NAIL, 1-5 Jul 01, 2017 INSTRUCTIONS MEDICATIONS ADMINISTERED No Known Medications MEDICAL (GENERAL) HISTORY Type Description Date Surgical History T and A Surgical History deviated septum repair Hospitalization History Lived at [facility] for many years
--- OUTSIDE RECORDS SUMMARY | 2018-10-01 03:28 | XMS REPORT ---
Author Author ASYA GALLOWAY [facility] Address [address] [place] [address] Care Team Providers Care Machine Applicator Cementer Name Role Phone LAVERNEEDMONDASYA Unavailable PROBLEMS Type Condition ICD9-CM Code QHU56-HD Code Onset Dates Condition Status SNOMED Code Problem STEPHENIE (generalized anxiety disorder) F41.1 Active 18029844 Problem Mild intellectual disability F70 Active 68991058 Problem Intermittent explosive disorder in adult F63.81 Active 056581191 Problem Mood disorder F39 Active 44272924 ALLERGIES No Information ENCOUNTERS Encounter Location Date Diagnosis [facility] [id number] [place] [address] 98031- 9716 Mar, [facility] [id number] [place] [address] 91465- 2995 Mar, [facility] [id number] [place] [address] 59162- 9475 Dec, [facility] [id number] [place] [address] 85938- 2135 November, Mood disorder F39 and Mild intellectual disability F70 [facility] [id number] [place] [address] 84367- 6436 November, Intermittent explosive disorder in adult F63.81 ; Mild intellectual disability F70 and STEPHENIE (generalized anxiety disorder) F41.1 [facility] [id number] [place] [address] 07853- 5346 November, Mood disorder F39 and Mild intellectual disability F70 [facility] [id number] [place] [address] 34224- 3255 Sep, Mood disorder F39 and Mild intellectual disability F70 [facility] [id number] [place] [address] 86679- 3733 Sep, Mood disorder F39 [facility] [address] [address] 79[address] Sep, Mood disorder F39 [facility] [address] [address] 2546 Sep, Mood disorder F39 [facility] [id number] [place] [address] 303154- 8501 Aug, Intermittent explosive disorder in adult F63.81 and Mild intellectual disability F70 [facility] [id number] [place] [address] 861063- 4266 Jul, [facility] [id number] [place] [address] 192821- 6396 Jul, Onychomycosis B35.1 ; Posterior tibial tendinitis of right lower extremity M76.821 ; Posterior tibial tendinitis of left lower extremity M76.822 ; 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 and Secondary localized osteoarthrosis of left ankle and foot M19.272 [facility] [address] [address] 5658 Apr, [facility] [id number] [place] [address] 86216- 5789 Apr, Intermittent explosive disorder in adult F63.81 and Mild intellectual disability F70 [facility] [id number] [place] [address] 67089- 6861 Jan, Intermittent explosive disorder in adult F63.81 ; Mood disorder F39 and Mild intellectual disability F70 [facility] [address] 8713 Oct, [facility] [id number] [place] [address] 208018- 6747 Sep, [facility] [id number] [place] [address] 16989- 8080 Aug, Mood disorder F39 [facility] [address] [address] 9518 Jul, Mood disorder F39 [facility] [address] [address] 4016 Jun, Mood disorder F39 [facility] [address] [address] 0894 May, Intermittent explosive disorder in adult F63.81 and Mild intellectual disability F70 [facility] [address] [address] 4358 May, Mood disorder F39 [facility] [address] 5327 Dec, Depressive disorder, not elsewhere classified 311 ; Mild mental retardation 317 and Intermittent explosive disorder 312.34 [facility] [address] [address]- 8016 Dec, Depressive disorder, not elsewhere classified 311 and Mild mental retardation 317 [facility] [address] [address]- 1646 November, Depressive disorder, not elsewhere classified 311 and Mild mental retardation 317 [facility] [address] 4401 Oct, [facility] [address] [place] [address]- 2707 Oct, [facility] [address] [id number] 1721 Sep, [facility] [address] 9706 Sep, [facility] [address] 5446 Sep, [facility] [address] [address] Sep, [facility] [place] [facility] [address] [id number] [place] [address]- 1816 Sep, 2014 [facility] [place] [facility] [address] [id number] [place] [address]- 6891 Sep, 2014 [facility] [place] [facility] [address] [id number] [place] [address]- 3676 16 Sep, 2014 [facility] [place] [facility] [address] [id number] [place] [address]- 3601 Sep, 2014 [facility] [place] [facility] [address] [id number] [place] [address]- 7434 Aug, [facility] [place] [facility] [address] [id number] [place] [address]- 4691 Aug, [facility] [place] [facility] [address] [id number] [place] [address]- 6851 Jul, [facility] [place] [facility] [address] [id number] [place] [address]- 2579 Jul, [facility] [place] [facility] [address] [id number] [place] [address]- 9383 Jun, [facility] [place] [facility] [address] [id number] [place] [address]- 0665 Jun, [facility] [place] [facility] [address] [id number] [place] [address]- 4227 14 May, 2014 [facility] [place] [facility] [address] [id number] [place] [address]- 3339 14 May, 2014 [facility] [place] [facility] [address] [id number] [place] [address]- 0047 30 Apr, 2014 [facility] [place] [facility] [address] [id number] [place] [address]- 0148 30 Apr, 2014 [facility] [place] [facility] [address] [id number] [place] [address]- 7864 16 Apr, 2014 [facility] [place] [facility] [address] [id number] [place] [address]- 4596 16 Apr, 2014 [facility] [place] [facility] [address] [id number] [place] [address]- 4615 Apr, [facility] [place] [facility] [address] [id number] [place] 4683 Apr, [facility] [place] [facility] [address] [id number] [place] 9246 Mar, [facility] [place] [facility] [address] [id number] [place] [address]- 1244 Mar, [facility] [place] [facility] [address] [id number] [place] [address]- 8330 Jan, [facility] [place] [facility] [address] [id number] [place] [address]- 5256 Jan, [facility] [place] [facility] [address] [id number] [place] [address]- 8313 Dec, [facility] [place] [facility] [address] [id number] [place] [address]- 1214 Dec, [facility] [place] [facility] [address] [id number] [place] [address]- 9170 November, [facility] [place] [facility] [address] [id number] [place] [address]- 8756 November, [facility] [place] [facility] [address] [id number] [place] [address]- 1401 Oct, [facility] [place] [facility] [address] [id number] [place] [address]- 2695 Oct, [facility] [place] [facility] [address] [id number] [place] [address]- 8112 Oct, [facility] [place] [facility] [address] [id number] [place] [address]- 8235 Oct, [facility] [place] [facility] [address] [id number] [place] [address]- 2971 Sep, [facility] [place] [facility] [address] [id number] [place] [address] 2546 Sep, [facility] [address] [id number] [place] [address]- 7756 Sep, [facility] [place] [facility] [address] [id number] [place] [address]- 2546 Sep, [facility] [address] [id number] [place] [address]- 9206 Aug, [facility] [place] [facility] [address] [id number] [place] [address]- 2546 Aug, [facility] [address] [id number] [place] [address]- 3086 Aug, [facility] [place] [facility] [address] [id number] [place] [address]- 7146 Aug, [facility] [address] [id number] [place] [address]- 1778 Jul, [facility] [address] [id number] [place] [address]- 0008 Jul, [facility] [place] [facility] [address] [id number] [place] [address]- 8281 Jul, [facility] [address] [facility] [id number] [place] [address]- 0011 Jul, [facility] [place] [facility] [address] [id number] [place] [address]- 2546 Jun, [facility] [place] [facility] [address] [id number] [place] [address]- 2546 Jun, [facility] [place] [facility] [address] [id number] [place] [address]- 2546 Jun, [facility] [place] [facility] [address] [id number] [place] [address]- 2546 Jun, [facility] [place] [facility] [address] [id number] [place] [address]- 1111 May, [facility] [address] [id number] [place] [address]- 4128 Apr, [facility] [place] [facility] [address] [id number] [place] [address]- 7115 Apr, [facility] [place] [facility] [address] [id number] [place] [address]- 1028 Apr, [facility] [place] [facility] [address] [id number] [place] [address]- 6245 Mar, [facility] [address] [id number] [place] 6164 Mar, [facility] [place] [facility] [address] [id number] [place] [address]- 7777 Jan, [facility] [place] [facility] [address] [id number] [place] [address]- 6793 Dec, [facility] [place] [facility] [address] [id number] [place] [address]- 0030 Dec, [facility] [place] [facility] [address] [id number] [place] [address]- 3463 November, [facility] [place] [facility] [address] [id number], [place] [address]- 9519 November, [facility] [place] [facility] [address] [id number], [place] [address]- 7480 Oct, [facility] [place] [facility] [address] [id number], [place] [address]- 9350 Oct, [facility] [place] [facility] [address] [id number] [place] [address]- 3708 Oct, [facility] [place] [facility] [address] [id number], [place] [address]- 3383 Sep, [facility] [place] [facility] [address] [id number], [place] [address]- 0771 Sep, [facility] [place] [facility] [address] [id number], [place] [address]- 6497 Sep, [facility] [address] [id number] [place] [address]- 1836 Sep, [facility] [place] [facility] [address] [facility] [id number] [place] [address]- 0626 Aug, [facility] [address] [facility] [id number] [place] [address]- 2546 Aug, [facility] [place] [facility] [address] [id number] [place] [address]- 1633 Jul, [facility] [address] [facility] [id number] [place] [address]- 3964 Jul, [facility] [place] [facility] [address] [facility] [id number] [place] [address]- 1329 Jul, [facility] [id number] [address]- 4870 Jul, [facility] [place] [facility] [address] [facility] [id number] [place] [address]- 5342 Jun, [facility] [id number] [place] [address]- 0538 Jun, [facility] [place] [facility] [id number] [place] [address]- 4880 May, [facility] [place] [facility] [id number] [place] [address]- 9856 May, [facility] [place] [facility] [address] [facility] [id number], [place] [address]- 2542 May, [facility] [place] [facility] [address] [facility] [id number] [place] [address]- 4696 Apr, [facility] [place] [facility] [address] [facility] [id number] [place] [address] 2546 Jan, [facility] [place] [facility] [id number] [address] 2546 Dec, [facility] [place] [facility] [address] [facility] [id number], [place] [address]- 2546 Jun, [facility] [address] [facility] [id number], [place] [address]- 2546 Jul, [facility] [address] [facility] [id number], [place] [address]- 2546 Jun, [facility] [address] [facility] [id number], [place] [address] 2546 May, IMMUNIZATIONS No Known Immunizations SOCIAL HISTORY Never Assessed REASON FOR VISIT Refill request PLAN OF CARE VITAL SIGNS MEDICATIONS Medication Instructions Dosage Frequency Start Date End Date Duration Status Trileptal 300 MG Orally for anger 1 tab in AM and 2 tabs at HS Dec, 30 days Active RESULTS No Results PROCEDURES No Known procedures INSTRUCTIONS MEDICATIONS ADMINISTERED No Known Medications MEDICAL (GENERAL) HISTORY Type Description Date Surgical History T and A Surgical History deviated septum repair Hospitalization History Lived at [facility] for many years
--- OUTSIDE RECORDS SUMMARY | 2018-10-01 03:29 | XMS REPORT | Continuity of Care Document ---
Author Author [facility] Address Unknown Phone Unavailable Allergies Active Description Code Type Severity Reaction Onset Reported/Identified Relationship to Patient Clinical Status Yes No Known Allergies [id number] N /A N/A Yes CAT UNKNOWN UNKNOWN Yes DOG UNKNOWN UNKNOWN Yes NO KNOWN DRUG ALLERGIES UNKNOWN NO KNOWN DRUG ALLERG Yes SEASONAL UNKNOWN UNKNOWN Yes No Known Medication Allergies NKMA N/A N/A 08/05/2015 Yes No Known Drug Allergies [id number] Drug Allergy Unknown N/A 07/24/2016 Medications Medication [...] 11/24/2015 04/23/2016 ORAL 300MG 1 tab po [id number](am T hs) Viibryd 20 MG Oral Tablet [...] CAMERON A 311 MO DEPRESS NOS 09/26/2009 BOEKHOUT PHD, CAMERON A 317 MILD MENTAL RETARDATION [...] MILD MENTAL RETARDATION 09/26/2009 ASYA GALLOWAY APRN 311 MO DEPRESS NOS 09/26/2009 LAVERNE MURGUIA, ASYA J 317 MILD MENTAL RETARDATION 09/26/2009 PASTOR RODRIGUEZ, [...] intellectual disabilities Pastor, Bisi 07/22/2015 F F90.1 Attention- deficit hyperactivity disorder, predominantly hyperactive type Pastor , Bisi 07/29/2015 F F70 Mild intellectual disabilities 07/29/2015 F F90.1 Attention- deficit hyperactivity disorder, predominantly hyperactive type 08/05/2015 F F70 Mild intellectual disabilities 08/05/2015 F F90.1 Attention- deficit hyperactivity disorder, predominantly hyperactive type 08/06/2015 F F25.0 Schizoaffective disorder, bipolar type [place], Irineo 08/06/2015 F F70 Mild intellectual disabilities [place], Irineo 08/06/2015 F F90.1 Attention- deficit hyperactivity disorder, predominantly hyperactive type [place] , Irineo 08/07/2015 F F70 Mild intellectual disabilities 08/07/2015 F F90.1 Attention- deficit hyperactivity disorder, predominantly hyperactive type 08/07/2015 F F25.0 Schizoaffective disorder, bipolar type [place], Irineo 08/07/2015 F F70 Mild intellectual disabilities [place], Irineo 08/07/2015 F F90.1 Attention- deficit hyperactivity disorder, predominantly hyperactive type [place] , Irineo 08/08/2015 F F25.0 Schizoaffective disorder, [...] 08/20/2015 F F25.0 Schizoaffective disorder, bipolar type [place], Ary 08/20/2015 F F70 Mild intellectual disabilities [place], Ary 08/20/2015 F F90.1 Attention- deficit hyperactivity disorder, predominantly hyperactive type [place] , Irineo 08/21/2015 F F25.0 Schizoaffective disorder, bipolar type 08/25/2015 F F25.0 Schizoaffective disorder, bipolar type 08/26/2015 F F70 Mild intellectual disabilities 08/26/2015 F F90.1 Attention- deficit hyperactivity disorder, predominantly hyperactive type 08/28/2015 F F70 Mild intellectual disabilities 08/28/2015 F F90.1 Attention- deficit hyperactivity disorder, predominantly hyperactive type 08/29/2015 F F25.0 Schizoaffective disorder, bipolar type [place], Irineo 08/29/2015 F F70 Mild intellectual disabilities 08/29/2015 F F90.1 Attention- deficit hyperactivity disorder, predominantly hyperactive type 08/29/2015 F F70 Mild intellectual disabilities Markie, Irineo 08/29/2015 F F90.1 Attention- deficit hyperactivity disorder, predominantly hyperactive type [place] , Ary 09/01/2015 F F25.0 Schizoaffective disorder, bipolar type 09/01/2015 F F25.0 Schizoaffective disorder, bipolar type Markie, Ary 09/01/2015 F F70 Mild intellectual disabilities Markie, Irineo 09/01/2015 F F90.1 Attention- deficit hyperactivity [...] 09/19/2015 F F25.0 Schizoaffective disorder, bipolar type Fritzhney, Bisi A 09/19/2015 F F70 Mild intellectual [...] 09/23/2015 F F25.0 Schizoaffective disorder, bipolar type Jasononilla, Eduardo S 09/23/2015 F F25.0 Schizoaffective disorder, bipolar type Karsten Yoder L 09/23/2015 F F70 Mild intellectual disabilities 09/23/2015 F F90.1 Attention- deficit hyperactivity disorder, predominantly hyperactive type 09/23/2015 F F70 Mild intellectual disabilities Karsten Yoder L 09/23/2015 F F90.1 Attention- deficit hyperactivity disorder, predominantly hyperactive type Paresh , Karsten L 09/23/2015 F F43.10 Post- traumatic stress disorder, unspecified Lauronilla, Eduardo S 09/23/2015 F F70 Mild intellectual disabilities Jasononiclementea, Eduardo S 09/23/2015 F F90.1 Attention- deficit hyperactivity disorder, predominantly hyperactive type [place], Eduardo S 09/23/2015 F F25.0 Schizoaffective disorder, bipolar type Barshney, Bisi A 09/23/2015 F F70 Mild intellectual disabilities Barshney, Bisi A 09/23/2015 F F90.1 Attention- deficit hyperactivity disorder, predominantly hyperactive type Barshney, Bisi A 09/23/2015 F F25.0 Schizoaffective disorder, bipolar type 09/23/2015 F F43.10 Post- traumatic stress disorder, unspecified Lauronilla, Eduardo S 09/23/2015 F F70 Mild intellectual disabilities Lorena, Eduardo S 09/23/2015 F F90.1 Attention- deficit hyperactivity disorder, predominantly hyperactive type [place]uronilla, Eduardo S 09/26/2015 F F25.0 Schizoaffective disorder, [...] A 10/17/2015 F F70 Mild intellectual disabilities Barshnloren, Bisi A 10/17/2015 F F90.1 Attention- deficit [...] Talli 10/30/2015 F F70 Mild intellectual disabilities Smiley Jaeger Amina 10/30/2015 F F90.1 Attention- deficit hyperactivity disorder, predominantly hyperactive type Smiley Jaeger Amnia 10/30/2015 F F25.0 Schizoaffective disorder, bipolar type 10/30/2015 F F43.10 Post- traumatic stress disorder, unspecified Lorena, Eduardo S 10/30/2015 F F70 Mild intellectual disabilities Eduardo Carrillo S 10/30/2015 F F90.1 Attention- deficit hyperactivity disorder, predominantly hyperactive type Lorena, Eduardo S 10/31/2015 F F70 Mild intellectual disabilities Smiley Jaeger Amina 10/31/2015 F F90.1 Attention- deficit hyperactivity disorder, predominantly hyperactive type Smiley Jaeger Amina 11/03/2015 F F70 Mild intellectual disabilities [...] 11/03/2015 F F25.0 Schizoaffective disorder, bipolar type Mil, Smiley Amina 11/05/2015 F F70 Mild intellectual disabilities [...] A 11/19/2015 F F70 Mild intellectual disabilities Barshney, Bisi A 11/19/2015 F F90.1 Attention- deficit hyperactivity disorder, predominantly hyperactive type Barshney, Bisi A 11/21/2015 F F25.0 Schizoaffective disorder, bipolar type 11/21/2015 Boo POLLOCK, Adonis Helton R11.2 Nausea with vomiting, unspecified 11/21/2015 F F70 Mild intellectual disabilities 11/21/2015 F F90.1 Attention- deficit hyperactivity disorder, predominantly hyperactive type 11/21/2015 F F70 Mild intellectual disabilities 11/21/2015 F F90.1 Attention- deficit hyperactivity disorder, predominantly hyperactive type 11/21/2015 F F25.0 Schizoaffective disorder, bipolar type Jack Emani 11/21/2015 F F70 Mild intellectual disabilities Emani Santiago 11/21/2015 F F90.1 Attention- deficit hyperactivity disorder, predominantly hyperactive type Emani Santiago 11/24/2015 F E07.9 Disorder of thyroid, unspecified Ally Thakkar 11/24/2015 F F25.0 Schizoaffective disorder, bipolar type Barshney, Bisi A 11/24/2015 F F70 Mild intellectual disabilities Barshney, Bisi A 11/24/2015 F F90.1 Attention- deficit hyperactivity disorder, predominantly hyperactive type Barshney, Bisi A 11/24/2015 F F25.0 Schizoaffective disorder, bipolar type CassandraSuzieh L 11/24/2015 F F70 Mild intellectual disabilities CassandraSuzieh L 11/24/2015 F F90.1 Attention- deficit hyperactivity disorder, predominantly hyperactive type Cassandra Concepcion L 11/24/2015 F E78.0 Pure hypercholesterolemia Ally Thakkare 11/24/2015 F F25.0 Schizoaffective disorder, [...] Ally Thakkar 11/24/2015 F E78.0 Pure hypercholesterolemia Bebeto Thakkaria Mitali 11/24/2015 F F25.0 Schizoaffective disorder, bipolar [...] A 11/24/2015 F F70 Mild intellectual disabilities Bisi Perla A 11/24/2015 F F90.1 Attention- deficit hyperactivity disorder, predominantly hyperactive type Fritzhnloren, Bisi A 11/24/2015 F I10 Essential ( primary) hypertension Pan, Bisi A 11/24/2015 F F25.0 Schizoaffective disorder, bipolar type Fritzhnloren, Bisi A 11/24/2015 F F70 Mild intellectual disabilities Bisi Perla A 11/24/2015 F F90.1 Attention- deficit hyperactivity disorder, predominantly hyperactive type Fritzhnloren, Bisi A 11/24/2015 F I10 Essential ( primary) hypertension Bisi Perla A 11/24/2015 F F25.0 [...] 12/17/2015 F F25.0 Schizoaffective disorder, bipolar type Barshney, Bisi A 12/17/2015 F F70 Mild intellectual disabilities Pan Bisi A 12/17/2015 F F90.1 Attention- deficit hyperactivity disorder, predominantly hyperactive type Pan, Bisi A 12/17/2015 F I10 Essential ( primary) hypertension Pan, Bisi A 12/18/2015 F F25.0 Schizoaffective disorder, bipolar type 12/25/2015 F F70 Mild intellectual disabilities 12/25/2015 F F90.1 Attention- deficit hyperactivity disorder, predominantly hyperactive type 12/25/2015 F I10 Essential ( primary) hypertension 12/25/2015 F F25.0 Schizoaffective disorder, bipolar type Fritzhnloren, Bisi A 12/25/2015 F F70 Mild intellectual disabilities Pan, Bisi A 12/25/2015 F F90.1 Attention- deficit hyperactivity disorder, predominantly hyperactive type Pan, Bisi A 12/25/2015 F I10 Essential ( primary) hypertension Pan, Bisi A 12/25/2015 F F25.0 Schizoaffective disorder, bipolar type 04/20/2016 SAJAN VÁZQUEZ ICT QUALITY ASSURANCE ENGINEER Ot S99.912A UNSPECIFIED INJURY OF LEFT ANKLE, INITIA 04/20/2016 SAJAN VÁZQUEZ ICT QUALITY ASSURANCE ENGINEER Ot W17.2XXA FALL INTO HOLE, INITIAL ENCOUNTER 04/20/2016 SAJAN VÁZQUEZ ICT QUALITY ASSURANCE ENGINEER Ot Y92.[address] [facility] NON-INSTITUT (PRIVATE 04/20/2016 SAJAN VÁZQUEZ ICT QUALITY ASSURANCE ENGINEER Ot Y99.8 OTHER EXTERNAL CAUSE STATUS 04/22/2016 SAJAN VÁZQUEZ ICT QUALITY ASSURANCE ENGINEER Ot S99.912A UNSPECIFIED INJURY OF LEFT ANKLE, INITIA 04/22/2016 SAJAN VÁZQUEZ ICT QUALITY ASSURANCE ENGINEER Ot W17.2XXA FALL INTO HOLE, INITIAL ENCOUNTER 04/22/2016 SAJAN VÁZQUEZ ICT QUALITY ASSURANCE ENGINEER Ot Y92.[address] [facility] NON-[facility] (PRIVATE 04/22/2016 SAJAN VÁZQUEZ ICT QUALITY ASSURANCE ENGINEER Ot Y99.8 OTHER EXTERNAL CAUSE STATUS 05/05/2016 SAJAN VÁZQUEZ ICT QUALITY ASSURANCE ENGINEER Ot S99.912A UNSPECIFIED INJURY OF LEFT ANKLE, INITIA 05/05/2016 SAJAN VÁZQUEZ ICT QUALITY ASSURANCE ENGINEER Ot W17.2XXA FALL INTO HOLE, INITIAL ENCOUNTER 05/05/2016 SAJAN VÁZQUEZ ICT QUALITY ASSURANCE ENGINEER Ot Y92.[address] [facility] NON-INSTITUT (PRIVATE 05/05/2016 VÁZQUEZSAJAN ICT QUALITY ASSURANCE ENGINEER Ot Y99.8 OTHER EXTERNAL CAUSE STATUS 07/24/2016 HILDA POLLOCK, MADINA Casanova Ot R11.2 NAUSEA WITH VOMITING, UNSPECIFIED 07/24/2016 GURPREETSAJAN ICT QUALITY ASSURANCE ENGINEER Ot S99.912A UNSPECIFIED INJURY OF LEFT ANKLE, INITIA 07/24/2016 GURPREETSAJAN ICT QUALITY ASSURANCE ENGINEER Ot W17.2XXA FALL INTO HOLE, INITIAL ENCOUNTER 07/24/2016 SAJAN VÁZQUEZ ICT QUALITY ASSURANCE ENGINEER Ot Y92.[address] [facility] NON-INSTITUT (PRIVATE 07/24/2016 VÁZQUEZSAJAN ICT QUALITY ASSURANCE ENGINEER Ot Y99.8 OTHER EXTERNAL CAUSE STATUS 07/27/2016 HILDA POLLOCK, MADINA Casanova Ot R11.2 NAUSEA WITH VOMITING, UNSPECIFIED 08/10/2016 SAJAN VÁZQUEZ Edilberto ICT QUALITY ASSURANCE ENGINEER Ot S99.912A UNSPECIFIED INJURY OF LEFT ANKLE, INITIA 08/10/2016 GURPREET SAJAN Edilberto ICT QUALITY ASSURANCE ENGINEER Ot W17.2XXA FALL INTO HOLE, INITIAL ENCOUNTER 08/10/2016 SAJAN VÁZQUEZ ICT QUALITY ASSURANCE ENGINEER Ot Y92.[address] [facility] NON-INSTITUT (PRIVATE 08/10/2016 GURPREET SAJAN Casanova ICT QUALITY ASSURANCE ENGINEER Ot Y99.8 OTHER EXTERNAL CAUSE STATUS 08/11/2016 FEDERICA ALVAREZ MD Ot K92.0 HEMATEMESIS 08/11/2016 FEDERICA ALVAREZ MD Ot Z01.818 ENCOUNTER FOR OTHER PREPROCEDURAL EXAMIN 01/25/2017 SAJAN VÁZQUEZ ICT QUALITY ASSURANCE ENGINEER Ot S99.912A UNSPECIFIED INJURY OF LEFT ANKLE, INITIA 01/25/2017 SAJAN VÁZQUEZ ICT QUALITY ASSURANCE ENGINEER Ot W17.2XXA FALL INTO HOLE, INITIAL ENCOUNTER 01/25/2017 SAJAN VÁZQUEZ ICT QUALITY ASSURANCE ENGINEER Ot Y92.[address] [facility] NON-INSTITUT (PRIVATE 01/25/2017 SAJAN VÁZQUEZ ICT QUALITY ASSURANCE ENGINEER Ot Y99.8 OTHER EXTERNAL CAUSE STATUS 01/25/2017 FEDERICA ALVAREZ MD Ot K92.0 HEMATEMESIS 01/25/2017 FEDERICA ALVAREZ MD Ot Z01.818 ENCOUNTER FOR OTHER PREPROCEDURAL EXAMIN 01/26/2017 PAYTON BLOSSOM CARRASCOA K Ot E03.9 HYPOTHYROIDISM, UNSPECIFIED 01/26/2017 PAYTON DO ORLY K Ot E78.00 PURE HYPERCHOLESTEROLEMIA, UNSPECIFIED 01/26/2017 PAYTON , ORLY K Ot F17.210 NICOTINE DEPENDENCE, CIGARETTES, UNCOMPL 01/26/2017 PAYTON BLOSSOM CARRASCOA K Ot F20.9 SCHIZOPHRENIA, UNSPECIFIED 01/26/2017 PAYTON , ORLY K Ot F31.9 BIPOLAR DISORDER, UNSPECIFIED 01/26/2017 PAYTON , ORLY K Ot F41.9 ANXIETY DISORDER, UNSPECIFIED 01/26/2017 PAYTON BLOSSOM CARRASCOA K Ot F43.10 POST-TRAUMATIC STRESS DISORDER, UNSPECIF 01/26/2017 PAYTON , ORLY K Ot I10 ESSENTIAL (PRIMARY) HYPERTENSION 01/26/2017 PAYTON BLOSSOM CARRASCOA K Ot J45.909 UNSPECIFIED ASTHMA, UNCOMPLICATED 01/26/2017 PAYTON BLOSSOM CARRASCOA K Ot K21.9 GASTRO-ESOPHAGEAL REFLUX DISEASE WITHOUT 01/26/2017 PAYTON BLOSSOM CARRASCOA K Ot R07.2 PRECORDIAL PAIN 01/26/2017 PAYTON ORLY K Ot R07.89 OTHER CHEST PAIN 03/27/2017 GRACE DELEON MD Ot E03.9 HYPOTHYROIDISM, UNSPECIFIED 03/27/2017 GRACE DELEON MD Ot E78.00 PURE HYPERCHOLESTEROLEMIA, UNSPECIFIED 03/27/2017 GRACE DELEON MD Ot F14.10 COCAINE ABUSE, UNCOMPLICATED 03/27/2017 GRACE DELEON MD Ot F20.9 SCHIZOPHRENIA, UNSPECIFIED 03/27/2017 GRACE DELEON MD Ot F31.9 BIPOLAR DISORDER, UNSPECIFIED 03/27/2017 GRACE DELEON MD Ot F41.9 ANXIETY DISORDER, UNSPECIFIED 03/27/2017 GRACE DELEON MD Ot F43.10 POST-TRAUMATIC STRESS DISORDER, UNSPECIF 03/27/2017 GRACE DELEON MD Ot I10 ESSENTIAL (PRIMARY) HYPERTENSION 03/27/2017 GRACE DELEON MD Ot J45.909 UNSPECIFIED ASTHMA, UNCOMPLICATED 03/27/2017 GRACE DELEON MD Ot K21.9 GASTRO-ESOPHAGEAL REFLUX DISEASE WITHOUT 03/27/2017 GRACE DELEON MD J Ot R07.9 CHEST PAIN, UNSPECIFIED 03/27/2017 GRACE DELEON MD Ot R11.10 VOMITING, UNSPECIFIED 03/27/2017 GRACE DELEON MD Ot Z90.89 ACQUIRED ABSENCE OF OTHER ORGANS 08/24/[address] A 578.1 BLOOD IN STOOL 08/24/[address] A K92.1 MELENA 08/24/[address] A 578.1 BLOOD IN STOOL 08/24/[address] A K92.1 MELENA 08/30/2017 FEDERICA ALVAREZ MD, Ot K21.9 GASTRO-ESOPHAGEAL REFLUX DISEASE WITHOUT 08/30/2017 FEDERICA ALVAREZ MD, Ot K92.1 MELENA 08/30/2017 FEDERICA ALVAREZ MD, Ot Z01.818 ENCOUNTER FOR OTHER PREPROCEDURAL EXAMIN 08/31/2017 FEDERICA ALVAREZ MD, Ot E03.9 HYPOTHYROIDISM, UNSPECIFIED 08/31/2017 FEDERICA ALVAREZ MD, Ot E11.9 TYPE 2 DIABETES MELLITUS WITHOUT COMPLIC 08/31/2017 FEDERICA ALVAREZ MD, Ot E78.00 PURE HYPERCHOLESTEROLEMIA, UNSPECIFIED 08/31/2017 FEDERICA ALVAREZ MD, Ot E78.5 HYPERLIPIDEMIA, UNSPECIFIED 08/31/2017 FEDERICA ALVAREZ MD, Ot F25.9 SCHIZOAFFECTIVE DISORDER, UNSPECIFIED 08/31/2017 FEDERICA ALVAREZ MD, Ot F43.10 POST-TRAUMATIC STRESS DISORDER, UNSPECIF 08/31/2017 FEDERICA ALVAREZ MD, Ot F63.81 INTERMITTENT EXPLOSIVE DISORDER 08/31/2017 FEDERICA ALVAREZ MD, Ot I10 ESSENTIAL (PRIMARY) HYPERTENSION 08/31/2017 FEDERICA ALVAREZ MD, Ot K21.0 GASTRO-ESOPHAGEAL REFLUX DISEASE WITH ES 08/31/2017 FEDERICA ALVAREZ MD, Ot K29.70 GASTRITIS, UNSPECIFIED, WITHOUT BLEEDING 08/31/2017 FEDERICA ALVAREZ MD, Ot K44.9 DIAPHRAGMATIC HERNIA WITHOUT OBSTRUCTION 08/31/2017 FEDERICA ALVAREZ MD, Ot K64.0 FIRST DEGREE HEMORRHOIDS 08/31/2017 FEDERICA ALVAREZ MD, Ot 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 08/31/2017 FEDERICA ALVAREZ MD, Ot Z80.0 FAMILY HISTORY OF MALIGNANT NEOPLASM OF 08/31/2017 FEDERICA ALVAREZ MD, Ot Z80.1 FAMILY HISTORY OF MALIG NEOPLASM OF TRAC 08/31/2017 FEDERICA ALVAREZ MD, Ot Z87.891 PERSONAL HISTORY OF NICOTINE DEPENDENCE 08/31/2017 FEDERICA ALVAREZ MD Ot K21.9 GASTRO-ESOPHAGEAL REFLUX DISEASE WITHOUT 08/31/2017 FEDERICA ALVAREZ MD Ot K92.1 MELENA 08/31/2017 FEDERICA ALVAREZ MD, Ot Z01.818 ENCOUNTER FOR OTHER PREPROCEDURAL EXAMIN 09/03/2017 GRACE DLEEON MD Ot E03.9 HYPOTHYROIDISM, UNSPECIFIED 09/03/2017 GRACE [...] MD Ot F25.9 SCHIZOAFFECTIVE DISORDER, UNSPECIFIED 09/10/2017 FEDERICA ALVAREZ MD Ot F43.10 POST-TRAUMATIC STRESS DISORDER, UNSPECIF 09/10/2017 FEDERICA ALVAREZ MD Ot F63.81 INTERMITTENT EXPLOSIVE DISORDER 09/10/2017 FEDERICA ALVAREZ MD Ot I10 ESSENTIAL (PRIMARY) HYPERTENSION 09/10/2017 FEDERICA ALVAREZ MD Ot K21.0 GASTRO-ESOPHAGEAL REFLUX DISEASE WITH ES 09/10/2017 FEDERICA ALVAREZ MD, Ot K29.70 GASTRITIS, UNSPECIFIED, WITHOUT BLEEDING 09/10/2017 FEDERICA ALVAREZ MD, Ot K44.9 DIAPHRAGMATIC HERNIA WITHOUT OBSTRUCTION 09/10/2017 FEDERICA ALVAREZ MD, Ot K64.0 FIRST DEGREE HEMORRHOIDS 09/10/2017 FEDERICA ALVAREZ MD, Ot 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 09/10/2017 FEDERICA ALVAREZ MD, Ot Z80.0 FAMILY HISTORY OF MALIGNANT NEOPLASM OF 09/10/2017 FEDERICA ALVAREZ MD, Ot Z80.1 FAMILY HISTORY OF MALIG NEOPLASM OF [place] 09/10/2017 FEDERICA ALVAREZ MD, Ot Z87.891 PERSONAL HISTORY OF NICOTINE DEPENDENCE 10/09/2017 PETR DIAZ MD, Ot E03.9 HYPOTHYROIDISM, UNSPECIFIED 10/09/2017 PETR DIAZ MD Ot E78.00 PURE HYPERCHOLESTEROLEMIA, UNSPECIFIED 10/09/2017 PETR [...] J45.909 UNSPECIFIED ASTHMA, UNCOMPLICATED 10/09/2017 PETR DIAZ MD, Ot K21.9 GASTRO-ESOPHAGEAL REFLUX DISEASE WITHOUT 10/09/2017 [...] Ot I10 ESSENTIAL (PRIMARY) HYPERTENSION 10/11/2017 PETR IDAZ MD Ot J01.00 ACUTE MAXILLARY SINUSITIS, UNSPECIFIED [...] MD Ot Z98.890 OTHER SPECIFIED POSTPROCEDURAL STATES 11/13/2017 GRACE DELEON MD J Ot E03.9 HYPOTHYROIDISM, UNSPECIFIED 11/13/2017 GRACE DELEON MD J Ot E78.00 PURE HYPERCHOLESTEROLEMIA, UNSPECIFIED 11/13/2017 BOB DELEON MDUS J Ot F20.9 SCHIZOPHRENIA, UNSPECIFIED 11/13/2017 BOB DELEON MDUS J Ot F31.9 BIPOLAR DISORDER, UNSPECIFIED 11/13/2017 BOB DELEON MDUS J Ot F39 UNSPECIFIED MOOD [AFFECTIVE] DISORDER 11/13/2017 BOB DELEON MDUS J Ot F41.9 ANXIETY DISORDER, UNSPECIFIED 11/13/2017 BOB DELEON MDUS J Ot F43.10 POST-TRAUMATIC STRESS DISORDER, UNSPECIF 11/13/2017 BOB DELEON MDUS J Ot I10 ESSENTIAL (PRIMARY) HYPERTENSION 11/13/2017 BOB DELEON MDUS J Ot J45.909 UNSPECIFIED ASTHMA, UNCOMPLICATED 11/13/2017 BOB DELEON MDUS J Ot K21.9 GASTRO-ESOPHAGEAL REFLUX DISEASE WITHOUT 11/13/2017 BOB DELEON MDUS J Ot R10.11 RIGHT UPPER QUADRANT PAIN 11/13/2017 BOB DELEON MDUS J Ot Z87.891 PERSONAL HISTORY OF NICOTINE DEPENDENCE 11/13/2017 BOB DELEON MDUS J Ot Z90.89 ACQUIRED ABSENCE OF OTHER ORGANS 11/13/2017 BOB DELEON MDUS J Ot Z98.818 OTHER DENTAL PROCEDURE STATUS 11/13/2017 SAJAN VÁZQUEZ ICT QUALITY ASSURANCE ENGINEER Ot S99.912A UNSPECIFIED INJURY OF LEFT ANKLE, INITIA 11/13/2017 SAJAN VÁZQUEZ ICT QUALITY ASSURANCE ENGINEER Ot W17.2XXA FALL INTO HOLE, INITIAL ENCOUNTER 11/13/2017 SAJAN VÁZQUEZ ICT QUALITY ASSURANCE ENGINEER Ot Y92.[address] IN [facility] NON-INSTITUT (PRIVATE 11/13/2017 SAJAN VÁZQUEZ ICT QUALITY ASSURANCE ENGINEER Ot Y99.8 OTHER EXTERNAL CAUSE STATUS 11/13/2017 FEDERICA ALVAREZ MD Ot K92.0 HEMATEMESIS 11/13/2017 FEDERICA ALVAREZ MD Ot Z01.818 ENCOUNTER FOR OTHER PREPROCEDURAL EXAMIN 11/15/2017 GRACE DELEON MD Ot E03.9 HYPOTHYROIDISM, UNSPECIFIED 11/15/2017 GRACE DELEON MD Ot E78.00 PURE HYPERCHOLESTEROLEMIA, UNSPECIFIED 11/15/2017 GRACE DELEON MD J Ot F20.9 SCHIZOPHRENIA, UNSPECIFIED 11/15/2017 GRACE DELEON MD Ot F31.9 BIPOLAR DISORDER, UNSPECIFIED 11/15/2017 GRACE DELEON MD Ot F39 UNSPECIFIED MOOD [AFFECTIVE] DISORDER 11/15/2017 GRACE DELEON MD J Ot F41.9 ANXIETY DISORDER, UNSPECIFIED 11/15/2017 GRACE DELEON MD Ot F43.10 POST-TRAUMATIC STRESS DISORDER, UNSPECIF 11/15/2017 ARDIENNE POLLOCK, GRACE Tammie Ot I10 ESSENTIAL (PRIMARY) HYPERTENSION 11/15/2017 BOB DELEON MDUS J Ot J45.909 UNSPECIFIED ASTHMA, UNCOMPLICATED 11/15/2017 BOB DELEON MDUS Tammie Ot K21.9 GASTRO-ESOPHAGEAL REFLUX DISEASE WITHOUT 11/15/2017 ADRIENNE POLLOCK, GRACE J Ot R10.11 RIGHT UPPER QUADRANT PAIN 11/15/2017 GRACE DELEON MD Ot Z87.891 PERSONAL HISTORY OF NICOTINE DEPENDENCE 11/15/2017 GRACE DELEON MD Ot Z90.89 ACQUIRED ABSENCE OF OTHER ORGANS 11/15/2017 GRACE DELEON MD Ot Z98.818 OTHER DENTAL PROCEDURE STATUS 11/22/2017 STEVE AGGARWAL DO Ot Z11.3 ENCNTR SCREEN FOR INFECTIONS W SEXL MODE 11/22/2017 STEVE AGGARWAL DO Ot Z11.4 ENCOUNTER FOR SCREENING FOR HUMAN IMMUNO 12/07/2017 PAULOLENDER DO STEVE Rod Ot Z11.3 ENCNTR SCREEN FOR INFECTIONS W SEXL MODE 12/07/2017 JOSEDER DO STEVE Rod Ot Z11.4 ENCOUNTER FOR SCREENING FOR HUMAN IMMUNO 03/16/2018 Ot E03.9 HYPOTHYROIDISM, UNSPECIFIED 03/16/2018 Ot E78.00 PURE HYPERCHOLESTEROLEMIA, UNSPECIFIED 03/16/2018 Ot F25.9 SCHIZOAFFECTIVE DISORDER, UNSPECIFIED 03/16/2018 Ot F31.9 BIPOLAR DISORDER, UNSPECIFIED 03/16/2018 Ot F41.9 ANXIETY DISORDER, UNSPECIFIED 03/16/2018 Ot F43.10 POST- TRAUMATIC STRESS DISORDER, UNSPECIF 03/16/2018 Ot I10 ESSENTIAL ( PRIMARY) HYPERTENSION 03/16/2018 Ot J45.909 UNSPECIFIED ASTHMA, UNCOMPLICATED 03/16/2018 Ot K21.9 GASTRO- ESOPHAGEAL REFLUX DISEASE WITHOUT 03/16/2018 Ot R05 COUGH 03/16/2018 Ot S29.012A STRAIN OF MUSCLE AND TENDON OF BACK WALL 03/16/2018 Ot X58.XXXA EXPOSURE TO OTHER SPECIFIED FACTORS, INI 03/16/2018 Ot Z87.891 PERSONAL HISTORY OF NICOTINE DEPENDENCE 03/16/2018 Ot Z90.89 ACQUIRED ABSENCE OF OTHER ORGANS 03/20/2018 Ot E03.9 HYPOTHYROIDISM, UNSPECIFIED 03/20/2018 Ot E78.00 PURE HYPERCHOLESTEROLEMIA, UNSPECIFIED 03/20/2018 Ot F25.9 SCHIZOAFFECTIVE DISORDER, UNSPECIFIED 03/20/2018 Ot F31.9 BIPOLAR DISORDER, UNSPECIFIED 03/20/2018 Ot F41.9 ANXIETY DISORDER, UNSPECIFIED 03/20/2018 Ot F43.10 POST- TRAUMATIC STRESS DISORDER, UNSPECIF 03/20/2018 Ot I10 ESSENTIAL ( PRIMARY) HYPERTENSION 03/20/2018 Ot J45.909 UNSPECIFIED ASTHMA, UNCOMPLICATED 03/20/2018 Ot K21.9 GASTRO- ESOPHAGEAL REFLUX DISEASE WITHOUT 03/20/2018 Ot R05 COUGH 03/20/2018 Ot S29.012A STRAIN OF MUSCLE AND TENDON OF BACK WALL 03/20/2018 Ot X58.XXXA EXPOSURE TO OTHER SPECIFIED FACTORS, INI 03/20/2018 Ot Z87.891 PERSONAL HISTORY OF NICOTINE DEPENDENCE 03/20/2018 Ot Z90.89 ACQUIRED ABSENCE OF OTHER ORGANS 09/06/2018 SAJAN VÁZQUEZ Ot S99.912A UNSPECIFIED INJURY OF LEFT ANKLE, INITIA 09/06/2018 SAJAN VÁZQUEZ ICT QUALITY ASSURANCE ENGINEER Ot W17.2XXA FALL INTO HOLE, INITIAL ENCOUNTER 09/06/2018 SAJAN VÁZQUEZ ICT QUALITY ASSURANCE ENGINEER Ot Y92.[address] IN UNSP NON-INSTITUT (PRIVATE 09/06/2018 SAJAN VÁZQUEZ ICT QUALITY ASSURANCE ENGINEER Ot Y99.8 OTHER EXTERNAL CAUSE STATUS 09/06/2018 FEDERICA ALVAREZ MD Ot K92.0 HEMATEMESIS 09/06/2018 FEDERICA ALVAREZ MD Ot Z01.818 ENCOUNTER FOR OTHER PREPROCEDURAL EXAMIN 09/06/2018 GELLENDER DO, STEVE Rod Ot Z11.3 ENCNTR SCREEN FOR INFECTIONS W SEXL MODE 09/06/2018 GELLENDER DO, STEEV Rod Ot Z11.4 ENCOUNTER FOR SCREENING FOR HUMAN IMMUNO 09/12/2018 GELLENDER DOSTEVE Ot R05 COUGH 09/12/2018 GELLENDER DO, STEVE Rod Ot R06.02 SHORTNESS OF BREATH 09/21/2018 GELLENDER DOSTEVE Ot R05 COUGH 09/21/2018 GELLENDER DO, STEVE Rod Ot R06.02 SHORTNESS OF BREATH Procedures Code Description [place] [address] INDIV PSYTX 45/50 MIN 05/30/2012 06249 INDIV PSYTX 45/50 MIN 06/16/2012 77005 INDIV PSYTX 45/50 MIN 07/04/2012 53441 INDIV PSYTX 45/50 MIN 07/19/2012 87922 PSYTX PT&/FAMILY 45 MINUTES 08/17/2012 50436 PSYTX PT&/FAMILY 45 MINUTES 08/31/2012 23337 PSYTX PT&/FAMILY 45 MINUTES 09/14/2012 30502 PSYTX PT&/FAMILY 45 MINUTES 09/28/2012 04916 PSYTX PT&/FAMILY 45 MINUTES 10/12/2012 27900 PSYTX PT&/FAMILY 45 MINUTES 10/26/2012 82315 PSYTX PT&/FAMILY 45 MINUTES 11/02/2012 43279 PSYTX PT&/FAMILY 45 MINUTES 11/28/2012 34139 PSYTX PT&/FAMILY 45 MINUTES 12/11/2012 95802 PSYTX PT&/FAMILY 45 MINUTES 12/26/2012 75408 PSYTX PT&/FAMILY 45 MINUTES 01/04/2013 17209 PSYTX PT&/FAMILY 45 MINUTES 01/25/2013 09484 PSYTX PT&/FAMILY 45 MINUTES 03/12/2013 32258 PSYTX PT&/FAMILY 45 MINUTES 03/22/2013 62041 PSYTX PT&/FAMILY 45 MINUTES 04/09/2013 59252 PSYTX PT&/FAMILY 45 MINUTES 04/20/2013 39097 PSYTX PT&/FAMILY 45 MINUTES 05/07/2013 11483 PSYTX PT&/FAMILY 45 MINUTES 06/18/2013 41133 PSYTX PT&/FAMILY 45 MINUTES 07/05/2013 44643 PSYTX PT&/FAMILY 30 MINUTES 07/18/2013 53002 PSYTX PT&/FAMILY 45 MINUTES 08/10/2013 06597 PSYTX PT&/FAMILY 45 MINUTES 09/03/2013 24303 PSYTX PT&/FAMILY 45 MINUTES 09/07/2013 28192 PSYTX PT&/FAMILY 45 MINUTES 10/04/2013 24415 PSYTX PT&/FAMILY 45 MINUTES 11/02/2013 95929 PSYTX PT&/FAMILY 45 MINUTES 11/22/2013 77743 PSYTX PT&/FAMILY 45 MINUTES 12/14/2013 63138 PSYTX PT&/FAMILY 45 MINUTES 01/23/2014 80480 PSYTX PT&/FAMILY 45 MINUTES 02/13/2014 09763 PSYTX PT&/FAMILY 45 MINUTES 03/18/2014 88153 PSYTX PT&/FAMILY 45 MINUTES 04/16/2014 83559 PSYTX PT&/FAMILY 45 MINUTES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
== END 2018-09-28 18:48 | disposition home or self-care (01) ==
LOC: EDUNIT# 16:44 → ER 16:45
DX: R10.32 Left lower quadrant pain (principal); J45.909 Unspecified asthma, uncomplicated; E78.00 Pure hypercholesterolemia, unspecified; I10 Essential (primary) hypertension; F81.9 Developmental disorder of scholastic skills, unspecified; K21.9 Gastro-esophageal reflux disease without esophagitis; E03.9 Hypothyroidism, unspecified; F41.9 Anxiety disorder, unspecified; F43.10 Post-traumatic stress disorder, unspecified; F31.9 Bipolar disorder, unspecified; F20.9 Schizophrenia, unspecified; Z87.891 Personal history of nicotine dependence; Z98.890 Other specified postprocedural states; Z90.89 Acquired absence of other organs
CPT/HCPCS: 36415; 74176; 80053; 80306; 80320; 81000; 83690; 85025

== ENCOUNTER 2019-07-12 17:41 | Emergency (ER) | payer MEDICAID ==
[~2019-07-12] VITALS: Ht 170.1 cm; Wt 106.8 kg
[~2019-07-12 17:41] MED LIST changes: -OMEP20CA12 PO; +OMEP20CA13 PO
--- NOTE | 2019-07-12 18:37 | Diagnostic Imaging Report ---
EXAMINATION: Left shoulder 2 or more views HISTORY: Shoulder pain COMPARISON: None available. FINDINGS: Alignment is normal. No fracture seen. Glenohumeral and acromioclavicular joints are normal. IMPRESSION: 1. Normal left shoulder radiographs. Dictated by: Dictated on workstation # [id number]
[2019-07-12] MEDS ORDERED: NAPR-1071 PO (18:47)
--- NOTE | 2019-07-12 18:48 | ED Upper Extremity ---
General Chief Complaint: Upper Extremity Stated Complaint: L SHOULDER PAIN Nursing Triage Note: PT TO ED W/ C/O LT SHOULDER PAIN ONSET X4 DAYS. REPORTS WAS MOVING A COUCH WHEN PAIN STARTED. NO OTHER C/O SINCE Nursing Sepsis Screen: No Definite Risk Source: patient Exam Limitations: no limitations History of Present Illness Date Seen by Provider: Jul 12, 2019 Time Seen by Provider: 18:30 Initial Comments Patient presents ER by private conveyance with chief complaint of lifting a couch on Tuesday, 4 days ago and having some pain in his left anterior shoulder since. He's never had a previous injury or surgery to the shoulder. No significant medical history. Does not use any Tylenol ibuprofen or topical creams. No numbness weakness. Allergies and Home Medications Allergies Coded Allergies: No Known Drug Allergies (Unverified , 07/24/16) Home Medications Amoxicillin/Potassium Clav 1 Each Tablet, 1 EACH PO BID Prescribed by: PETR DIAZ on 10/09/17 2212 Atorvastatin Calcium 10 Mg Tablet, 10 MG PO HS, (Reported) Hydrochlorothiazide 12.5 Mg Capsule, 12.5 MG PO DAILY, (Reported) Levothyroxine Sodium 50 Mcg Tablet, 50 MCG PO DAILY, (Reported) Loratadine 10 Mg Tablet, 10 MG PO DAILY, (Reported) Montelukast Sodium 10 Mg Tablet, 10 MG PO DAILY, (Reported) Oxcarbazepine 300 Mg Tablet, 300 MG PO DAILY, (Reported) Oxcarbazepine 600 Mg Tablet, 600 MG PO HS, (Reported) Pantoprazole Sodium 40 Mg Tablet.dr, 40 MG PO DAILY Prescribed by: FEDERICA ALVAREZ on 08/31/17 1302 Vilazodone Hydrochloride 20 Mg Tablet, 20 MG PO HS, (Reported) Patient Home Medication List Home Medication List Reviewed: Yes Review of Systems Constitutional: No chills, No diaphoresis EENTM: No ear discharge, No ear pain Respiratory: No cough, No short of breath Cardiovascular: No chest pain, No edema Gastrointestinal: No abdominal pain, No constipation, No diarrhea Past Uvpebjd-Nekiwn-Stbtrh Hx Patient Social History Alcohol Use: Occasionally Uses Alcohol Beverage of Choice: Beer Recreational Drug Use: No Smoking Status: Never a Smoker Type Used: Smokeless Tobacco Former Smoker, Quit: Aug 30, 2006 2nd Hand Smoke Exposure: No Recent Foreign Travel: No Contact w/Someone Who Travel: No Recent Infectious Disease Expo: No Recent Hopitalizations: No Physical Abuse: No Sexual Abuse: No Mistreated: No Fear: No Immunizations Up To Date Tetanus Booster (TDap): Unknown Date of Influenza Vaccine: May 03, 2017 Seasonal Allergies Seasonal Allergies: Yes Past Medical History Surgeries: Yes (nasal sx, R ankle ORIF, R hand ORIF, dental sx) Adenoidectomy, Tonsillectomy Respiratory: Yes Asthma Currently Using CPAP: No Currently Using BIPAP: No Cardiac: Yes High Cholesterol, Hypertension Neurological: Yes (Mild MR) Developmental Disorder Reproductive Disorders: No Sexually Transmitted Disease: No HIV/AIDS: No Genitourinary: No Gastrointestinal: Yes Gastroesophageal Reflux Musculoskeletal: No Endocrine: Yes Hypothyroidsim HEENT: No Cancer: No Psychosocial: Yes (MILD MR; MOOD DISORDER; MANIC EPISODES WITH PSYCHOSIS; SCHIZOAFFECTIVE DIS) Anxiety, PTSD, Bipolar, Schizophrenia, Depression Integumentary: No Blood Disorders: No Family Medical History No Pertinent Family Hx Physical Exam Vital Signs Vital Signs - First Documented 07/12/19 17:58 Temp 36.4 Pulse 69 Resp 18 B/P (MAP) 135/87 (103) Pulse Ox 97 O2 Delivery Room Air Capillary Refill : Less Than 3 Seconds Height, Weight, BMI Height: 5'9.00" Weight: 230lbs. 0oz. 104.835257vi; 36.00 BMI Method:Stated General Appearance: WD/WN, no apparent distress HEENT: PERRL/EOMI, pharynx normal Neck: full range of motion, normal inspection Cardiovascular: normal peripheral pulses, regular rate, rhythm Respiratory: no respiratory distress, no accessory muscle use Gastrointestinal: normal bowel sounds, non tender Shoulder: normal inspection, limited ROM (can lift the left arm about 70 abduction. Flexion and extension normal. Tenderness over the anterior acromioclavicular joint. No deformity) Elbow/Forearm: normal inspection, non-tender, no evidence of injury, normal ROM, Left Wrist: Yes normal inspection, Yes non-tender, Yes no evidence of injury Neurologic/Psychiatric: alert, normal mood/affect, oriented x 3 Progress/Results/Core Measures Results/Orders Vital Signs/I&O 07/12/19 17:58 Temp 36.4 Pulse 69 Resp 18 B/P (MAP) 135/87 (103) Pulse Ox 97 O2 Delivery Room Air Blood Pressure Mean: 103 POS Diagnostic Imaging Diagonstic Imaging: Xray Plain Films/CT/US/NM/MRI: other (left shoulder. 3 views) Comments NAME: PRAKASH SILVA [facility] REC#: [id number] PT STATUS: REG ER : 1985 PHYSICIAN: DONALD SHCWAB DO ADMIT DATE: 07/12/19/ER Draft POSDate of Exam:07/12/19 SHOULDER, LEFT, 3 VIEWS EXAMINATION: Left shoulder 2 or more views HISTORY: Shoulder pain COMPARISON: None available. FINDINGS: Alignment is normal. No fracture seen. Glenohumeral and acromioclavicular joints are normal. IMPRESSION: 1. Normal left shoulder radiographs. Dictated on workstation # [id number] Dict: 07/12/191834 Trans: 07/12/191835 [facility] [id number] Interpreted by: ABELINO PACE MD Electronically signed by: Reviewed: Reviewed by Me Departure Impression Primary Impression: Sprain of left acromioclavicular joint Disposition: 01 HOME, SELF-CARE Condition: Stable Departure-Patient Inst. Decision time for Depature: 18:45 Referrals: STEVE AGGARWAL DO (PCP/Family) Primary Care Physician Patient Instructions: How to Use a Shoulder Sling, Passive Range of Motion Exercises, Neck and Shoulders Add. Discharge Instructions: Ice for the first couple days followed by heat. Topical creams such as icy hot, Biofreeze or Aspercreme. Ibuprofen 800 mg 3 times a day on a schedule. Alternatively you can use nap roxen/Aleve 2 tablets twice a day on a schedule. Tylenol 1000 mg every 8 hours as needed for pain. Follow-up in one to [address] Aggarwal for reexamination. All discharge instructions reviewed with patient and/or family. Voiced understanding. Scripts Naproxen (Naprosyn) 500 Mg Tablet 500 MG PO BID, #30 TAB 0 Refills Prov: GRACE DELEON 07/12/19 Work/School Note: Work Release Form Date Seen in the Emergency Department: Jul 12, 2019 Return to Work: Jul 13, 2019 Restrictions: Need Release from Doctor Other Restrictions Listed Below: No lifting with left arm until 12/18/19. Restrictions: No more than 20 pounds with left arm until 07/25/19. GRACE DELEON J Jul 12, 2019 18:48 POS
[2019-07-12 18:51] VITALS: BP 0/0
--- NOTE | 2019-07-12 18:51 | NUR ---
PT ET CARE STAFF DISCHARGED TO HOME W/ SLING ET INSTR. RX SENT TO PHARMACY. PT TO P/U W/ PCP ET RETURN IF SYMPTOMS CHANGE OR GET WORSE. UNDERSTANDING VOICED.
== END 2019-07-12 18:51 | disposition home or self-care (01) ==
LOC: EDUNIT# 17:41 → ER 17:42
DX: S43.52XA Sprain of left acromioclavicular joint, initial encounter (principal); I10 Essential (primary) hypertension; E78.00 Pure hypercholesterolemia, unspecified; J45.909 Unspecified asthma, uncomplicated; F41.9 Anxiety disorder, unspecified; F43.10 Post-traumatic stress disorder, unspecified; F31.9 Bipolar disorder, unspecified; F20.9 Schizophrenia, unspecified; F70 Mild intellectual disabilities; K21.9 Gastro-esophageal reflux disease without esophagitis; E03.9 Hypothyroidism, unspecified; Z90.89 Acquired absence of other organs; Z87.891 Personal history of nicotine dependence; X50.0XXA Overexertion from strenuous movement or load, initial encounter
CPT/HCPCS: 73030

== ENCOUNTER 2019-09-18 21:12 | Emergency (ER) | payer MEDICAID ==
[~2019-09-18] VITALS: Ht 170 cm; Wt 108.0 kg
[~2019-09-18 21:12] MED LIST changes: +NAPR-1071 PO; +OMEP-280 PO; -OMEP20CA13 PO
--- NOTE | 2019-09-18 22:11 | ED GI ---
General Stated Complaint: VOMITTING,CHILLS,COUOGH, Source of Information: Patient Exam Limitations: No Limitations (AMILCAR LEVY MEDICAL STUDENT) History of Present Illness Date Seen by Provider: Sep 18, 2019 Time Seen by Provider: 22:00 Initial Comments Pt is a 33 yo M who ambulates to the ED complaining of vomiting, cough, and feeling cold that started some 4-6 hours before arrival. He has vomited about 6 times. He as been unable to tolerate oral intake. He denies abdominal pain, diarrhea, constipation, dysuria, SOB, congestion, runny nose, POND, myalgias, arthralgias. He has not taken anything at home for his symptoms. He denies sick contacts at home or work. Timing/Duration: 4-6 Hours Severity/Quality: Other (denies pain) Location: Other (denies) Radiation: Other (denies) Activities at Onset: None Associated Symptoms: No Diaphoresis, No Fever/Chills, No Headache; Nausea/Vomiting (AMILCAR LEVY MEDICAL STUDENT) Allergies and Home Medications Allergies Coded Allergies: No Known Drug Allergies (Unverified , 07/24/16) Home Medications Amoxicillin/Potassium Clav 1 Each Tablet, 1 EACH PO BID Prescribed by: PETR DIAZ on 10/09/172211 Atorvastatin Calcium 10 Mg Tablet, 10 MG PO HS, (Reported) Hydrochlorothiazide 12.5 Mg Capsule, 12.5 MG PO DAILY, (Reported) Levothyroxine Sodium 50 Mcg Tablet, 50 MCG PO DAILY, (Reported) Loratadine 10 Mg Tablet, 10 MG PO DAILY, (Reported) Montelukast Sodium 10 Mg Tablet, 10 MG PO DAILY, (Reported) Naproxen 500 Mg Tablet, 500 MG PO BID Prescribed by: GRACE DELEON on 07/12/19 1847 Ondansetron 4 Mg Tab.rapdis, 4 MG SL Q4H PRN for NAUSEA/VOMITING Prescribed by: LA NENA ANN on 09/18/19 2315 Oxcarbazepine 300 Mg Tablet, 300 MG PO DAILY, (Reported) Oxcarbazepine 600 Mg Tablet, 600 MG PO HS, (Reported) Pantoprazole Sodium 40 Mg Tablet.dr, 40 MG PO DAILY Prescribed by: FEDERICA ALVAREZ on 08/31/17 1302 Vilazodone Hydrochloride 20 Mg Tablet, 20 MG PO HS, (Reported) Patient Home Medication List Home Medication List Reviewed: Yes (AMILCAR LEVY MEDICAL STUDENT) Review of Systems Review of Systems Constitutional: chills; No diaphoresis, No fever, No malaise EENTM: No Nose Congestion, No Throat Pain, No Throat Swelling Respiratory: Cough; Denies Shortness of Air Cardiovascular: Denies Chest Pain, Denies Irregular Heart Rate Gastrointestinal: Denies Abdominal Pain, Denies Constipated, Denies Diarrhea; Nausea, Vomiting Genitourinary: Denies Burning, Denies Urgency Musculoskeletal: No joint pain, No muscle pain Skin: no symptoms reported Psychiatric/Neurological: No Symptoms Reported Endocrine: No Symptoms Reported Hematologic/Lymphatic: Denies Swollen Glands (AMILCAR LEVY MEDICAL STUDENT) Past Rqvtujs-Fclnkr-Toyaox Hx Patient Social History Alcohol Beverage of Choice: Beer Type Used: Smokeless Tobacco Former Smoker, Quit: Aug 30, 2006 2nd Hand Smoke Exposure: No Recent Foreign Travel: No Contact w/Someone Who Travel: No Recent Hopitalizations: No (AMILCAR LEVY MEDICAL STUDENT) Immunizations Up To Date Tetanus Booster (TDap): Unknown Date of Influenza Vaccine: May 03, 2017 (AMILCAR LEVY MEDICAL STUDENT) Seasonal Allergies Seasonal Allergies: Yes (AMILCAR LEVY MEDICAL STUDENT) Past Medical History Surgeries: Yes (nasal sx, R ankle ORIF, R hand ORIF, dental sx) Adenoidectomy, Tonsillectomy Respiratory: Yes Asthma Currently Using CPAP: No Currently Using BIPAP: No Cardiac: Yes High Cholesterol, Hypertension Neurological: Yes (Mild MR) Developmental Disorder Reproductive Disorders: No Sexually Transmitted Disease: No HIV/AIDS: No Genitourinary: No Gastrointestinal: Yes Gastroesophageal Reflux Musculoskeletal: No Endocrine: Yes Hypothyroidsim HEENT: No Cancer: No Psychosocial: Yes (MILD MR; MOOD DISORDER; MANIC EPISODES WITH PSYCHOSIS; SCHIZOAFFECTIVE DIS) Anxiety, PTSD, Bipolar, Schizophrenia, Depression Integumentary: No Blood Disorders: No (AMILCAR LEVY MEDICAL STUDENT) Family Medical History No Pertinent Family Hx (AMILCAR LEVY STUDENT) Physical Exam Vital Signs Vital Signs - First Documented 09/18/19 21:50 Temp 36.7 Pulse 82 Resp 18 B/P (MAP) 155/119 (131) Pulse Ox 97 O2 Delivery Room Air (LA NENA VALERA MD) Vital Signs Capillary Refill : (AMILCAR LEVY MEDICAL STUDENT) Height/Weight/BMI Height: 5'9.00" Weight: 230lbs. 0oz. 104.823611dp; 36.00 BMI Method:Stated General Appearance: WD/WN, no apparent distress HEENT: pharyngeal erythema; No tonsillar exudate Neck: non-tender, full range of motion, supple, normal inspection; No lymphadenopathy (R), No lymphadenopathy (L) Respiratory: chest non-tender, lungs clear, normal breath sounds, no respiratory distress Cardiovascular: regular rate, rhythm, no edema, no gallop, no murmur Gastrointestinal: normal bowel sounds, soft, no organomegaly; No distended, No guarding, No rebound; tenderness (LLQ) Extremities: normal range of motion, non-tender Neurologic/Psychiatric: alert, oriented x 3 Skin: normal color, warm/dry Lymphatic: no adenopathy (AMILCAR LEVY MEDICAL STUDENT) Progress/Results/Core Measures Results/Orders Micro Results Microbiology 09/18/19 Influenza Types A,B Antigen (TONO) - Final, Complete (LA NENA VALERA MD) My Orders Orders - LA NENA VALERA MD Ondansetron Oral Dissolve Tab (Zofran (09/18/19 22:15) (LA NENA VALERA MD) Medications Given in ED (LA NENA VALERA MD) Vital Signs/I&O 09/18/19 09/18/19 21:50 23:29 Temp 36.7 36.7 Pulse 82 78 Resp 18 18 B/P (MAP) 155/119 (131) 145/92 (131) Pulse Ox 97 97 O2 Delivery Room Air Room Air (LA NENA VALERA MD) Departure Impression Primary Impression: Nausea and vomiting Qualified Codes: R11.2 - Nausea with vomiting, unspecified Disposition: 01 HOME, SELF-CARE Condition: Improved Departure-Patient Inst. Decision time for Depature: 23:13 (LA NENA VALERA MD) Referrals: STEVE AGGARWAL DO (PCP/Family) Primary Care Physician Patient Instructions: Nausea and Vomiting, Adult (DC) Add. Discharge Instructions: Drink plenty of clear liquids. Adhere to a clear liquid diet tonight. Tomorrow morning he may gradually advance your diet with small quantities of bland food as tolerated. You may use Zofran (ondansetron) as prescribed for further nausea and vomiting. Return to care if you have worsening symptoms despite following these recommendations. Scripts Ondansetron (Ondansetron Odt) 4 Mg Tab.rapdis 4 MG SL Q4H PRN for NAUSEA/VOMITING, #10 TAB Prov: LA NENA VALERA MD 09/18/19 I personally interviewed and examined this patient as well as interviewed his worker from [employer]. I agree with MS 4 history, physical, assessment, and documentation with the following additions and changes. Patient presents with multiple episodes of vomiting tonight. He denies other symptoms such as fever, abdominal pain, or diarrhea. He cannot identify any triggers such as new medications. Exam: Gen.: Alert, oriented, no acute distress HEENT: Normocephalic and atraumatic, mucous membranes moist, Heart: Regular rate and rhythm without murmur Lungs: Clear to auscultation bilaterally with normal effort Abdomen: Soft, nontender, nondistended, normal bowel sounds Extremities: Normal to inspection Skin: Warm and dry Neuro/psych: Alert, oriented, no focal deficits I discussed options with patient. He elects trying oral therapy with Zofran. Zofran 8 mg sublingual was given. Patient no longer had nausea and was able to drink. Vital signs were stable. He was dismissed home in good condition. (LA NENA VALERA MD) AMILCAR LEVY MEDICAL STUDENT Sep 18, 2019 22:11 LA NENA VALERA MD Sep 18, 2019 23:15
[2019-09-18] MEDS ORDERED: ONDANSETRON 4 MG (ZOFRAN) ORAL DISSOLVE TAB SL ONE (22:15)
[2019-09-18] MEDS ORDERED: ONDA4TAB11 SL (23:15)
[2019-09-18 23:29] VITALS: BP 145/92
== END 2019-09-18 23:30 | disposition home or self-care (01) ==
LOC: EDUNIT# 21:12 → ER 21:13
DX: R11.2 Nausea with vomiting, unspecified (principal); J45.909 Unspecified asthma, uncomplicated; I10 Essential (primary) hypertension; E78.00 Pure hypercholesterolemia, unspecified; K21.9 Gastro-esophageal reflux disease without esophagitis; E03.9 Hypothyroidism, unspecified; F41.9 Anxiety disorder, unspecified; F31.9 Bipolar disorder, unspecified
CPT/HCPCS: 87804

== ENCOUNTER 2019-09-22 03:14 | Emergency (ER) | payer MEDICAID ==
[~2019-09-22] VITALS: Ht 170 cm; Wt 108.0 kg
[~2019-09-22 03:14] MED LIST changes: -MONT10TA24 PO; +MONT10TA26 PO; -OMEP-280 PO; +OMEP20CA18 PO; +ONDA4TAB11 SL
[2019-09-22] MEDS ORDERED: TETANUS,DIPTH,PERTUSS P/F (BOOSTRIX) 0.5 ML VIAL IM ONE (03:30)
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
--- NOTE | 2019-09-22 03:38 | NUR ---
PT STATES "I JUST WANT TO GO HOME AND SLEEP" MX TIMES. DISCUSSED WITH PT MX TIMES THE BENEFITS OF BOOSTRIX SHOT, XRAYS, AND CT SCAN. PT VERBALIZED UNDERSTANDING BUT STATED AGAIN, "I WOULD RATHER JUST GO HOME AND SLEEP." DR. DELEON NOTIFIED. AMA FORM SIGNED.
[2019-09-22 03:39] VITALS: BP 149/111
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
== END 2019-09-22 03:39 | disposition left against medical advice (07) ==
LOC: EDUNIT# 03:14 → ER 03:16
DX: S06.0X1A Concussion with loss of consciousness of 30 minutes or less, initial encounter (principal); S80.212A Abrasion, left knee, initial encounter; I10 Essential (primary) hypertension; E78.00 Pure hypercholesterolemia, unspecified; G40.909 Epilepsy, unspecified, not intractable, without status epilepticus; J45.909 Unspecified asthma, uncomplicated; K21.9 Gastro-esophageal reflux disease without esophagitis; E03.9 Hypothyroidism, unspecified; F41.9 Anxiety disorder, unspecified; F31.9 Bipolar disorder, unspecified; R40.2142 Coma scale, eyes open, spontaneous, at arrival to emergency department; R40.2252 Coma scale, best verbal response, oriented, at arrival to emergency department; R40.2362 Coma scale, best motor response, obeys commands, at arrival to emergency department; Y04.8XXA Assault by other bodily force, initial encounter
CPT/HCPCS: 99283

== ENCOUNTER 2019-11-12 11:22 | Outpatient (RCR) | payer MEDICAID | END 2019-11-20 14:50 | disposition home or self-care (01) | PROVIDERS: ATTEND Nurse Practitioner | DX: S43.432A Superior glenoid labrum lesion of left shoulder, initial encounter (principal); M75.42 Impingement syndrome of left shoulder; M24.512 Contracture, left shoulder; K21.9 Gastro-esophageal reflux disease without esophagitis; J45.909 Unspecified asthma, uncomplicated; F32.9 Major depressive disorder, single episode, unspecified ==

== ENCOUNTER 2022-01-01 02:42 | Emergency (ER) | payer MEDICAID ==
[~2022-01-01] VITALS: Ht 170 cm; Wt 108.0 kg
[~2022-01-01 02:42] MED LIST changes: -DOXY100C2; +DOXY100C5; +MONT-40 PO; -MONT10TA26 PO
[2022-01-01] MEDS ORDERED: ONDA4TAB11 PO (02:59)
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
[2022-01-01] MEDS ORDERED: ONDANSETRON 4 MG (ZOFRAN) ORAL DISSOLVE TAB PO ONE (03:15)
[2022-01-01 04:25] VITALS: BP 139/87
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
== END 2022-01-01 04:26 | disposition home or self-care (01) ==
LOC: EDUNIT# 02:42 → ER 02:43
DX: S06.0X1A Concussion with loss of consciousness of 30 minutes or less, initial encounter (principal); S05.12XA Contusion of eyeball and orbital tissues, left eye, initial encounter; Y04.0XXA Assault by unarmed brawl or fight, initial encounter
CPT/HCPCS: 70450; 70486; 72125

== ENCOUNTER 2022-08-06 13:46 | Emergency (ER) | payer MEDICAID ==
[~2022-08-06] VITALS: Ht 170.2 cm; Wt 91.0 kg
[~2022-08-06 13:46] MED LIST changes: +ONDA4TAB11 PO
--- NOTE | 2022-08-06 14:03 | ED Chest Pain ---
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 also c/o dry cough Source: patient Exam Limitations: no limitations (MAGDALENA FORRESTER) History of Present Illness Date Seen by Provider: Aug 06, 2022 Time Seen by Provider: 13:57 Initial Comments 36 M with pmh of HTN HLD presents to ER with 2 day hx of substernal chest pain. Pain is characterized as intermittent sharp rated 5/10 and non radiating that is worsened with coughing and exertion. Pt reports never feeling a sensation like this before. Denies previous cardiac hx or fam hx. Denies any diaphoresis, palpitations, nausea, vomiting, SOB, or reflux symptoms. Pt unable to state anything to make it better. Notes over the past 2 days have been stressful and roommate has called the mental health practitioner multiple times on him. Admits to marijuana use and has a hx of cocaine abuse. Timing/Duration: 1-2 days Severity/Quality: moderate, sharp Location: substernal Radiation: no radiation Activities at Onset: activity Prior CP/Workup: no prior chest pain Modifying Factors: improves with coughing; worse with palpation ASA po AIR POLLUTION ENGINEER: No NTG SL AIR POLLUTION ENGINEER: No Associated Symptoms: No abdominal pain, No back pain, No diaphoresis, No dizziness, No headache, No heartburn, No shortness of breath, No syncope (MAGDALENA FORRESTER) Allergies and Home Medications Allergies Coded Allergies: No Known Drug Allergies (Unverified , 07/24/16) Patient Home Medication List Home Medication List Reviewed: Yes (MAGDALENA FORRESTER) Amoxicillin/Potassium Clav (Augmentin 875-125 Tablet) 1 Each Tablet, 1 EACH PO BID Prescribed by: PETR DIAZ on 10/09/172211 Atorvastatin Calcium (Atorvastatin Calcium) 10 Mg Tablet, 10 MG PO HS, (Reported) Entered as Reported by: KRIS DAVIES on 01/25/17 223 Hydrochlorothiazide (Hydrochlorothiazide) 12.5 Mg Capsule, 12.5 MG PO DAILY, (Reported) Entered as Reported by: KRIS DAVIES on 01/25/17 2301 Levothyroxine Sodium (Levothyroxine Sodium) 50 Mcg Tablet, 50 MCG PO DAILY, (Reported) Entered as Reported by: KRIS DAVIES on 01/25/172300 Loratadine (Loratadine) 10 Mg Tablet, 10 MG PO DAILY, (Reported) Entered as Reported by: KRIS DAVIES on 01/25/172300 Montelukast Sodium (Montelukast Sodium) 10 Mg Tablet, 10 MG PO DAILY, (Reported) Entered as Reported by: KRIS DAVIES on 01/25/172300 Naproxen (Naprosyn) 500 Mg Tablet, 500 MG PO BID Prescribed by: GRACE DELEON on 07/12/19 1847 Ondansetron (Ondansetron Odt) 4 Mg Tab.rapdis, 4 MG SL Q4H PRN for NAUSEA/VOMITING Prescribed by: LA NENA ANN on 09/18/19 231 Ondansetron (Ondansetron Odt) 4 Mg Tab.rapdis, 4 MG PO Q6H PRN for NAUSEA/VOMITING Prescribed by: GRACE DELEON on 01/01/22 0259 Oxcarbazepine (Oxcarbazepine) 300 Mg Tablet, 300 MG PO DAILY, (Reported) Entered as Reported by: KRIS DAVIES on 01/25/172300 Oxcarbazepine (Oxcarbazepine) 600 Mg Tablet, 600 MG PO HS, (Reported) Entered as Reported by: KRIS DAVIES on 01/25/172300 Pantoprazole Sodium (Protonix) 40 Mg Tablet.dr, 40 MG PO DAILY Prescribed by: FEDERICA ALVAREZ on 08/31/17 1302 Vilazodone Hydrochloride (Viibryd) 20 Mg Tablet, 20 MG PO HS, (Reported) Entered as Reported by: KRIS DAVIES on 01/25/172300 Review of Systems Review of Systems Constitutional: No chills, No diaphoresis EENTM: No Blurred Vision, No Throat Pain Respiratory: Cough; Denies Shortness of Air Cardiovascular: Chest Pain; Denies Edema, Denies Irregular Heart Rate, Denies Lightheadedness, Denies Palpitations Gastrointestinal: Denies Abdomen Distended, Denies Abdominal Pain, Denies Diarrhea, Denies Nausea Genitourinary: Denies Frequency, Denies Flank Pain Musculoskeletal: No back pain Skin: No change in color, No lesions, No lumps Psychiatric/Neurological: Denies Anxiety, Denies Depressed; Other (phm of behavioral disorder) Endocrine: Denies Excessive Sweating, Denies Flushing Hematologic/Lymphatic: Denies Blood Clots (MAGDALENA FORRESTER) Past Gcetwok-Daghrx-Edtqzq Hx Patient Social History Tobacco Use?: No Substance use?: Yes Substance type: Marijuana Alcohol Use?: Yes Alcohol Frequency: Once in a while (MAGDALENA FORRESTER) Immunizations Up To Date Tetanus Booster (TDap): Unknown Influenza Vaccine Up-to-Date: No; Not Current (MAGDALENA FORRESTER) Seasonal Allergies Seasonal Allergies: Yes (MAGDALENA FORRESTER) Past Medical History Surgery/Hospitalization HX: NASAL SX, RIGHT ANKLE ORIF, RIGHT HAND, T/A HYPOTHRYOIDISM, HIGH CHOLESTEROL, ASTHMA, HTN, SCHIZOAFFECTIVE D/O, ANX/DEP, BIPOLAR. Surgeries: Yes (nasal sx, R ankle ORIF, R hand ORIF, dental sx) Adenoidectomy, Tonsillectomy Respiratory: Yes Asthma Currently Using CPAP: No Currently Using BIPAP: No Cardiac: Yes High Cholesterol, Hypertension Neurological: Yes (Mild MR) Developmental Disorder Reproductive Disorders: No Sexually Transmitted Disease: No HIV/AIDS: No Genitourinary: No Gastrointestinal: Yes Gastroesophageal Reflux Musculoskeletal: No Endocrine: Yes Hypothyroidsim HEENT: No Cancer: No Psychosocial: Yes (MILD MR; MOOD DISORDER; MANIC EPISODES WITH PSYCHOSIS; SCHIZOAFFECTIVE DIS) Anxiety, PTSD, Bipolar, Schizophrenia, Depression Integumentary: No Blood Disorders: No (MAGDALENA FORRESTER) Family Medical History No Pertinent Family Hx (MAGDALENA FORRESTER) Physical Exam Vital Signs Vital Signs - First Documented 08/06/22 08/06/22 13:50 15:18 Temp 35.8 Pulse 92 Resp 18 B/P (MAP) 173/105 (127) Pulse Ox 98 O2 Delivery Room Air (DILSHAD YOON MD) Vital Signs Capillary Refill : Less Than 3 Seconds (MAGDALENA FORRESTER) Height, Weight, BMI Height: 5'9.00" Weight: 230lbs. 0oz. 104.352399ys; 31.00 BMI Method:Stated General Appearance: No Apparent Distress, WD/WN HEENT: PERRL/EOMI Neck: Normal Inspection, Non Tender, Supple Respiratory: Lungs Clear, Normal Breath Sounds, No Accessory Muscle Use, No Respiratory Distress, Other (chest non-tender to palpation) Cardiovascular: Regular Rate, Rhythm, No Murmur, Normal Peripheral Pulses Gastrointestinal: Normal Bowel Sounds, No Organomegaly, No Pulsatile Mass, Non Tender, Soft Extremity: Normal Capillary Refill, Normal Inspection, Normal Range of Motion, Non Tender, No Calf Tenderness, No Pedal Edema Neurologic/Psychiatric: Alert, Oriented x3 Skin: Normal Color, Warm/Dry Lymphatic: No Adenopathy (SAUCE,MAGDALENA) Progress/Results/Core Measures Results/Orders Lab Results Laboratory Tests Test 08/06/22 13:56 Range/Units White Blood Count 6.2 4.3-11.0 10^3/uL Red Blood Count 5.48 4.30-5.52 10^6/uL Hemoglobin 16.4 13.3-17.7 g/dL Hematocrit 45 40-54 % Mean Corpuscular Volume 83 80-99 fL Mean Corpuscular Hemoglobin 30 25-34 pg Mean Corpuscular Hemoglobin Concent 36 32-36 g/dL Red Cell Distribution Width 11.5 10.0-14.5 % Platelet Count 299 130-400 10^3/uL Mean Platelet Volume 8.9 L 9.0-12.2 fL Immature Granulocyte % (Auto) 0 % Neutrophils (%) (Auto) 71 42-75 % Lymphocytes (%) (Auto) 19 12-44 % Monocytes (%) (Auto) 8 0-12 % Eosinophils (%) (Auto) 2 0-10 % Basophils (%) (Auto) 0 0-10 % Neutrophils # (Auto) 4.4 1.8-7.8 10^3/uL Lymphocytes # (Auto) 1.2 1.0-4.0 10^3/uL Monocytes # (Auto) 0.5 0.0-1.0 10^3/uL Eosinophils # (Auto) 0.1 0.0-0.3 10^3/uL Basophils # (Auto) 0.0 0.0-0.1 10^3/uL Immature Granulocyte # (Auto) 0.0 0.0-0.1 10^3/uL Prothrombin Time 13.2 12.2-14.7 SEC INR Comment 1.0 0.8-1.4 Activated Partial Thromboplast Time 32 24-35 SEC Sodium Level 140 135-145 MMOL/L Potassium Level 3.4 L 3.6-5.0 MMOL/L Chloride Level 102 98-107 MMOL/L Carbon Dioxide Level 27 21-32 MMOL/L Anion Gap 11 5-14 MMOL/L Blood Urea Nitrogen 10 7-18 MG/DL Creatinine 1.09 0.60-1.30 MG/DL Estimat Glomerular Filtration Rate 91 BUN/Creatinine Ratio 9 Glucose Level 109 H 70-105 MG/DL Calcium Level 9.8 8.5-10.1 MG/DL Corrected Calcium 8.5-10.1 MG/DL Magnesium Level 1.6 1.6-2.4 MG/DL Total Bilirubin 0.6 0.1-1.0 MG/DL Aspartate Amino Transf (AST/SGOT) 24 5-34 U/L Alanine Aminotransferase (ALT/SGPT) 21 0-55 U/L Alkaline Phosphatase 113 40-136 U/L Myoglobin 72.9 10.0-92.0 NG/ML Troponin I < 0.028 <0.028 NG/ML Total Protein 8.3 H 6.4-8.2 GM/DL Albumin 5.0 H 3.2-4.5 GM/DL (DILSHAD YOON MD) My Orders Orders - DILSHAD YOON MD Ekg Tracing (08/06/22 13:49) Chest 1 View, Ap/Pa Only (08/06/22 14:02) Cbc With Automated Diff (08/06/22 14:09) Magnesium (08/06/22 14:09) Comprehensive Metabolic Panel (08/06/22 14:09) Myoglobin Serum (08/06/22 14:09) Protime With Inr (08/06/22 14:09) Partial Thromboplastin Time (08/06/22 14:09) O2 (08/06/22 14:09) Monitor-Rhythm Ecg Trace Only (08/06/22 14:09) Ed Iv/Invasive Line Start (08/06/22 14:09) Troponin I [place] (08/06/22 14:09) Aspirin Chewable Tablet (Baby Aspirin Ch (08/06/22 14:15) (DILSHAD YOON MD) Medications Given in ED (DILSHAD YOON MD) Vital Signs/I&O 08/06/22 08/06/22 13:50 15:18 Temp 35.8 Pulse 92 71 Resp 18 16 B/P (MAP) 173/105 (127) 145/91 Pulse Ox 98 97 O2 Delivery Room Air (DILSHAD YOON MD) Blood Pressure Mean: 127 Progress Progress Note : Time: 13:23 Progress Note Patient seen and examined but me. I have reviewed the medical students documentation and I agree. Patient with waxing and waning chest pain - mid sternal for 2-3 days. No provocative features. No associated symptoms. History of smoking. Non radiating pain. at a "5" currently. No medications in the last 2-3 days for the pain. Lives at [place]. No personal history of CAD. No family history of early CAD. Work up today includes "chest pain" protocol. CBC normal, Chem 12 normal, Troponin undetectable; coag profile normal. EKG is reviewed by me and normal. Chest xray read by radiologist, no acute findings. No concerns for infectious process, anemia, electrolyte imbalance. Troponin negative. This in light of "pain" since about 9am. As his pain has been ongoing longer than 4 hours, 1 troponin measurement is sufficient to rule out ACS. Patient had complete relief of pain with 324mg aspirin. WIll be discharged home with return precautions. He verbalizes understanding. All questions are sought and answered. (DILSHAD YOON MD) Initial ECG Impression Date: Aug 06, 2022 Initial ECG Impression Time: 13:55 Initial ECG Rate: 89 Initial ECG Rhythm: Normal Sinus Initial ECG Intervals: Normal Initial ECG Impression: Normal (DILSHAD YOON MD) Diagnostic Imaging Diagonstic Imaging: Xray Plain Films/CT/US/NM/MRI: chest Comments [facility]. [place], [place] NAME: PRAKASH SILVA REC#: [id number] PT STATUS: REG ER : 1985 PHYSICIAN: DILSHAD YOON MD ADMIT DATE: 08/06/22/ER Draft Date of Exam:08/06/22 CHEST 1 VIEW, AP/PA ONLY CLINICAL INDICATION: Patient with chest pain. EXAM: Portable chest x-ray upright view. COMPARISON: Chest x-ray dated 09/03/2017. FINDINGS: Lungs/pleura: Lungs are clear. There is no pneumothorax. There is no pleural effusion. Mediastinum: Unremarkable. Pulmonary vasculature: Unremarkable. Heart: Unremarkable. Bones/extrathoracic soft tissue: Unremarkable. IMPRESSION: There is no radiographic evidence of acute cardiopulmonary process. Dictated on workstation # [id number] Dict: 08/06/22 1410 Trans: 08/06/[address] [facility] [id number] Interpreted by: TANESHA OCONNOR MD Electronically signed by: (DILSHAD YOON MD) Departure Impression Primary Impression: Chest pain Qualified Codes: R07.9 - Chest pain, unspecified Disposition: 01 HOME, SELF-CARE Condition: Improved Departure-Patient Inst. Decision time for Depature: 15:27 (DILSHAD YOON MD) Referrals: [facility] (PCP/Family) Primary Care Physician Patient Instructions: Chest Pain That Is Not Caused by the Heart (DC) Add. Discharge Instructions: Continue your daily medications as prescribed. If you have a return of chest pain, especially with fever, shortness of breath or any other emergent, concerning symptoms - please come back to the Emergency Department for re-evaluation. Please follow up with [facility]. Verification and Attestation of Medical Student E/M Service A medical student performed and documented this service in my presence. I reviewed and verified all information documented by the medical student and made modifications to such information, when appropriate. I personally performed the physical exam and medical decision making. Dilshad Yoon, Aug 06, 2022,15:29 (DILSHAD YOON MD) Copy Copies To 1: JANIE GALDAMEZ DAULTON Aug 06, 2022 14:03 DILSHAD YOON MD Aug 06, 2022 14:50
--- NOTE | 2022-08-06 14:14 | Diagnostic Imaging Report ---
CLINICAL INDICATION: Patient with chest pain. EXAM: Portable chest x-ray upright view. COMPARISON: Chest x-ray dated 09/03/2017. FINDINGS: Lungs/pleura: Lungs are clear. There is no pneumothorax. There is no pleural effusion. Mediastinum: Unremarkable. Pulmonary vasculature: Unremarkable. Heart: Unremarkable. Bones/extrathoracic soft tissue: Unremarkable. IMPRESSION: There is no radiographic evidence of acute cardiopulmonary process. Dictated by: Dictated on workstation # [id number]
[2022-08-06] MEDS ORDERED: ASPIRIN 81 MG CHEW (CHILDREN'S ASA) PO ONE (14:15)
[2022-08-06 14:19] LABS: BASOPHILS % (AUTO) 0 % (0-10); EOSINOPHILS # (AUTO) 0.1 10^3/uL (0.0-0.3); EOSINOPHILS % (AUTO) 2 % (0-10); HEMATOCRIT 45 % (40-54); HEMOGLOBIN 16.4 g/dL (13.3-17.7); LYMPHOCYTES # (AUTO) 1.2 10^3/uL (1.0-4.0); LYMPHOCYTES % (AUTO) 19 % (12-44); MEAN CORPUSCULAR HEMOGLOBIN 30 pg (25-34); MEAN CORPUSCULAR HGB CONC 36 g/dL (32-36); MEAN CORPUSCULAR VOLUME 83 fL (80-99); MEAN PLATELET VOLUME 8.9 fL (9.0-12.2); MONOCYTES # (AUTO) 0.5 10^3/uL (0.0-1.0); MONOCYTES % (AUTO) 8 % (0-12); NEUTROPHILS # (AUTO) 4.4 10^3/uL (1.8-7.8); NEUTROPHILS % (AUTO) 71 % (42-75); PLATELET COUNT 299 10^3/uL (130-400); WHITE BLOOD COUNT 6.2 10^3/uL (4.3-11.0)
[2022-08-06 14:28] LABS: ALANINE AMINOTRANSFERASE 21 U/L (0-55); ALKALINE PHOSPHATASE 113 U/L (40-136); BILIRUBIN,TOTAL 0.6 MG/DL (0.1-1.0); BUN/CREATININE RATIO 9; CALCIUM 9.8 MG/DL (8.5-10.1); CARBON DIOXIDE 27 MMOL/L (21-32); CHLORIDE 102 MMOL/L (98-107); CREATININE SERUM 1.09 MG/DL (0.60-1.30); GFR ESTIMATED 91; GLUCOSE 109 MG/DL (70-105); MAGNESIUM 1.6 MG/DL (1.6-2.4); POTASSIUM 3.4 MMOL/L (3.6-5.0); SODIUM 140 MMOL/L (135-145); TOTAL PROTEIN 8.3 GM/DL (6.4-8.2)
[2022-08-06 14:38] LABS: PROTHROMBIN TIME PATIENT 13.2 SEC (12.2-14.7)
[2022-08-06 15:18] VITALS: BP 145/91
== END 2022-08-06 15:38 | disposition home or self-care (01) ==
LOC: EDUNIT# 13:46 → ER 13:49
DX: R07.2 Precordial pain (principal); Z87.891 Personal history of nicotine dependence; Z28.310 Unvaccinated for COVID-19
CPT/HCPCS: 36415; 71045; 80053; 83735; 83874; 84484; 85025; 85610; 85730; 93005; 93041